=== PATIENT | male | born 1960 | race Caucasian/White ===

== ENCOUNTER 2016-09-04 17:22 | Emergency (ER) | payer MEDICARE, MEDICAID ==
[2016-09-04 17:36] VITALS: BP 153/83
[2016-09-04] MEDS ORDERED: Diphtheria/Tetanus Toxoids,Adult (Td) 0.5 ML SDV IM ONE (18:06)
--- NOTE | 2016-09-04 18:12 | EDM.PDOC ---
ED HPI GENERAL MEDICAL PROBLEM - General Chief Complaint: General Stated Complaint: PAIN IN TOES Time Seen by Provider: 09/04/16 17:30 Source of Information: Reports: Patient - History of Present Illness INITIAL COMMENTS - FREE TEXT/NARRATIVE: Patient comes in with concerns to the right foot. He notes they are discolored and funny drainage. Sometimes are sore when walking. Denies any injury. He notes they have looked different for a few weeks but the skin came off today and he was concerned. He wonders if his shoes are too tight. No pain or fever. He has tried lotion to his feet. He denies being a diabetic. His sister in law Sarah is his real estate underwriter. He does have Schizophrenia and follows with Dr. Bhatt and Dr. Nagel. Onset Date: 08/14/16 Right 3-Middle toe Pain Score (Numeric/FACES): 3 - Related Data Allergies Allergy/AdvReac Type Severity Reaction Status Date / Time No Known Allergies Allergy Verified 09/04/16 17:35 Home Meds: Home Meds Cyclobenzaprine HCl 10 mg PO BEDTIME PRN 05/15/15 [History] Esomeprazole [NexIUM] 40 mg PO DAILY 05/15/15 [History] atorvaSTATin Calcium [Atorvastatin Calcium] 40 mg PO QPM 05/15/15 [History] cloZAPine [Clozapine] 200 mg PO DAILY 05/15/15 [History] Mirtazapine [Mirtazapine] 15 mg PO QPM 12/04/15 [History] cloZAPine [Clozapine] 100 mg PO DAILY@1400 12/04/15 [History] cloZAPine [Clozapine] 400 mg PO QPM 12/04/15 [History] Past Medical History HEENT History: Reports: Impaired vision, Other (see below) Other HEENT History: Deaf Right Ear Cardiovascular History: Reports: High cholesterol Psychiatric History: Reports: Schizophrenia - Past Surgical History HEENT Surgical History: Reports: None Cardiovascular Surgical History: Reports: None GI Surgical History: Reports: Appendectomy Social & Family History - Tobacco Use Smoking Status *Q: Current Every Day Smoker Years of Tobacco use: 30 Packs/Tins Daily: 1 - Recreational Drug Use Recreational Drug Use: No ED ROS GENERAL - Review of Systems Review Of Systems: See Below Constitutional: Denies: fever, chills Musculoskeletal: Denies: foot pain Skin: Reports: other Neurological: Reports: no symptoms (HPI) ED EXAM, GENERAL - Physical Exam Exam: See Below Exam Limited By: No limitations General Appearance: alert, no apparent distress Cardiovascular: no edema Peripheral Pulses: 2+: dorsalis pedis (R) Extremities: other (Right foot without redness. 4th toe with skin removed from palmar aspect and loose. No drainage and skin underneath bright red and healing. The 3rd toe has a blister to the palmar aspect and is intacit without redness) Course - Vital Signs Last Recorded V/S: Last Vital Signs Temp 99.5 F 09/04/16 17:28 Pulse Resp BP 153/83 H 09/04/16 17:28 Pulse Ox 98 09/04/16 17:28 - Orders/Labs/Meds Orders: Active Orders 24 hr Category Date Time Status Vaccines to be Administered [RC] PER UNIT ROUTINE Care 09/04/16 18:06 Ordered Diphtheria/Tetanus Tox,Adult [Tenivac] Med 09/04/16 18:06 Once 0.5 ml IM .ONCE ONE Departure - Departure Time of Disposition: 18:16 Disposition: Home, Self-Care 01 Clinical Impression: Blister (nonthermal), right great toe, initial encounter Forms: ED Department Discharge Additional Instructions: To be seen in the clinic on Wednesday for a recheck. Directions written out for wound care. - Problem List & Annotations (1) Blister of toe of right foot with infection SNOMED Code(s): 38871995 Code(s): S90.424A - BLISTER (NONTHERMAL), RIGHT LESSER TOE(S), INITIAL ENCOUNTER; L08.9 - LOCAL INFECTION OF THE SKIN AND SUBCUTANEOUS TISSUE, UNSP Status: Acute Current Visit: Yes Annotation/Comment:: 09/04/2016 Did trim tissue from the 4th toe and then cleansed with saline. Applied Bacitractin , Xeroform, dressing and wrapped with guaze and fernandez wrap. Wrapped the 3rd toe with dry dressing also. PUt on a new sock and gave him a Cast shoe to prevent pressure. Also gave a TD as no record of tetanus. Called his Sister Carley as he came to the ER alone. Would like her to change the dressing daily over the weekend and then be seen in the clinic on Wednesday for a recheck. Instructions will be written down also. To watch for signs of infection which I reviewed with Carley. To leave the blister alone to the 3rd toe also and just keep it protected. Qualifiers: Encounter type: initial encounter Qualified Code(s): S90.424A - Blister ( nonthermal), right lesser toe(s), initial encounter; L08.9 - Local infection of the skin and subcutaneous tissue, unspecified - My Orders Last 24 Hours: My Active Orders 09/04/16 18:06 Vaccines to be Administered [RC] PER UNIT ROUTINE Diphtheria/Tetanus Tox,Adult [Tenivac] 0.5 ml IM .ONCE ONE - Assessment/Plan Last 24 Hours: My Active Orders 09/04/16 18:06 Vaccines to be Administered [RC] PER UNIT ROUTINE Diphtheria/Tetanus Tox,Adult [Tenivac] 0.5 ml IM .ONCE ONE
== END 2016-09-04 18:15 | disposition home or self-care (01) ==
LOC: LB.ED 17:22
DX: S90.424A Blister (nonthermal), right lesser toe(s), initial encounter (principal); L08.9 Local infection of the skin and subcutaneous tissue, unspecified; E78.00 Pure hypercholesterolemia, unspecified; Z90.49 Acquired absence of other specified parts of digestive tract; F17.210 Nicotine dependence, cigarettes, uncomplicated; Z79.899 Other long term (current) drug therapy
CPT/HCPCS: 90471; 90714; 99283; 99283-25

== ENCOUNTER 2018-06-30 10:36 | Emergency (ER) | payer MEDICARE, MEDICAID ==
[2018-06-30 10:53] VITALS: BP 119/65
--- NOTE | 2018-07-01 07:56 | ER ---
DATE OF SERVICE: 06/30/2018 The patient is a 57-year-old male, who comes in today concerned that he may have frostbite to his toes. He thinks it happened 3 to 4 days ago. The weather has been extremely cold. The patient does have a couple pairs of socks on and some pack boots, but his toes ache and he is concerned because his right 4th toe is blue. He does have some thickening to his nails. He has had decreased dorsalis pedis pulse. ALLERGIES: NKDA. CURRENT MEDICATIONS: Clonazepam, atorvastatin, mirtazapine, Nexium, and cyclobenzaprine. SOCIAL HISTORY: The patient does smoke. PHYSICAL EXAMINATION: GENERAL: He is alert, oriented, no apparent distress. VITAL SIGNS: Temperature is 98.5, respirations 20, pulse is 104, blood pressure is 119/65, O2 sat is 98%. EXTREMITIES: On his lower extremities, the patient has extremely cold toes. He has a palpable dorsalis pedis pulse on the right, a better one on the left. He has extremely decreased capillary refill, and his right 4th toe is somewhat blue and discolored, but again his feet are quite cold. ASSESSMENT: Decreased peripheral circulation. PLAN: The patient denies claudication. Given that his toes are that cold, he could well have some Raynaud's phenomenon. We will go ahead and obtain an arterial Doppler. We will start him on some Cardizem CD 120 mg daily. We will see if that helps. We will have him follow up in clinic next week to see if his feet do better on the Cardizem. Initially it looks like his circulation is okay from a larger vessel standpoint, so this could well be Raynaud's, but the patient denies any symptoms in his hands, even when they get cold, just in his feet. So, we will get the official reading on the vascular Doppler, and we will have the patient return to clinic next week for followup and see how he does with the Cardizem. I did discuss with him that it may lower his blood pressure, and his blood pressure is already 119/65, so if he gets lightheaded or dizzy on the Cardizem, we will just have him discontinue it. HAYLEY/TORREY /[id number]
--- NOTE | 2018-07-01 08:20 | US ---
BILATERAL LOWER EXTREMITY DUPLEX ARTERIAL ULTRASOUND: Johnson-scale, color Doppler, and pulse Doppler images were obtained. No significant velocities, velocity changes, or Doppler spectrum waveform changes consistent with significant stenosis. No occlusion. [id number] [facility]
== END 2018-06-30 12:30 | disposition home or self-care (01) ==
LOC: LB.ED 10:36
DX: I73.89 Other specified peripheral vascular diseases (principal)
CPT/HCPCS: 93925-50; 99283-25

== ENCOUNTER 2020-07-01 20:41 | Emergency (ER) | payer MEDICARE, MEDICAID ==
[2020-07-01] MEDS ORDERED: Magnesium Citrate Solution 296 ML Bottle ONE (21:30)
[2020-07-01] MEDS ORDERED: Ketorolac 60 MG/2 ML SDV IVPUSH ONE (21:40)
[2020-07-01] MEDS ORDERED: Magnesium Citrate Solution 296 ML Bottle PO ONE (21:40)
[2020-07-01] MEDS ORDERED: Ketorolac 30 MG/ML SDV ONE (21:47)
--- NOTE | 2020-07-01 21:52 | EDM.PDOC ---
ED HPI GENERAL MEDICAL PROBLEM - General Chief Complaint: Behavioral/Psych Stated Complaint: Hearing Voices Time Seen by Provider: 07/01/20 21:30 Source of Information: Reports: Patient History Limitations: Reports: No Limitations - History of Present Illness INITIAL COMMENTS - FREE TEXT/NARRATIVE: pt presents to the ER stating back pain he rates "10/10" which he describes as e xcruciating and radiates to the rest of his body. he states this pain started a few weeks ago coinciding with his constipation. pain improves with massage but he doesn't recall any factors that exacerbate. pt denies fever, chills, nausea, vomiting, headache, weakness. pt states he has been feeling constipated over the past 2-3 weeks with less frequent bowel movements and more frequent abdominal cr amping. medical history significant for schizophrenia. pt states he does have audio hallucinations, they are not new and they happen what pt states is a regular basis. he states the voices do not encourage self harm or harm of others and pt states he feels safe at home. Back Pain Score (Numeric/FACES): 10 - Related Data Allergies Allergy/AdvReac Type Severity Reaction Status Date / Time No Known Allergies Allergy Verified 06/30/18 10:43 Home Meds: Home Meds Cyclobenzaprine HCl 10 mg PO BEDTIME PRN 05/15/15 [History] Esomeprazole [NexIUM] 40 mg PO DAILY 05/15/15 [History] atorvaSTATin Calcium [Atorvastatin Calcium] 40 mg PO QPM 05/15/15 [History] cloZAPine [Clozapine] 200 mg PO DAILY 05/15/15 [History] Mirtazapine 15 mg PO QPM 12/04/15 [History] cloZAPine [Clozapine] 100 mg PO DAILY@1400 12/04/15 [History] cloZAPine [Clozapine] 400 mg PO QPM 12/04/15 [History] Acetaminophen [Tylenol Extra Strength] 1,000 mg PO Q6H PRN #100 tab 07/01/20 [Rx] Ibuprofen 600 mg PO QID PRN #50 tablet 07/01/20 [Rx] Past Medical History HEENT History: Reports: Impaired Vision, Other (See Below) Other HEENT History: Deaf Right Ear Cardiovascular History: Reports: High Cholesterol Psychiatric History: Reports: Schizophrenia - Past Surgical History HEENT Surgical History: Reports: None Cardiovascular Surgical History: Reports: None GI Surgical History: Reports: Appendectomy Social & Family History - Tobacco Use Tobacco Use Status *Q: Current Every Day Tobacco User Years of Tobacco use: 40 Packs/Tins Daily: 1 - Recreational Drug Use Recreational Drug Use: Yes Drug Use in Last 12 Months: No Recreational Drug Type: Reports: Amphetamines (Speed), Barbituates, Marijuana/Hashish ED ROS GENERAL - Review of Systems Review Of Systems: Comprehensive ROS is negative, except as noted in HPI. ED EXAM, GENERAL - Physical Exam Exam: See Below Exam Limited By: No Limitations General Appearance: Alert, WD/WN, No Apparent Distress Eye Exam: Bilateral Eye: EOMI, PERRL Head: Atraumatic, Normocephalic Neck: Normal Inspection, Non-Tender, Full Range of Motion Respiratory/Chest: No Respiratory Distress, Normal Breath Sounds, No Accessory Muscle Use Cardiovascular: Normal Peripheral Pulses, No Edema Peripheral Pulses: 2+: Radial (L), Radial (R), Posterior Tibial (L), Posterior Tibial (R) GI/Abdominal: Normal Bowel Sounds, Soft, Non-Tender, No Distention, No Mass (Male) Exam: No Hernia Back Exam: Normal Inspection, Full Range of Motion, Paraspinal Tenderness, Other (no vertebral TTP) Extremities: Normal Inspection, Non-Tender, No Pedal Edema, Normal Capillary Refill Neurological: Alert, Oriented Skin Exam: Warm, Dry, Intact Course - Vital Signs Last Recorded V/S: Last Vital Signs Temp 97.6 F 07/01/20 21:03 Pulse 90 07/01/20 21:03 Resp 16 07/01/20 21:03 BP 132/82 07/01/20 21:03 Pulse Ox 94 L 07/01/20 21:03 - Orders/Labs/Meds Meds: Medications Discontinued Medications Generic Name Dose Route Start Last Admin Trade Name Freq PRN Reason Stop Dose Admin Ketorolac Tromethamine Confirm 07/01/20 21:47 Toradol Administered 07/01/20 21:48 Dose 30 mg .ROUTE .STK-MED ONE Ketorolac Tromethamine 15 mg 07/01/20 21:40 Toradol IVPUSH 07/01/20 21:41 ONETIME ONE Magnesium Citrate 296 ml 07/01/20 21:40 Citrate Of Magnesia PO 07/01/20 21:41 ONETIME ONE Departure - Departure Time of Disposition: 22:02 Disposition: Home, Self-Care 01 Condition: Good Clinical Impression: Musculoskeletal back pain, Schizophrenia, Constipation - Discharge Information *PRESCRIPTION DRUG MONITORING PROGRAM REVIEWED*: No *COPY OF PRESCRIPTION DRUG MONITORING REPORT IN PATIENT NAHEED: No Referrals: PCP,None [Primary Care Provider] - Sepsis Event Note (ED) - Evaluation Sepsis Screening Result: No Definite Risk - Focused Exam Vital Signs: Vital Signs Temp Pulse Resp BP Pulse Ox 07/01/20 21:03 97.6 F 90 16 132/82 94 L - Problem List & Annotations (1) Constipation SNOMED Code(s): 58851899 Code(s): K59.00 - CONSTIPATION, UNSPECIFIED Status: Acute Current Visit: Yes (2) Musculoskeletal back pain SNOMED Code(s): 073243422, 960572515 Code(s): M54.9 - DORSALGIA, UNSPECIFIED Status: Acute Current Visit: Yes (3) Schizophrenia SNOMED Code(s): 97138723 Code(s): F20.9 - SCHIZOPHRENIA, UNSPECIFIED Status: Acute Current Visit: Yes - Problem List Review Problem List Initiated/Reviewed/Updated: Yes - Assessment/Plan Assessment:: assessment: schizophrenia musculoskeletal back pain constipation plan: continue regular medications for schizophrenia, if you feel the urge to hurt yourself or others, please return to ER for evaluation toradol for pain today improved comfort markedly. continue with tylenol 1,000mg and ibuprofen 600mg QID PRN pain. mag citrate for constipation to be taken at home.
[2020-07-01 21:59] VITALS: BP 108/82; PULSE 72
== END 2020-07-01 22:20 | disposition home or self-care (01) ==
LOC: LB.ED 20:41
DX: K59.00 Constipation, unspecified (principal); M54.9 Dorsalgia, unspecified; F20.9 Schizophrenia, unspecified; E78.00 Pure hypercholesterolemia, unspecified; F17.210 Nicotine dependence, cigarettes, uncomplicated; Z79.899 Other long term (current) drug therapy
CPT/HCPCS: 96374; 99283-25; A9270-GY; J1885

== ENCOUNTER 2020-07-20 11:06 | Emergency (ER) | payer MEDICARE, MEDICAID ==
--- NOTE | 2020-07-20 11:46 | EDM.PDOC ---
ED HPI GENERAL MEDICAL PROBLEM - General Chief Complaint: General Stated Complaint: left side pain Time Seen by Provider: 07/20/20 11:30 Source of Information: Reports: Patient History Limitations: Reports: No Limitations - History of Present Illness INITIAL COMMENTS - FREE TEXT/NARRATIVE: patient presented to the ER with a c/o left upper abdomen/lower chest pain, radiating to the left shoulder. No fever or chills, but reports a moist cough and exertional SOB for 1-2 weeks. pain when he coughs. No abd pain. no urinary symptoms. No GI loss. no dizziness. Patient is hard of hearing, has a h/o SCZ. Reports smoking for 1-2 packs daily for +20 yrs Also reports unintentional weight loss >50lbs over the last year. Onset: Gradual Duration: Week(s): (1) Location: Reports: Chest Treatments [facility]: Reports: Aspirin - Related Data Allergies Allergy/AdvReac Type Severity Reaction Status Date / Time No Known Allergies Allergy Verified 07/20/20 11:16 Home Meds: Home Meds Cyclobenzaprine HCl 10 mg PO BEDTIME PRN 05/15/15 [History] Esomeprazole [NexIUM] 40 mg PO DAILY 05/15/15 [History] atorvaSTATin Calcium [Atorvastatin Calcium] 40 mg PO QPM 05/15/15 [History] cloZAPine [Clozapine] 200 mg PO DAILY 05/15/15 [History] Mirtazapine 15 mg PO QPM 12/04/15 [History] cloZAPine [Clozapine] 100 mg PO DAILY@1400 12/04/15 [History] cloZAPine [Clozapine] 400 mg PO QPM 12/04/15 [History] Acetaminophen [Tylenol Extra Strength] 1,000 mg PO Q6H PRN #100 tab 07/01/20 [Rx] Ibuprofen 600 mg PO QID PRN #50 tablet 07/01/20 [Rx] Past Medical History HEENT History: Reports: Impaired Vision, Other (See Below) Other HEENT History: Deaf Right Ear Cardiovascular History: Reports: High Cholesterol Psychiatric History: Reports: Schizophrenia - Past Surgical History HEENT Surgical History: Reports: None Cardiovascular Surgical History: Reports: None GI Surgical History: Reports: Appendectomy Social & Family History - Tobacco Use Years of Tobacco use: 40 Packs/Tins Daily: 1 - Caffeine Use Caffeine Use: Reports: Soda - Recreational Drug Use Recreational Drug Use: No ED ROS GENERAL - Review of Systems Review Of Systems: See Below Constitutional: Reports: No Symptoms HEENT: Reports: No Symptoms Respiratory: Reports: Shortness of Breath, Cough, Sputum Cardiovascular: Reports: Chest Pain Endocrine: Reports: No Symptoms GI/Abdominal: Reports: Abdominal Pain. Denies: Diarrhea, Melena, Nausea, Vomiting : Reports: No Symptoms Musculoskeletal: Reports: No Symptoms Skin: Reports: No Symptoms Neurological: Reports: No Symptoms Psychiatric: Reports: No Symptoms ED EXAM, GENERAL - Physical Exam Exam: See Below Exam Limited By: No Limitations General Appearance: Alert, WD/WN, Lethargic, Mild Distress Eye Exam: Bilateral Eye: PERRL Throat/Mouth: Normal Inspection Respiratory/Chest: Respiratory Distress, Crackles (LLL) Cardiovascular: Normal Peripheral Pulses, Tachycardia GI/Abdominal: Normal Bowel Sounds, Soft, Non-Tender Neurological: Alert, Oriented, No Motor/Sensory Deficits, Other (mild conginitive defecet due to SCZ) Course - Vital Signs Last Recorded V/S: Last Vital Signs Temp 37.1 C 07/20/20 12:13 Pulse 115 H 07/20/20 13:36 Resp 37 H 07/20/20 13:36 BP 136/89 07/20/20 13:36 Pulse Ox 96 07/20/20 13:36 - Orders/Labs/Meds Orders: Active Orders 24 hr Category Date Time Status EKG Documentation Completion [RC] ASDIRECTED Care 07/20/20 11:17 Active Chest 1V Frontal [CR] Stat Exams 07/20/20 11:17 Taken Chest w Cont [CT] Stat Exams 07/20/20 12:17 Taken CULTURE BLOOD [BC] Stat Lab 07/20/20 11:42 Received CULTURE BLOOD [BC] Stat Lab 07/20/20 12:01 Received UA RFX BERNICE AND CULT IF INDIC [URIN] Stat Lab 07/20/20 11:36 Ordered Sodium Chloride 0.9% [Normal Saline] 1,000 ml Med 07/20/20 12:30 Active IV ASDIRECTED Vancomycin 1 gm Med 07/20/20 13:22 Active Sodium Chloride 0.9% [Normal Saline] 250 ml IV ONETIME Medication Orders Sodium Chloride (Normal Saline) 1,000 mls @ 500 mls/hr IV ASDIRECTED EMILIA Last Admin: 07/20/20 12:22 Dose: 500 mls/hr Documented by: YAMINI Vancomycin HCl 1 gm/ Sodium (Chloride) 250 mls @ 167 mls/hr IV ONETIME ONE Stop: 07/20/20 14:51 Last Admin: 07/20/20 14:20 Dose: 167 mls/hr Documented by: CARLTON Labs: Laboratory Tests 07/20/20 07/20/20 07/20/20 Range/Units 11:31 11:35 11:40 WBC 28.6 H* D (4.0-11.0) K/uL RBC 4.23 L (4.50-6.50) M/uL Hgb 12.2 L (13.0-18.0) g/dL Hct 36.9 L (40.0-54.0) % MCV 87 (76-96) fL MCH 28.8 (27.0-32.0) pg MCHC 33.1 (31.0-35.0) g/dL RDW 14.4 (11.0-16.0) % Plt Count 500 H D (150-400) K/uL MPV 9.1 (6.0-10.0) fL Neut % (Auto) Fish Net Maker Lymph % (Auto) Fish Net Maker Tillman % (Auto) Fish Net Maker Eos % (Auto) Fish Net Maker Baso % (Auto) Fish Net Maker Neut # (Auto) Fish Net Maker Lymph # (Auto) Fish Net Maker Tillman # (Auto) Fish Net Maker Eos # (Auto) Fish Net Maker Baso # (Auto) Fish Net Maker Add Manual Diff Yes Neutrophils % (Manual) 90.0 H (45.0-70.0) % Lymphocytes % (Manual) 7.0 L (20.0-40.0) % Monocytes % (Manual) 3.0 (3.0-10.0) % Platelet Estimate Increased RBC Morph Comment See note PT (9.0-11.5) sec INR (1.0-3.5) D-Dimer, Quantitative (0-400) ng/mL Sodium 139 (136-145) mmol/L Potassium 3.5 (3.5-5.1) mmol/L Chloride 100 (98-107) mmol/L Carbon Dioxide 26.9 (21.0-32.0) mmol/L Anion Gap 15.6 H (5.0-15.0) mmol/L BUN 10 D (8-26) mg/dL Creatinine 1.23 (0.70-1.30) mg/dL Est Cr Clr Drug Dosing 46.30 mL/min Estimated GFR (MDRD) > 60 (>60) MLS/MIN BUN/Creatinine Ratio 8.1 (6-25) Glucose 227 H D (74-100) mg/dL Calcium 8.6 (8.5-10.1) mg/dL Total Bilirubin 0.3 D (0.0-1.0) mg/dL AST 20 (15-37) U/L ALT 26 (12-78) U/L Alkaline Phosphatase 180 H (46-116) U/L Troponin I (0.000-0.060) ng/mL B-Natriuretic Peptide (0-125) pg/mL Total Protein 6.9 (6.4-8.2) g/dL Albumin 2.2 L (3.4-5.0) g/dL Globulin 4.7 H (2.2-4.2) g/dL Albumin/Globulin Ratio 0.5 L (0.8-2.0) TSH, Ultra Sensitive 1.004 D (0.358-3.740) uIU/mL SARS-CoV-2 RNA (DARSHAN) (NEGATIVE) 07/20/20 07/20/20 07/20/20 Range/Units 11:40 11:42 12:00 WBC (4.0-11.0) K/uL RBC (4.50-6.50) M/uL Hgb (13.0-18.0) g/dL Hct (40.0-54.0) % MCV (76-96) fL MCH (27.0-32.0) pg MCHC (31.0-35.0) g/dL RDW (11.0-16.0) % Plt Count (150-400) K/uL MPV (6.0-10.0) fL Neut % (Auto) Lymph % (Auto) Tillman % (Auto) Eos % (Auto) Baso % (Auto) Neut # (Auto) Lymph # (Auto) Tillman # (Auto) Eos # (Auto) Baso # (Auto) Add Manual Diff Neutrophils % (Manual) (45.0-70.0) % Lymphocytes % (Manual) (20.0-40.0) % Monocytes % (Manual) (3.0-10.0) % Platelet Estimate RBC Morph Comment PT (9.0-11.5) sec INR (1.0-3.5) D-Dimer, Quantitative 1140 H (0-400) ng/mL Sodium (136-145) mmol/L Potassium (3.5-5.1) mmol/L Chloride (98-107) mmol/L Carbon Dioxide (21.0-32.0) mmol/L Anion Gap (5.0-15.0) mmol/L BUN (8-26) mg/dL Creatinine (0.70-1.30) mg/dL Est Cr Clr Drug Dosing mL/min Estimated GFR (MDRD) (>60) MLS/MIN BUN/Creatinine Ratio (6-25) Glucose (74-100) mg/dL Calcium (8.5-10.1) mg/dL Total Bilirubin (0.0-1.0) mg/dL AST (15-37) U/L ALT (12-78) U/L Alkaline Phosphatase (46-116) U/L Troponin I < 0.017 (0.000-0.060) ng/mL B-Natriuretic Peptide 251 H (0-125) pg/mL Total Protein (6.4-8.2) g/dL Albumin (3.4-5.0) g/dL Globulin (2.2-4.2) g/dL Albumin/Globulin Ratio (0.8-2.0) TSH, Ultra Sensitive (0.358-3.740) uIU/mL SARS-CoV-2 RNA (DARSHAN) Negative (NEGATIVE) 07/20/20 Range/Units 12:20 WBC (4.0-11.0) K/uL RBC (4.50-6.50) M/uL Hgb (13.0-18.0) g/dL Hct (40.0-54.0) % MCV (76-96) fL MCH (27.0-32.0) pg MCHC (31.0-35.0) g/dL RDW (11.0-16.0) % Plt Count (150-400) K/uL MPV (6.0-10.0) fL Neut % (Auto) Lymph % (Auto) Tillman % (Auto) Eos % (Auto) Baso % (Auto) Neut # (Auto) Lymph # (Auto) Tillman # (Auto) Eos # (Auto) Baso # (Auto) Add Manual Diff Neutrophils % (Manual) (45.0-70.0) % Lymphocytes % (Manual) (20.0-40.0) % Monocytes % (Manual) (3.0-10.0) % Platelet Estimate RBC Morph Comment PT 11.7 H (9.0-11.5) sec INR 1.1 (1.0-3.5) D-Dimer, Quantitative (0-400) ng/mL Sodium (136-145) mmol/L Potassium (3.5-5.1) mmol/L Chloride (98-107) mmol/L Carbon Dioxide (21.0-32.0) mmol/L Anion Gap (5.0-15.0) mmol/L BUN (8-26) mg/dL Creatinine (0.70-1.30) mg/dL Est Cr Clr Drug Dosing mL/min Estimated GFR (MDRD) (>60) MLS/MIN BUN/Creatinine Ratio (6-25) Glucose (74-100) mg/dL Calcium (8.5-10.1) mg/dL Total Bilirubin (0.0-1.0) mg/dL AST (15-37) U/L ALT (12-78) U/L Alkaline Phosphatase (46-116) U/L Troponin I (0.000-0.060) ng/mL B-Natriuretic Peptide (0-125) pg/mL Total Protein (6.4-8.2) g/dL Albumin (3.4-5.0) g/dL Globulin (2.2-4.2) g/dL Albumin/Globulin Ratio (0.8-2.0) TSH, Ultra Sensitive (0.358-3.740) uIU/mL SARS-CoV-2 RNA (DARSHAN) (NEGATIVE) Meds: Medications Generic Name Dose Route Start Last Admin Trade Name Freq PRN Reason Stop Dose Admin Sodium Chloride 1,000 mls @ 500 mls/hr 07/20/20 12:30 07/20/20 12:22 Normal Saline IV 500 mls/hr ASDIRECTED EMILIA Administration Vancomycin HCl 1 gm/ Sodium 250 mls @ 167 mls/hr 07/20/20 13:22 07/20/20 14:20 Chloride IV 07/20/20 14:51 167 mls/hr ONETIME ONE Administration Discontinued Medications Generic Name Dose Route Start Last Admin Trade Name Lon PRN Reason Stop Dose Admin Piperacillin Sod/Tazobactam 100 mls @ 100 mls/hr 07/20/20 11:58 07/20/20 12:07 Sod 3.375 gm/ Sodium Chloride IV 07/20/20 12:57 100 mls/hr NOW STA Administration Ketorolac Tromethamine Confirm 07/20/20 14:20 07/20/20 14:16 Toradol Administered 07/20/20 14:21 Not Given Dose 30 mg .ROUTE .STK-MED ONE Ketorolac Tromethamine 30 mg 07/20/20 14:15 07/20/20 14:17 Toradol IVPUSH 07/20/20 14:16 30 mg ONETIME ONE Administration Morphine Sulfate 4 mg 07/20/20 12:18 07/20/20 12:30 Morphine IVPUSH 07/20/20 12:19 4 mg ONETIME ONE Administration Morphine Sulfate Confirm 07/20/20 12:40 07/20/20 12:45 Morphine Administered 07/20/20 12:41 Not Given Dose 4 mg .ROUTE .STK-MED ONE - Re-Assessments/Exams Free Text/Narrative Re-Assessment/Exam: patient was found to be tachycardic to 120 pbm. RR 22-25 but satting well on RA. 97%. labs were ordered as well as CXR. rule out PNA, PE, COVID, Heart attack and others. labs significant for leukocytosis 28, high neurophil and DDimer elevation. CT PE protocol was done - showed different changes c/w possible pneumonia, mass- like lesion and a possible PE. Blood Cx was obtained before Abx. Re-pneumonia - IV vanco 1gm IV Zosyn 3.375mg Morphine and Toradol for pain control Heparin was also started until definitive PE is ruled out. Given the h/o weight loss, smoking, mass like lesion - the possibility of lung cancer superimposing pneumonia and PE is high. High risk of deterioration in a case like him. IV abx and heparin was started. Trx to higher level of care of Oncology and ICU support. Departure - Departure Time of Disposition: 13:55 Disposition: DC/Tfer to Acute Hospital 02 Condition: Fair Clinical Impression: Pneumonia, PE, Pulmonary embolism, Respiratory distress, Schizophrenia Leukocytosis Qualifiers: Leukocytosis type: unspecified Qualified Code(s): D72.829 - Elevated white blood cell count, unspecified - Discharge Information *PRESCRIPTION DRUG MONITORING PROGRAM REVIEWED*: Not Applicable *COPY OF PRESCRIPTION DRUG MONITORING REPORT IN PATIENT NAHEED: Not Applicable Referrals: PCP,None [Primary Care Provider] - Forms: ED Department Discharge Sepsis Event Note (ED) - Evaluation Sepsis Screening Result: No Definite Risk - Focused Exam Vital Signs: Vital Signs Temp Pulse Resp BP Pulse Ox 07/20/20 13:36 115 H 37 H 136/89 96 07/20/20 12:13 37.1 C 121 H 30 H 130/77 98 07/20/20 11:17 37.1 C 125 H 36 H 133/70 94 L - Problem List & Annotations (1) Leukocytosis SNOMED Code(s): 540814753, 976791199 Code(s): D72.829 - ELEVATED WHITE BLOOD CELL COUNT, UNSPECIFIED Status: Acute Priority: Medium Current Visit: Yes Qualifiers: Leukocytosis type: unspecified Qualified Code(s): D72.829 - Elevated white blood cell count, unspecified (2) PE, Pulmonary embolism SNOMED Code(s): 42504241 Code(s): I26.99 - OTHER PULMONARY EMBOLISM WITHOUT ACUTE COR PULMONALE Status: Acute Priority: Medium Current Visit: Yes (3) Pneumonia SNOMED Code(s): 953812070 Code(s): J18.9 - PNEUMONIA, UNSPECIFIED ORGANISM Status: Acute Priority: Medium Current Visit: Yes (4) Respiratory distress SNOMED Code(s): 070544044 Code(s): R06.03 - ACUTE RESPIRATORY DISTRESS Status: Acute Priority: Medium Current Visit: Yes (5) Lung mass SNOMED Code(s): 533371316 Code(s): R91.8 - OTHER NONSPECIFIC ABNORMAL FINDING OF LUNG FIELD Status: Acute Priority: Medium Current Visit: Yes - Problem List Review Problem List Initiated/Reviewed/Updated: Yes - My Orders Last 24 Hours: My Active Orders 07/20/20 11:17 EKG Documentation Completion [RC] ASDIRECTED Chest 1V Frontal [CR] Stat 07/20/20 11:36 UA RFX BERNICE AND CULT IF INDIC [URIN] Stat 07/20/20 11:42 CULTURE BLOOD [BC] Stat 07/20/20 12:01 CULTURE BLOOD [BC] Stat 07/20/20 12:17 Chest w Cont [CT] Stat 07/20/20 12:30 Sodium Chloride 0.9% [Normal Saline] 1,000 ml IV ASDIRECTED 07/20/20 13:22 Vancomycin 1 gm Sodium Chloride 0.9% [Normal Saline] 250 ml IV ONETIME - Assessment/Plan Last 24 Hours: My Active Orders 07/20/20 11:17 EKG Documentation Completion [RC] ASDIRECTED Chest 1V Frontal [CR] Stat 07/20/20 11:36 UA RFX BERNICE AND CULT IF INDIC [URIN] Stat 07/20/20 11:42 CULTURE BLOOD [BC] Stat 07/20/20 12:01 CULTURE BLOOD [BC] Stat 07/20/20 12:17 Chest w Cont [CT] Stat 07/20/20 12:30 Sodium Chloride 0.9% [Normal Saline] 1,000 ml IV ASDIRECTED 07/20/20 13:22 Vancomycin 1 gm Sodium Chloride 0.9% [Normal Saline] 250 ml IV ONETIME Plan: transfer to higher level of care by ambulance after stabilization
[2020-07-20] MEDS ORDERED: Piperacillin/Tazobactam 3.375 GM in Sodium Chloride 0.9% 100 ML IV STA (11:58)
[2020-07-20] MEDS ORDERED: Morphine 4 MG/ML VIAL IVPUSH ONE (12:18)
[2020-07-20] MEDS ORDERED: Sodium Chloride 0.9% 1,000 ML IV SCH (12:30)
[2020-07-20] MEDS ORDERED: Morphine 4 MG/ML VIAL ONE (12:40)
[2020-07-20 13:36] VITALS: BP 136/89; PULSE 115
[2020-07-20] MEDS ORDERED: Ketorolac 30 MG/ML SDV IVPUSH ONE (14:15)
[2020-07-20] MEDS ORDERED: Ketorolac 30 MG/ML SDV ONE (14:20)
[2020-07-20] MEDS ORDERED: Heparin Sodium/D5W 25,000 UNITS/500 ML BAG IV SCH (14:30)
--- NOTE | 2020-07-21 13:38 | CR ---
DATE OF SERVICE: 07/20/20 CLINICAL DATA: dyspnea AP CHEST: No priors. The heart size is normal. There is extensive area of infiltrate and consolidation of the left lower lung. Pneumonia should be considered. There is blunting of the left costophrenic angle consistent with small left pleural effusion. The right lung is clear. No other significant findings. No pneumothorax. [id number] MTDD
--- NOTE | 2020-07-21 13:49 | CT ---
DATE OF SERVICE: 07/20/20 CLINICAL DATA: SOB, ? PE ENHANCED CHEST CT: Multi slice acquisition through the chest with IV contrast was performed. No priors. Motion artifact significantly degrades image quality. No evidence of PE on the right. There are subtle filling defects within the left lower lobe pulmonary arteries distally and within the lingular segment of the left upper lobe, suspicious for PE. No pneumothorax. There is a moderate size left pleural effusion. No aortic aneurysm or dissection. There is a large mass-like density that extends from the left hilum laterally to the pleura. It measures 10 cm in its maximum axial dimension. The left upper lobe bronchi are contained within this mass and occluded. This is very suspicious for a bronchogenic carcinoma. There is atelectasis within the left lower lobe and lingular segment of the left upper lobe. There is also consolidation in the left lung base. The heart size is normal. No significant pericardial effusion. I do not see any enlarged hilar or mediastinal nodes. There is gas and fluid throughout the thoracic esophagus. This is probably related to GE reflux. A lesion at the gastroesophageal junction cannot be excluded. There is significant gastric wall thickening in the fundus of the stomach and body that includes the GE junction. Gastroscopy is recommended. There are mass like densities noted posterior to the stomach on the left and adjacent to the spleen. These may represent enlarged lymph nodes. There are also enlarged lymph nodes within the bayron hepatis region of the liver. Metastatic adenopathy is suspected. No lytic or blastic bone lesions. IMPRESSION: 1. Multiple abnormalities as discussed above. 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 Multiple other findings as discussed above. [id number]
== END 2020-07-20 15:00 ==
LOC: LB.ED 11:06
DX: J18.9 Pneumonia, unspecified organism (principal); D72.829 Elevated white blood cell count, unspecified; I26.99 Other pulmonary embolism without acute cor pulmonale; F20.9 Schizophrenia, unspecified; E78.00 Pure hypercholesterolemia, unspecified; F17.200 Nicotine dependence, unspecified, uncomplicated; Z79.899 Other long term (current) drug therapy; Z20.822 Contact with and (suspected) exposure to COVID-19; R06.02 Shortness of breath
CPT/HCPCS: 36415; 71045; 71260; 80053; 81001; 83880; 84443; 84484; 85025; 85379; 85610; 87040; 93005; 96365; 96367; 96368; 96375; 99285; 99285-25; A0425; A0429; J1644; J1885; J2270; J2543; J3370; J7030; J7050; U0002

== ENCOUNTER 2020-08-01 11:25 | Inpatient (IN) | payer MEDICARE, MEDICAID ==
[2020-08-01] MEDS ORDERED: Acetaminophen 500 MG Tab PO PRN ×2 (13:07→13:13)
[2020-08-01] MEDS ORDERED: Cyclobenzaprine 10 MG Tab PO PRN ×2 (13:10→13:13)
[2020-08-01] MEDS ORDERED: Ibuprofen 600 MG Tab PO PRN ×2 (13:11→13:13)
--- NOTE | 2020-08-01 18:27 | PCM.HP.2 ---
H&P History of Present Illness - General Date of Service: 08/01/20 Admit Problem/Dx: Admission Diagnosis/Problem Admission Diagnosis/Problem Weakness Source of Information: Patient, Old Records, Other History Limitations: Reports: No Limitations - History of Present Illness Initial Comments - Free Text/Narative: This is a 59yo M who was admitted for a lung mass and later discovered a non cancerous abscess requiring surgical management. He notes good strength and feeling well on arrival and his chest tube incisions are healing well. He denies any shortness of breath or chest pain at this time. He denies any issues with ambulation or appetite. Location: Reports: Chest Improves with: Reports: Rest Worsens with: Reports: Movement - Related Data Allergies/Adverse Reactions: Allergies Allergy/AdvReac Type Severity Reaction Status Date / Time No Known Allergies Allergy Verified 07/20/20 11:16 Home Medications: Home Meds Cyclobenzaprine HCl 10 mg PO BEDTIME PRN 05/15/15 [History] Esomeprazole [NexIUM] 40 mg PO DAILY 05/15/15 [History] atorvaSTATin Calcium [Atorvastatin Calcium] 40 mg PO QPM 05/15/15 [History] cloZAPine [Clozapine] 200 mg PO DAILY 05/15/15 [History] Mirtazapine 15 mg PO QPM 12/04/15 [History] cloZAPine [Clozapine] 100 mg PO DAILY@1400 12/04/15 [History] cloZAPine [Clozapine] 400 mg PO QPM 12/04/15 [History] Acetaminophen [Tylenol Extra Strength] 1,000 mg PO Q6H PRN #100 tab 07/01/20 [Rx] Ibuprofen 600 mg PO QID PRN #50 tablet 07/01/20 [Rx] Past Medical History HEENT History: Reports: Impaired Vision, Other (See Below) Other HEENT History: Deaf Right Ear Cardiovascular History: Reports: High Cholesterol Psychiatric History: Reports: Schizophrenia - Past Surgical History HEENT Surgical History: Reports: None Cardiovascular Surgical History: Reports: None GI Surgical History: Reports: Appendectomy Social & Family History - Family History Family Medical History: No Pertinent Family History GI: Reports: None : Reports: None - Tobacco Use Tobacco Use Status *Q: Current Every Day Tobacco User Years of Tobacco use: 40 Packs/Tins Daily: 2 Used Tobacco, but Quit: No Second Hand Smoke Exposure: Yes - Caffeine Use Caffeine Use: Reports: Soda - Recreational Drug Use Recreational Drug Use: No H&P Review of Systems - Review of Systems: Review Of Systems: Comprehensive ROS is negative, except as noted in HPI. Exam - Exam Exam: See Below - Vital Signs Vital Signs: Last Vital Signs Temp 36.7 C 08/01/20 15:21 Pulse 102 H 08/01/20 15:21 Resp 16 08/01/20 15:21 BP 124/70 08/01/20 15:21 Pulse Ox Weight: 71.849 kg - Exam General: Alert, Oriented, Cooperative HEENT: PERRLA, Conjunctiva Clear, EACs Clear Neck: Supple, Trachea Midline Lungs: Normal Respiratory Effort, Decreased Breath Sounds Cardiovascular: Regular Rate, Regular Rhythm GI/Abdominal Exam: Normal Bowel Sounds, Soft, Non-Tender Back Exam: Normal Inspection Extremities: Normal Inspection - Patient Data Lab Results Last 24 hrs: Laboratory Results - last 24 hr 08/01/20 Range/Units 16:22 SARS-CoV-2 RNA (DARSHAN) Negative (NEGATIVE) Sepsis Event Note - Evaluation Sepsis Screening Result: No Definite Risk - Focused Exam Vital Signs: Vital Signs Temp Pulse Resp BP 08/01/20 15:21 36.7 C 102 H 16 124/70 - Problem List (1) Generalized weakness SNOMED Code(s): 17269236 ICD Code: R53.1 - WEAKNESS Status: Acute Current Visit: Yes (2) Post-op pain SNOMED Code(s): 141058463 ICD Code: G89.18 - OTHER ACUTE POSTPROCEDURAL PAIN Status: Acute Current Visit: Yes Problem List Initiated/Reviewed/Updated: Yes Orders Last 24hrs: Active Orders 24 hr Category Date Time Status Admission Status [Patient Status] [ADT] Routine ADT 08/01/20 15:59 Active Regular Diet [DIET] Diet 08/01/20 Dinner Ordered CULTURE MRSA SURVEY [RM] Routine Lab 08/01/20 18:01 Ordered Acetaminophen [Tylenol Extra Strength] Med 08/01/20 13:07 Active 1,000 mg PO Q6H PRN Amoxicillin/Clavulanate K [Augmentin 875 MG/125 MG] Med 08/01/20 20:00 Active 1 tab PO Q12HR Cyclobenzaprine [Flexeril] Med 08/01/20 13:13 Active 10 mg PO BEDTIME PRN Ibuprofen [Motrin] Med 08/01/20 13:13 Active 600 mg PO QID PRN Mirtazapine [Remeron] Med 08/01/20 20:00 Active 15 mg PO BEDTIME Naproxen [Naprosyn] Med 08/01/20 20:00 Active 500 mg PO Q12HR Pantoprazole [ProTONIX] Med 08/02/20 08:00 Active 40 mg PO DAILY atorvaSTATin [Lipitor] Med 08/01/20 20:00 Active 40 mg PO BEDTIME cloZAPine [Clozapine] Med 08/02/20 08:00 Active 200 mg PO DAILY cloZAPine [Clozapine] Med 08/02/20 20:00 Active 400 mg PO BEDTIME Medication Orders Acetaminophen (Tylenol Extra Strength) 1,000 mg PO Q6H PRN PRN Reason: Breakthrough Pain Amoxicillin/Clavulanate Potassium (Augmentin 875 Mg/125 Mg) 1 tab PO Q12HR EMILIA Stop: 08/29/20 23:59 Atorvastatin Calcium (Lipitor) 40 mg PO BEDTIME EMILIA Cyclobenzaprine HCl (Flexeril) 10 mg PO BEDTIME PRN PRN Reason: MUSCLE SPASMS Ibuprofen (Motrin) 600 mg PO QID PRN PRN Reason: Pain Mirtazapine (Remeron) 15 mg PO BEDTIME EMILIA Naproxen (Naprosyn) 500 mg PO Q12HR EMILIA (Clozapine [ (Clozapine] 100 Mg)) 200 mg PO DAILY EMILIA (Clozapine [ (Clozapine] 100 Mg) 400 mg PO BEDTIME EMILIA Pantoprazole Sodium (Protonix) 40 mg PO DAILY EMILIA Assessment/Plan Comment:: Patient to have PT/OT evaluation and therapy prior to discharge home. Assessment for independence at home post surgery and general deconditioning. Patient agreeable with plan of care and discharge plan.
[2020-08-01] MEDS: Amoxicillin/Clavulanate K 875-125 MG Tab PO SCH (19:13)
[2020-08-01] MEDS: Mirtazapine 15 MG Tab PO SCH (19:13)
[2020-08-01] MEDS: Naproxen 500 MG Tab PO SCH (19:13)
[2020-08-01] MEDS: atorvaSTATin 40 MG Tab PO SCH (19:13)
[2020-08-01] MEDS ORDERED: Mirtazapine 15 MG Tab PO SCH (20:00)
[2020-08-01] MEDS ORDERED: atorvaSTATin 40 MG Tab PO SCH (20:00)
[2020-08-02] MEDS ORDERED: Esomeprazole 40 MG Cap PO SCH (08:00)
[2020-08-02] MEDS: Naproxen 500 MG Tab PO SCH ×2 (08:38→19:04)
[2020-08-02] MEDS: Amoxicillin/Clavulanate K 875-125 MG Tab PO SCH ×2 (08:38→19:04)
[2020-08-02] MEDS: Pantoprazole 40 MG Tab.CR PO SCH (08:38)
[2020-08-02] MEDS ORDERED: Tuberculin, PPD 5 Units/0.1 ML 1 ML MDV IDERM ONE (09:00)
[2020-08-02] MEDS: atorvaSTATin 40 MG Tab PO SCH (19:04)
[2020-08-02] MEDS: Mirtazapine 15 MG Tab PO SCH (19:04)
[2020-08-03] MEDS: Naproxen 500 MG Tab PO SCH ×2 (08:30→19:09)
[2020-08-03] MEDS: Pantoprazole 40 MG Tab.CR PO SCH (08:30)
[2020-08-03] MEDS: Amoxicillin/Clavulanate K 875-125 MG Tab PO SCH ×2 (08:30→19:09)
[2020-08-03] MEDS: atorvaSTATin 40 MG Tab PO SCH (19:09)
[2020-08-03] MEDS: Mirtazapine 15 MG Tab PO SCH (19:09)
[2020-08-03] MEDS ORDERED: Polyethylene Glycol 3350 Powder 17 GM Packet PO PRN (19:43)
[2020-08-03] MEDS ORDERED: Polyethylene Glycol 3350 Powder 17 GM Packet ONE (19:48)
[2020-08-04] MEDS: Naproxen 500 MG Tab PO SCH ×2 (08:20→19:15)
[2020-08-04] MEDS: Amoxicillin/Clavulanate K 875-125 MG Tab PO SCH ×2 (08:20→19:15)
[2020-08-04] MEDS: Pantoprazole 40 MG Tab.CR PO SCH (08:20)
[2020-08-04] MEDS: atorvaSTATin 40 MG Tab PO SCH (19:15)
[2020-08-04] MEDS: Mirtazapine 15 MG Tab PO SCH (19:15)
[2020-08-05] MEDS: Amoxicillin/Clavulanate K 875-125 MG Tab PO SCH ×2 (08:04→19:38)
[2020-08-05] MEDS: Naproxen 500 MG Tab PO SCH ×2 (08:04→19:38)
[2020-08-05] MEDS: Pantoprazole 40 MG Tab.CR PO SCH (08:05)
[2020-08-05] MEDS: atorvaSTATin 40 MG Tab PO SCH (19:38)
[2020-08-05] MEDS: Mirtazapine 15 MG Tab PO SCH (19:38)
[2020-08-06] MEDS: Naproxen 500 MG Tab PO SCH ×2 (08:13→20:00)
[2020-08-06] MEDS: Amoxicillin/Clavulanate K 875-125 MG Tab PO SCH ×2 (08:13→20:10)
[2020-08-06] MEDS: Pantoprazole 40 MG Tab.CR PO SCH (08:13)
[2020-08-06] MEDS: Mirtazapine 15 MG Tab PO SCH (20:11)
[2020-08-06] MEDS: atorvaSTATin 40 MG Tab PO SCH (20:11)
[2020-08-07] MEDS: Naproxen 500 MG Tab PO SCH (08:17)
[2020-08-07] MEDS: Amoxicillin/Clavulanate K 875-125 MG Tab PO SCH (08:18)
[2020-08-07] MEDS: Pantoprazole 40 MG Tab.CR PO SCH (08:18)
[2020-08-07 08:44] VITALS: BP 107/68; PULSE 105
--- OUTSIDE RECORDS SUMMARY | 2020-08-15 14:09 | XMSREPORT ---
:1960 Author Organization [facility] s Address [address] [place] [address] [address] [place] [address] Care Team Providers Name Role Phone Provider, No Attributed RESOURCE Attributed Provider Unavail able PcpMD Primary Care Provider Gopi Bhatt MD Primary Care Provider Reason for Visit Reason Comments Auth/Cert Status Reason Specialty Diagnoses / Procedures Referred By Nba beauchamp Referred To Contact Encounter Details Date Type Department Care Team Description 07/20/2020 - Hospital Encounter [place] Deepak Nowak iel, DO [address] [place] [address] COPD (chronic 08/01/2020 [facility] Osbaldo Allen MD [address] [place], [place] [id number] obstructive Surg Unit Estrella Brooks MD [address] [place], [place] [id number] pulmonary disease) [address] [facility] Malachi Lowe MD [address] [facility] [place] [place] [address] (HCC) [place] [address] Allergies No Known Allergiesdocumented as of this encounter (statuses as of 08/01/2020) Medications Medication Sig Dispensed Refills Start Date End Date Status cyclobenzaprine Take 10 mg by 0 Active (FLEXERIL) 10 mg tablet mouth At bedtime as needed. atorvaSTATin (LIPITOR) Take 40 mg by 0 Active 40 mg tablet mouth every night at bedtime. mirtazapine (REMERON) 15 Take 1 tablet 30 tablet 0 05/21/2015 Active mg tablet (15 mg total) by mouth every night at bedtime. Additional Information Patient taking differently: 7.5 mg Oral Bedtime, Reported on 07/22/2020 1:18 PM cloZAPine (CLOZARIL) 100 mg Take 2 tablets every 180 tablet 0 07/01/2015 Active tablet morning and 4 tablets every night at bedtime. Additional Information Patient taking differently: Medication bottle says 2 tab in the morning, 1 tab at midday, and 4 tablets at bedtime, Reported on 07/20/2020 7:15 PM ibuprofen (MOTRIN) 600 Take 600 mg by 0 Active mg tablet mouth 4 times a day as needed acetaminophen Take 1,000 mg 0 Ac tive (TYLENOL) 500 mg by mouth every tablet 6 hours as needed pantoprazole Take 40 mg by 0 Act joselito (PROTONIX) 40 mg mouth 1 time a enteric coated tablet day in the morning naproxen (NAPROSYN) Take 500 mg by 0 Active 500 mg tablet mouth 2 times a day amoxicillin-clavulanat Take 1 tablet 56 tablet 0 08/01/1910/15 Active e potassium by mouth 2 21 21 (AUGMENTIN) 875-125 mg times a day for tabletIndications: 28 days Empyema lung (HCC) esomeprazole (NEXIUM) Take 40 mg by 0 06/29 11/14 Discontinued (Data 40 mg capsule mouth 1 time 21 ent ry error) per day. benztropine (COGENTIN) Take 1 mg by 0 06/29 11/14 Discontinued (Data 1 mg tablet mouth every 21 entry error) night at bedtime. In the evening after meals or with food if GI upset occurs cloZAPine (CLOZARIL) Take 1 tablet 60 tablet 0 05/21/2007/20 Discontinued (Data 200 mg tablet (200 mg total) 15 21 e ntry error) by mouth 1 time a day in the morning. documented as of this encounter (statuses as of 08/01/2020) Active Problems Problem Noted Date COPD (chronic obstructive pulmonary disease) Lung mass 07/20/2020 Pulmonary emboli 07/20/2020 Schizo-affective psychosis 07/20/2020 PNA (pneumonia) 07/20/2020 Sepsis 07/20/2020 Schizophrenia 05/16/2015 Urticaria 11/20/2005 documented as of this encounter (statuses as of 08/01/2020) Immunizations Name Administration Dates Next Due FLU VACCINE SINGLE DOSE 05/19/2015 0.5mL(6MO+Fluzone/Flulaval/Fluarix,3YR+Afluria) Pneumococcal Polysaccharide PPSV23 05/19/2015 documented as of this encounter Social History Tobacco Use Types Packs/Day Years Used Date Current Every Day Smoker Cigarettes 1 45 Smokeless Tobacco: Former User Tobacco Cessation: Ready to Quit: No; Co unseling Given: Yes Alcohol Use Drinks/Week oz/Week Comments No 0 Glasses of wine 0.0 0 Cans of beer 0 Shots of liquor Sexually Active Control Partners Comments Not Currently None Female Sex Assigned at Date Recorded Not on file documented as of this encounter Last Filed Vital Signs Vital Sign Reading Time Taken Comments Blood Pressure 126/78 08/01/2020 8:00 AM [employer] Pulse 90 08/01/2020 8:00 AM [employer] Temperature 35.9 C (96.6 F) 08/01/2020 8:00 AM [employer] Respiratory Rate 18 08/01/2020 8:00 AM [employer] Oxygen Saturation 94% 08/01/2020 8:00 AM [employer] Inhaled Oxygen Concentration - - Weight 79.9 kg (176 lb 2.4 oz) 07/28/2020 7:00 AM [employer] Height 177.8 cm (5' 10") 07/20/2020 5:40 PM [employer] Body Mass Index 25.27 07/20/2020 5:40 PM [employer] documented in this encounter Functional Status Functional Status Response Date of Assessment Do you have difficulty with walking, balance, climbing No 05/15/2015 stairs, or had a fall in the last 3 months? documented as of this encounter Discharge Summaries Malachi Lowe MD - 08/01/2020 11:09 AM CST Hospital Discharge Summary Attending Physician: Malachi Lowe MD Attending Physician Specialty: Adult Hospitalist Admit Date: 07/20/2020 Discharge Date: 08/01/20 Primary Care Physician: Esteban Bhatt MD Discharge Diagnoses #Left sided empyema #Sepsis Present on admission #Lung Abscess #Tabacco #schizophrenia Hospital Course No notes on file Patient is a pleasant 59-year-old male with past medical history of schizophrenia [facility] requiring supplemental oxygen. On admission patient had leukocytosis, fever, tachycardia meetingSIRS criteria.CTA of the chest was done and showed possible left lower lobe PE, large pleural effusion, left upper lobe mass with possible superimposed infiltrate/consolidation he was initially assessed as having sepsis due to pneumonia, pleural effusion, possible PE Regarding the possible PE patient was initially started on heparin drip however after reviewingimagingagain THE PEwas assessed as being due to artifact and heparinDrip was stopped. Regarding the pleural effusion and possible lung mass patient had thoracentesis and only 340 mL of fluid was retrieved. There was a large multiseptated pleural effusion. Pleural fluid culture has been negative so far. No malignancy was seen. Also acute and chronic inflammatory cells were seen . Patient also had lung mass biopsy done which was positive for abscess.culture have been negative. Patient was started on IV antibiotic vancomycin, cefepime and Flagyl.Surgery was consulted and patient underwent thoracoscopy and drainage of empyema, decortication and pleurodesis on 07/26. 2 chest tube were Placed and then removed. Discussed case with infectious disease from [facility] and patient can be discharge on oral Augmentin. 28 days course given. Patient will need to follow up with general surgery in 1 week with chest ray. Given the patient's mental status with schizophrenia he is being trasferred to swing bed to finish course of treatment. LabTests Pending at Discharge Unresulted Lab Orders (From admission, onward) Start Ordered 07/23/20429 COMPLETE BLOOD COUNT WITHOUT DIFFERENTIAL Every other day - LAB, Routine Comments: - Order per standardized order set in compliance with platelet monitoring guidelines Start: 07/23/20429 End: Until Specified 07/20/201715 Follow-Up Scheduled Contact information for follow-up [facility], [facility], [address] [address] Next Steps: Follow up Karl Conley MD Specialty: General Surgery [address] [address] Next Steps: Follow up on 08/06/2020 Instructions: at 2:45 p.m. Preliminary Discharge Medications This list of medications is preliminary and tentative. Please see the After Visit Summary for the final and accurate medication list. Discharge Medication List START taking these medications START: amoxicillin-clavulanate potassium 875-125 mg tablet Commonly known as: AUGMENTIN Dose: 1 tablet Take 1 tablet by mouth 2 times a day for 28 days CONTINUE taking these medications which have CHANGED CONTINUE: cloZAPine 100 mg tablet Commonly known as: CLOZARIL Take 2 tablets every morning and 4 tablets every night at bedtime. What changed: See the new instructions. CONTINUE: mirtazapine 15 mg tablet Commonly known as: REMERON Dose: 15 mg Take 1 tablet (15 mg total) by mouth every night at bedtime. What changed: how much to take CONTINUE taking these medications which have NOT CHANGED CONTINUE: acetaminophen 500 mg tablet Commonly known as: TYLENOL Dose: 1,000 mg Take 1,000 mg by mouth every 6 hours as needed CONTINUE: atorvaSTATin 40 mg tablet Commonly known as: LIPITOR Dose: 40 mg Take 40 mg by mouth every night at bedtime. CONTINUE: cyclobenzaprine 10 mg tablet Commonly known as: FLEXERIL Dose: 10 mg Take 10 mg by mouth At bedtime as needed. CONTINUE: ibuprofen 600 mg tablet Commonly known as: MOTRIN Dose: 600 mg Take 600 mg by mouth 4 times a day as needed CONTINUE: naproxen 500 mg tablet Commonly known as: NAPROSYN Dose: 500 mg Take 500 mg by mouth 2 times a day CONTINUE: pantoprazole 40 mg enteric coated tablet Commonly known as: PROTONIX Dose: 40 mg Take 40 mg by mouth 1 time a day in the morning You might also be taking other medications not listed above. If you have questions about any of your other medications, talk to the person who prescribed them or your Primary Care Provider. Where to Get Your Medications Information about where to get these medications is not yet available Ask your nurse or doctor about these medications amoxicillin-clavulanate potassium 875-125 mg tablet Physical Exam Appearance: Normal appearance. HENT: Head: Normocephalicand atraumatic. Nose: Nose normal. Nocongestionor rhinorrhea. Mouth/Throat: Pharynx: No oropharyngeal exudateor posterior oropharyngeal erythema. Cardiovascular: Rate and Rhythm: Normal rateand regular rhythm. Pulmonary: Effort: No respiratory distress. Breath sounds: No rales. Abdominal: General: There is no distension. Palpations: There is no mass. Tenderness: There is no abdominal tenderness. Skin: General: Skin is warm. Coloration: Skin is not jaundicedor pale. Neurological: General: No focal deficitpresent. Mental Status: He is alertand oriented to person, place, and time. Mental status isat baseline. Psychiatric: Mood and Affect: Moodnormal. Thought Content: Thought contentnormal. Procedures Performed and Findings All procedures during admission Procedure(s): Left - LEFT THORACOSCOPY with drainage of empyema and decortication - Wound Class: Clean Left - SCARIFICATION PLEURAL PLEURODESIS, left - Wound Class: Clean Consultations Obtained SOCIAL SVS/CARE MGMT REFERRAL VANCOMYCIN: PHARMACY TO DOSE INFECTION CONTROL REFERRAL CONSULT GENERAL SURGERY SKIN WOUND OR OSTOMY REFERRAL PICC PLACEMENT REFERRAL NICOTINE / TOBACCO CESSATION REFERRAL Discharge Disposition Instructions for after discharge Activity - Resume as tolerated Time spent on dc 45 min documented in this encounter Medications at Time of Discharge Medication Sig Dispensed Refills Start Date End Date amoxicillin-clavulanate Take 1 tablet by 56 tablet 0 202008/29/2020 potassium (AUGMENTIN) mouth 2 times a 875-125 mg day for 28 days tabletIndications: Empyema lung (HCC) ibuprofen (MOTRIN) 600 mg Take 600 mg by 0 tablet mouth 4 times a day as needed acetaminophen (TYLENOL) Take 1,000 mg by 0 500 mg tablet mouth every 6 hours as needed pantoprazole (PROTONIX) 40 Take 40 mg by 0 mg enteric coated tablet mouth 1 time a day in the morning naproxen (NAPROSYN) 500 mg Take 500 mg by 0 tablet mouth 2 times a day cloZAPine (CLOZARIL) 100 Take 2 tablets 180 tablet 0 016 mg tablet every morning and 4 tablets every night at bedtime. mirtazapine (REMERON) 15 Take 1 tablet (15 30 tablet 0 04/29 mg tablet mg total) by mouth every night at bedtime. cyclobenzaprine (FLEXERIL) Take 10 mg by 0 10 mg tablet mouth At bedtime as needed. atorvaSTATin (LIPITOR) 40 Take 40 mg by 0 mg tablet mouth every night at bedtime. documented as of this encounter Progress Notes Raj Cadena MD - 07/31/2020 10:41 PM CSTHave been following peripherally. Lung biopsy by Dr. Ayala some time ago negative for malignancy. Will sign off. Please call me if any hematologic or oncologic questions or concerns. No charge. alachi Lowe MD - 07/31/2020 10:43 AM CST Hospital Progress Note Shannan Gates is a 59yr old male admitted on 07/20/2020. Assessment / Plan Active Problems: COPD (chronic obstructive pulmonary disease) (HCC) Lung mass Pulmonary emboli (HCC) Schizo-affective psychosis (HCC) PNA (pneumonia) Sepsis (HCC) Resolved Problems: * No resolved hospital problems. * Plan: #Left sided empyema #Sepsis Present on admission -presented with shortness of breath requiring supplemental oxygen. -On admission patient had leukocytosis, fever, tachycardia meetingSIRS criteria.CTA of the chest was done and showed large pleural effusion, left upper lobe mass with possible superimposed infiltrate/consolidation -patient had thoracentesis and only 340 mL of fluid was retrieved. There was a large multiseptated pleural effusion. Pleural fluid culture has been negative so far. No malignancy was seen. Also acute and chronic inflammatory cells were seen . -Patient was started on IV antibiotic vancomycin, cefepime and Flagyl. -Infectious disease was consulted and statedIf pleural fluid cultures remain negative, would recommend out for a course of broad-spectrum antibiotics directed towards empyema with initial portion of course with IV antibiotics, guided by results of microbiology. Needs picc line -on e still has chest tube in place with draining. -WBC still elevated at 14.6 but improved from 18.3.STILL TACHYCARDIC. No fever though. -pleural fluid culture negative so far.Continue cefepime, vancomycin and Flagyl. - cxr done today and reportedLeft chest tubes are again demonstrated. Mild pleural thickening/pleural fluid appears similar to prior. No gross pneumothorax. Patchy and streaky basilar opacities favoring atelectasis/consolidation. -ON 07/30 -wbc still elevated at 14.8 -pleural fluid culture negative. For now continue IV ANTIBIOTICS With vancomycin, cefepim and flagyl -Discussed with infectious disease from [facility]. Upon discharge Patient can transition to oral antibiotics with levaquine or augmentine. -TODAY 2/3 wbc still elevated at 12.6 but improved from 14 yesterday, continue current antibiotics -no chest tube output, chest x-ray stable, no pneumothorax Chest tubes removed today as repeat chest x-ray in the morning per surgery #Lung Abscess preseneted with shortness of breath, leikocytosis -CTA of the chestWithleft upper lobe mass with possible superimposed infiltrate/consolidation -Patient also had lung mass biopsy done which was positive for abscess.Patient was started on IVantibiotic vancomycin, cefepime and Flagyl -on 2/1He still has chest tube in place with draining. -WBC still elevated at 14.6 but improved from 18.3.pleural fluid culture negative so far.Continue cefepime, vancomycin and Flagyl. -on 2 -wbc still elvated at 14.8 --pleural fluid culture negative. For now continue IV ANTIBIOTICS With vancomycin, cefepim and flagyl -Discussed with infectious disease from [facility]. Upon discharge Patient can tansition to oralantibiotics with levaquin or augmentin. -TODAY 2/3 wbc still elevated at 12.6 but improved from 14 yesterday, continue current antibiotics #Tabacco -patient advised to stop smoking #schizophrenia -continue home clozapin Disposition When OK FOR dc per surgery will discharge. He will need swing bed. HPI / History / ROS HPI Patient is a pleasant 59-year-old male with past medical history of schizophrenia [facility] of breath requiring supplemental oxygen. On admission patient had leukocytosis, fever, tachycardia meetingSIRS criteria.CTA of the chest was done and showed possible left lower lobe PE, large pleural effusion, left upper lobe mass with possible superimposed infiltrate/consolidation he was initially assessed as having sepsis due to pneumonia, pleural effusion, possible PE Regarding the possible PE patient was initially started on heparin drip however after reviewingimagingagain THE PEwas assessed as being due to artifact and heparinDrip was stopped. Regarding the pleural effusion and possible lung mass patient had thoracentesis and only 340 mL of fluid was retrieved. There was a large multiseptated pleural effusion. Pleural fluid culture has been negative so far. No malignancy was seen. Also acute and chronic inflammatory cells were seen . Patient also had lung mass biopsy done which was positive for abscess.Patient was started on IV antibiotic vancomycin, cefepime and Flagyl. Infectious disease was consulted and statedIf pleural fluid cultures remain negative, would recommend out for a course of broad-spectrum antibiotics directed towards empyema with initial portion of course with IV antibiotics, guided by results of microbiology. Needs picc line Surgery was consulted and patient underwent thoracoscopy and drainage of empyema, decortication and pleurodesis on 07/26. [address] On atient seen and examined today. He denies nausea or vomiting headache. He still has chest tube in place with draining. Regarding the lung abcessWBC still elevated at 14.6 but improved from 18.3.pleural fluid culture negative so far.Continue cefepime, vancomycin and Flagyl. Regarding empyema cxr done today and reportedLeft chest tubes are again demonstrated. Mild pleural thickening/pleural fluid appears similar to prior. No gross pneumothorax. Patchy and streaky basilar opacities favoring atelectasis/consolidation. On 07/30 Patient seen and examined today.patient denies fever, chills. No shortness of breath- for lung ABCESS wbc still elvated at 14.8-per surgery small amount of lateral pleural layer on today's chest x-ray, back to wall suction today, plan on putting him back to waterseal this evening, chest x-ray in the morning and potentially remove both chest tubes tomorrow.-pleural fluid culture negative. For now continue IV ANTIBIOTICS With vancomycin, cefepim and flagyl- [facility] Patient can transition to oral antibiotics with levaquine or augmentine. Today 07/31 Patient seen and examined today. He has no new symptoms. Regarding empyema and lung abcesswbc still elevated at 12.6 but improved from 14 yesterday, continue current antibiotics-no chest tube output, chest x-ray stable, no pneumothorax Chest tubes removed today as repeat chest x-ray in the morning per surgery. Review of Systems 10 points review of system negative except as in HPI Physical / Results Current Vital Signs Temp: 98.2 F (36.8 C) BP: 122/80 Weight: 79.9 kg (176 lb 2.4 oz) SpO2: 94 % Resp: 16 Pulse: 96 Current BMI (>50 = increased risk): 24.48 O2 Device: Room Air O2 Flow Rate (L/min): 3 l/min Pain Ratin Physical Exam Appearance: Normal appearance. HENT: Head: Normocephalicand atraumatic. Nose: Nose normal. Nocongestionor rhinorrhea. Mouth/Throat: Pharynx: No oropharyngeal exudateor posterior oropharyngeal erythema. Cardiovascular: Rate and Rhythm: Normal rateand regular rhythm. Pulmonary: Effort: No respiratory distress. Breath sounds: No rales. Comments: CHEST TUBE IN PLACE Abdominal: General: There is no distension. Palpations: There is no mass. Tenderness: There is no abdominal tenderness. Skin: General: Skin is warm. Coloration: Skin is not jaundicedor pale. Neurological: General: No focal deficitpresent. Mental Status: He is alertand oriented to person, place, and time. Mental status isat baseline. Psychiatric: Mood and Affect: Moodnormal. Thought Content: Thought contentnormal. alachi Lowe MD - 07/30/2020 1:38 PM CST Hospital Progress Note Shannan Gates is a 59yr old male admitted on 07/20/2020. Assessment / Plan Active Problems: COPD (chronic obstructive pulmonary disease) (HCC) Lung mass Pulmonary emboli (HCC) Schizo-affective psychosis (HCC) PNA (pneumonia) Sepsis (HCC) Resolved Problems: * No resolved hospital problems. * Plan: #Left sided empyema #Sepsis Present on admission -presented with shortness of breath requiring supplemental oxygen. -On admission patient had leukocytosis, fever, tachycardia meeting SIRS criteria. CTA of the chest was done and showed large pleural effusion, left upper lobe mass with possible superimposed infiltrate/consolidation - patient had thoracentesis and only 340 mL of fluid was retrieved. There was a large multiseptatedpleural effusion. Pleural fluid culture has been negative so far. No malignancy was seen. Also acute and chronic inflammatory cells were seen . - Patient was started on IV antibiotic vancomycin, cefepime and Flagyl. -Infectious disease was consulted and stated If pleural fluid cultures remain negative, would recommend out for a course of broad-spectrum antibiotics directed towards empyema with initial portion ofcourse with IV antibiotics, guided by results of microbiology. Needs picc line -on 07/29 He still has chest tube in place with draining. -WBC still elevated at 14.6 but improved from 18.3. STILL TACHYCARDIC. No fever though. -pleural fluid culture negative so far. Continue cefepime, vancomycin and Flagyl. - cxr done today and reported Left chest tubes are again demonstrated. Mild pleural thickening/pleural fluid appears similar to prior. No gross pneumothorax. Patchy and streaky basilar opacities favoring atelectasis/consolidation. -today 07/30 patient denies fever, chills. No shortness of breath -wbc still elevated at 14.8 -per surgery small amount of lateral pleural layer on today's chest x-ray, back to wall suction today, plan on putting him back to waterseal this evening, chest x-ray in the morning and potentially remove both chest tubes tomorrow. -pleural fluid culture negative. For now continue IV ANTIBIOTICS With vancomycin, cefepim and flagyl -Discussed with infectious disease from [facility]. Upon discharge Patient can transition to oral antibiotics with levaquine or augmentine. #Lung Abscess preseneted with shortness of breath, leikocytosis -CTA of the chest With left upper lobe mass with possible superimposed infiltrate/consolidation -Patient also had lung mass biopsy done which was positive for abscess. Patient was started on IV antibiotic vancomycin, cefepime and Flagyl -on 07/29 He still has chest tube in place with draining. -WBC still elevated at 14.6 but improved from 18.3. pleural fluid culture negative so far. Continuecefepime, vancomycin and Flagyl. -today 07/30 -wbc still elvated at 14.8 --pleural fluid culture negative. For now continue IV ANTIBIOTICS With vancomycin, cefepim and flagyl -Discussed with infectious disease from [facility]. Upon discharge Patient can tansition to oralantibiotics with levaquin or augmentin. #Tabacco -patient advised to stop smoking #schizophrenia -continue home clozapin Disposition Awaiting clinical improvement. When improved patient could go home on oral antibiotics. HPI / History / ROS HPI Patient is a pleasant 59-year-old male with past medical history of schizophrenia who was transferred to our hospital from [facility] where he presented with shortness of breath requiring supplemental oxygen. On admission patient had leukocytosis, fever, tachycardia meeting SIRS criteria. CTA of the chest was done and showed possible left lower lobe PE, large pleural effusion, left upper lobe mass with possible superimposed infiltrate/consolidation he was initially assessed as having sepsis due to pneumonia, pleural effusion, possible PE Regarding the possible PE patient was initially started on heparin drip however after reviewing imaging again THE PE was assessed as being due to artifact and heparin Drip was stopped. Regarding the pleural effusion and possible lung mass patient had thoracentesis and only 340 mL of fluid was retrieved. There was a large multiseptated pleural effusion. Pleural fluid culture has been negative so far. No malignancy was seen. Also acute and chronic inflammatory cells were seen . Patient also had lung mass biopsy done which was positive for abscess. Patient was started on IV antibiotic vancomycin, cefepime and Flagyl. Infectious disease was consulted and stated If pleural fluid cultures remain negative, would recommend out for a course of broad-spectrum antibiotics directed towards empyema with initial portion of course with IV antibiotics, guided by results of microbiology. Needs picc line Surgery was consulted and patient underwent thoracoscopy and drainage of empyema, decortication and pleurodesis on 07/26. [address] On 07/29 patient seen and examined today. He denies nausea or vomiting headache. He still has chesttube in place with draining. Regarding the lung abcess WBC still elevated at 14.6 but improved from 18.3. pleural fluid culture negative so far. Continue cefepime, vancomycin and Flagyl. Regarding empyema cxr done today and reported Left chest tubes are again demonstrated. Mild pleural thickening/pleural fluid appears similar to prior. No gross pneumothorax. Patchy and streaky basilar opacities favoring atelectasis/consolidation. Today 07/30 Patient seen and examined today.patient denies fever, chills. No shortness of breath- for lung ABCESS wbc still elvated at 14.8-per surgery small amount of lateral pleural layer on today's chest x-ray, back to wall suction today, plan on putting him back to waterseal this evening, chest x-ray in the morning and potentially remove both chest tubes tomorrow.-pleural fluid culture negative.For now continue IV ANTIBIOTICS With vancomycin, cefepim and flagyl- Discussed with infectious disease from [facility]. Upon discharge Patient can transition to oral antibiotics with levaquine or augmentine. Review of Systems 10 points review of system negative except as in HPI Physical / Results Current Vital Signs Temp: 98.8 F (37.1 C) BP: 136/100 Weight: 79.9 kg (176 lb 2.4 oz) SpO2: 93 % Resp: 15 Pulse: 88 Current BMI (>50 = increased risk): 24.48 O2 Device: Room Air O2 Flow Rate (L/min): 3 l/min Pain Ratin Physical Exam Constitutional: Appearance: Normal appearance. HENT: Head: Normocephalic and atraumatic. Nose: Nose normal. No congestion or rhinorrhea. Mouth/Throat: Pharynx: No oropharyngeal exudate or posterior oropharyngeal erythema. Cardiovascular: Rate and Rhythm: Normal rate and regular rhythm. Pulmonary: Effort: No respiratory distress. Breath sounds: No rales. Comments: CHEST TUBE IN PLACE Abdominal: General: There is no distension. Palpations: There is no mass. Tenderness: There is no abdominal tenderness. Skin: General: Skin is warm. Coloration: Skin is not jaundiced or pale. Neurological: General: No focal deficit present. Mental Status: He is alert and oriented to person, place, and time. Mental status is at baseline. Psychiatric: Mood and Affect: Mood normal. Thought Content: Thought content normal. Clinton Crespo PA-C - 07/30/2020 1:37 PM CST General Surgery Shannan Gates is a 59yr old male admitted on 07/20/2020 Subjective No new complaints Pain under control No acute hospital events Nursing does say that the one chest tube did come apart in one of the connections they were able to keep it sterile and reconnected. Chest x-ray today did show a small amount of lateral pleural air. Objective Blood pressure 136/100, pulse 88, temperature 98.8 F (37.1 C), resp. rate 15, height 1.778 m (5'10"), weight 79.9 kg (176 lb 2.4 oz), SpO2 93 %. Temp (24hrs), Av.5 F (36.9 C), Min:98 F (36.7 C), Max:98.8 F (37.1 C) Date 07/29/20699 - 07/30/20 0659 07/30/20699 - 07/31/20 0659 Shift 9695-6707 1887-7332 24 Hour Total 7787-2214 2056-3251 24 Hour Total INTAKE Shift Total OUTPUT Urine 1550 1200 2750 350 350 Urine 1550 1200 2750 350 350 Stool Unmeasured Stool Occurrence 1 x 0 x 1 x Chest Tube 100 100 Output (mL) (Chest Tube 07/26/20 Anterior;Left;Lateral Chest CT #1) 100 100 Shift Total 1650 1200 2850 350 350 NET -1650 -1200 -2850 -350 -350 Weight (kg) 79.9 79.9 79.9 79.9 79.9 79.9 Patient is alert, oriented, and in no acute distress 2 left chest tubes in place. No air leaks noted, small amount of lateral air noted on today's chestx-ray, 100 cc log for the last 24 hours out of chest tube #1, nursing says none out over night and so far today however. #2 with no output. Extremities - warm, no edema Neuro - intact Results: Lab Results Component Value Date WBC 14.8 (H) 07/30/2020 HEMOGLOBIN 9.7 (L) 07/30/2020 HEMATOCRIT 31.3 (L) 07/30/2020 PLTCOUNT 568 (H) 07/30/2020 Lab Results Component Value Date NA 138 07/30/2020 POTASSIUM 3.7 07/30/2020 CL 102 07/30/2020 CO2 28 07/30/2020 BUN 7 07/30/2020 GLUCOSE 130 (H) 07/30/2020 CREATSERUM 0.72 07/30/2020 Assessment/Plan 4 Days Post-Op Status Post: Procedure(s): LEFT THORACOSCOPY with drainage of empyema and decortication SCARIFICATION PLEURAL PLEURODESIS, left Case discussed with Dr. Conley, small amount of lateral pleural layer on today's chest x-ray, we will put him back to wall suction today, plan on putting him back to waterseal this evening, chest x-ray in the morning and potentially remove both chest tubes tomorrow. [employer] Associated attestation - Karl Conley MD - 07/30/2020 2:18 PM CSTI have examined the patient and reviewed the progress note above and agree with the assessment and plan. Chest tube apparently became disconnected at one point yesterday and there is a small amount of air around one of the chest tubes on chest x-ray. He is having essentially no output from the chest tubes now. We will look the chest tubes up to suction for a few hours and then placed again to waterseal. Chest x-ray again tomorrow morning, if things are stable likely can remove the chest tubes. Patient's white blood count continues to be elevated in the 14,000 range, but overall improved. Malachi Lowe MD - 07/29/2020 10:50 AM CST Hospital Progress Note Shannan Gates is a 59yr old male admitted on 07/20/2020. Assessment / Plan Active Problems: COPD (chronic obstructive pulmonary disease) (HCC) Lung mass Pulmonary emboli (HCC) Schizo-affective psychosis (HCC) PNA (pneumonia) Sepsis (HCC) Resolved Problems: * No resolved hospital problems. * Plan: #Left sided empyema #Sepsis Present on admission -presented with shortness of breath requiring supplemental oxygen. -On admission patient had leukocytosis, fever, tachycardia meeting SIRS criteria. CTA of the chest was done and showed large pleural effusion, left upper lobe mass with possible superimposed infiltrate/consolidation - patient had thoracentesis and only 340 mL of fluid was retrieved. There was a large multiseptatedpleural effusion. Pleural fluid culture has been negative so far. No malignancy was seen. Also acute and chronic inflammatory cells were seen . - Patient was started on IV antibiotic vancomycin, cefepime and Flagyl. -Infectious disease was consulted and stated If pleural fluid cultures remain negative, would recommend out for a course of broad-spectrum antibiotics directed towards empyema with initial portion of course with IV antibiotics, guided by results of microbiology. Needs picc line -Today 07/29 He still has chest tube in place with draining. -WBC still elevated at 14.6 but improved from 18.3. STILL TACHYCARDIC. No fever though. -pleural fluid culture negative so far. Continue cefepime, vancomycin and Flagyl. - cxr done today and reported Left chest tubes are again demonstrated. Mild pleural thickening/pleural fluid appears similar to prior. No gross pneumothorax. Patchy and streaky basilar opacities favoring atelectasis/consolidation. #Lung Abscess preseneted with shortness of breath, leikocytosis -CTA of the chest With left upper lobe mass with possible superimposed infiltrate/consolidation -Patient also had lung mass biopsy done which was positive for abscess. Patient was started on IV antibiotic vancomycin, cefepime and Flagyl -Today 07/29 He still has chest tube in place with draining. -WBC still elevated at 14.6 but improved from 18.3. pleural fluid culture negative so far. Continuecefepime, vancomycin and Flagyl. #Tabacco -patient advised to stop smoking #schizophrenia -continue home clozapin Disposition Awaiting clinical improvement HPI / History / ROS HPI Patient is a pleasant 59-year-old male with past medical history of schizophrenia who was transferred to our hospital from [facility] where he presented with shortness of breath requiring supplemental oxygen. On admission patient had leukocytosis, fever, tachycardia meeting SIRS criteria. CTA of the chest was done and showed possible left lower lobe PE, large pleural effusion, left upper lobe mass with possible superimposed infiltrate/consolidation he was initially assessed as having sepsis due to pneumonia, pleural effusion, possible PE Regarding the possible PE patient was initially started on heparin drip however after reviewing imaging again THE PE was assessed as being due to artifact and heparin Drip was stopped. Regarding the pleural effusion and possible lung mass patient had thoracentesis and only 340 mL of fluid was retrieved. There was a large multiseptated pleural effusion. Pleural fluid culture has been negative so far. No malignancy was seen. Also acute and chronic inflammatory cells were seen . Patient also had lung mass biopsy done which was positive for abscess. Patient was started on IV antibiotic vancomycin, cefepime and Flagyl. Infectious disease was consulted and stated If pleural fluid cultures remain negative, would recommend out for a course of broad-spectrum antibiotics directed towards empyema with initial portion of course with IV antibiotics, guided by results of microbiology.Needs picc line Surgery was consulted and patient underwent thoracoscopy and drainage of empyema, decortication and pleurodesis on 07/26. [address] Today 07/29 patient seen and examined today. He denies nausea or vomiting headache. He still has chest tube in place with draining. Regarding the lung abcess WBC still elevated at 14.6 but improved from 18.3. pleural fluid culture negative so far. Continue cefepime, vancomycin and Flagyl. Regarding empyema cxr done today and reported Left chest tubes are again demonstrated. Mild pleural thickening/pleural fluid appears similar to prior. No gross pneumothorax. Patchy and streaky basilar opacities favoring atelectasis/consolidation. Review of Systems 10 points review of system negative xcept as in HPI Physical / Results Current Vital Signs Temp: 98.8 F (37.1 C) BP: 126/78 Weight: 79.9 kg (176 lb 2.4 oz) SpO2: 93 % Resp: 18 Pulse: 101 Current BMI (>50 = increased risk): 24.48 O2 Device: Room Air O2 Flow Rate (L/min): 3 l/min Pain Ratin Physical Exam Constitutional: Appearance: Normal appearance. HENT: Head: Normocephalic and atraumatic. Nose: Nose normal. No congestion or rhinorrhea. Mouth/Throat: Pharynx: No oropharyngeal exudate or posterior oropharyngeal erythema. Cardiovascular: Rate and Rhythm: Normal rate and regular rhythm. Pulmonary: Effort: No respiratory distress. Breath sounds: No rales. Comments: CHEST TUBE IN PLACE Abdominal: General: There is no distension. Palpations: There is no mass. Tenderness: There is no abdominal tenderness. Hernia: A hernia is present. Skin: General: Skin is warm. Coloration: Skin is not jaundiced or pale. Neurological: General: No focal deficit present. Mental Status: He is alert and oriented to person, place, and time. Mental status is at baseline. Psychiatric: Mood and Affect: Mood normal. Thought Content: Thought content normal. Clinton Crespo PA-C - 07/29/2020 9:32 AM CST General Surgery Shannan Gates is a 59yr old male admitted on 07/20/2020 Subjective No new complaints Pain under control No acute hospital events Pt is on a regular diet and tolerating that well. No nausea or vomiting. Objective Blood pressure 126/78, pulse 101, temperature 98.8 F (37.1 C), resp. rate 18, height 1.778 m (5'10"), weight 79.9 kg (176 lb 2.4 oz), SpO2 93 %. Temp (24hrs), Av.6 F (37 C), Min:98.3 F (36.8 C), Max:98.8 F (37.1 C) Date 07/28/20699 - 07/29/20 0607/29/20699 - 07/30/20 0659 Shift 5084-1469 5872-9515 24 Hour Total 5537-7557 6858-6809 24 Hour Total INTAKE Oral 360 400 760 P.O. 360 400 760 IV 806 885 5676 IV Meds/Flushes 50 636 686 I.V. 490 490 Shift Total 900 1036 1936 OUTPUT Urine 713 962 8786 Urine 942 623 9190 Stool Unmeasured Stool Occurrence 0 x 0 x 0 x Chest Tube 200 105 305 Output (mL) (Chest Tube 07/26/20 Anterior;Left;Lateral Chest CT #1) 30 0 30 Output (mL) (Chest Tube 07/26/20 Left;Posterior Chest CT #2) 170 105 275 Shift Total 0942 131 2942 NET -175 81 -94 Weight (kg) 79.9 79.9 79.9 79.9 79.9 79.9 Patient is alert, oriented, and in no acute distress Left chest tubes in place, no air leak noted in either. Chest x-ray today stable, no pneumothorax noted some atelectasis. Chest tube #1 had 30 cc out over the last 24 hours. Chest tube #2 had 275 cc out over the last 24 hours. Extremities - warm, no edema Neuro - intact Results: Lab Results Component Value Date WBC 14.6 (H) 07/29/2020 HEMOGLOBIN 9.5 (L) 07/29/2020 HEMATOCRIT 31.7 (L) 07/29/2020 PLTCOUNT 543 (H) 07/29/2020 Lab Results Component Value Date NA 140 07/29/2020 POTASSIUM 3.9 07/29/2020 CL 105 07/29/2020 CO2 26 07/29/2020 BUN 10 07/29/2020 GLUCOSE 112 (H) 07/29/2020 CREATSERUM 0.65 (L) 07/29/2020 Assessment/Plan 3 Days Post-Op Status Post: Procedure(s): LEFT THORACOSCOPY with drainage of empyema and decortication SCARIFICATION PLEURAL PLEURODESIS, left Stable and doing well, white blood count has reduced today down to 14.6 from 18.3. Case previously discussed with Dr. Conley. Okay to transfer to the floor from surgical perspective. Repeat chest x-ray in the morning. [employer] Associated attestation - Karl Conley MD - 07/30/2020 2:12 PM CSTI have examined the patient and reviewed the progress note above and agree with the assessment and plan. Decreased chest tube drainage. Overall patient is improving. He denies any shortness of breath. No air leak. Will check chest x-ray tomorrow. Karl Conley MD - 07/28/2020 12:07 PM CST DAILY PROGRESS NOTE Shannan Gates is a 59yr old male admitted on 07/20/2020. SUBJECTIVE Patient states he is improving daily. Denies any shortness of breath. Minimal if any pain. OBJECTIVE Current Vital Signs Temp: 98.6 F (37 C) BP: 122/75 Pulse: 85 O2 Device: Room Air O2 Flow Rate (L/min): 3 l/min Resp: 20 Pain Ratin (out of 10) Weight: 79.9 kg (176 lb 2.4 oz) SpO2: 94 % Vitals Min/Max Last 24 Hours Vital Signs Min/Max (last 24 hours) Flowsheet Row Name Min Max Temp 97.8 F (36.6 C) 98.6 F (37 C) BP: Systolic 104 126 BP: Diastolic 62 75 Pulse 85 97 Resp 16 29 SpO2 91 % 95 % MAP (mm Hg) 75 mm Hg 87 mm Hg Intake and Output Last 24 Hours 07/27 699 - 07/28 0659 In: 8 Out: 1730 Physical Exam General Appearance: alert, well appearing, and in no distress, oriented to person, place, and time Mental Status: alert, oriented to person, place, and time, normal mood, behavior, speech, dress, motor activity, and thought processes Chest: Chest tube without air leak. Chest tube total of 560 mL total yesterday from both tubes. Chest x-ray yesterday was stable. Diagnostics and Labs Labs (Last day) 07/28/20 0516 - 07/28/20 0516 CBC 07/28/20 0516 CBC WBC 4.0-11.0 (K/uL) 18.3 RBC 4.40-5.80 (M/uL) 3.54 Hemoglobin 13.5-17.5 (g/dL) 9.7 Hematocrit 40.0-50.0 (%) 31.0 MCV 80.0-98.0 (fL) 87.6 MCH 25.5-34.0 (pg) 27.4 MCHC 31.5-36.5 (g/dL) 31.3 RDW-CV 11.5-15.5 (%) 14.8 RDW-SD 35.5-50.0 (fl) 45.9 Platelet Count 140-400 (K/uL) 562 MPV 8.5-12.0 (fL) 9.6 07/28/20 1121 - 07/28/20 0516 CHEMISTRY 07/28/20 1121 07/28/20 0516 07/28/20 0516 07/28/20 0516 07/28/20 0516 CHEMISTRY Glucose 70-100 (mg/dL) 140 Sodium 135-145 (meq/L) 140 Potassium 3.5-5.3 (meq/L) 4.2 3.8 Chloride 99-110 (meq/L) 104 CO2 23-32 (meq/L) 27 Anion Gap with K 6-20 (meq/L) 13 BUN 6-22 (mg/dL) 13 Creatinine 0.70-1.30 (mg/dL) 0.77 BUN/Creatinine Ratio 10.0-25.0 16.9 Calcium 8.5-10.5 (mg/dL) 7.5 Magnesium 1.8-2.4 (mg/dL) 2.2 CRP 0.0-8.0 (mg/L) 107.1 Procalcitonin <0.07 (ng/mL) 0.45 eGFR >=60 (mL/min/1.73m2) >90 eGFR Non- >=60 (mL/min/1.73m2) >90 07/28/20 0516 - 07/28/20 0516 DIFFERENTIAL 07/28/20 0516 DIFFERENTIAL Seg Neut Absolute 1.8-8.0 (K/uL) 14.9 Lymphocytes Absolute 0.8-4.1 (K/uL) 1.8 Monocytes Absolute 0.0-1.0 (K/uL) 1.1 Eosinophils Absolute 0.0-0.7 (K/uL) 0.0 Basophil Absolute 0.0-0.2 (K/uL) 0.0 Immature Granulocyte Absolute 0.00-0.06 (K/uL) 0.53 Neutrophils Percent (%) 81.2 Neutrophils Abs. (Segs and Bands) (/uL) 14,900 Lymphocytes Percent (%) 10.0 Monocytes Percent (%) 5.8 Immature Granulocyte Percent (%) 2.9 Eosinophils Percent (%) 0.0 Basophil Percent (%) 0.1 07/28/20 1121 - 07/28/20 1121 THERAPEUTIC DRUGS MISC 07/28/20 1121 THERAPEUTIC DRUGS MISC Vancomycin Trough 10.0-20.0 (ug/mL) 19.2 07/28/20 0516 - 07/28/20 0516 OTHER 07/28/20 0516 OTHER Age (Years) 59 Relevant diagnostic, laboratory and radiological studies have been reviewed in the Electronic Medical Record. ASSESSMENT & PLAN Problem List Active Problems: COPD (chronic obstructive pulmonary disease) (HCC) Lung mass Pulmonary emboli (HCC) Schizo-affective psychosis (HCC) PNA (pneumonia) Sepsis (HCC) 1. Status post decortication and evacuation of empyema a left-sided pleurodesis with good result. 2. White blood count has decreased 18,000. 3. Continue chest tubes to suction today. 4. Check chest x-ray again tomorrow. [employer] Estrella Brooks MD - 07/28/2020 9:46 AM CST Hospital Progress Note Shannan Gates is a 59yr old male admitted on 07/20/2020. Assessment / Plan Active Problems: COPD (chronic obstructive pulmonary disease) (HCC) Lung mass Pulmonary emboli (HCC) Schizo-affective psychosis (HCC) PNA (pneumonia) Sepsis (HCC) Resolved Problems: * No resolved hospital problems. * Plan: Admitted from [place] where he presented with shortness of breath requiring supplemental oxygen. He was also found to meet sepsis criteria with significant leukocytosis, fevers, tachycardia, lactic acidosis. DDimer elevated with subsequent CTAngio of chest revealing left sided likely left subsegmental LL PE with large left pleural effusion, left upper lobe mass, and possible superimposed infiltrate/consolidation. He was started on Cef/Zithro and heparin drip and admitted to [place]. His antibiotics were broaden to Vanc and Cefepime and he was transferred to ICU. IR guided thoracocentesis onlyyielded 350cc of fluid with noticeable septations throughout left lung and mass biopsy revealed infectious/inflammatory cells and no malignancy which was then suspected to be lung abscess/necrotizing pneumonia. Flagyl was added. His anticoagulation was discontinued as the subsegement PE was suspicious for artifact. He had intermittent worsening of hypoxia with eventual resolution. Surgery was cons ulted and he underwent left thoracoscopic drainage of empyema, decortication and pleurodesis on 07/26. There were no postoperative complications and he has 2 chest tubes with good output. Serial imaging has shown proper chest tube placement without pneumothorax. His leukocytosis is downtrending. IDservice was consulted and recommended continued IV antitiobics. Pleural fluid cultures are pending and he will likely need antibiotic adjustment accordingly. He is planned for PICC line on Wednesday and possibly require placement in view of his backround schizophrenia with poor understanding of his medical condition. Throughout the hospital stay he has been calm without agitations and had a brief period of nocturnal delirium while in ICU. None observed over last 2 days. #Lung mass suspected abscess/nec PNA with pleural effusion-s/p thoracoscopy with drainage and decortication with subsequent pleurodesis on 07/26; serial CXR without pneumo; on Vanc/Cefepime/Flagyl Day 8; improved leukocytosis; PICC line tomorrow; monitor CBC/inflammatory markers; [address]; surgery service following; f/u cultures #Anemia-normocytic with hypoproliferative picture; c/w FA/Vit B12; #COPD-stable; c/w inhalers #Tobacco use-active; nicotine replacement #Schizophrenia-stable; c/w clozapine DVT Prophylaxis start heparin [id number] HPI / History / ROS No issues overnight Patient denies any pains or complaints I discussed with him continued current therapy Review of Systems Respiratory: Negative for chest tightness and shortness of breath. Physical / Results Current Vital Signs Temp: 98.6 F (37 C) BP: 122/75 Weight: 79.9 kg (176 lb 2.4 oz) SpO2: 94 % Resp: 20 Pulse: 85 Current BMI (>50 = increased risk): 24.48 O2 Device: Room Air O2 Flow Rate (L/min): 3 l/min Pain Ratin Physical Exam Vitals signs reviewed. Constitutional: General: He is not in acute distress. Appearance: He is not ill-appearing, toxic-appearing or diaphoretic. Pulmonary: Effort: Pulmonary effort is normal. No respiratory distress. Neurological: Mental Status: He is alert. Medical Decision Making I have: Ordered laboratory, radiology or other diagnostic tests. Discussed case with another provider (details outlined elsewhere in note). [employer] Karl Conley MD - 07/27/2020 11:59 AM CST DAILY PROGRESS NOTE Shannan Gates is a 59yr old male admitted on 07/20/2020. SUBJECTIVE Patient states he is comfortable. He denies shortness of breath. He slept well last night by his report. OBJECTIVE Current Vital Signs Temp: 98.3 F (36.8 C) BP: 123/79 Pulse: 102 O2 Device: Room Air O2 Flow Rate (L/min): 3 l/min Resp: 27 Pain Ratin (out of 10) Weight: 77.3 kg (170 lb 6.7 oz) SpO2: 97 % Vitals Min/Max Last 24 Hours Vital Signs Min/Max (last 24 hours) Flowsheet Row Name Min Max Temp 97.3 F (36.3 C) 98.8 F (37.1 C) BP: Systolic 91 125 BP: Diastolic 55 81 Pulse 70 102 Resp 8 27 SpO2 90 % 99 % O2 Flow Rate (L/min) 3 l/min 10 l/min MAP (mm Hg) 66 mm Hg 95 mm Hg Intake and Output Last 24 Hours 07/26 0700 - 07/27 0659 In: 2940 Out: 4145 Physical Exam General Appearance: alert, well appearing, and in no distress Chest: Chest tubes with no air leak. Moderate amount of thin serosanguineous drainage. Chest x-rayshows lung nicely expanded. Improved appearance. Diagnostics and Labs Labs (Last day) 07/27/20 05 - 07/27/20 05 CBC 07/27/20 0557 CBC WBC 4.0-11.0 (K/uL) 32.7 RBC 4.40-5.80 (M/uL) 3.79 Hemoglobin 13.5-17.5 (g/dL) 10.6 Hematocrit 40.0-50.0 (%) 33.2 MCV 80.0-98.0 (fL) 87.6 MCH 25.5-34.0 (pg) 28.0 MCHC 31.5-36.5 (g/dL) 31.9 RDW-CV 11.5-15.5 (%) 14.8 RDW-SD 35.5-50.0 (fl) 46.0 Platelet Count 140-400 (K/uL) 523 MPV 8.5-12.0 (fL) 9.5 07/27/20 0557 - 07/26/20 1622 CHEMISTRY 07/27/20 0557 07/27/20 0557 07/27/20 0557 07/27/20 0557 07/26/20 1622 CHEMISTRY Glucose 70-100 (mg/dL) 191 Sodium 135-145 (meq/L) 136 Potassium 3.5-5.3 (meq/L) 4.0 3.7 Chloride 99-110 (meq/L) 100 CO2 23-32 (meq/L) 25 Anion Gap with K 6-20 (meq/L) 15 BUN 6-22 (mg/dL) 15 Creatinine 0.70-1.30 (mg/dL) 0.76 BUN/Creatinine Ratio 10.0-25.0 19.7 Calcium 8.5-10.5 (mg/dL) 7.5 Magnesium 1.8-2.4 (mg/dL) 2.4 CRP 0.0-8.0 (mg/L) 126.1 Procalcitonin <0.07 (ng/mL) 0.39 eGFR >=60 (mL/min/1.73m2) >90 eGFR Non- >=60 (mL/min/1.73m2) >90 07/27/20 0557 - 07/27/20 0557 DIFFERENTIAL 07/27/20 0557 DIFFERENTIAL Seg Neut Absolute 1.8-8.0 (K/uL) 29.7 Lymphocytes Absolute 0.8-4.1 (K/uL) 1.1 Monocytes Absolute 0.0-1.0 (K/uL) 0.9 Eosinophils Absolute 0.0-0.7 (K/uL) 0.0 Basophil Absolute 0.0-0.2 (K/uL) 0.0 Immature Granulocyte Absolute 0.00-0.06 (K/uL) 0.91 Neutrophils Percent (%) 90.9 Neutrophils Abs. (Segs and Bands) (/uL) 29,700 Lymphocytes Percent (%) 3.4 Monocytes Percent (%) 2.8 Immature Granulocyte Percent (%) 2.8 Eosinophils Percent (%) 0.0 Basophil Percent (%) 0.1 07/27/20 0557 - 07/27/20 0557 OTHER 07/27/20 0557 OTHER Age (Years) 59 Relevant diagnostic, laboratory and radiological studies have been reviewed in the Electronic Medical Record. ASSESSMENT & PLAN Problem List Active Problems: COPD (chronic obstructive pulmonary disease) (HCC) Lung mass Pulmonary emboli (HCC) Schizo-affective psychosis (HCC) PNA (pneumonia) Sepsis (HCC) 1. Status post thoracoscopy with evacuation of empyema and decortication with pleurodesis. 2. Elevated white blood count, not surprising following procedure yesterday evening. 3. Continue chest tubes to suction. 4. Respiratory cares and increase activity as tolerated. 5. Continue IV antibiotic therapy. [employer] Estrella Brooks MD - 07/27/2020 8:56 AM CST Hospital Progress Note Shannan Gates is a 59yr old male admitted on 07/20/2020. Assessment / Plan Active Problems: COPD (chronic obstructive pulmonary disease) (HCC) Lung mass Pulmonary emboli (HCC) Schizo-affective psychosis (HCC) PNA (pneumonia) Sepsis (HCC) Resolved Problems: * No resolved hospital problems. * Plan: #Lung mass suspected abscess/nec PNA with pleural effusion-s/p thoracoscopy with drainage and decortication with subsequent pleurodesis; postop CXR with decreased effusion but no pneumo; patient without hypoxia/tachypnea; ID service consult noted with recommendations to continue broad spectru Abx; c/w Vanc/Cefepim Day 7; worse leukocytosis likely 2/2 recent surgical manipulation; surgery service following as chest tubes in place; monitor CBC and inflammatory markers; f/u cultures; d/c IV fluids #Anemia-normocytic with hypoproliferative picture; c/w FA/Vit B12; heme/onc following #COPD-less likely to be in exacerbation based on PE;c/w inhalers #Tobacco use-active; nicotine replacement #Schizophrenia-intermittent confusion; much improved this morning #Acute hypoxic respiratory failure-resolved DVT Prophylaxis start heparin 5000q8 HPI / History / ROS No issues overnight Patient denies any shortness of breath Denies any chest pains I discussed with him the plan to continue to mnito rchest tube drainage and continuation of antibiotics Review of Systems Constitutional: Negative for chills and fever. Respiratory: Negative for chest tightness and shortness of breath. Physical / Results Current Vital Signs Temp: 97.9 F (36.6 C) BP: 124/73 Weight: 77.3 kg (170 lb 6.7 oz) SpO2: 97 % Resp: 27 Pulse: 102 Current BMI (>50 = increased risk): 24.48 O2 Device: Room Air O2 Flow Rate (L/min): 3 l/min Pain Ratin Physical Exam Vitals signs reviewed. Constitutional: General: He is not in acute distress. Appearance: He is not ill-appearing, toxic-appearing or diaphoretic. Cardiovascular: Rate and Rhythm: Normal rate and regular rhythm. Pulmonary: Effort: Pulmonary effort is normal. No respiratory distress. Breath sounds: Normal breath sounds. No wheezing. Neurological: Mental Status: He is alert. Medical Decision Making I have: Ordered laboratory, radiology or other diagnostic tests. Discussed case with another provider (details outlined elsewhere in note). Alexandre Leyva MD - 07/26/2020 11:42 PM CST INFECTIOUS DISEASE PROGRESS Patient ID: Shannan Gates is a 59yr male. PCP: Esteban Bhatt MD Attending: Estrella Brooks MD JODIE: [phone] Assessment / Plan Active Problems: COPD (chronic obstructive pulmonary disease) (HCC) Lung mass Pulmonary emboli (HCC) Schizo-affective psychosis (HCC) PNA (pneumonia) Sepsis (HCC) Resolved Problems: * No resolved hospital problems. * Patient seen 07/25/2019 PM 59-year-old male with fever and findings of left parapneumonic effusion with possible associated left lung mass versus abscess. Pleural fluid studies consistent with empyema. Patient has been afebrile on antibiotic treatment. Patient did undergo thorascopic decortication of suspected empyema on 07/26/2020. Pleural fluid cultures are negative thus far. Sputum cultures are showing presence of yeastpending further identification. Left lung mass/infiltrate percutaneous biopsy with acute febrile nopurulent material consistent with abscess. If routine cultures remain negative, could eval evaluate for possible fungal infection. Based on clinical presentation and response thus far to antibiotic treatment, patient's findings are likely related to bacterial pneumonia with parapneumonic effusion/empyema. Recommendations: Intraoperative cultures/histopathology pending Continuation of current broad-spectrum antibiotics Identification of yeast in sputum cultures pending Would defer antifungal treatment at this time If pleural fluid cultures remain negative, would recommend out for a course of broad-spectrum antibiotics directed towards empyema with initial portion of course with IV antibiotics, guided by results of microbiology HPI / History / ROS HPI Interval History No fever No apparent dyspnea or accessory muscle use Antibiotics Antibiotics (From admission, onward) Start Stop Route Frequency Ordered 07/25/20 1220 metroNIDAZOLE (FLAGYL) 500 mg/100 mL sodium chloride 0.74% IV piggyback -- IV Every eight hours 07/25/20 1219 07/25/20 0800 itraconazole (SPORANOX) capsule 200 mg Status: Discontinued 07/25 0845 PO Two times a day with meals 07/25/20 0705 07/23/20 1200 vancomycin in 0.9% sodium chloride 500 mL IV piggyback 1,750 mg -- IV Every twelve hours 07/23/20 1148 07/21/20 1100 cefepime (MAXIPIME) 2,000 mg in sodium chloride 0.9% 50 mL (addEASE)(locked) -- IV Every eight hours 07/21/20 1046 07/21/20 1100 vancomycin in 0.9% sodium chloride 250 mL IV piggyback 1,250 mg Status: Discontinued 07/23 1148 IV Every twelve hours 07/21/20 1051 07/20/20 1800 cefTRIAXone (ROCEPHIN) in D-3.74% 50 mL IV piggyback (DUPLEX) (premix) 1,000 mg (Preferred: Ceftriaxone IV and Azithromycin IV) Status: Discontinued 07/21 1046 IV Every twenty four hours 07/20/20 1716 07/20/20 1800 azithromycin (ZITHROMAX) 500 mg in sodium chloride 0.9% 250 mL (addEASE) (Preferred: Ceftriaxone IV and Azithromycin IV) Status: Discontinued 07/21 1046 IV Every twenty four hours 07/20/20 171 All other medications reviewed in Epic. Review of Systems Physical / Results Current Vital Signs Temp: 97.6 F (36.4 C) BP: 103/69 Pulse: 72 O2 Device: NC - no humidity O2 Flow Rate (L/min): 5 l/min Resp: 15 Pain Ratin (out of 10) Weight: 77.3 kg (170 lb 6.7 oz) SpO2: 92 % Maximum Temperatures (last 24 hours) Temperature Maximum Max Temp 99.9 F (37.7 C) Physical Exam Outpatient sleeping Regular rate rhythm S1-S2 breath sounds present bilaterally Results for SHANNAN GATES ( ) as of 07/26/2020 23:35 Ref. Range 07/25/2020 05:22 07/25/2020 08:14 07/26/2020 04:40 WBC Latest Ref Range: 4.0 - 11.0 K/uL 23.9 (H) 26.1 (H) RBC Latest Ref Range: 4.40 - 5.80 M/uL 3.53 (L) 3.74 (L) Hemoglobin Latest Ref Range: 13.5 - 17.5 g/dL 9.8 (L) 10.3 (L) Hematocrit Latest Ref Range: 40.0 - 50.0 % 30.9 (L) 32.4 (L) MCV Latest Ref Range: 80.0 - 98.0 fL 87.5 86.6 MCH Latest Ref Range: 25.5 - 34.0 pg 27.8 27.5 MCHC Latest Ref Range: 31.5 - 36.5 g/dL 31.7 31.8 RDW-CV Latest Ref Range: 11.5 - 15.5 % 14.5 14.6 RDW-SD Latest Ref Range: 35.5 - 50.0 fl 44.8 44.4 Platelet Count Latest Ref Range: 140 - 400 K/uL 479 (H) 511 (H) MPV Latest Ref Range: 8.5 - 12.0 fL 9.1 9.4 Seg Neut Absolute Latest Ref Range: 1.8 - 8.0 K/uL 20.1 (H) 21.8 (H) Lymphocytes Absolute Latest Ref Range: 0.8 - 4.1 K/uL 2.3 2.0 Monocytes Absolute Latest Ref Range: 0.0 - 1.0 K/uL 1.2 (H) 1.5 (H) Eosinophils Absolute Latest Ref Range: 0.0 - 0.7 K/uL 0.0 0.0 Basophil Absolute Latest Ref Range: 0.0 - 0.2 K/uL 0.0 0.0 Immature Granulocyte Absolute Latest Ref Range: 0.00 - 0.06 K/uL 0.72 (H) Neutrophils Percent Latest Units: % 84.2 83.7 Neutrophils Abs. (Segs and Bands) Latest Units: /uL 20,100 21,800 Lymphocytes Percent Latest Units: % 9.4 7.6 Monocytes Percent Latest Units: % 5.2 5.8 Immature Granulocyte Percent Latest Units: % 2.8 Eosinophils Percent Latest Units: % 0.0 0.0 Basophil Percent Latest Units: % 0.0 0.1 Glucose Latest Ref Range: 70 - 100 mg/dL 129 (H) Sodium Latest Ref Range: 135 - 145 meq/L 140 Potassium Latest Ref Range: 3.5 - 5.3 meq/L 3.5 Chloride Latest Ref Range: 99 - 110 meq/L 102 CO2 Latest Ref Range: 23 - 32 meq/L 27 Anion Gap with K Latest Ref Range: 6 - 20 meq/L 15 BUN Latest Ref Range: 6 - 22 mg/dL 11 Creatinine Latest Ref Range: 0.70 - 1.30 mg/dL 0.71 0.71 BUN/Creatinine Ratio Latest Ref Range: 10.0 - 25.0 15.5 Calcium Latest Ref Range: 8.5 - 10.5 mg/dL 7.9 (L) Magnesium Latest Ref Range: 1.8 - 2.4 mg/dL 1.9 CRP Latest Ref Range: 0.0 - 8.0 mg/L 86.1 (H) 88.7 (H) Procalcitonin Latest Ref Range: <0.07 ng/mL 0.26 (H) 0.22 (H) HIV negative Legionella urine antigen negative Streptococcus pneumoniae urine antigen negative QuantiFERON TB assay negative Blood cultures negative Sputum culture with yeast pending identification Pleural fluid culture negative Pleural fluid AFB smear negative, culture pending hEstrella pimentel MD - 07/26/2020 9:22 AM CST Hospital Progress Note Shannan Gates is a 59yr old male admitted on 07/20/2020. Assessment / Plan Active Problems: COPD (chronic obstructive pulmonary disease) (HCC) Lung mass Pulmonary emboli (HCC) Schizo-affective psychosis (HCC) PNA (pneumonia) Sepsis (HCC) Resolved Problems: * No resolved hospital problems. * Plan: #Lung mass suspected abscess/nec PNA with pleural effusion-CTChest findings noted; surgery consultedwith planned thoracoscopy with drainage/pleurodesis/chest tube; Day 6 of Vanc/Cefepime; persistent leukocytosis and low grade fevers; #Acute hypoxic respiratory failure-intermittent; likely related to above; will taper down if possible #Anemia-normocytic with hypoproliferative picture; c/w FA/Vit B12; heme/onc following #COPD-less likely to be in exacerbation based on PE; d/c prednisone; c/w inhalers #Tobacco use-active; nicotine replacement #Schizophrenia-intermittent confusion ?delirium; appreciate psych consult; will start 1:1 for patient safety. DVT Prophylaxis start heparin 5000q8 HPI / History / ROS Patient reported to be restless at night and climbing out of bed. Requiring frequent redirectioning Low grade fevers also noted. Patient denies any discomfort. Has no complaints I discussed with hijm the plan to have a procedure today Review of Systems Respiratory: Negative for chest tightness and shortness of breath. Physical / Results Current Vital Signs Temp: 99.1 F (37.3 C) BP: 124/75 Weight: 77.3 kg (170 lb 6.7 oz) SpO2: 93 % Resp: 24 Pulse: 98 Current BMI (>50 = increased risk): 24.48 O2 Device: Room Air O2 Flow Rate (L/min): 2 l/min Pain Ratin Physical Exam Vitals signs reviewed. Constitutional: General: He is not in acute distress. Appearance: He is not ill-appearing or toxic-appearing. Cardiovascular: Rate and Rhythm: Tachycardia present. Pulmonary: Effort: No respiratory distress. Medical Decision Making I have: Ordered laboratory, radiology or other diagnostic tests. Discussed case with another provider (details outlined elsewhere in note). [employer] Estrella Brooks MD - 07/25/2020 9:01 AM CST Hospital Progress Note Shannan Gates is a 59yr old male admitted on 07/20/2020. Assessment / Plan Active Problems: COPD (chronic obstructive pulmonary disease) (HCC) Lung mass Pulmonary emboli (HCC) Schizo-affective psychosis (HCC) PNA (pneumonia) Sepsis (HCC) Resolved Problems: * No resolved hospital problems. * Plan: #Lung mass/pleural effusion/consolidation-s/p thoracocentesis with noteable septations; cyto neg formalignancy; this likely represents lung abscess; Day 5 of Vanc/Cefepime; ID consult pending; c/w antibiotics at this time; CT chest with contrast; start IV fluids #Subsegmental PE-as reported on initial CTAngio; in my opinion this represents a possible overread or artifact; initial DDimer elevatyion likely related to active infectious process; will d/c heparin and AC in view of higher risk of AC complications rather than the risk of small/subsegmental PE; currently not hypoxic #Anemia-normocytic with hypoproliferative picture; c/w FA/Vit B12; heme/onc following #COPD-less likely to be in exacerbation based on PE; d/c prednisone; c/w inhalers #Tobacco use-active; nicotine replacement #Schizophrenia-intermittent confusion ?delirium; appreciate psych consult DVT Prophylaxis start heparin 5000q8 HPI / History / ROS No issues overnight jpatient has no complaints Denies any shortness of breath I discussed with him the results of biopsy which was negative for cancer I also stated that it looks like that represents a bad infection Review of Systems Respiratory: Negative for chest tightness and shortness of breath. Physical / Results Current Vital Signs Temp: 98.3 F (36.8 C) BP: 134/87 Weight: 77.3 kg (170 lb 6.7 oz) SpO2: 91 % Resp: 22 Pulse: 101 Current BMI (>50 = increased risk): 24.48 O2 Device: Room Air O2 Flow Rate (L/min): 2 l/min Pain Ratin Physical Exam Vitals signs reviewed. Constitutional: General: He is not in acute distress. Appearance: He is not ill-appearing, toxic-appearing or diaphoretic. Neurological: Mental Status: He is alert. Medical Decision Making I have: Ordered laboratory, radiology or other diagnostic tests. Discussed case with another provider (details outlined elsewhere in note). [employer] Estrella Brooks MD - 07/24/2020 11:13 AM CST Hospital Progress Note Shannan Gates is a 59yr old male admitted on 07/20/2020. Assessment / Plan Active Problems: COPD (chronic obstructive pulmonary disease) (HCC) Lung mass Pulmonary emboli (HCC) Schizo-affective psychosis (HCC) PNA (pneumonia) Sepsis (HCC) Resolved Problems: * No resolved hospital problems. * Plan: #Lung mass/pleural effusion/consolidation/subsegemental PE-s/p thoracocentesis and lung biopsy; multiple septations noted; cytology negative for malignancy and reveals inflame/inf which likely represent lung abscess; clinical improvement noted; leukocytosis/inflammatory markers trending down; day 4 ofVanc/Cefepime; ID service consulted; will c/w heparin drip for now with planned transition to DOAC; heme following #Sepsis-resolved; tachy resolved; no diaphoresis; on antibiotics; ID service following #Left subsegmental PE-currently on heparin drip; #Anemia-normocytic with hypoproliferative picture; c/w FA/Vit B12; heme/onc following #COPD-less likely to be in exacerbation based on PE; c/w prednisone/duonebs/antibiotics as above #Tobacco use-active; nicotine replacement #Schizophrenia-intermittent confusion ?delirium; will consult psych #Acute hypoxic respiratory failure-resolved; DVT Prophylaxis holding heparin perioperatively HPI / History / ROS No issues overnight Patient denies any shortness of breath I discussed with him the plan to follow up on biopsy results Review of Systems Constitutional: Negative for chills and fever. Respiratory: Negative for chest tightness and shortness of breath. Physical / Results Current Vital Signs Temp: 98.1 F (36.7 C) BP: 138/79 Weight: 77.3 kg (170 lb 6.7 oz) SpO2: 98 % Resp: 28 Pulse: 98 Current BMI (>50 = increased risk): 24.48 O2 Device: NC - cool humidity O2 Flow Rate (L/min): 2 l/min Pain Ratin Physical Exam Vitals signs reviewed. Constitutional: Appearance: Normal appearance. Neurological: Mental Status: He is alert. Medical Decision Making I have: Ordered laboratory, radiology or other diagnostic tests. Discussed case with another provider (details outlined elsewhere in note). [employer] Estrella Brooks MD - 07/23/2020 8:55 AM CST Hospital Progress Note Shannan Gates is a 59yr old male admitted on 07/20/2020. Assessment / Plan Active Problems: COPD (chronic obstructive pulmonary disease) (HCC) Lung mass Pulmonary emboli (HCC) Schizo-affective psychosis (HCC) PNA (pneumonia) Sepsis (HCC) Resolved Problems: * No resolved hospital problems. * Plan: #Acute hypoxic respiratory failure-intermittently worse; planned thoracocentesis along with mass biopsy; no respiratory distress noted at this time; c/w vanc/cef Day 3; f/u fluid analasyis and biopsy results #Sepsis-related to above; possibly overlapping signs; mild downtrend of leukocytosis; procal and CRPtrending down; awaiting ID recommendations; c/w abx; c/w inflammatory marker trend; #Lung mass-left; IR to obtain biopsy; will f/u cyto #Left subsegmental PE-currently on heparin drip; will hold perioperatively #Anemia-normocytic with hypoproliferative picture; c/w FA/Vit B12; heme/onc following #COPD-less likely to be in exacerbation based on PE; c/w prednisone/duonebs/antibiotics as above #Tobacco use-active; nicotine replacement #Schizophrenia-currently without active symptoms; c/w home meds DVT Prophylaxis holding heparin perioperatively HPI / History / ROS No issues overnight Has required more supplemental oxygen I again disccussed with him the finding of the imaging which includes a mass, fluid, and blood clot all on the same side. I also discussed with him the plan to obtain sample of the mass today to see what it might be. I also asked the patient if he would like me to inform his sister regarding any results of the mass to which he agreed. He verbalized understanding of what was communicated to him and had no further questions Review of Systems Respiratory: Negative for chest tightness and shortness of breath. Cardiovascular: Negative for chest pain and palpitations. Physical / Results Current Vital Signs Temp: 99.1 F (37.3 C) BP: 132/74 Weight: 76.5 kg (168 lb 10.4 oz) SpO2: 94 % Resp: 20 Pulse: 101 Current BMI (>50 = increased risk): 24.48 O2 Device: NC - cool humidity O2 Flow Rate (L/min): 5 l/min Pain Ratin Physical Exam Vitals signs reviewed. Constitutional: Appearance: He is ill-appearing and diaphoretic. He is not toxic-appearing. Cardiovascular: Rate and Rhythm: Tachycardia present. Pulmonary: Effort: No respiratory distress. Breath sounds: No wheezing. Comments: Decreased air entry on the left Neurological: Mental Status: He is alert. Medical Decision Making I have: Ordered laboratory, radiology or other diagnostic tests. Discussed case with another provider (details outlined elsewhere in note). Raj Garcia MD - 07/22/2020 7:54 PM CSTChart review only. Discussed with Dr. Brooks this morning. Agree with management thusfar; will review and discuss with Dr. Brooks and team tomorrow. No charge. Estrella Parks MD - 07/22/2020 8:44 AM CST Hospital Progress Note Shannan Gates is a 59yr old male admitted on 07/20/2020. Assessment / Plan Active Problems: COPD (chronic obstructive pulmonary disease) (HCC) Lung mass Pulmonary emboli (HCC) Schizo-affective psychosis (HCC) PNA (pneumonia) Sepsis (HCC) Resolved Problems: * No resolved hospital problems. * Plan: #Acute hypoxic respiratory failure-on 4LNC; likely multifactorial (pl eff, PE, lung mass; PNA, COPD); Will need further eval at this time; IR/ID consult; surgery aware; on vanc and cef; on heparin drip;continue to monitor in ICU setting; will send out pleural fluid studies including cyto; #Sepsis-related to above as suspected source; severe leukocytosis, fevers; procal trending down; LA borderline; f/u culutres; continue to trend CBC, inflame markers; ID service to evaluate #Lung mass-left; will require biopsy; IR service to evaluate #Left subsegmental PE-currently on heparin drip; #COPD-possible exacerbation contributing to above; c/w prednisone/duonebs/antibiotics as above #Tobacco use-active; nicotine replacement #Anemia-normocytic with hypoproliferative picture; Folate low; will start FA/Vit B12; will need heme/onc eval #Schizophrenia-currently without active symptoms; c/w home meds DVT Prophylaxis - heparin drip for now HPI / History / ROS No issues reported overnight Patient has no complaints Denies any acute shortness of breath or chest pain I discussed with him the plan for further evaluatino of lung lesion and fluid Review of Systems Respiratory: Negative for chest tightness and shortness of breath. Cardiovascular: Negative for chest pain and palpitations. Physical / Results Current Vital Signs Temp: 99 F (37.2 C) BP: 120/67 Weight: 77.7 kg (171 lb 4.8 oz) SpO2: 92 % Resp: 20 Pulse: 98 Current BMI (>50 = increased risk): 24.48 O2 Device: NC - cool humidity O2 Flow Rate (L/min): 4 l/min Pain Ratin Physical Exam Vitals signs reviewed. Constitutional: General: He is not in acute distress. Appearance: He is ill-appearing and diaphoretic. He is not toxic-appearing. Cardiovascular: Rate and Rhythm: Tachycardia present. Psychiatric: Behavior: Behavior normal. Medical Decision Making I have: Ordered laboratory, radiology or other diagnostic tests. Discussed case with another provider (details outlined elsewhere in note). [employer] Estrella Brooks MD - 07/21/2020 11:00 AM CST Hospital Progress Note Shannan Gates is a 59yr old male admitted on 07/20/2020. Assessment / Plan Active Problems: COPD (chronic obstructive pulmonary disease) (HCC) Lung mass Pulmonary emboli (HCC) Schizo-affective psychosis (HCC) PNA (pneumonia) Sepsis (HCC) Resolved Problems: * No resolved hospital problems. * Plan: #Acute hypoxic respiratory failure-likely multifactorial (pl eff, PE, lung mass; PNA, COPD); requiring 3lNC; CT Angion chest at outside facility reported subsegmental PE and possible superimporsed infiltrate/consolidation along with large left pleural effusion; BNP wnl; started on Cef/Zithro; will broaden antibiotics to Vanc and Cefepim; IR to eval tomorrow; will require bronchoscopy; f/u TTE; will need to obtain copy of CT for better visualization or consider repeat noncontrast CT; trasnfer to ICU #Sepsis-related to above as suspected source; fevers, WBC 32k, procal 1.34; LA 2; will repeat blood cultures; repeat LA; c/w IV fluids for now; d/c cef/zithro; start Vanc/Cefepime; f/u cultures; continue to trend inflammatory markers; send out UA; add TSH to labs #Lung mass-left; will require bronchoscopy to evaluate further for possible malignancy #Left subsegmental PE-currently on heparin drip; #COPD-possible exacerbation contributing to above; will add prednisone; add duonebs; c/w antibiotics #Tobacco use-active; nicotine replacement #Anemia-?acute vs chronic; normocytic; no prior labs; will monitor CBC for now; send out anemia panel #Schizophrenia-currently without active symptoms; c/w home meds DVT Prophylaxis - heparin drip for now HPI / History / ROS Brief presenting medical history reviewed with the patient. I discussed with him the resutls of CT chest which show fluid, consolidation that could represent pneumonia, and more importantly a mass that could represent a tumor. I told him that this will need further evaluation. At this point he's receiving antibiotics for an infection. He verbalized understanding and had no further questions He states that he lives alone but has a neighbor that helps him out Review of Systems Respiratory: Negative for chest tightness and shortness of breath. Cardiovascular: Negative for chest pain. Physical / Results Current Vital Signs Temp: 99.1 F (37.3 C) BP: 131/74 Weight: 77.2 kg (170 lb 3.1 oz) SpO2: (!) 88 % Resp: 20 Pulse: 120 Current BMI (>50 = increased risk): 24.48 O2 Device: NC - no humidity O2 Flow Rate (L/min): 6 l/min Pain Ratin Physical Exam Vitals signs reviewed. Constitutional: General: He is not in acute distress. Appearance: He is ill-appearing and diaphoretic. He is not toxic-appearing. Cardiovascular: Rate and Rhythm: Tachycardia present. Pulmonary: Effort: Pulmonary effort is normal. No respiratory distress. Comments: Decreased breath sound on the left Skin: Coloration: Skin is pale. Neurological: Mental Status: He is alert. Medical Decision Making I have: Ordered laboratory, radiology or other diagnostic tests. Discussed case with another provider (details outlined elsewhere in note). [employer] documented in this encounter H&P Notes Karl Conley MD - 07/26/2020 6:14 PM CSTH&P Updates and Indication for Care/Procedure: I have examined the patient, reviewed the H&P and no changes to the patient's condition. I have explained the risks, including risk of COVID-19 exposure, benefits and indications for the procedure, answered questions and obtained the appropriate consent to proceed. [employer] Karl Conley MD - 07/25/2020 5:03 PM CST Surgical Consultation Date of Admission: 07/20/2020 Date of Consultation: 07/25/2020 Requesting Physician: Dr. Brooks Consulting Surgeon: Karl Conley MD Chief Complaint: Left chest empyema History of present illness: The patient is a 59-year-old male with a past history of tobacco use, COPD and schizophrenia. He was admitted on 20 July 2020 with diagnosis of pneumonia, pleural effusion, and sepsis. There was apossible underlying lung mass. Patient was also experiencing acute hypoxemic respiratory failure. Patient was treated aggressively with IV antibiotic therapy as well as respiratory cares. On 23 July 2020 biopsy of the left lung mass was performed Percutaneously by Dr. Ayala as well as fluiddrainage. Pathologic findings were consistent with acute inflammation, fibrinopurulent purulent mate rial and fibrosis consistent with abscess. No evidence of malignancy. Repeat CT scan was performed today which shows a large loculated left pleural effusion with associated pleural thickening and enhancement with areas of gas within the pleural fluid. There are corresponding consolidative changes in the lingula and the left lower lobe with fluid and gas attenuation which may represent necrosis/abscess. Upon initial admission patient's white blood count was over 30,000. This is improved into the 20,000 range. His respiratory status has improved and he is stable, though still feels somewhat short of breath. Patient states he is having some discomfort on his left side but is difficult for him to tell if this is more or less than it was previously. The patient states that he has some dry cough. Past Medical History: Diagnosis Date Anxiety COPD (chronic obstructive pulmonary disease) (FORMERLY [facility]) 07/20/2020 Depression Hyperlipidemia Nicotine addiction History reviewed. No pertinent surgical history. Prior to Admission medications Medication Sig Start Date End Date Taking? Authorizing Provider ibuprofen (MOTRIN) 600 mg tablet Take 600 mg by mouth 4 times a day as needed Yes Provider, Abstract acetaminophen (TYLENOL) 500 mg tablet Take 1,000 mg by mouth every 6 hours as needed Yes Provider,Abstract pantoprazole (PROTONIX) 40 mg enteric coated tablet Take 40 mg by mouth 1 time a day in the morning Yes Provider, Abstract naproxen (NAPROSYN) 500 mg tablet Take 500 mg by mouth 2 times a day Yes Provider, Abstract cloZAPine (CLOZARIL) 100 mg tablet Take 2 tablets every morning and 4 tablets every night at bedtime. Patient taking differently: Medication bottle says 2 tab in the morning, 1 tab at midday, and 4 tablets at bedtime 07/01/15 Yes Karl Zhao MD mirtazapine (REMERON) 15 mg tablet Take 1 tablet (15 mg total) by mouth every night at bedtime. Patient taking differently: Take 7.5 mg by mouth every night at bedtime 05/21/15 Yes Karl Zhao MD cyclobenzaprine (FLEXERIL) 10 mg tablet Take 10 mg by mouth At bedtime as needed. Yes Provider, Abstract atorvaSTATin (LIPITOR) 40 mg tablet Take 40 mg by mouth every night at bedtime. Yes Provider, Abstract No Known Allergies Social History Tobacco Use Smoking status: Current Every Day Smoker Packs/day: 1.00 Years: 45.00 Pack years: 45.00 Types: Cigarettes Smokeless tobacco: Former User Substance Use Topics Alcohol use: No Alcohol/week: 0.0 standard drinks Family History Problem Relation Age of Onset Not otherwise listed - Cancer Mother Alcohol Abuse Mother Heart Disease Father Not otherwise listed - Cancer Father Alcohol Abuse Father Review of Systems: A comprehensive review of systems was negative except as above. Physical Exam: Patient Vitals for the past 8 hrs: BP Temp Pulse Resp SpO2 07/25/20 1100 133/82 99.5 F (37.5 C) 111 25 91 % 07/25/20 1000 135/74 General: Alert, somewhat confused. Somewhat hard of hearing. In no distress. Psychiatric: Somewhat confused as above. This appears to be similar to his baseline level of understanding and interaction. HEENT: Neck supple without lymphadenopathy Lungs: Clear to ausculation. No wheezes or rales. Decreased air flow on the left side compared to the right side. Patient does not appear to have labored breathing currently. Cardiac: Regular rate and rhythm. No murmurs. Neurologic: No gross motor or sensory deficits. Laboratory data: Labs (Last day) 07/25/20521 - 07/25/20521 CBC 07/25/20521 CBC WBC 4.0-11.0 (K/uL) 23.9 RBC 4.40-5.80 (M/uL) 3.53 Hemoglobin 13.5-17.5 (g/dL) 9.8 Hematocrit 40.0-50.0 (%) 30.9 MCV 80.0-98.0 (fL) 87.5 MCH 25.5-34.0 (pg) 27.8 MCHC 31.5-36.5 (g/dL) 31.7 RDW-CV 11.5-15.5 (%) 14.5 RDW-SD 35.5-50.0 (fl) 44.8 Platelet Count 140-400 (K/uL) 479 MPV 8.5-12.0 (fL) 9.1 07/25/20 0814 - 07/24/201814 CHEMISTRY 07/25/20 0814 07/25/20 0522 07/25/20 0522 07/24/201814 CHEMISTRY Potassium 3.5-5.3 (meq/L) 4.5 Creatinine 0.70-1.30 (mg/dL) 0.71 CRP 0.0-8.0 (mg/L) 86.1 Procalcitonin <0.07 (ng/mL) 0.26 eGFR >=60 (mL/min/1.73m2) >90 eGFR Non- >=60 (mL/min/1.73m2) >90 07/25/20 0522 - 07/25/20 0522 DIFFERENTIAL 07/25/20 05 DIFFERENTIAL Seg Neut Absolute 1.8-8.0 (K/uL) 20.1 Lymphocytes Absolute 0.8-4.1 (K/uL) 2.3 Monocytes Absolute 0.0-1.0 (K/uL) 1.2 Eosinophils Absolute 0.0-0.7 (K/uL) 0.0 Basophil Absolute 0.0-0.2 (K/uL) 0.0 Neutrophils Percent (%) 84.2 Neutrophils Abs. (Segs and Bands) (/uL) 20,100 Lymphocytes Percent (%) 9.4 Monocytes Percent (%) 5.2 Eosinophils Percent (%) 0.0 Basophil Percent (%) 0.0 07/25/20 0814 - 07/24/201814 GENERAL COAGULATION 07/25/20 0814 07/25/20 0014 07/24/201814 GENERAL COAGULATION APTT 24-35 (secs) 64 >200 77 07/25/20 1233 - 07/25/20 1233 HIV 07/25/20 1233 HIV HIV 1 Ag HIV 1/2 Ab Nonreactive Nonreactive 07/25/20 1249 - 07/25/20 1249 INFLUENZA 07/25/20 1249 INFLUENZA Influenza B Not Detected Not Detected Influenza A Not Detected Not Detected 07/25/20 1249 - 07/25/20 1249 RSV 07/25/20 1249 RSV RSV Not Detected Not Detected 07/25/20 1249 - 07/25/20 1249 SARS-COV-2 07/25/20 1249 SARS-COV-2 SARS-CoV-2 Not Detected Not Detected 07/25/20 1106 - 07/25/20 1106 THERAPEUTIC DRUGS MISC 07/25/20 1106 THERAPEUTIC DRUGS MISC Vancomycin Trough 10.0-20.0 (ug/mL) 15.3 07/25/20 0814 - 07/25/20 0814 OTHER 07/25/20 0814 OTHER Age (Years) 59 Radiographic data: I reviewed the patients available imaging studies with Dr. Sheridan in radiology. Assessment: 1. Left lung abscess with likely erosion into left empyema. Patient Active Problem List Diagnosis Date Noted COPD (chronic obstructive pulmonary disease) ([facility]LY [facility]) 07/20/2020 Lung mass 07/20/2020 Pulmonary emboli (HCC) 07/20/2020 Schizo-affective psychosis (HCC) 07/20/2020 PNA (pneumonia) 07/20/2020 Sepsis ([facility]) 07/20/2020 Schizophrenia ([facility]) 05/16/2015 Urticaria 11/20/2005 Plan: I have recommended thoracoscopy with drainage of empyema and abscess with pleurodesis and chest tube drainage. The risks, benefits, and alternatives to this procedure are thoroughly discussed with the patient and then subsequently with his [id number], Chandrika Bruce, at the patient's request. Both of their questions are answered. They both state that they wish to proceed with the procedure. Appropriate arrangements are made. Manuel Denise MD - 07/23/2020 9:42 AM CSTH&P Updates and Indication for Care/Procedure: I have examined the patient, reviewed the H&P and no changes to the patient's condition. I have explained the risks, including risk of COVID-19 exposure, benefits and indications for the procedure, answered questions and obtained the appropriate consent to proceed. [employer] Estrella Brooks MD - 07/23/2020 8:55 AM CST Hospital Progress Note Shannan Gates is a 59yr old male admitted on 07/20/2020. Assessment / Plan Active Problems: COPD (chronic obstructive pulmonary disease) (HCC) Lung mass Pulmonary emboli (HCC) Schizo-affective psychosis (HCC) PNA (pneumonia) Sepsis (HCC) Resolved Problems: * No resolved hospital problems. * Plan: #Acute hypoxic respiratory failure-intermittently worse; planned thoracocentesis along with mass biopsy; no respiratory distress noted at this time; c/w vanc/cef Day 3; f/u fluid analasyis and biopsy results #Sepsis-related to above; possibly overlapping signs; mild downtrend of leukocytosis; procal and CRPtrending down; awaiting ID recommendations; c/w abx; c/w inflammatory marker trend; #Lung mass-left; IR to obtain biopsy; will f/u cyto #Left subsegmental PE-currently on heparin drip; will hold perioperatively #Anemia-normocytic with hypoproliferative picture; c/w FA/Vit B12; heme/onc following #COPD-less likely to be in exacerbation based on PE; c/w prednisone/duonebs/antibiotics as above #Tobacco use-active; nicotine replacement #Schizophrenia-currently without active symptoms; c/w home meds DVT Prophylaxis holding heparin perioperatively HPI / History / ROS No issues overnight Has required more supplemental oxygen I again disccussed with him the finding of the imaging which includes a mass, fluid, and blood clot all on the same side. I also discussed with him the plan to obtain sample of the mass today to see what it might be. I also asked the patient if he would like me to inform his sister regarding any results of the mass to which he agreed. He verbalized understanding of what was communicated to him and had no further questions Review of Systems Respiratory: Negative for chest tightness and shortness of breath. Cardiovascular: Negative for chest pain and palpitations. Physical / Results Current Vital Signs Temp: 99.1 F (37.3 C) BP: 132/74 Weight: 76.5 kg (168 lb 10.4 oz) SpO2: 94 % Resp: 20 Pulse: 101 Current BMI (>50 = increased risk): 24.48 O2 Device: NC - cool humidity O2 Flow Rate (L/min): 5 l/min Pain Ratin Physical Exam Vitals signs reviewed. Constitutional: Appearance: He is ill-appearing and diaphoretic. He is not toxic-appearing. Cardiovascular: Rate and Rhythm: Tachycardia present. Pulmonary: Effort: No respiratory distress. Breath sounds: No wheezing. Comments: Decreased air entry on the left Neurological: Mental Status: He is alert. Medical Decision Making I have: Ordered laboratory, radiology or other diagnostic tests. Discussed case with another provider (details outlined elsewhere in note). [employer] Aldo Burnett DO - 07/20/2020 5:21 PM CST Hospital Admission History and Physical Assessment / Plan Active Problems: COPD (chronic obstructive pulmonary disease) (HCC) Lung mass Pulmonary emboli (HCC) Schizo-affective psychosis (HCC) PNA (pneumonia) Sepsis (HCC) Plan: 1. Sepsis (leukocytosis, tachycardia) - secondary to underlying pneumonia Suspicious for postobstructive pneumonia with underlying lung mass. Admit for further treatment. Admit to telemetry is also patient with tachycardia and likely underlying pulmonary embolism. Status post Zosyn/vancomycin. Blood cultures collected in [place]. Will repeat blood cultures now Check lactic acid, pro-cost her levels in trend. IV fluids Continue on broad-spectrum antibiotics, Rocephin/azithromycin Check urine legionella/strep coccal antigen Sputum culture pending. Titrate oxygen to maintain oxygen saturation greater than 90%. 2. Acute hypoxemic respiratory failure: Multifactorial Secondary to underlying pneumonia, large left pleural effusion, likely left lung mass suspicious formalignancy, acute subsegmental pulmonary embolism Titrate oxygen as above Management of underlying causes. 3. Acute subsegmental pulmonary Imodium, left side: Multifactorial. Likely upper septated by underlying suspicious lung mass likely secondary to malignancy Heparin bolus and heparin drip started at [place]. Continue on heparin drip/anticoagulation. Troponin negative in [place]. Check BNP. Telemetry monitoring. May convert to direct prominent inhibitor in a.m. if stable Check 2-D echo for completeness. No signs of right heart strain on CT 4. Large left pleural effusion: Multifactorial Likely secondary to underlying pneumonia, pulmonary embolism and possible malignancy. We'll hold off on thoracentesis as patient on anticoagulation. Consider interventional radiology consultation on Wednesday for further management. 5. Left lung mass: Suspicious for malignancy as patient with significant history of heavy tobacco use Onoce stable, will need likely biopsy for further management Discussed with patient and agrees with current plan. Of note, patient poor story and as patient with significant psychiatric history. Discussed with case management at patient's longterm 6. Hyperlipidemia: Continue current home medications 7. History of COPD: Currently appears compensated No wheezing on examination. Albuterol/Atrovent as needed. Management of the acute pulmonary issues as above. 8. History of schizophrenia schizoaffective disorder: Continue on home medications. DVT Prophylaxis - heparin gtt HPI / History / ROS 59-year-old male with past medical history of schizoaffective disorder as well as schizophrenia, COPD and heavy tobacco dependence, 2-3 packs every 2 days comes in from [facility] complaining of increased shortness of breath, fatigue and general malaise. Patient has been increasingly having shortness of breath, cough and general malaise as well as fatigue the past 2-3 weeks. Upon arrival to the emergency department he was found to be tachycardic, tachypneic with significant leukocytosis of 24,000. A chest x-ray was noted to have a large left pleural effusion and possible consolidation. D-dimer was significantly elevated and a CTA was done revealed a likely subsegmental left lower lobe pulmonary embolism with possible superimposed infiltrate/consolidation. Also patient with a large left pleural effusion and likely left upper lobe mass. Patient was transferred to our facility after being given Zosyn/vancomycin as well as heparin drip for continued care. Currently patient currently appears anxious as well as tachypneic. Patient still significant with tachycardic and appears uncomfortable. He denies any fever or chills currently. He is a poor story and due to a significant p sychiatric issues and most of the history is obtained from the emergency department the physician and nursing notes. He denies any abdominal pain, changes in bowel habits including hematochezia or melena. Denies any dysuria, hematemesis or productive cough. He denies any headache, near syncope, blurred vision. Patient the denies all are associated symptoms. History Patient Active Problem List Diagnosis Urticaria Schizophrenia (HCC) COPD (chronic obstructive pulmonary disease) ([facility]) Lung mass Pulmonary emboli (HCC) Schizo-affective psychosis (HCC) PNA (pneumonia) Sepsis ([facility]) Prior to Admission Medications Prescriptions Last Dose Informant Patient Reported? Taking? atorvaSTATin (LIPITOR) 40 mg tablet Yes No Sig: Take 40 mg by mouth every night at bedtime. benztropine (COGENTIN) 1 mg tablet Yes No Sig: Take 1 mg by mouth every night at bedtime. In the evening after meals or with food if GI upset occurs cloZAPine (CLOZARIL) 100 mg tablet No No Sig: Take 2 tablets every morning and 4 tablets every night at bedtime. cloZAPine (CLOZARIL) 200 mg tablet No No Sig: Take 1 tablet (200 mg total) by mouth 1 time a day in the morning. cyclobenzaprine (FLEXERIL) 10 mg tablet Yes No Sig: Take 10 mg by mouth At bedtime as needed. esomeprazole (NEXIUM) 40 mg capsule Yes No Sig: Take 40 mg by mouth 1 time per day. mirtazapine (REMERON) 15 mg tablet No No Sig: Take 1 tablet (15 mg total) by mouth every night at bedtime. Facility-Administered Medications: None No Known Allergies Past Medical History: Diagnosis Date Anxiety COPD (chronic obstructive pulmonary disease) ([facility]) 07/20/2020 Depression Hyperlipidemia Nicotine addiction No past surgical history on file. Family History Problem Relation Age of Onset Not otherwise listed - Cancer Mother Alcohol Abuse Mother Heart Disease Father Not otherwise listed - Cancer Father Alcohol Abuse Father Social History Socioeconomic History Marital status: Single Spouse name: Not on file Number of children: Not on file Years of education: Not on file Highest education level: Not on file Tobacco Use Smoking status: Heavy Tobacco Smoker Packs/day: 1.00 Years: 30.00 Pack years: 30.00 Smokeless tobacco: Former User Substance and Sexual Activity Alcohol use: No Alcohol/week: 0.0 standard drinks Drug use: Yes Types: Prescription Sexual activity: Not Currently Partners: Female control/protection: None Review of Systems A complete review of systems has been performed. Pertinent positives noted in HPI. All other systemsnegative. Physical / Results Current Vital Signs Temp: 97.4 F (36.3 C) BP: 185/95 Weight: 79.7 kg (175 lb 9.6 oz) SpO2: 95 % Resp: 32 Pulse: 133 O2 Device: NC - no humidity O2 Flow Rate (L/min): 4 l/min General Appearance: anxious, ill-appearing Mental Status: anxious Eyes: pupils equal and reactive, extraocular eye movements intact Mouth: mucous membranes moist, pharynx normal without lesions Neck: supple, no significant adenopathy Chest: Coarse breath sounds with Rales noted to the left lower lobe. Significantly diminished breath sounds at the left extreme lower area of the lung field. Crackles noted bilaterally. Heart: S1 and S2 normal, no murmurs noted, Tachycardic. Abdomen: soft, nontender, nondistended, no masses or organomegaly Neurological: cranial nerves II through XII intact, funduscopic exam normal, discs flat and sharp, DTR's normal and symmetric and motor and sensory grossly normal bilaterally Extremities: peripheral pulses normal, no pedal edema, no clubbing or cyanosis Skin: normal coloration and turgor, no rashes, no suspicious skin lesions noted Medical Decision Making I have: Ordered laboratory, radiology or other diagnostic tests. Independently visualized and interpreted an image, tracing or specimen previously or subsequently interpreted by another provider. Discussed results of laboratory, radiology or other diagnostic tests with the physician who performed or interpreted the study. Obtained/reviewed old records from [place] or elsewhere (details outlined elsewhere in note). Obtained history from a person other than the patient (details outlined elsewhere in note). Discussed case with another provider (details outlined elsewhere in note). [employer] documented in this encounter Procedure Notes Manuel Ayala MD - 07/23/2020 10:19 AM CSTPost-Biopsy Left Lung Type of Anesthesia: Moderate sedation & local Pre-op Diagnosis: Left lung mass like consolidation Post-op Diagnosis: left lung mass like consolidation Procedure: Biopsy Procedure Date: 07/23/20 Procedure Findings: left lung mass like consolidation Physician: Manuel Ayala Insulation Cupola Operator: N/A EBL: Less than 25 mL Specimens: Tissue Drains: None Complications: None [employer] Manuel Ayala MD - 07/23/2020 9:54 AM [employer] Left Thoracentesis Type of Anesthesia: Local Pre-op Diagnosis: Pleural Effusion Post-op Diagnosis: Pleural Effusion Procedure: Ultrasound Guided Thoracentesis Procedure Date: 07/23/20 Procedure Findings: Pleural Effusion Physician: Manuel Ayala Insulation Cupola Operator: N/A EBL: Less than 25 mL Specimens: Fluid removed. See tech note. Drains: N/A Complications: None documented in this encounter Consult Notes Karl Conley MD - 07/25/2020 5:03 PM CST Surgical Consultation Date of Admission: 07/20/2020 Date of Consultation: 07/25/2020 Requesting Physician: Dr. Brooks Consulting Surgeon: Karl Conley MD Chief Complaint: Left chest empyema History of present illness: The patient is a 59-year-old male with a past history of tobacco use, COPD and schizophrenia. He was admitted on 20 July 2020 with diagnosis of pneumonia, pleural effusion, and sepsis. There was apossible underlying lung mass. Patient was also experiencing acute hypoxemic respiratory failure. Patient was treated aggressively with IV antibiotic therapy as well as respiratory cares. On 23 July 2020 biopsy of the left lung mass was performed Percutaneously by Dr. Ayala as well as fluiddrainage. Pathologic findings were consistent with acute inflammation, fibrinopurulent purulent mate rial and fibrosis consistent with abscess. No evidence of malignancy. Repeat CT scan was performed today which shows a large loculated left pleural effusion with associated pleural thickening and enhancement with areas of gas within the pleural fluid. There are corresponding consolidative changes in the lingula and the left lower lobe with fluid and gas attenuation which may represent necrosis/abscess. Upon initial admission patient's white blood count was over 30,000. This is improved into the 20,000 range. His respiratory status has improved and he is stable, though still feels somewhat short of breath. Patient states he is having some discomfort on his left side but is difficult for him to tell if this is more or less than it was previously. The patient states that he has some dry cough. Past Medical History: Diagnosis Date Anxiety COPD (chronic obstructive pulmonary disease) (HCC) 07/20/2020 Depression Hyperlipidemia Nicotine addiction History reviewed. No pertinent surgical history. Prior to Admission medications Medication Sig Start Date End Date Taking? Authorizing Provider ibuprofen (MOTRIN) 600 mg tablet Take 600 mg by mouth 4 times a day as needed Yes Provider, Abstract acetaminophen (TYLENOL) 500 mg tablet Take 1,000 mg by mouth every 6 hours as needed Yes Provider,Abstract pantoprazole (PROTONIX) 40 mg enteric coated tablet Take 40 mg by mouth 1 time a day in the morning Yes Provider, Abstract naproxen (NAPROSYN) 500 mg tablet Take 500 mg by mouth 2 times a day Yes Provider, Abstract cloZAPine (CLOZARIL) 100 mg tablet Take 2 tablets every morning and 4 tablets every night at bedtime. Patient taking differently: Medication bottle says 2 tab in the morning, 1 tab at midday, and 4 tablets at bedtime 07/01/15 Yes aKrl Zhao MD mirtazapine (REMERON) 15 mg tablet Take 1 tablet (15 mg total) by mouth every night at bedtime. Patient taking differently: Take 7.5 mg by mouth every night at bedtime 05/21/15 Yes Karl Zhao MD cyclobenzaprine (FLEXERIL) 10 mg tablet Take 10 mg by mouth At bedtime as needed. Yes Provider, Abstract atorvaSTATin (LIPITOR) 40 mg tablet Take 40 mg by mouth every night at bedtime. Yes Provider, Abstract No Known Allergies Social History Tobacco Use Smoking status: Current Every Day Smoker Packs/day: 1.00 Years: 45.00 Pack years: 45.00 Types: Cigarettes Smokeless tobacco: Former User Substance Use Topics Alcohol use: No Alcohol/week: 0.0 standard drinks Family History Problem Relation Age of Onset Not otherwise listed - Cancer Mother Alcohol Abuse Mother Heart Disease Father Not otherwise listed - Cancer Father Alcohol Abuse Father Review of Systems: A comprehensive review of systems was negative except as above. Physical Exam: Patient Vitals for the past 8 hrs: BP Temp Pulse Resp SpO2 07/25/20 1100 133/82 99.5 F (37.5 C) 111 25 91 % 07/25/20 1000 135/74 General: Alert, somewhat confused. Somewhat hard of hearing. In no distress. Psychiatric: Somewhat confused as above. This appears to be similar to his baseline level of understanding and interaction. HEENT: Neck supple without lymphadenopathy Lungs: Clear to ausculation. No wheezes or rales. Decreased air flow on the left side compared to the right side. Patient does not appear to have labored breathing currently. Cardiac: Regular rate and rhythm. No murmurs. Neurologic: No gross motor or sensory deficits. Laboratory data: Labs (Last day) 07/25/20521 - 07/25/20521 CBC 07/25/20521 CBC WBC 4.0-11.0 (K/uL) 23.9 RBC 4.40-5.80 (M/uL) 3.53 Hemoglobin 13.5-17.5 (g/dL) 9.8 Hematocrit 40.0-50.0 (%) 30.9 MCV 80.0-98.0 (fL) 87.5 MCH 25.5-34.0 (pg) 27.8 MCHC 31.5-36.5 (g/dL) 31.7 RDW-CV 11.5-15.5 (%) 14.5 RDW-SD 35.5-50.0 (fl) 44.8 Platelet Count 140-400 (K/uL) 479 MPV 8.5-12.0 (fL) 9.1 07/25/20 0814 - 07/24/20 1815 CHEMISTRY 07/25/20 0814 07/25/20 0522 07/25/2052107/24/201814 CHEMISTRY Potassium 3.5-5.3 (meq/L) 4.5 Creatinine 0.70-1.30 (mg/dL) 0.71 CRP 0.0-8.0 (mg/L) 86.1 Procalcitonin <0.07 (ng/mL) 0.26 eGFR >=60 (mL/min/1.73m2) >90 eGFR Non- >=60 (mL/min/1.73m2) >90 07/25/20521 - 07/25/20 05 DIFFERENTIAL 07/25/20521 DIFFERENTIAL Seg Neut Absolute 1.8-8.0 (K/uL) 20.1 Lymphocytes Absolute 0.8-4.1 (K/uL) 2.3 Monocytes Absolute 0.0-1.0 (K/uL) 1.2 Eosinophils Absolute 0.0-0.7 (K/uL) 0.0 Basophil Absolute 0.0-0.2 (K/uL) 0.0 Neutrophils Percent (%) 84.2 Neutrophils Abs. (Segs and Bands) (/uL) 20,100 Lymphocytes Percent (%) 9.4 Monocytes Percent (%) 5.2 Eosinophils Percent (%) 0.0 Basophil Percent (%) 0.0 07/25/20 0814 - 07/24/20 1815 GENERAL COAGULATION 07/25/20 0814 07/25/20 0014 07/24/20 1815 GENERAL COAGULATION APTT 24-35 (secs) 64 >200 77 07/25/20 1233 - 07/25/20 1233 HIV 07/25/20 1233 HIV HIV 1 Ag HIV 1/2 Ab Nonreactive Nonreactive 07/25/20 1249 - 07/25/20 1249 INFLUENZA 07/25/20 1249 INFLUENZA Influenza B Not Detected Not Detected Influenza A Not Detected Not Detected 07/25/20 1249 - 07/25/20 1249 RSV 07/25/20 1249 RSV RSV Not Detected Not Detected 07/25/20 1249 - 07/25/20 1249 SARS-COV-2 07/25/20 1249 SARS-COV-2 SARS-CoV-2 Not Detected Not Detected 07/25/20 1106 - 07/25/20 1106 THERAPEUTIC DRUGS MISC 07/25/20 1106 THERAPEUTIC DRUGS MISC Vancomycin Trough 10.0-20.0 (ug/mL) 15.3 07/25/20 0814 - 07/25/20 0814 OTHER 07/25/20 0814 OTHER Age (Years) 59 Radiographic data: I reviewed the patients available imaging studies with Dr. Sheridan in radiology. Assessment: 1. Left lung abscess with likely erosion into left empyema. Patient Active Problem List Diagnosis Date Noted COPD (chronic obstructive pulmonary disease) (FORM[facility]) 07/20/2020 Lung mass 07/20/2020 Pulmonary emboli (HCC) 07/20/2020 Schizo-affective psychosis (HCC) 07/20/2020 PNA (pneumonia) 07/20/2020 Sepsis ([facility]) 07/20/2020 Schizophrenia ([facility]) 05/16/2015 Urticaria 11/20/2005 Plan: I have recommended thoracoscopy with drainage of empyema and abscess with pleurodesis and chest tube drainage. The risks, benefits, and alternatives to this procedure are thoroughly discussed with the patient and then subsequently with his [id number], Chandrika Bruce, at the patient's request. Both of their questions are answered. They both state that they wish to proceed with the procedure. Appropriate arrangements are made. Alexandre Leyva MD - 07/25/2020 12:00 PM [employer] Associated Order(s): INFECTION CONTROL REFERRAL INFECTIOUS DISEASE CONSULT Patient ID: Shannan Gates is a 59yr male. PCP: Esteban Bhatt MD Attending Provider: Estrella Brooks MD INFECTION CONTROL REFERRAL Consult performed by: Alexandre Drummond MD Consult ordered by: Aldo Burnett DO Assessment / Plan Active Problems: COPD (chronic obstructive pulmonary disease) (HCC) Lung mass Pulmonary emboli (HCC) Schizo-affective psychosis (HCC) PNA (pneumonia) Sepsis (HCC) 59-year-old male with history of COPD presents with febrile illness with findings of left-sided pulmonary trait and pleural effusion. Thoracentesis shows WBC count of 30,000 with 96% neutrophils consistent with parapneumonic effusion/empyema. Sputum cultures are pending at this time. CT scan of chest shows possible necrotizing pneumonia versus lung abscess. Recommendations: IV vancomycin, cefepime, metronidazole Pleural fluid and sputum cultures pending HIV antibody QuantiFERON TB assay Chest x-ray, persistent pleural effusion I would recommend thoracic surgery evaluation for possible empyema Thank you for allowing us to participate in the care of your patient. Please call if any questions. Reason for Consult #1 left pleural effusion, possible empyema #2 left pneumonia #3 fever #4 leukocytosis HPI / History / ROS HPI Patient is a 59-year-old male with history of COPD, schizophrenia and schizoaffective disorder initially admitted on 07/20/2020 with dyspnea and fever. Did have leukocytosis with obesity count of 13.4. Initial chest x-ray showed a left pleural effusion with possible infiltrate. Patient's undergone left arthrocentesis with findings of 38,000 WBCs with 96% neutrophils. Patient is alert. Patient does not report any chest pain or dyspnea. Patient did not report any recent flulike symptoms. Patient did not report any recent nausea or vomiting. History Patient Active Problem List Diagnosis Urticaria Schizophrenia (HCC) COPD (chronic obstructive pulmonary disease) (HCC) Lung mass Pulmonary emboli (HCC) Schizo-affective psychosis (HCC) PNA (pneumonia) Sepsis ([facility]) Antibiotics (From admission, onward) Start Stop Route Frequency Ordered 07/25/20 0800 itraconazole (SPORANOX) capsule 200 mg Status: Discontinued 07/25 0845 PO Two times a day with meals 07/25/20 0705 07/23/20 1200 vancomycin in 0.9% sodium chloride 500 mL IV piggyback 1,750 mg -- IV Every twelve hours 07/23/20 1148 07/21/20 1100 cefepime (MAXIPIME) 2,000 mg in sodium chloride 0.9% 50 mL (addEASE)(locked) -- IV Every eight hours 07/21/20 1046 07/21/20 1100 vancomycin in 0.9% sodium chloride 250 mL IV piggyback 1,250 mg Status: Discontinued 07/23 1148 IV Every twelve hours 07/21/20 1051 07/20/20 1800 cefTRIAXone (ROCEPHIN) in D-3.74% 50 mL IV piggyback (DUPLEX) (premix) 1,000 mg (Preferred: Ceftriaxone IV and Azithromycin IV) Status: Discontinued 07/21 1046 IV Every twenty four hours 07/20/20 1716 07/20/20 1800 azithromycin (ZITHROMAX) 500 mg in sodium chloride 0.9% 250 mL (addEASE) (Preferred: Ceftriaxone IV and Azithromycin IV) Status: Discontinued 07/21 1046 IV Every twenty four hours 07/20/20 171 All other medications reviewed in [facility]. No Known Allergies Past Medical History: Diagnosis Date Anxiety COPD (chronic obstructive pulmonary disease) ([facility]) 07/20/2020 Depression Hyperlipidemia Nicotine addiction History reviewed. No pertinent surgical history. Family History Problem Relation Age of Onset Not otherwise listed - Cancer Mother Alcohol Abuse Mother Heart Disease Father Not otherwise listed - Cancer Father Alcohol Abuse Father Social History Socioeconomic History Marital status: Single Spouse name: Not on file Number of children: Not on file Years of education: Not on file Highest education level: Not on file Tobacco Use Smoking status: Current Every Day Smoker Packs/day: 1.00 Years: 45.00 Pack years: 45.00 Types: Cigarettes Smokeless tobacco: Former User Substance and Sexual Activity Alcohol use: No Alcohol/week: 0.0 standard drinks Drug use: Yes Types: Prescription Sexual activity: Not Currently Partners: Female control/protection: None Review of Systems Review of Systems Physical / Results Vitals: 07/25/20 1100 BP: 133/82 Pulse: 111 Resp: 25 Temp: 99.5 F (37.5 C) SpO2: 91% Maximum Temperatures (last 24 hours) Temperature Maximum Max Temp 99.5 F (37.5 C) Physical Exam patient is alert, does not appear dyspneic Sclera anicteric Regular rate rhythm S1-S2 Breath sounds present bilaterally with scattered rales Abdomen without any focal tenderness palpation Extremities without lower tremor the edema no rash noted alert, moving all 4 extremities Results for SHANNAN GATES ( ) as of 07/25/2020 12:00 Ref. Range 07/24/2020 04:37 WBC Latest Ref Range: 4.0 - 11.0 K/uL 21.8 (H) RBC Latest Ref Range: 4.40 - 5.80 M/uL 3.57 (L) Hemoglobin Latest Ref Range: 13.5 - 17.5 g/dL 9.9 (L) Hematocrit Latest Ref Range: 40.0 - 50.0 % 31.2 (L) MCV Latest Ref Range: 80.0 - 98.0 fL 87.4 MCH Latest Ref Range: 25.5 - 34.0 pg 27.7 MCHC Latest Ref Range: 31.5 - 36.5 g/dL 31.7 RDW-CV Latest Ref Range: 11.5 - 15.5 % 14.5 RDW-SD Latest Ref Range: 35.5 - 50.0 fl 45.3 Platelet Count Latest Ref Range: 140 - 400 K/uL 421 (H) MPV Latest Ref Range: 8.5 - 12.0 fL 10.0 Seg Neut Absolute Latest Ref Range: 1.8 - 8.0 K/uL 19.1 (H) Lymphocytes Absolute Latest Ref Range: 0.8 - 4.1 K/uL 1.5 Monocytes Absolute Latest Ref Range: 0.0 - 1.0 K/uL 1.0 Eosinophils Absolute Latest Ref Range: 0.0 - 0.7 K/uL 0.0 Basophil Absolute Latest Ref Range: 0.0 - 0.2 K/uL 0.0 Immature Granulocyte Absolute Latest Ref Range: 0.00 - 0.06 K/uL 0.16 (H) Neutrophils Percent Latest Units: % 87.5 Neutrophils Abs. (Segs and Bands) Latest Units: /uL 19,100 Lymphocytes Percent Latest Units: % 7.1 Monocytes Percent Latest Units: % 4.7 Immature Granulocyte Percent Latest Units: % 0.7 Eosinophils Percent Latest Units: % 0.0 Basophil Percent Latest Units: % 0.0 Glucose Latest Ref Range: 70 - 100 mg/dL 141 (H) Sodium Latest Ref Range: 135 - 145 meq/L 141 Potassium Latest Ref Range: 3.5 - 5.3 meq/L 3.7 Chloride Latest Ref Range: 99 - 110 meq/L 105 CO2 Latest Ref Range: 23 - 32 meq/L 26 Anion Gap with K Latest Ref Range: 6 - 20 meq/L 14 BUN Latest Ref Range: 6 - 22 mg/dL 14 Creatinine Latest Ref Range: 0.70 - 1.30 mg/dL 0.70 BUN/Creatinine Ratio Latest Ref Range: 10.0 - 25.0 20.0 Calcium Latest Ref Range: 8.5 - 10.5 mg/dL 7.9 (L) Results for SHANNAN GATES ( ) as of 07/25/2020 12:00 Ref. Range 07/21/2020 13:26 LEGIONELLA ANTIGEN, URINE Unknown Rpt STREP PNEUMONIAE DIRECT ANTIGEN, URINE Unknown Rpt Results for SHANNAN GATES ( ) as of 07/25/2020 12:00 Ref. Range 07/21/2020 13:26 Color Urine Latest Ref Range: [place], Dark Yellow, Straw, Yellow, Colorless Yellow Clarity Urine Latest Ref Range: Clear Clear Specific [place] Latest Ref Range: 1.002 - 1.030 1.025 Glucose Urine Latest Ref Range: Negative Negative Bilirubin Urine Latest Ref Range: Negative Negative Ketones Urine Latest Ref Range: Negative, 5 mg/dL, 10 mg/dL Negative Blood Urine Latest Ref Range: Negative Negative pH Urine Latest Ref Range: 5.0, 5.5, 6.0, 6.5, 7.0, 7.5, 8.0 6.0 Protein Urine Latest Ref Range: Negative 30 mg/dL (A) Nitrite Latest Ref Range: Negative Negative Leukocyte Esterase Urine Latest Ref Range: Negative Negative Urobilinogen Latest Ref Range: < 2 mg/dL < 2 mg/dL WBC Urine Latest Ref Range: Negative, 0-5 /hpf 0-5 /hpf RBC Urine Latest Ref Range: Negative, 0-2 /hpf Negative Squamous Epithelial Latest Ref Range: Negative, Occ (0-10) /lpf, Few (11-20) /lpf Occ (0-10) /lpf Bacteria Latest Ref Range: Negative Occ (0-10) /hpf (A) Pleural; Fluid Culture Result No growth at 48 hours Gram Stain Many (>25/LPF) WBC's No epithelial cells seen No organisms seen CULTURE BACTERIAL, RESPIRATORY WITH GRAM STAIN Order: [id number] Collected: 07/21/2020 15:28 Status: Preliminary result Visible to patient: No (not released) Specimen Information: Sputum; Respiratory Culture Result Moderate amount YeastAbnormal rslt (!) Isolate referred to reference laboratory for identification. With Normal Respiratory Jo. Gram Stain Many (>25/LPF) WBC's This is an appended report. These results have been appended to a previously preliminary verified report. Moderate (10 to 25/LPF) Squamous epithelial cells This is an appended report. These results have been appended to a previously preliminary verified report. Rare (less than 1/OIF) Gram positive cocci in pairs This is an appended report. These results have been appended to a previously preliminary verified report. TISSUE EXAM: [id number] Order: [id number] Collected: 07/23/2020 10:25 Status: Final result Visible to patient: No (not released) Component FINAL DIAGNOSIS Lung, left, CT-guided biopsy: - Acute inflammation, fibrinopurulent material and fibrosis consistent with abscess - No evidence of malignancy Procedure: CT CHEST WITH CONTRAST Date of Service: 07/25/2020 CT chest with intravenous contrast INDICATION: Abnormal xray - pleural effusion. Status post thoracentesis COMPARISON(S): Outside CT 07/20/2020 TECHNIQUE: Helical imaging was obtained of the chest after intravenous contrast administration. FINDINGS: The heart and great vessels are unremarkable. There is no mediastinal or hilar lymphadenopathy. No axillary lymphadenopathy. There is a large loculated left pleural effusion with associated pleural thickening and enhancement.There are areas of gas within the pleural fluid which could be iatrogenic or indicate infection. There are corresponding consolidative changes in the lingula and left lower lobe with fluid and gas attenuation in the consolidated lingula which may represent necrosis and/or abscess. There are patchy groundglass opacities throughout the right lung with a nonspecific appearance. No suspicious nodules detected. There are mild multilevel degenerative changes in the thoracic spine. No worrisome lytic or sclerotic lesions. There are no acute abnormalities demonstrated in the imaged upper abdomen. IMPRESSION: Heterogeneous consolidation in the lingula of the left upper lobe suspicious for necrotizing pneumonia and/or organizing pulmonary abscess. There is a corresponding large loculated left pleural effusion which could represent empyema. pringEris MD - 07/24/2020 7:26 PM CST Psychiatry Consultation Note Attending Physician: Dr Brooks Consulting Physician: Dr Weeks Reason For Consult: AMS Suicide Risk Assessment (SAFE-T) Risk Factors - Chronic physical pain or other acute medical problem (e.g. RUG HOOKER disorders), Social isolation and Impulsive Personality Protective Factors - access to clinical interventions, family/community support, ongoing medical supports, problem solving ability, cultural/lutheran beliefs, responsibility to children or beloved pets, able to tolerate emotional distress and positive coping strategies Access to lethal means: No Suicide Ideation No; Suicide Plan No; Suicidal Behaviors (<48 hours) No; Suicidal Intent No Suicide Risk - low Homicide Risk Assessment Risk Factors - None Diagnosis: -Delirium related to sepsis/lung infective process -Schizophrenia -BIF -Tobacco use disoder Medical Diagnoses complicating management: Sepsis COPD PNA vs lung mass Treatment Recommendations: 1. No labs at this time 2. Continue home dose of clozapine 100/200/400 - we should contact Ashley torre and confirm this if not already completed. Consider slight dose decrease here if over-sedated as clozapine levels will be subject to metabolism by cigarettes (increasing with inability to smoke). Doses >600 tend to lower the seizure threshold. If AMS waxes/wanes despite resolving sepsis - check EEG. 3. Continue RMN 15 mg po qhs. Clozapine/RMN both carry a risks of agranulocytosis. 4. He is on monthly CBC per S-I-LChandrika. 5. He was recently in psychiatric hospital and released on Jul 08 - CAH prompted hospitalization. 6. Use simple language and provide handouts with written reminders to aid in understanding of his illnesses. 7. Continue current precautions. 8. Thank you for allowing me to participate in the care of this patient. History of Present Illness: Shannan is a 59 yo CM seen in the ICU. He is sleeping but wakes with verbalstimuli. He has poor dentition and disheveled appearance in addition to typical appearance of ICU level illness. He is oriented to location but has a delay in answering questions - possibly internally pre-occupied. Denies SI/HI/AVH. He is uncertain of why he is here or what we are treating him for - reviewed this with him but didn't have him repeat for understanding his comprehension. Past Psychiatric History: See above. He did see psychiatrists through [employer] but he has since retired. They are doing virtual visits but not sure who with - Chandrika doesn't feel these are of value for him. Past Medical History: Past Medical History: Diagnosis Date Anxiety COPD (chronic obstructive pulmonary disease) ([facility]) 07/20/2020 Depression Hyperlipidemia Nicotine addiction Allergies: Patient has no known allergies. Current Medications: Current Facility-Administered Medications Medication Dose Route Frequency Provider Last Rate Last Admin sodium chloride 0.9% IV solution IV Continuous Manuel Ayala MD 30 mL/hr at 049 Already Infusing at 07/23/20 1049 fentaNYL 100 mcg/2 mL preservative free injection solution 25-300 mcg 25- 300 mcg IV PRN per parameter Manuel Ayala MD 50 mcg at 07/23/20 1050 midazolam (VERSED) injection solution 0.5-4 mg 0.5-4 mg IV PRN per parameter Manuel Ayala MD 1 mg at 07/23/20 1051 Potassium Replacement Protocol 1 each Does not apply Every 6 hours Aldo Burnett, DO vancomycin in 0.9% sodium chloride 500 mL IV piggyback 1,750 mg 1,750 mg IV Every 12 hours Estrella Brooks MD Stopped at 07/25/20 1200 hEParin (50 unit/mL) in 5% dextrose 500 mL IV solution (premix) 100-2,500 Units/hr IV Titrate Estrella Brooks MD 38 mL/hr at 07/24/20 1631 1,900 Units/hr at 07/24/20 1631 heparin (porcine) injection solution 3,200 Units 3,200 Units IV PRN per parameter Estrella Brooks MD 3,200 Units at 07/23/20 2205 heparin (porcine) injection solution 6,400 Units 6,400 Units IV PRN per parameter Estrella Brooks MD ferrous sulfate (65 mg FE) enteric coated tablet 325 mg 325 mg Oral Daily Estrella Brooks MD 325 mg at 07/24/20 0836 folic acid tablet 1 mg 1 mg Oral Daily Estrella Brooks MD 1 mg at 07/24/20 0836 cyanocobalamin (vitamin B-12) tablet 100 mcg 100 mcg Oral Daily Estrella Brooks MD 100 mcgat 07/24/20 0836 lidocaine PF (XYLOCAINE-MPF) 1 % preservative free injection solution 20 mL 20 mL Subcutaneous 1 time Manuel Ayala MD LORazepam (ATIVAN) 2 mg/mL injection solution 1 mg 1 mg IV Every 2 hours prn Estrella Brooks MD haloperidol lactate (HALDOL) injection solution 2 mg 2 mg Intramuscular Every 4 hours prn Estrella Brooks MD cefepime (MAXIPIME) 2,000 mg in sodium chloride 0.9% 50 mL (addEASE)(locked) 2,000 mg IV Every 8 hours Estrella Brooks MD 2,000 mg at 07/24/201816 albuterol (PROVENTIL) (2.5 mg/3mL) 0.083% inhalation soln 2.5 mg 2.5 mg Nebulization Every 2 hours prn Estrella Brooks MD 2.5 mg at 07/23/202013 budesonide (PULMICORT) 0.5 mg/2 mL inhalation soln 0.5 mg 0.5 mg Nebulization 2 times a day Estrella Brooks MD 0.5 mg at 07/24/201015 acetaminophen (TYLENOL) tablet 650 mg 650 mg Oral Every 4 hours prn Estrella Brooks MD 650mg at 07/21/20 2311 cloZAPine (CLOZARIL) tablet 200 mg 200 mg Oral Daily Aldo Burnett DO 200 mg at 07/24/20 0836 cloZAPine (CLOZARIL) tablet 400 mg 400 mg Oral at bedtime Aldo Burnett DO 400 mg at 07/23/202001 atorvaSTATin (LIPITOR) tablet 40 mg 40 mg Oral at bedtime Aldo Burnett DO 40 mg at 07/23/202001 pantoprazole (PROTONIX) enteric coated tablet 40 mg 40 mg Oral daily Aldo Burnett DO 40 mg at 07/24/20 0836 mirtazapine (REMERON) tablet 15 mg 15 mg Oral at bedtime Aldo Burnett DO 15 mg at 07/23/202001 sodium chloride 0.9% flush (adult) 10 mL 10 mL IV 2 times a day and prn Aldo Burnett DO 10 mL at 07/24/20 0836 acetaminophen (TYLENOL) tablet 650 mg 650 mg Oral Every 4 hours prn Aldo Burnett DO 325 mg at 07/20/20 1927 sodium chloride 0.9% IV solution IV Continuous Aldo Burnett DO 100 mL/hr at 07/22/20 1058New Bag at 07/22/20 1058 ondansetron (ZOFRAN ODT) dispersible tablet 4 mg 4 mg Oral 4 times a day prn Aldo Burnett DO And ondansetron (ZOFRAN) injection solution 4 mg 4 mg IV 4 times a day prn Aldo Burnett DO And metoclopramide (REGLAN) inj soln 5 mg 5 mg IV Every 8 hours prn Aldo Burnett DO cloZAPine (CLOZARIL) tablet 100 mg 100 mg Oral Daily Aldo Burnett DO 100 mg at 07/24/20 1144 HYDROcodone-acetaminophen (NORCO) 5-325 mg tablet 1 tablet 1 tablet Oral Every 4 hours prn Aldo Burnett DO 1 tablet at 07/22/20 1310 Family History: Family History Problem Relation Age of Onset Not otherwise listed - Cancer Mother Alcohol Abuse Mother Heart Disease Father Not otherwise listed - Cancer Father Alcohol Abuse Father Family History of Mental Illness: Unremarkable Social History: -Interpersonal: Single -Occupation: Unemployed -Education: n/a -Legal: no issues identified -Denies close contacts attempting/committing suicide Review of Systems: Fatigue, mild breathing labor Mental Status Examination: General: Appears stated age, no acute distress, poor hygiene/dentition/disheveled Orientation: oriented to location Behavior: Somewhat pre-occupied - gaze aversion at times Motor: no tics/tremors; gait not assessed Speech: Normal volume and tone, fluent Mood: "ok" Affect: slightly suspicious/paranoid Thought Process: Linear and coherent Thought Content: Denies SI/HI/AVH Memory: Intact for recent and remote Intelligence: Suspected below average based on vocabulary and fund of knowledge Attention and Concentration: Adequate to conversation Insight and Judgment: Limited Eris Weeks MD Raj Garcia MD - 07/23/2020 10:10 PM CST 07/23/20 Shannan Gates Referred by: Dr. Brooks for anemia, pulmonary embolus, and left lung mass Hematology/Oncology New Patient/Consult Visit Note Assessment/Plan: Left lung mass and pleural effusion: Radiographic appearance and extensive smoking history favor malignancy; agree with and appreciate management ayan and Dr. Ayala's procedures today. Await results. Pulmonary Embolus: Continue IV heparin for now. Anemia: Multifactorial. Appears to be folate deficient. Agree with management thusfar. Schizoaffective Disorder/Decision Making: Discussed with patient. He indicates he would like to have his sister contacted regarding further decision making. Indicated we would not have results from procedures today until . I will return then to discuss with him. Suspect it will be best to have care conference once results of cytology and biopsy from today available, including sister Chandrika, so we can establish goals of care and future care plans. Thank you for the consultation; I will continue to follow with you. I spent a total of 40 minutes on the patient's care today including preparing for the visit, the visit, documentation, and follow-up care. This does not include any procedure time. Hematology/Oncology/Related History: History primarily from review of [facility] medical record. Most pertinent past medical history issues include schizophrenia/schizo- affective disorder, extensive past smoking history, stated to have COPD, hearing loss, history of heavy alcohol use until 1988, GERD, anxiety, depression, hyperlipidemia. Recently has had progressive fatigue and dyspnea. Seen at outside hospital with same. CTA Chest interpreted to show subsegmental PE, lung mass/consolidation and pleural effusion, possible pneumonitis. Transferred to [facility] and admitted to ICU. Found to have significant anemia. Placed on antibiotics, IV heparin. Overall has become more stable; today has had thoracentesis and lung biopsy. Patient's sister Chandrika has been involved in his care; apparently they live in the same care environment. This afternoon he states he is comfortable, better than he felt earlier today. Some anxiety regarding whether or not he will become more short of breath as the afternoon progresses. Patient Active Problem List Diagnosis Urticaria Schizophrenia (HCC) COPD (chronic obstructive pulmonary disease) (HCC) Lung mass Pulmonary emboli (HCC) Schizo-affective psychosis (HCC) PNA (pneumonia) Sepsis (HCC) Current Facility-Administered Medications: sodium chloride 0.9% IV solution, , IV, Continuous, Manuel Ayala MD, Last Rate: 30 mL/hr at 07/23/20 1049, Already Infusing at 07/23/20 1049 fentaNYL 100 mcg/2 mL preservative free injection solution 25-300 mcg, 25- 300 mcg, IV, PRN per parameter, Manuel Ayala MD, 50 mcg at 07/23/20 1050 midazolam (VERSED) injection solution 0.5-4 mg, 0.5-4 mg, IV, PRN per parameter, Manuel Ayala MD, 1 mg at 07/23/20 1051 Potassium Replacement Protocol, 1 each, Does not apply, Every 6 hours, Aldo Burnett, DO vancomycin in 0.9% sodium chloride 500 mL IV piggyback 1,750 mg, 1,750 mg, IV, Every 12 hours, Estrella Brooks MD, 1,750 mg at 07/23/20 1309 hEParin (50 unit/mL) in 5% dextrose 500 mL IV solution (premix), 100-2,500 Units/hr, IV, Titrate, Estrella Brooks MD, Last Rate: 40 mL/hr at 07/23/202206, 2,000 Units/hr at 07/23/202206 heparin (porcine) injection solution 3,200 Units, 3,200 Units, IV, PRN per parameter, Estrella Brooks MD, 3,200 Units at 07/23/202204 heparin (porcine) injection solution 6,400 Units, 6,400 Units, IV, PRN per parameter, Estrella Brooks MD ferrous sulfate (65 mg FE) enteric coated tablet 325 mg, 325 mg, Oral, Daily, Estrella Brooks MD, 325 mg at 07/23/20 1048 folic acid tablet 1 mg, 1 mg, Oral, Daily, Estrella Brooks MD, 1 mg at 07/23/20 1048 cyanocobalamin (vitamin B-12) tablet 100 mcg, 100 mcg, Oral, Daily, Estrella Brooks MD, 100 mcg at 07/23/20 1048 lidocaine PF (XYLOCAINE-MPF) 1 % preservative free injection solution 20 mL, 20 mL, Subcutaneous, 1 time, Manuel Ayala MD LORazepam (ATIVAN) 2 mg/mL injection solution 1 mg, 1 mg, IV, Every 2 hours prn, Estrella Brooks MD haloperidol lactate (HALDOL) injection solution 2 mg, 2 mg, Intramuscular, Every 4 hours prn, Estrella Brooks MD cefepime (MAXIPIME) 2,000 mg in sodium chloride 0.9% 50 mL (addEASE)(locked), 2,000 mg, IV, Every 8 hours, Estrella Brooks MD, 2,000 mg at 07/23/201850 albuterol (PROVENTIL) (2.5 mg/3mL) 0.083% inhalation soln 2.5 mg, 2.5 mg, Nebulization, Every 2hours prn, Estrella Brooks MD, 2.5 mg at 07/23/202013 budesonide (PULMICORT) 0.5 mg/2 mL inhalation soln 0.5 mg, 0.5 mg, Nebulization, 2 times a day,Estrella Brooks MD, 0.5 mg at 07/23/202013 predniSONE tablet 40 mg, 40 mg, Oral, Daily, Estrella Brooks MD, 40 mg at 07/23/208 acetaminophen (TYLENOL) tablet 650 mg, 650 mg, Oral, Every 4 hours prn, Estrella Brooks MD, 650 mg at 07/21/20 2311 cloZAPine (CLOZARIL) tablet 200 mg, 200 mg, Oral, Daily, Aldo Burnett, DO, 200 mg at 07/23/20 1048 cloZAPine (CLOZARIL) tablet 400 mg, 400 mg, Oral, at bedtime, Aldo Burnett DO, 400 mg at 07/23/202001 atorvaSTATin (LIPITOR) tablet 40 mg, 40 mg, Oral, at bedtime, Aldo Burnett DO, 40 mg at 07/23/202001 pantoprazole (PROTONIX) enteric coated tablet 40 mg, 40 mg, Oral, daily, Aldo Burnett DO, 40 mg at 07/23/20 1048 mirtazapine (REMERON) tablet 15 mg, 15 mg, Oral, at bedtime, Aldo Burnett DO, 15 mg at 07/23/202001 sodium chloride 0.9% flush (adult) 10 mL, 10 mL, IV, 2 times a day and prn, Aldo Burnett DO, 10 mL at 07/23/202039 acetaminophen (TYLENOL) tablet 650 mg, 650 mg, Oral, Every 4 hours prn, Aldo Burnett DO, 325 mg at 07/20/20 192 sodium chloride 0.9% IV solution, , IV, Continuous, Aldo Burnett DO, Last Rate: 100 mL/hr at 07/22/20 1058, New Bag at 07/22/20 1058 ondansetron (ZOFRAN ODT) dispersible tablet 4 mg, 4 mg, Oral, 4 times a day prn AND ondansetron (ZOFRAN) injection solution 4 mg, 4 mg, IV, 4 times a day prn AND metoclopramide (REGLAN) inj soln 5 mg, 5 mg, IV, Every 8 hours prn, Aldo Burnett DO cloZAPine (CLOZARIL) tablet 100 mg, 100 mg, Oral, Daily, Aldo Burnett DO, 100 mg at 07/23/20 1048 HYDROcodone-acetaminophen (NORCO) 5-325 mg tablet 1 tablet, 1 tablet, Oral, Every 4 hours prn, Aldo Burnett DO, 1 tablet at 07/22/20 1310 No Known Allergies Family History Problem Relation Age of Onset Not otherwise listed - Cancer Mother Alcohol Abuse Mother Heart Disease Father Not otherwise listed - Cancer Father Alcohol Abuse Father Social History Socioeconomic History Marital status: Single Spouse name: Not on file Number of children: Not on file Years of education: Not on file Highest education level: Not on file Occupational History Not on file Social Needs Financial resource strain: Not on file Food insecurity Worry: Not on file Inability: Not on file Transportation needs Medical: Not on file Non-medical: Not on file Tobacco Use Smoking status: Current Every Day Smoker Packs/day: 1.00 Years: 45.00 Pack years: 45.00 Types: Cigarettes Smokeless tobacco: Former User Substance and Sexual Activity Alcohol use: No Alcohol/week: 0.0 standard drinks Drug use: Yes Types: Prescription Sexual activity: Not Currently Partners: Female control/protection: None Lifestyle Physical activity Days per week: Not on file Minutes per session: Not on file Stress: Not on file Relationships Social connections Talks on phone: Not on file Gets together: Not on file Attends lutheran service: Not on file Active member of club or organization: Not on file Attends meetings of clubs or organizations: Not on file Relationship status: Not on file Intimate partner violence Fear of current or ex partner: Not on file Emotionally abused: Not on file Physically abused: Not on file Forced sexual activity: Not on file Other Topics Concern Not on file Social History Narrative Not on file ROS: 12 point review of systems negative except as noted above in Interim History. PHYSICAL EXAM: BP 142/81 Pulse 104 Temp 99.1 F (37.3 C) Resp 22 Ht 1.778 m (5' 10") Wt 76.5 kg (168 lb 10.4 oz) SpO2 95% BMI 24.2 kg/m2 Physical Exam General: mild distress, cooperative, awoke from sleep; appears chronically ill LABS: Relevant labs incorporated into the hematolgy/oncology history. XRAY CHEST 1V - AP/PA [facility] Patient Name: SHANNAN GATES Date of : 1960 Procedure: XRAY CHEST 1 VIEW Date of Service: 07/23/2020 CHEST RADIOGRAPH TECHNIQUE: AP VIEW OF THE CHEST CLINICAL HISTORY: Status post left lung biopsy. COMPARISON: From earlier the same day. FINDINGS: Stable exam. No pneumothorax. IMPRESSION: Stable exam. No pneumothorax. Finalized by: MANUEL AYALA on 07/23/2020 5:01 PM [employer] Patient/Procedure Information: BERRYMIDJI MRN/JODIE: [id number] Order Number: [id number] Accession Number: [id number] Ordering Provider: MANUEL AYALA Authorizing Provider: MANUEL AYALA XRAY CHEST 1V - [facility] Patient Name: SHANNAN GATES Date of : 1960 Procedure: XRAY CHEST 1 VIEW Date of Service: 07/23/2020 CHEST RADIOGRAPH TECHNIQUE: AP VIEW OF THE CHEST CLINICAL HISTORY: Status post left lung biopsy.. COMPARISON: From earlier the same day. FINDINGS: Stable loculated moderate sized left pleural effusion. Stable left pulmonary opacities. No pneumothorax. IMPRESSION: Stable exam. No pneumothorax. Finalized by: MANUEL AYALA on 07/23/2020 12:21 PM [employer] Patient/Procedure Information: MARIO MRN/JODIE: [id number] Order Number: [id number] Accession Number: [id number] Ordering Provider: MANUEL AYALA Authorizing Provider: MANUEL AYALA IR BIOPSY OR ASPIRATION Patient Name: SHANNAN GATES Date of : 1960 Procedure: IR BIOPSY OR ASPIRATION Date of Service: 07/23/2020 Patient Name: SHANNAN GATES MR#: [id number] Exam Description: IR BIOPSY OR ASPIRATION Exam Date/Time: 07/23/2020 9:59 AM [employer] PROCEDURE: CT GUIDED LEFT UPPER LOBE LUNG BIOPSY CLINICAL HISTORY: Loculated and septated left pleural effusion and masslike consolidation in the left lung. OPERATORS: Manuel Ayala MD TECHNIQUE: The patient was identified, the procedure was explained; risks, benefits and alternatives were discussed and informed consent obtained from the patient. A team time-out was performed before commencement of the procedure. A limited CT of the chest was performed and an appropriate site for biopsy identified. The skin wasprepped and draped in the usual sterile fashion. Lidocaine was injected for local anesthesia. A 17G guide needle was passed into the masslike consolidation in the left upper lobe utilizing intermittent CT guidance. Through the cannula, an 18 G core biopsy needle was passed under CT guidance and multiple core biopsy specimens were obtained and submitted to surgical pathology. The needles were removed and hemostasis obtained with manual compression. A limited postprocedure CT scan of the chest was performed. Sedation: The patient under moderate sedation was monitored throughout the procedure by dedicated nursing staff under physician supervision. The patient received 50 micrograms fentanyl IV and 1 milligrams Versed IV. Procedure began at 10:01 and completed at 10:16. Radiation Dose: DLP: 1223 mGycm Contrast: None FINDINGS: 1. Limited planning CT reveals masslike consolidation in the left long and a loculated left pleuraleffusion. Groundglass opacities are also noted right upper lobe. 2. Successful CT guided biopsy of masslike consolidation in the left upper lobe. 3. Limited post-procedure CT reveals no pneumothorax. COMPLICATION: There were no immediate complications. The patient tolerated the procedure well. IMPRESSION: Technically successful CT-guided biopsy of masslike consolidation in the left upper lobe. Finalized by: MANUEL AYALA on 07/23/2020 11:23 AM [employer] Patient/Procedure Information: MARIO MRN/JODIE: [id number] Order Number: [id number] Accession Number: [id number] Ordering Provider: ESTRELLA BROOKS Authorizing Provider: ESTRELLA BROOKS XRAY CHEST 1V - AP[facility] Patient Name: SHANNAN GATES Date of : 1960 Procedure: XRAY CHEST 1 VIEW Date of Service: 07/23/2020 CHEST RADIOGRAPH TECHNIQUE: AP VIEW THE CHEST CLINICAL HISTORY: Status post left lung biopsy and thoracentesis. COMPARISON: CTA chest 07/20/2020. Chest radiograph 07/20/2020. FINDINGS: No pneumothorax. There is masslike consolidation in the middle of lower lung field. Interval enlargement of left pleural effusion since comparison radiograph, now moderate in size and loculated. No acute osseous abnormality. IMPRESSION: 1. No pneumothorax. 2. Enlarging loculated left pleural effusion since 07/20/2020, now moderate in size. Finalized by: MANUEL AYALA on 07/23/2020 11:07 AM [employer] Patient/Procedure Information: MARIO MRN/JODIE: [id number] Order Number: [id number] Accession Number: [id number] Ordering Provider: MANUEL AYALA Authorizing Provider: MANUEL AYALA IR THORACENTESIS Patient Name: SHANNAN GATES Date of : 1960 Procedure: IR THORACENTESIS Date of Service: 07/23/2020 Patient Name: SHANNAN GATES MR#: [id number] Exam Description: IR THORACENTESIS Exam Date/Time: 07/23/2020 8:45 AM [employer] PROCEDURE: Ultrasound-guided left thoracentesis NAIL POLISH BRUSH MACHINE FEEDER: Manuel Ayala M.D. HISTORY: Large left pleural effusion and masslike consolidation in the left lung. COMPARISON: 07/20/2020. TECHNIQUE: The procedure, risks, benefits and alternatives were discussed with and informed consent obtained from the patient. A time out was performed and documented before commencement of the procedure. A limited ultrasound of the left chest was performed to identify a site for puncture and permanent images obtained. After administration of lidocaine for local anesthesia, the left pleural space was entered with a 5Fone-step needle under ultrasound guidance. The needle was removed and cloudy yellow fluid returned through the cannula. A total of 340 mL of fluid was removed. Fluid was submitted for laboratory analysis. Fluid was also sent for cytology. The cannula was removed and a dressing placed. Sedation: None. Radiation Dose: Fluoroscopy time: None Contrast: None FINDINGS: Large multiseptated left pleural effusion. COMPLICATION: There were no immediate complications. The patient tolerated the procedure well. IMPRESSION: 1. Technically successful left thoracentesis. 2. Large multiseptated left pleural effusion. Finalized by: MANUEL AYALA on 07/23/2020 11:01 AM [employer] Patient/Procedure Information: BERRYMIDJI MRN/JODIE: [id number] Order Number: [id number] Accession Number: [id number] Ordering Provider: ESTRELLA BROOKS Authorizing Provider: ESTRELLA BROOKS [employer] documented in this encounter Miscellaneous Notes Case Mgmt - Sania Guevara LSW - 08/01/2020 10:28 AM CSTCASE MANAGEMENT FINAL DISCHARGE PLAN This patient was reviewed today during Care Rounds with the interdisciplinary team. This discharge plan is based on the individual's values, goals, preferences and specific care needs. ANTICIPATED DISCHARGE DATE: 08/01/2020 ANTICIPATED DISCHARGE TIME: 12-12:30pm DISCHARGE DESTINATION: Other [facility] swing bed DISCHARGE/AGENCY TYPE: Swing Bed DISCHARGE SERVICES NEEDED: Skilled occupational therapy and Skilled physical therapy DISCHARGE DME: Other none DISCHARGE TRANSPORTATION: Other [facility] lunch truck driver TRANSPORTATION PAYMENT: Billed to Medical Assistance: [place] DISCHARGE PLAN REVIEWED/AGREED TO BY: Family Patient IF PATIENT HAS DESIGNATED A CAREGIVER, WERE THEY NOTIFIED OF THE DISCHARGE PLAN? Yes IS A REFERRAL TO THE SENIOR LINKAGE LINE NEEDED? No IS A REFERRAL FOR [facility] NEEDED? No DOES THE PATIENT HAVE OUTSIDE CARE COORDINATION? IF SO, STATE WHO YOU NOTIFIED OF DISCHARGE PLANS. Yes [facility] neonatal social worker WAS HOSPITALIST DEPARTMENT NOTIFIED OF TRANSITION? N/A AVS/FOLLOW UP PROVIDER/CARE TEAMS SECTION UPDATED: Yes MEDICARE RIGHTS LETTER REVIEWED/SIGNED: Yes PATIENT RISK OF READMISSION: 12.7 FLOWSHEET COMPLETED: n/a COMMENTS: Level II screening completed by Arminda Cabrera at [employer] This worker sent copy to [employer]. Discussed w/sister Chandrika via telephone who is in agreement, reviewed medicare rights letter. Spoke w/Isabela at [facility] who agrees they are able to accept patient today. Also reviewed with Marianela at [facility], she is in agreement and arranged for volunteer lunch truck driver to pickling operator at approximately 12:15pm. This worker faxed d/c orders, med list, PAS and Level II screening to Isabela at [facility]. RN please call report to [phone]. Faxed copy of Level II to Marianela at [facility]. No further d/c needs or concerns at this time. [id number] ADDITIONAL MD/NURSE INSTRUCTIONS: LACI Cavazos [employer] Occupational Therapy - RoseM arie Vasquez COTA/Janet - 08/01/2020 9:54 AM [employer] Occupational Therapy Treatment Note SUBJECTIVE Therapy Session: Reason for therapy: COPD, s/p thoracoscopy with chest tube, lung mass, Schizo- affective psychosis Where did therapy session occur?: Bedside Family members present for therapy session: None Patient refused treatment: No Sedation Level: Alert Comments: Agreeable for OOB sink tasks Special Precautions: Precautions: Weight Bearing Weight Bearing Status - LE: Full Weight Bearing Weight Bearing Status - UE: Full Weight Bearing Comments: 2 chest tubes (L) side TREATMENT ADL's: Position: Sitting Location: At sink Focus: Grooming;Dressing - Lower Extremity Bathing Level of Assist: Adaptive Equipment used: Braces Type of Brace/Prosthesis: Brace Donning/[place]: Cooking Safe to perform cooking task: Kitchen mobility devices: Able to prepare menu: Able to operate appliance controls: Able to manipulate utensils: Safety judgement: Sequencing: Level of Assist: Able to read/follow directions: Level of Assist: Attention span/concentation: Able to transport items: Level of Assist: Activity tolerance: Activity assistance for meal preparation following discharge: Patient able to perform cooking tasks safely: Comments/recommendations/equipment: Dressing - Lower Extremity Level of Assist: Adaptive Equipment used: Dressing - Upper Extremity Level of Assist: Adaptive Equipment used: Eating Level of Assist: Adaptive Equipment used: Grooming Level of Assist: Set-up Adaptive Equipment used: Meal Prep Level of Assist: Toileting Level of Assist: Adaptive Equipment used: Comments: Cues for inititation; set up to brush teeth, wash UB, comb hair. Donned brief at EOB. Tends to take a long time to brush teeth to the point of gagging self Transfers: Location: Sink;Edge of bed Assistive Devices used: Front Wheeled Walker Sit to Stand: Stand By Assist Stand to Sit: Stand By Assist Pivot: Stand Pivot Assist: Stand By Assist Bath at home: Shower Comments: assist for IV pole Bed Mobility: Sit to Supine: Modified [place] Supine to Sit: Modified [place] ASSESSMENT Patient demonstrates: Decreased activity tolerance;Decreased independence with activities of daily living tasks;Decreased functional cognition;Decreased strength Discharge Recommendation: tbd PLAN Interventions: Self cares;Therapeutic exercise Plan: Continue skilled OT services [employer] Clinical Team - Tony Hassan RN - 08/01/2020 8:03 AM CSTPt has removed IV access. Noc shift had placed new IV access this morning but insurance underwriter found pt had removed this access as well. Pt refused to allow insurance underwriter to place new IV at this time. [employer] Clinical Team - Rafael Villarreal RN - 08/01/2020 5:26 AM CST Shift Summary Note Principal Problem: <principal problem not specified> Allergies: Patient has no known allergies. Discharge plan: tbd Shift Note: paitient is confused and impulsive. Pulled out IV [facility] Easily redirected. Stated that some body came and pulled out the IV. Is hard to understand bret mumbles. Assessment: Isolation Status/Precautions; Isolation/Precautions Isolation Level: Contact GI Precautions Precautions: Fall, Respiratory, Safety, Pressure ulcer Intake/Output Summary Date 07/31/20 07 - 08/01/20 0659 08/01/20 0700 - 08/02/20 0659 Shift 6142-9379 8761-2831 4999-6038 24 Hour Total 9177-7360 2081-4409 8238-4997 24 Hour Total INTAKE Oral 120 120 Shift Total 120 120 OUTPUT Urine 775 775 Unmeasured Urine Occurrence 1 x 1 x 2 x Urine 775 775 Stool Unmeasured Stool Occurrence 2 x 0 x 2 x Shift Total 775 775 NET -707 -015 Neurological Neurological (NS Flowsheet 212 / Seizure Flowsheet 276) Level of Consciousness: Alert, Awake Orientation Level: Oriented to person, Oriented to place Size Left Pupil (mm): 2 mm Size Right Pupil (mm): 2 mm Reaction Left Pupil: Brisk, Round, Normal Reaction Right Pupil: Brisk, Round, Normal Motor Response LUE: Obeys commands Motor Response RUE: Obeys commands Motor Response LLE: Obeys commands Motor Response RLE: Obeys commands Communication: Clear Vision: Normal Hearing: Deaf Right ear Respiratory: Respiratory Respiratory (WDL): Exceptions to WDL Respiratory Pattern: Shallow Chest Assessment: Chest expansion symmetrical Breath Sounds Bilateral: Clear, Diminished TC Breath Sounds: Clear LLL Breath Sounds: Diminished RUL Breath Sounds: Clear RML Breath Sounds: Clear RLL Breath Sounds: Diminished IS Volume Achieved (mL): 1750 mL IS Goal (mL): 2500 mL Cardiac Cardiac (WDL): Exceptions to WDL Cardiac Cardiac Regularity: Regular Heart Sounds: Audible Pulse: 95 Telemetry Defective Cigarette Slitter On: Yes Cardiac Rhythm: Normal sinus rhythm(Read by recordist) Telemetry Box Number: [id number] GI: Gastrointestinal Gastrointestinal (WDL): Within Defined Limits Abdomen Inspection: Normal Inspection Bowel sounds (All Quadrants): Hypoactive Abdomen Tenderness: Nontender Passing Flatus: Yes Nausea: No : Urine Assessment Urine: 300 mL Unmeasured Urine Occurrence: 1 Urinary Status: Voiding Continent of Urine: Yes Urine Color: Yellow/Straw Urine Appearance: Clear Urine Odor: Normal Nutrition/Diet: Diet Diet type: Reg % Diet Eaten: Refused(Pt states not hungry) Peripheral Vascular: Peripheral Vascular Peripheral Vascular (WDL): Within Defined Limits Musculoskeletal: Musculoskeletal Generalized Musculoskeletal: Weakness Weight Bearing Status - LE: Full Weight Bearing Weight Bearing Status - UE: Full Weight Bearing Pain: Pain What is an acceptable pain level?: 4 Satisfied with pain management: Yes Pain Scale Used: Adult Behavioral Pain Ratin Pain Rating - Adult Behavioral: Quiet, relaxed, no frowning or grimacing, talking in normal tone or no sound Pain Location: Chest Specify: Lower, Left, Middle Pain character: Constant Pain Intervention(s): Had medication prior Lines/Incisions/Drains/Dressings: Peripheral IV 07/24/20 Brachial Anterior;Left (Active) Status Capped 07/31/20 1200 Flush Orders Initiated Yes 07/31/20 08 Site Assessment No redness, swelling, or drainage 07/31/20 1200 Dressing Status Clean, Dry, & Intact 07/31/20 1200 Reason For Line Medication Must Be Administered IV 07/31/20 0800 Peripheral IV 07/26/20 Radial Left;Middle/Medial (Active) Status Capped 07/31/20 1200 Flush Orders Initiated Yes 07/31/20 0800 Site Assessment No redness, swelling, or drainage 07/31/20 1200 Dressing Status Clean, Dry, & Intact 07/31/20 1200 Reason For Line Medication Must Be Administered IV 07/31/20 0800 Incision 07/23/20 Lateral;Left;Lower Chest Puncture site;Incision (Active) Incision Site Assessment Clean, dry and approximated 07/31/202107 Incision Site Closure None 07/29/20 0743 Incision Drainage Color None 07/31/202107 Incision Drainage Amount None 07/31/20 1200 Incision Dressing Type Open to air 07/29/20 0743 Incision Dressing Status Clean, dry and intact 07/31/20 1200 Incision 07/26/20 Left;Lateral Chest Lap sites 1 (Active) Incision Site Assessment Dressed, unable to assess 07/31/202107 Incision Site Closure Sutures;Gianfranco 07/31/20 1200 Incision Drainage Color None 07/31/202107 Incision Drainage Amount None 07/31/20 1200 Incision Dressing Type Foam;Gauze;Tape 07/31/20 1200 Incision Dressing Status Clean, dry and intact 07/31/202107 Labs: Labs (Last day) 07/31/201944 - 07/31/201944 CHEMISTRY 07/31/201944 CHEMISTRY Potassium 3.5-5.3 (meq/L) 3.9 Vitals: Vitals: 07/31/20 1300 07/31/208 07/31/20210908/01/20 0300 BP: 133/74 138/75 Pulse: 96 93 95 95 Resp: 15 16 18 Temp: 96.8 F (36 C) SpO2: 96% 92% 96% 92% Weight: Height: Wt Readings from Last 3 Encounters: 07/28/20 79.9 kg (176 lb 2.4 oz) 05/21/15 80.6 kg (177 lb 12.8 oz) [employer] Care Planning - Rafael Villarreal RN - 08/01/2020 1:25 AM [employer] Problem: READINESS FOR ENHANCED SELF-HEALTH MANAGEMENT Goal: DISCHARGE READINESS: INDEPENDENT LIVING Description: DEFINITION: Readiness of a patient to relocate from a health care institution to livingindependently. 1=Never demonstrated, 2=Rarely demonstrated, 3=Sometimes demonstrated, 4=Often demonstrated, 5=Consistently demonstrated. Flowsheets (Taken 08/01/2020 0125) Plan of care reviewed with: Patient Other (comment) Patient specific goal for the day: Meet with Reservationist to discuss discharge plans and identify needs Patient specific goal for the stay: Identify plan, needs and barriers for a safe discharge Achieve goal for stay: By discharge Patient Progress: Pt is very forgetful, impulsive, and [place]. Explaining plan of care to pt and familywill be important for safe discharge. Should consider home health or swing bed. [employer] Care Planning - Andrew Anguiano RRT - 07/31/2020 9:11 PM [employer] Problem: IMPAIRED GAS EXCHANGE Goal: RESPIRATORY STATUS Description: DEFINITION: Movement of air in and out of the lungs and exchange of carbon dioxide and oxygen at the alveolar level. 1=Severe deviation from normal range, 2=Substantial deviation from normal range, 3=Moderate deviation from normal range, 4=Mild deviation from normal range, 5=No deviationfrom normal range. Flowsheets (Taken 07/31/2020 2110) Initial Score: 4 Target Score: 5 Plan of care reviewed with: Patient Patient specific goal for the day: Keep sat's >90% on RA Patient specific goal for the stay: return to baseline Achieve goal for stay: By discharge Patient Progress: no distress, Rm Air, Nebulizer Tx per Hm Rx are Planning - Mayur Hernandez, EUGENE - 07/31/2020 4:22 PM [employer] Problem: IMPAIRED GAS EXCHANGE Goal: RESPIRATORY STATUS Description: DEFINITION: Movement of air in and out of the lungs and exchange of carbon dioxide and oxygen at the alveolar level. 1=Severe deviation from normal range, 2=Substantial deviation from normal range, 3=Moderate deviation from normal range, 4=Mild deviation from normal range, 5=No deviationfrom normal range. Outcome: NOC Rating 4 Flowsheets (Taken 07/31/2020 1622) Plan of care reviewed with: Patient Patient specific goal for the day: Keep sat's >90% on RA Patient specific goal for the stay: return to baseline Achieve goal for stay: By discharge Patient Progress: Pt on RA all day. SPO2 96%. Neb tx given on time., No distress noted hysical Therapy - Estrella Gould, PT - 07/31/2020 3:32 PM CSTPhysical Therapy Daily Note Therapy Session: Reason for therapy: COPD, s/p thoracoscopy with chest tube, lung mass, Schizo- affective psychosis Where did therapy session occur?: Bedside Family members present for therapy session: None Patient refused treatment: No Sedation Level: Alert Comments: Agreeable but wants to stay in bed after PT Chest tubes out and RN gave OK for therapy. Pt willing to work with PT Current Status: Special Precautions: Precautions: Weight Bearing Weight Bearing Status - LE: Full Weight Bearing Weight Bearing Status - UE: Full Weight Bearing Comments: 2 chest tubes (L) side Ambulation: Weight Bearing Status - LE: Full Weight Bearing Weight Bearing Status - UE: Full Weight Bearing Distance (Feet) - Trial #1: 150 Feet Distance (Feet) - Trial #2: 130 Feet Ambulation Assistance: Contact Guard Assist;Stand By Assist Assistive Devices : Front wheeled walker Gait Pattern / Deviations: Unsteady Comments: VC to keep within the walking during turns. Did ambulate shorter distances in the room without AD and this was steady, but on longer gait PT still rec AD Stairs: Comments: NT Transfers: Level of Assistance: Stand By Assist Comments: pt wasn't up for getting out of bed. Transfers were not observed this session. Pt was back on suction. Bed Mobility: Sit to Supine: Independent Supine to Sit: Independent not observed this session. Therapeutic Exercise: Exercise Routines: Seated Exercises Seated Exercises: Adductor sets;Ankle pumps;Hip flexion;Long Arc Quads;Hip abduction Extremity: Bilateral Repetitions: 15 Sets: 1 Mat Exercises: Ankle pumps;Heel slides;Hip abduction;Straight Leg Raise;Quad sets;Lower Trunk Rotation;Hooklying hip abduction and adduction Extremity: Bilateral Repetitions: 15-20 Sets: 1 Comments: pt needed vc's and demonstration for correct technique. At times he also needed physical assist. Comments: pt was cooperative with exercises. Exercise Routines: Seated Exercises Pain: when asked, pt stated he didn't have any pain. Oxygen: O2 Device: Room Air Sats >93% during session Assessment/equipment needs: Patient demonstrates: Decreased strength;Need for verbal cueing for proper exercise performance;Decreased tolerance to activity Comments: Pt is improving in activity tolerance; still unsteady at times. PT does rec SNF/TCU however if pt is here for a while there is a chance he could improve to the point of DC home, but he would have to be more steady. Encouragement given to try and ambulate more with RN/aide staff to increase his activity. Plan: Continue skilled PT services Comments: not certain at this time. utrition Team - Regina Mccarthy RD - 07/31/2020 3:29 PM CST Nutrition Note Height: 177.8 cm (5' 10") Admission Weight: Weight: 79.7 kg (175 lb 9.6 oz) BMI: Body mass index is 25.27 kg/m. Recent Weight History: Wt Readings from Last 6 Encounters: 07/28/20 79.9 kg (176 lb 2.4 oz) 05/21/15 80.6 kg (177 lb 12.8 oz) Subjective: Attempted to visit with patient this afternoon. Pt was eating food upon arrival then requested to go the bathroom and have the TV turned on. Spectacle Truer obtained help with transferring the pt tothe bathroom. Per CBORD, patient has been only eating one meal/day and consuming 50% per flowsheets.Will follow up at a later time to visit with patient. Current Diet: Regular Goals/Plan: Pt will tolerate >50% at all meals. Regular BM's. Maintain stable weights. Recommendation: F/U PRN [employer] Clinical Team - Samy Mayer RN - 07/31/2020 1:49 PM CSTReport given to Tony GRIFFITH on med surg. linical Team - Sarah White, GAGE D - 07/31/2020 12:43 PM [employer] Vancomycin Pharmacy Consult Note Vancomycin Pharmacy Consult requested on 07/[address] Brooks for indication: Sepsis Shannan Gates was admitted on 07/20/2020. He is 59yr old. Ht Readings from Last 1 Encounters: 07/20/20 1.778 m (5' 10") Wt Readings from Last 1 Encounters: 07/28/20 79.9 kg (176 lb 2.4 oz) Labs: Vancomycin Trough Date Value Ref Range Status 07/31/2020 20.1 10.0 - 20.0 ug/mL Final WBC Date Value Ref Range Status 07/31/2020 12.6 (H) 4.0 - 11.0 K/uL Final 07/30/2020 14.8 (H) 4.0 - 11.0 K/uL Final 07/29/2020 14.6 (H) 4.0 - 11.0 K/uL Final Creatinine Date Value Ref Range Status 07/31/2020 0.73 0.70 - 1.30 mg/dL Final 07/30/2020 0.72 0.70 - 1.30 mg/dL Final 07/29/2020 0.65 (L) 0.70 - 1.30 mg/dL Final CRP Date Value Ref Range Status 07/29/2020 66.4 0.0 - 8.0 mg/L Final Procalcitonin Date Value Ref Range Status 07/29/2020 0.24 <0.07 ng/mL Final 07/28/2020 0.45 <0.07 ng/mL Final Max Temperature: Temp (24hrs), Av.6 F (37 C), Min:97.8 F (36.6 C), Max:99.6 F (37.6 C) Estimated CrCl: Estimated Creatinine Clearance: 113.9 mL/min (based on SCr of 0.73 mg/dL). Allergies: No Known Allergies Cultures: Blood cultures drawn in [place] 07/21 blood - NGTD x2 07/21 sputum - moderate amount of yeast - not cryptococcus. 07/23 Pleural fluid- NG@72h Antibiotics: Cefepime Metronidazole Assessment/Plan: 07/21/2020: Patient is being started on vancomycin for Sepsis, continued to decline on Azith and CTX.Patient has NOT been on vancomycin previously at this institution. A calculated regimen of vancomycin 1250 mg (16.2mg/kg actual body weight) IV every 12 hours is predicted to produce a trough within the desired goal range of 15-20 mcg/mL. Magda Morales PHARM D 07/22/2020: 5th dose is due tomorrow at 1100. Will order trough for tomorrow at 1000. Creatinine is stable. WBC is 34.4 which is an increase from yesterday (was 32.4). GAGE Guzmán 07/23/2020 Trough resulted at 10.4. Previous dose was given on time, trough was drawn 25 minutes before the scheduled dose. Will increase dose to 1750 mg every 12 hours. Creatinine is stable. WBC slightly improved, but is still elevated at 30.1. GAGE Guzmán 07/24/20 Creatinine stable. WBC improved from 30.1 to 21.8. 5th dose of new regimen is due at 1200 tomorrow. Will order trough to be drawn prior to that dose at 1100. Will watch for ID of gram positivesin sputum. GAGE Guzmán 07/25: WBC up a little at 23.9. Procal down to 0.26. Tmax 99.5. SCr stable at 0.71. Infectious disease is being consulted. Vanco trough was 15.3. This is within goal range so will continue same dose/frequency. 07/26/2020: ID wants to keep vancomycin and cefepime and added metronidazole. Patient to undergo thorascopy today. WBC up slightly to 26.1 today. Awaiting ID of yeast in sputum, no other new culture results. Steve Lal PharmD, BCPS 07/27/2020: Creatinine stable (0.76), WBC up today ( 26.1-32.7), procal up (0.22- 0.39), ID on board. Last trough was 07/25 and therapeutic at 15.3. Will repeat trough tomorrow prior to the 1200 dose.Lisa AlmonteD 07/28/2020: Creatinine 0.77 stable, WBC improved ( 18.3). Repeat trough today was 19.2, within goal range but higher than previously. Will decrease dose today to 1500 mg q 12 hours. Lisa Weeks PharmD 07/29/2020: Day 9 of vancomycin - ID noted yesterday to continue broad spectrum antibiotics. WBC down to 14.6 today, lowest since admission. Afebrile. Nothing growing on pleural fluid cultures. Yeast ID'd as not cryptococcus. Continue antibiotics. Steve Lal PharmD, BCPS 07/30/2020: Day 10 of vancomycin. Plan for repeat trough tomorrow with lower dose regimen. Steve Lal PharmD, [facility] 07/31/2020: Day 11 of vancomycin. Trough resulted at 20.1, previous dose was given 30 minutes late, will decrease dose again to 1250 mg (15.6 mg/kg) every 12 hours. WBC's improving and creatinine remains stable. Per ID, plan to discharge on oral antibiotics but continue IV for now. Sarah White PharmD Pharmacy will monitor and if indicated, adjust dose and/or frequency per the Pharmacy and Therapeutics Committee approved pharmacokinetic service policy. Thank you very much for the consult. ase [facility] - Christal Garcia LSW - 07/31/2020 11:37 AM CSTCASE MANAGEMENT - ICU PROGRESS NOTE This patient was reviewed today during Care Rounds. The patient continues to receive care in the ICU. Support provided to patient/family. ANTICIPATED NEEDS ON DISCHARGE: Other: needs unknown at this time, as diagnostic tests are still pending. COMMENTS: Shannan remains in the ICU at this time and continues to require ICU level of care. Per attending MD, Shannan will require hospital level of care for a few more days. Surgery has removed both chest tubes andattending MD notes that Shannan will discharge on oral antibiotics. PAS completed: [id number]. Voicemail with Lb at [facility], ph [phone], re: level 2 screening and INDRA for Wednesday08/02/2020. Update provided to Isabela at [facility] regarding ELOS and plan of care. [facility] continues to be interested for short-term rehab prior to transitioning home alone. Discussedcurrent therapy evaluations and Isabela expressed understanding; will also discuss with Ton Pope [facility]. Plan at this time to aim for discharge on 08/02/2020. Voicemail left with sister Cobos-in-law, on this date. CM, please confirm INDRA with patient's care team on and update [facility], as well as Marianela at [facility]. If appropriate to transition in a private vehicle, [place] will arrange for a volunteer lunch truck driver. ADDENDUM: Telephone call received from [id number] Marsha and insurance underwriter provided and update regarding transfer to second floor, as well as update on ELOS and plan for discharge. Chandrika is in agreement with the transfer to [facility], and declines concerns. Chandrika would like an update to confirm discharge planning for Wednesday. Please call home telephone number, and leave a voicemail. Chandrika will call back. CONTACTS: -Chandrika [email or web address] @ [phone]- okay to leave a voicemail -Isabela case management at [facility] in [place] @ [phone]. -Marianela Pires, case management at [facility] @ W) [phone] CASE MANAGEMENT PLAN: Will continue to follow and assist with discharge planning. Unable to determine discharge needs at this time. SIGNED: LACI Durham [employer] Occupational Therapy - Rose Marie Vasquez COTA/L - 07/31/2020 10:49 AM [employer] Occupational Therapy Treatment Note SUBJECTIVE Therapy Session: Reason for therapy: COPD, s/p thoracoscopy with chest tube, lung mass, Schizo- affective psychosis Where did therapy session occur?: Bedside Family members present for therapy session: None Patient refused treatment: No Sedation Level: Alert Comments: Agreeable but wants to stay in bed after PT Special Precautions: Precautions: Weight Bearing Weight Bearing Status - LE: Full Weight Bearing Weight Bearing Status - UE: Full Weight Bearing Comments: 2 chest tubes (L) side OBJECTIVE Therapeutic Exercise: Movement: Horizontal Adduction;Horizontal Abduction;Extension;Flexion;Truck Bench Mechanic Activity: Dowel;Flex-bar Resistance: 1 lb;Red Repetitions: 10 Sets: 2 Comments: Pt working on UE strength/endurance tasks to maximise Indep for self- cares. Pt reports fatigue in UEs after tasks. Closes eyes in between tasks. ASSESSMENT Patient demonstrates: Decreased activity tolerance;Decreased independence with activities of daily living tasks;Decreased functional cognition;Decreased strength Discharge Recommendation: tbd PLAN Interventions: Self cares;Therapeutic exercise Plan: Continue skilled OT services [employer] Care Planning - Andrew Anguiano, [facility] - 07/30/2020 7:55 PM [employer] Problem: IMPAIRED GAS EXCHANGE Goal: RESPIRATORY STATUS Description: DEFINITION: Movement of air in and out of the lungs and exchange of carbon dioxide and oxygen at the alveolar level. 1=Severe deviation from normal range, 2=Substantial deviation from normal range, 3=Moderate deviation from normal range, 4=Mild deviation from normal range, 5=No deviationfrom normal range. Flowsheets (Taken 07/30/20201954) Initial Score: 4 Target Score: 5 Plan of care reviewed with: Patient Patient specific goal for the day: Keep sat's >90% on RA Patient specific goal for the stay: return to baseline Achieve goal for stay: By discharge Patient Progress: Pt on RA all day. SPO2 96%. Neb tx given on time., No distress noted are Planning - Jone Todd, EUGENE - 07/30/2020 4:16 PM [employer] Problem: IMPAIRED GAS EXCHANGE Goal: RESPIRATORY STATUS Description: DEFINITION: Movement of air in and out of the lungs and exchange of carbon dioxide and oxygen at the alveolar level. 1=Severe deviation from normal range, 2=Substantial deviation from normal range, 3=Moderate deviation from normal range, 4=Mild deviation from normal range, 5=No deviationfrom normal range. Outcome: NOC Rating 4 Flowsheets (Taken 07/30/2020 1790) Initial Score: 4 Target Score: 5 Plan of care reviewed with: Patient Patient specific goal for the day: Keep sat's >90% on RA Patient specific goal for the stay: return to baseline Achieve goal for stay: By discharge Patient Progress: Pt on RA all day. SPO2 96%. Neb tx given on time. hysical Therapy - Joelle Ray PT - 07/30/2020 3:37 PM CSTPhysical Therapy Daily Note Therapy Session: Reason for therapy: COPD, s/p thoracoscopy with chest tube, lung mass, Schizo- affective psychosis Where did therapy session occur?: Bedside Family members present for therapy session: None Patient refused treatment: No Sedation Level: Alert Comments: Agreeable with encouragement pt was back on suction so RN reported that pt needed to stay in room and he wasn't able to go for a walk outside of the room. Pt wanted to stay in bed and not get up to a chair so PT was only able to do bedside exercises with pt. Current Status: Special Precautions: Precautions: Weight Bearing Weight Bearing Status - LE: Full Weight Bearing Weight Bearing Status - UE: Full Weight Bearing Comments: 2 chest tubes (L) side Ambulation: Comments: pt wasn't able to leave his room. He was back on suction. He was able to complete bedside exercises, but he declined getting out of bed and transferring to a chair Stairs: Comments: NT Transfers: Comments: pt wasn't up for getting out of bed. Transfers were not observed this session. Pt was back on suction. Bed Mobility: not observed this session. Therapeutic Exercise: Exercise Routines: Mat Exercises Mat Exercises: Ankle pumps;Heel slides;Hip abduction;Straight Leg Raise;Quad sets;Lower Trunk Rotation;Hooklying hip abduction and adduction Extremity: Bilateral Repetitions: 15-20 Sets: 1 Comments: pt needed vc's and demonstration for correct technique. At times he also needed physical assist. Comments: pt was cooperative with exercises. Exercise Routines: Mat Exercises Pain: Pain Scale Used: Adult Behavioral Pain Rating - Adult Behavioral: Quiet, relaxed, no frowning or grimacing, talking in normal tone or no sound Pain Ratin Pain Location: Chest Specify: Lower;Left;Middle Pain Intervention(s): Had medication prior when asked, pt stated he didn't have any pain. Oxygen: O2 Device: Room Air O2 Flow Rate (L/min): 3 l/min SpO2: 93 % Describe activity during oxygen evaluation: Resting in bed Time to Recover (min): 0.5 minutes Comments: Reduced O2 back down to 3.5 L once resting in bed-O2 returned to 92%. Assessment/equipment needs: Patient demonstrates: Decreased strength;Need for verbal cueing for proper exercise performance;Decreased tolerance to activity Plan: Continue skilled PT services Comments: not certain at this time. Comment: Pt was back on suction today so he had to stay in his room. He was quite sleepy and tired, but he was agreeable to bedside exercises. ase [facility] - Christal Garcia LSW - 07/30/2020 1:05 PM CSTCASE MANAGEMENT - ICU PROGRESS NOTE This patient was reviewed today during Care Rounds. The patient continues to receive care in the ICU. Support provided to patient/family. ANTICIPATED NEEDS ON DISCHARGE: Other: needs unknown at this time, as diagnostic tests are still pending. COMMENTS: Shannan remains in the ICU at this time and continues to require ICU level of care. Per attending MD, Shannan will require hospital level of care for a few more days, likely remaining in the hospital until the middle of this week. Awaiting response from ID re: IV antibiotics and surgery re: chest tube management. Voicemail left with Joelle at [facility] to inquire if Shannan will need a Level 2 screening upon discharge. [facility] referral for continued care/rehab updated to [facility] in [place]. Pending dischargeneeds, anticipate acceptance upon discharge. Awaiting further tests and plan of care; unknown at this time. Attending MD was unable to designate when Shannan may be stable for discharge at this time. ADDENDUM: return call received from Marianela Pires stating she is now back in the office and will resume caring for Shannan. Discussed current home services; homemaking 2 times/month, laundry services, mealservices, [employer], and transportation. Discussed liklihood for a Level 2 d/t requiring a crisis stabilization stay early June 2020 and Marianela expressed agreement; direct contact informationprovided for [facility] to call with questions/concerns regarding the assessment. Marianela shares that they will assist with arranging transportation back to [place] if appropriate to ride in a private vehicle, ie volunteer lunch truck driver. PAS completed: [id number]. Contacted [facility] and voicemail left with Lb Fraire ([phone]) in adult intake regarding the need for a Level 2; requested a call back. CONTACTS: -Chandrika, [id number] @ [phone] -Isabela, case management at [facility] in [place] @ [phone]. -Marianela Pires, case management at [facility] @ w) [phone] CASE MANAGEMENT PLAN: Will continue to follow and assist with discharge planning. Unable to determine discharge needs at this time. SIGNED: LACI Durham [employer] Occupational Therapy - Rose Marie Vasquez COTA/L - 07/30/2020 10:44 AM [employer] Occupational Therapy Treatment Note SUBJECTIVE Therapy Session: Reason for therapy: COPD, s/p thoracoscopy with chest tube, lung mass, Schizo- affective psychosis Where did therapy session occur?: Bedside Family members present for therapy session: None Patient refused treatment: No Sedation Level: Alert Comments: Agreeable with encouragement Special Precautions: Precautions: Weight Bearing Weight Bearing Status - LE: Full Weight Bearing Weight Bearing Status - UE: Full Weight Bearing Comments: 2 chest tubes (L) side TREATMENT ADL's: Position: Sitting Location: Chair Focus: Grooming Bathing Level of Assist: Adaptive Equipment used: Grooming Level of Assist: Set-up;Stand By Assist Adaptive Equipment used: Meal Prep Level of Assist: Toileting Level of Assist: Adaptive Equipment used: Comments: Cues for inititation; set up to brush teeth, wash UB, comb hair. Ready for breakfast tray to arrive. Transfers: Location: Chair;Edge of bed Assistive Devices used: Front Wheeled Walker Sit to Stand: Contact Guard Assist Stand to Sit: Contact Guard Assist Pivot: Stand Pivot Assist: Contact Guard Assist Bath at home: Shower Comments: Cues to sequence and use of 2ww Bed Mobility: Sit to Supine: Modified [place] Supine to Sit: Modified [place] ASSESSMENT Patient demonstrates: Decreased activity tolerance;Decreased independence with activities of daily living tasks;Decreased functional cognition Discharge Recommendation: tbd PLAN Interventions: Self cares;Therapeutic exercise Plan: Continue skilled OT services [employer] Clinical Team - Steve Lal PHARM D - 07/30/2020 9:49 AM CST Vancomycin Pharmacy Consult Note Vancomycin Pharmacy Consult requested on 07/[address] Brooks for indication: Sepsis Shannan Gates was admitted on 07/20/2020. He is 59yr old. Ht Readings from Last 1 Encounters: 07/20/20 1.778 m (5' 10") Wt Readings from Last 1 Encounters: 07/28/20 79.9 kg (176 lb 2.4 oz) Labs: Vancomycin Trough Date Value Ref Range Status 07/28/2020 19.2 10.0 - 20.0 ug/mL Final WBC Date Value Ref Range Status 07/30/2020 14.8 (H) 4.0 - 11.0 K/uL Final 07/29/2020 14.6 (H) 4.0 - 11.0 K/uL Final 07/28/2020 18.3 (H) 4.0 - 11.0 K/uL Final Creatinine Date Value Ref Range Status 07/30/2020 0.72 0.70 - 1.30 mg/dL Final 07/29/2020 0.65 (L) 0.70 - 1.30 mg/dL Final 07/28/2020 0.77 0.70 - 1.30 mg/dL Final CRP Date Value Ref Range Status 07/29/2020 66.4 0.0 - 8.0 mg/L Final Procalcitonin Date Value Ref Range Status 07/29/2020 0.24 <0.07 ng/mL Final 07/28/2020 0.45 <0.07 ng/mL Final Max Temperature: Temp (24hrs), Av.5 F (36.9 C), Min:98 F (36.7 C), Max:98.8 F (37.1 C) Estimated CrCl: Estimated Creatinine Clearance: 115.5 mL/min (based on SCr of 0.72 mg/dL). Allergies: No Known Allergies Cultures: Blood cultures drawn in [place] 07/21 blood - NGTD x2 07/21 sputum - moderate amount of yeast - not cryptococcus. 07/23 Pleural fluid- NG@72h Antibiotics: Cefepime Metronidazole Assessment/Plan: 07/21/2020: Patient is being started on vancomycin for Sepsis, continued to decline on Azith and CTX.Patient has NOT been on vancomycin previously at this institution. A calculated regimen of vancomycin 1250 mg (16.2mg/kg actual body weight) IV every 12 hours is predicted to produce a trough within the desired goal range of 15-20 mcg/mL. Magda Morales, PHARM D 07/22/2020: 5th dose is due tomorrow at 1100. Will order trough for tomorrow at 1000. Creatinine is stable. WBC is 34.4 which is an increase from yesterday (was 32.4). GAGE Guzmán D 07/23/2020 Trough resulted at 10.4. Previous dose was given on time, trough was drawn 25 minutes before the scheduled dose. Will increase dose to 1750 mg every 12 hours. Creatinine is stable. WBC slightly improved, but is still elevated at 30.1. GAGE Guzmán D 07/24/20 Creatinine stable. WBC improved from 30.1 to 21.8. 5th dose of new regimen is due at 1200 tomorrow. Will order trough to be drawn prior to that dose at 1100. Will watch for ID of gram positivesin sputum. Lauren Herron PHARM D 07/25: WBC up a little at 23.9. Procal down to 0.26. Tmax 99.5. SCr stable at 0.71. Infectious disease is being consulted. Vanco trough was 15.3. This is within goal range so will continue same dose/frequency. 07/26/2020: ID wants to keep vancomycin and cefepime and added metronidazole. Patient to undergo thorascopy today. WBC up slightly to 26.1 today. Awaiting ID of yeast in sputum, no other new culture results. Steve Lal PharmD, BCPS 07/27/2020: Creatinine stable (0.76), WBC up today ( 26.1-32.7), procal up (0.22- 0.39), ID on board. Last trough was 07/25 and therapeutic at 15.3. Will repeat trough tomorrow prior to the 1200 dose.Lisa AlmonteD 07/28/2020: Creatinine 0.77 stable, WBC improved ( 18.3). Repeat trough today was 19.2, within goal range but higher than previously. Will decrease dose today to 1500 mg q 12 hours. Lisa Weeks PharmD 07/29/2020: Day 9 of vancomycin - ID noted yesterday to continue broad spectrum antibiotics. WBC down to 14.6 today, lowest since admission. Afebrile. Nothing growing on pleural fluid cultures. Yeast ID'd as not cryptococcus. Continue antibiotics. Steve Lal PharmD, BCPS 07/30/2020: Day 10 of vancomycin. Plan for repeat trough tomorrow with lower dose regimen. Steve Lal PharmD, BCPS Pharmacy will monitor and if indicated, adjust dose and/or frequency per the Pharmacy and Therapeutics Committee approved pharmacokinetic service policy. Thank you very much for the consult. linical Team - Steev Lal, PHARM D - 07/30/2020 9:49 AM CST Clozapine Monitoring This patients current clozapine therapy status is Active Clinical pharmacist will monitor absolute neutrophil count (ANC) according to patient's ANC monitoring schedule and verify patient eligibility at [email or web address] prior to dispensing clozapine. This patient is registered under prescriber: Dr. Bhatt Frequency of ANC monitoring: every 4 weeks Neutrophils Abs. (Segs and Bands) Date/Time Value Ref Range Status 07/30/2020 06:09 AM 11,400 /uL Final Date ANC Current Clozapine Dose Notes 07/20/20 06/27/2020 was 6802 200 mg AM, 100 mg at noon, 400 mg QHS Directions per patient home med bottle last filled 07/01/20 (being stored in pharmacy) 07/25/20 20,100 200 mg at 0900 100 mg at 1200 400 mg at 2100 07/30/20 11,400 200 mg at 0900 100 mg at 1200 400 mg at 2100 are Planning - Andrew Anguiano RRT - 07/29/2020 8:10 PM [employer] Problem: IMPAIRED GAS EXCHANGE Goal: RESPIRATORY STATUS Description: DEFINITION: Movement of air in and out of the lungs and exchange of carbon dioxide and oxygen at the alveolar level. 1=Severe deviation from normal range, 2=Substantial deviation from normal range, 3=Moderate deviation from normal range, 4=Mild deviation from normal range, 5=No deviationfrom normal range. Flowsheets (Taken 07/29/20202008) Initial Score: 4 Target Score: 5 Plan of care reviewed with: Patient Patient specific goal for the day: Keep stable on RA, maintain oxygen levels. Patient specific goal for the stay: return to baseline Achieve goal for stay: By discharge Patient Progress: pt on RA, nebulizers as scheduled., Congested cough improving, poss removal of CX tubes in AM linical Team - Saad Jovel RN - 07/29/2020 6:01 PM CSTOn transfer back to bed pts ct pulled apart for min. Did remain clean placed back together notified pt sats 97 % Has been water seal since 1300 hysical Therapy - Keysha Barrett PT - 07/29/2020 2:59 PM CST Physical Therapy Summary Note Note Type: Re-evaluation Start of care date: 07/29/20 Goals to be accomplished by: dc Bed Mobility/Transfers: 1. Patient will be independent with bed mobility. 2. Patient will be modified independent with sit <> stand transfers. 3. Patient will be modified independent with bed<>chair transfers. Gait: Patient will be modified independent ambulating 150 feet with Front wheeled walker for household/community ambulation Stairs: Patient will perform 4 stairs with standby assistance and No assistive device with 1-2 railsto access home/community Admission Diagnosis: COPD, s/p thoracoscopy with chest tube, lung mass, Schizo-affective psychosis Special Precautions: Precautions: Weight Bearing Weight Bearing Status - LE: Full Weight Bearing Weight Bearing Status - UE: Full Weight Bearing Comments: 2 chest tubes (L) side INITIAL Subjective Assessment: Therapy Session: Reason for therapy: COPD, s/p thoracoscopy with chest tube, lung mass, Schizo- affective psychosis Where did therapy session occur?: Bedside Family members present for therapy session: None Patient refused treatment: No Sedation Level: Alert Comments: Patient Information: Marital Status / Family Situation: Single Past Medical History: Diagnosis Date Anxiety COPD (chronic obstructive pulmonary disease) (HCC) 07/20/2020 Depression Hyperlipidemia Nicotine addiction Patient Active Problem List Diagnosis Urticaria Schizophrenia (HCC) COPD (chronic obstructive pulmonary disease) (HCC) Lung mass Pulmonary emboli (HCC) Schizo-affective psychosis (HCC) PNA (pneumonia) Sepsis (HCC) Prior Level of Function: Home environment: House Who assisted you at home prior to hospitalization: No one Who could assist you at home after discharge, if necessary: No one # Steps to Enter: 3 Have a Ramp: No Do you have railings to enter home?: Yes Rail Location: Ascending - Left;Ascending - Right;Descending - Left;Descending - Right Type of Home: Two story, all needs met on main level # of stairs to room: 12 Do you have railings to rooms in the home?: Yes Rail Location: Ascending - Left Which room?: (woodstove is in the basement.) Is the patient ambulatory: Yes Distance Walked: Greater than 300 feet Assist Required for ambulation: Independent Do you use any assistive devices for ambulation: No Have you had any falls in the last 3 months: No Does patient drive: No Comments: Pt states that his social human services assistants and neighbor help him with getting groceries. Pain: Pain Scale Used: 0-10 Pain Rating - Adult Behavioral: Quiet, relaxed, no frowning or grimacing, talking in normal tone or no sound Pain Ratin Pain Location: Chest Specify: Lower;Left;Middle Pain Intervention(s): Had medication prior Oxygen: O2 Device: Room Air O2 Flow Rate (L/min): 3 l/min SpO2: 96 % Describe activity during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 Temperature: Temp (24hrs), Av F (36.7 C), Min:97.3 F (36.3 C), Max:98.8 F (37.1 C) Estimated CrCl: Estimated Creatinine Clearance: 109.4 mL/min (based on SCr of 0.76 mg/dL). Allergies: No Known Allergies Cultures: Blood cultures drawn in [place] 07/21 blood x2 NGTD x2 07/21 sputum - moderate amount of yeast. Moderate amount of mixed gram positives, sub for further workup. 07/23 Pleural fluid- NG@72h Antibiotics: Cefepime Metronidazole Assessment/Plan: 07/21/2020: Patient is being started on vancomycin for Sepsis, continued to decline on Azith and CTX.Patient has NOT been on vancomycin previously at this institution. A calculated regimen of vancomycin 1250 mg (16.2mg/kg actual body weight) IV every 12 hours is predicted to produce a trough within the desired goal range of 15-20 mcg/mL. Magda Morales PHARM D 07/22/2020: 5th dose is due tomorrow at 1100. Will order trough for tomorrow at 1000. Creatinine is stable. WBC is 34.4 which is an increase from yesterday (was 32.4). GAGE Guzmán 07/23/2020 Trough resulted at 10.4. Previous dose was given on time, trough was drawn 25 minutes before the scheduled dose. Will increase dose to 1750 mg every 12 hours. Creatinine is stable. WBC slightly improved, but is still elevated at 30.1. GAGE Guzmán 07/24/20 Creatinine stable. WBC improved from 30.1 to 21.8. 5th dose of new regimen is due at 1200 tomorrow. Will order trough to be drawn prior to that dose at 1100. Will watch for ID of gram positivesin sputum. GAGE Guzmán D 07/25: WBC up a little at 23.9. Procal down to 0.26. Tmax 99.5. SCr stable at 0.71. Infectious disease is being consulted. Vanco trough was 15.3. This is within goal range so will continue same dose/frequency. 07/26/2020: ID wants to keep vancomycin and cefepime and added metronidazole. Patient to undergo thorascopy today. WBC up slightly to 26.1 today. Awaiting ID of yeast in sputum, no other new culture results. Steve Lal, GageD, BCPS 07/27/2020: Creatinine stable (0.76), WBC up today ( 26.1-32.7), procal up (0.22- 0.39), ID on board. Last trough was 07/25 and therapeutic at 15.3. Will repeat trough tomorrow prior to the 1200 dose.Lisa Weeks PharmD Pharmacy will monitor and if indicated, adjust dose and/or frequency per the Pharmacy and Therapeutics Committee approved pharmacokinetic service policy. Thank you very much for the consult. are Planning - Andrew Anguiano RRT - 07/26/2020 11:20 PM [employer] Problem: IMPAIRED GAS EXCHANGE Goal: RESPIRATORY STATUS Description: DEFINITION: Movement of air in and out of the lungs and exchange of carbon dioxide and oxygen at the alveolar level. 1=Severe deviation from normal range, 2=Substantial deviation from normal range, 3=Moderate deviation from normal range, 4=Mild deviation from normal range, 5=No deviationfrom normal range. Flowsheets (Taken 07/26/2020 231) Initial Score: 3 Target Score: 5 Plan of care reviewed with: Patient Patient specific goal for the day: maintain O2 sats >90% on RA Patient specific goal for the stay: Return respiratory status to baseline. Patient Progress: Pt returned from OR, cx tubes X2 on left, IS on hold due to pt agitation, Nebulizer tx and O2 as needed linical Team - Sierra Briseno RN - 07/26/2020 11:02 PM CSTPt arrived from PACU with 2 chest tubes, connected to suction @ 20, dressings are clean, dry, and int act. Maintaining sats at 1L. Pt has been cooperative and following commands. PRN Dilaudid effective for px control thus far. Pt noted to have a very dry, hoarse, non-productive cough that sounds similar to a gagging sound, which is new for pt. Voicemail was left for pt contact, Chandrika, as requested with update. Upon Transfer to ICU 2, skin assessment completed with Rose Marie GRIFFITH. Upon skin assessment including pressure points findings include: coccyx blanchable/bruising, L elbowblanchable redness. Scattered scabs on LLE. Plan/Intervention: continue WOCN recommendations. (Please see WOCN note) Will continue to monitor. [employer] Operative Note - Karl Conley MD - 07/26/2020 9:19 PM CSTOperative note has been dictated. ostOp Progress Note - Karl Conley MD - 07/26/2020 9:18 PM CST Immediate Post-Operative / Post Procedure Progress Note Att. Phys: Estrella Brooks MD Pt. Type: Inpatient Operative Date: 07/26/2020 Surgeon: Surgeon(s) and Role: * Karl Conley MD - Primary Insulation Cupola Operator: Cycle Analyst : Rafael Schultz RN Relief Cycle Analyst : Marilyn Cavazos RN Relief Scrub : Kaylene Chávez ST; Sierra Godfrey ST Scrub Person : Hung Swartz CST Reed Cleaner: Rose Sanz RN Pre-Operative Diagnosis: Pre-Op Diagnosis Codes: * Empyema lung (HCC) [J86.9] Post-Operative Diagnosis: Same, severe Anesthesia Type: general Operative Procedure: Procedure(s): LEFT THORACOSCOPY with drainage of empyema and decortication - Wound Class: Clean SCARIFICATION PLEURAL PLEURODESIS - Wound Class: Clean ID Type Source Tests Collected by Time A : left pleural space Tissue Pleural TISSUE EXAM Karl Conley MD 07/26/20201942 no implants used for procedure Fluids Given: See Anesthesia Record Urine Output: See Anesthesia Record Estimated Blood Loss: 750 mL Drains: 28 [place] chest tubes 2 Findings: As above Complications: none Postoperative Condition: stable are Planning - Mayur Hernandez RRT - 07/26/2020 4:56 PM [employer] Problem: IMPAIRED GAS EXCHANGE Goal: RESPIRATORY STATUS Description: DEFINITION: Movement of air in and out of the lungs and exchange of carbon dioxide and oxygen at the alveolar level. 1=Severe deviation from normal range, 2=Substantial deviation from normal range, 3=Moderate deviation from normal range, 4=Mild deviation from normal range, 5=No deviationfrom normal range. Flowsheets (Taken 07/26/2020 1655) Initial Score: 3 Plan of care reviewed with: Patient Patient specific goal for the day: maintain O2 sats >90% on RA Patient specific goal for the stay: Return respiratory status to baseline. Achieve goal for stay: By discharge Patient Progress: Patient was able to maintain O2 sats >90% on RA. BS remain clear with no SOB noted at time of Tx. are Planning - Aliyah Dorman, RN - 07/26/2020 3:29 PM [employer] Problem: RISK FOR FALLS Goal: FALL PREVENTION BEHAVIOR Description: DEFINITION: Personal or family primary care provider actions to minimize risk factors that might precipitate falls in the personal environment. 1=Never demonstrated, 2=Rarely demonstrated, 3=Sometimes demonstrated, 4=Often demonstrated, 5=Consistently demonstrated. Outcome: NOC Rating 3 Flowsheets (Taken 07/26/2020 1525) Patient Progress: Pt does not understand how to use call light approriately. He is very impulsive. Bed alarm in place. No falls this shift. Pt has 1:1 constant oberver ordered for patient safety. Problem: RISK FOR IMPAIRED SKIN INTEGRITY Goal: TISSUE INTEGRITY: SKIN & MUCOUS MEMBRANES Description: DEFINITION: Structural intactness and normal physiological function of skin and mucousmembranes. 1=Severely compromised, 2=Substantially compromised, 3=Moderately compromised, 4=Mildly compromised, 5=Not compromised. Outcome: NOC Rating 3 Flowsheets (Taken 07/26/2020 1525) Patient Progress: Patient has friction shearing on coccyx and left elbow. Wound care following. Aloevest lotion applied to elbows bilaterally to reduce friction. Patient has been continent all shift and mepilex is intact. Will continue to monitor. Problem: IMPAIRED GAS EXCHANGE Goal: RESPIRATORY STATUS Description: DEFINITION: Movement of air in and out of the lungs and exchange of carbon dioxide and oxygen at the alveolar level. 1=Severe deviation from normal range, 2=Substantial deviation from normal range, 3=Moderate deviation from normal range, 4=Mild deviation from normal range, 5=No deviationfrom normal range. Outcome: NOC Rating 4 Flowsheets (Taken 07/26/2020 1525) Patient Progress: Pt on RA most of the day. 2L of supplemental O2 applied intermittently to keep o2 saturation greater than 90% [employer] Case Mgmt - Christal Garcia LSW - 07/26/2020 10:57 AM CSTCASE MANAGEMENT - ICU PROGRESS NOTE This patient was reviewed today during Care Rounds. The patient continues to receive care in the ICU. Support provided to patient/family. ANTICIPATED NEEDS ON DISCHARGE: Other: needs unknown at this time, as diagnostic tests are still pending. COMMENTS: Shannan remains in the ICU at this time and continues to require ICU level of care. Per attending MD, Shannan will require hospital level of care for a few more days, likely remaining in the hospital until the middle of next week. 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 Requested updated PT/OT evaluations once appropriate. [facility] referral for continued care/rehab placed to [facility] in [place], along with an update regarding length of stay and estimated plan of care. Update provided to NACHO Mar CM at [facility] re: DIAMOND. Will touch base next week regarding length of stay and potential discharge needs. Attending MD notes that patient was experiencing some agitation/impulsivity overnight and has placeda 1:1 constant observer with Shannan to ensure safety. Awaiting further tests and plan of care; unknown at this time. CONTACTS: -Chandrika, [id number] @ [phone] -Isabela, case management at [facility] in [place] @ [phone]. -Joelle Todd, case management at [facility] @ W) [phone], C) [phone]. CASE MANAGEMENT PLAN: Will continue to follow and assist with discharge planning. Unable to determine discharge needs at this time. SIGNED: LACI Durham OCN / Skin Team - Rut Hightower RN - 07/26/2020 10:23 AM CSTPatient Location: ICU 2 Reason for Consultation: coccyx Assessment: Consult received for concern to coccyx that is new since admission. Patient has history of schizophrenia and is impulsive but cooperative at this time, he is lethargic. This insurance underwriter witnessed patient repeatedly shifting and sliding in bed and with frequent repositioning and movement, this is consistent with report from primary RN. Per nursing patient has episodes of incontinence but not constant. He has been up to the chair but is spending a majority of time in bed. Sacral mepilex was applied when concern to coccyx was noted per nursing report. Skin assessment reveals superficial shearing injuries to bilateral buttocks with small open area, hyperpigmentation noted to injured area but is noted to be blanchable at this time, likely exacerbated by incontinence and frequent shifting in bed. Left elbow is red but blanchable. Heels are intact with intact callus noted, left lateral foot is red but blanchable and likely secondary to positioning. Right buttocks: 3cmx1.5cm Left buttocks: 2cmx1.5cm with 0.5cmx0.4cm superficial open area Recommendations/Plan: Continue sacral mepilex for protection, if incontinence renders the dressing inappropriate it should be discontinued and Aloe [place] protective ointment should be applied per protocol. TAPS glide sheet added at this time and moisture wicking body pad replaced. TAPS wedges should be utilized for appropriate offloading. Waffle cushion when up in the chair. Mepilex border dressing currently used to the left elbow, if this should continue to roll up or not remain in place it should be removed and aloe vesta protective ointment should also be applied twice per day. CWON will continue to follow, please page inpatient crtt if further issues arise. linical Team - Steve Lal PHARM D - 07/26/2020 8:38 AM CST Vancomycin Pharmacy Consult Note Vancomycin Pharmacy Consult requested on 07/[address] Brooks for indication: Sepsis Shannan Gates was admitted on 07/20/2020. He is 59yr old. Ht Readings from Last 1 Encounters: 07/20/20 1.778 m (5' 10") Wt Readings from Last 1 Encounters: 07/24/20 77.3 kg (170 lb 6.7 oz) Labs: Vancomycin Trough Date Value Ref Range Status 07/25/2020 15.3 10.0 - 20.0 ug/mL Final WBC Date Value Ref Range Status 07/26/2020 26.1 (H) 4.0 - 11.0 K/uL Final 07/25/2020 23.9 (H) 4.0 - 11.0 K/uL Final 07/24/2020 21.8 (H) 4.0 - 11.0 K/uL Final Creatinine Date Value Ref Range Status 07/26/2020 0.71 0.70 - 1.30 mg/dL Final 07/25/2020 0.71 0.70 - 1.30 mg/dL Final 07/24/2020 0.70 0.70 - 1.30 mg/dL Final CRP Date Value Ref Range Status 07/26/2020 88.7 0.0 - 8.0 mg/L Final Procalcitonin Date Value Ref Range Status 07/26/2020 0.22 <0.07 ng/mL Final 07/25/2020 0.26 <0.07 ng/mL Final Max Temperature: Temp (24hrs), Av F (37.2 C), Min:98.4 F (36.9 C), Max:99.9 F (37.7 C) Estimated CrCl: Estimated Creatinine Clearance: 117.1 mL/min (based on SCr of 0.71 mg/dL). Allergies: No Known Allergies Cultures: Blood cultures drawn in [place] 07/21 blood x2 NGTD x2 07/21 sputum - moderate amount of yeast. Moderate amount of mixed gram positives, sub for further workup. 07/23 Pleural fluid- NG@24h Antibiotics: Cefepime Metronidazole Assessment/Plan: 07/21/2020: Patient is being started on vancomycin for Sepsis, continued to decline on Azith and CTX.Patient has NOT been on vancomycin previously at this institution. A calculated regimen of vancomycin 1250 mg (16.2mg/kg actual body weight) IV every 12 hours is predicted to produce a trough within the desired goal range of 15-20 mcg/mL. Magda Morales, PHARM D 07/22/2020: 5th dose is due tomorrow at 1100. Will order trough for tomorrow at 1000. Creatinine is stable. WBC is 34.4 which is an increase from yesterday (was 32.4). GAGE Guzmán 07/23/2020 Trough resulted at 10.4. Previous dose was given on time, trough was drawn 25 minutes before the scheduled dose. Will increase dose to 1750 mg every 12 hours. Creatinine is stable. WBC slightly improved, but is still elevated at 30.1. GAGE Gzumán 07/24/20 Creatinine stable. WBC improved from 30.1 to 21.8. 5th dose of new regimen is due at 1200 tomorrow. Will order trough to be drawn prior to that dose at 1100. Will watch for ID of gram positivesin sputum. GAGE Guzmán 07/25: WBC up a little at 23.9. Procal down to 0.26. Tmax 99.5. SCr stable at 0.71. Infectious disease is being consulted. Vanco trough was 15.3. This is within goal range so will continue same dose/frequency. 07/26/2020: ID wants to keep vancomycin and cefepime and added metronidazole. Patient to undergo thorascopy today. WBC up slightly to 26.1 today. Awaiting ID of yeast in sputum, no other new culture results. Steve Lal, GageD, [facility] Pharmacy will monitor and if indicated, adjust dose and/or frequency per the Pharmacy and Therapeutics Committee approved pharmacokinetic service policy. Thank you very much for the consult. are Planning - Frankie Francois, FLAME HARDENING MACHINE OPERATOR - 07/26/2020 1:54 AM [employer] Problem: IMPAIRED GAS EXCHANGE Goal: RESPIRATORY STATUS Description: DEFINITION: Movement of air in and out of the lungs and exchange of carbon dioxide and oxygen at the alveolar level. 1=Severe deviation from normal range, 2=Substantial deviation from normal range, 3=Moderate deviation from normal range, 4=Mild deviation from normal range, 5=No deviationfrom normal range. Outcome: NOC Rating 4 Flowsheets (Taken 07/26/2020 0153) Initial Score: 3 Target Score: 5 Plan of care reviewed with: Patient Patient specific goal for the day: Remain on RA Patient specific goal for the stay: Return respiratory status to baseline. Achieve goal for stay: By discharge Patient Progress: Pt on RA this evening. tolerating well. linical Team - Sierra Briseno RN - 07/26/2020 1:00 AM CSTAt beginning of shift, pt would be sleeping, then sit straight up suddenly and start pulling on any lines he could find, staff are watching closely as this usually means he needs to urinate, pt easilycooporative with staff assisting with urinal. Pt denies px at 2100. Through out the night pt become harder to calm down after suddenly sitting up straight, pt continuously pulling on cords even after re direction/reorientation. Multiple times pt would state that he "needs to pee" but is unable to stopgrabbing for everything (staffs arms, clothes, lines) to be able to focus on urinating, until he tired himself out and laid back down, 10 mins later he sat up again pulling/grabbing, insurance underwriter was able toget pt to explain that his back hurt, again he stated he need to pee, but again unable to cooperate.Spectacle Truer administered PRN PO Terrell for back px and PRN IV ativan for agitation. After administration pt was able to lay back down and rest for 20 mins when he sat up again suddenly and urinated in bed. About every hour pt goes through this, continuing to become harder to redirect. At 0100: pt again urina fili in bed, somewhat explained he wanted to sit for a bit, after insurance underwriter removed all cords from reachpt started grabbing at the air as if hallucinating. Once pt is tired out, he lays down and falls right to sleep. Pt is very [place], making it difficult to assess orientation status, pt unable to answer writers questions while preoccupied with grabbing. IM haldol was administered at 0200, with little to no effect. Pt continued to do this all night every hour. Will continue to monitor. perative Note - Karl Conley MD - 07/26/2020 1:[facility] NAME: SHANNAN GATES DATE OF SERVICE: 07/26/2020 JODIE: [id number] PREOPERATIVE DIAGNOSIS: Left lung empyema. POSTOPERATIVE DIAGNOSIS: Left lung empyema. PROCEDURES PERFORMED: 1. Left thoracoscopy with drainage of empyema and decortication. 2. Left mechanical and talc pleurodesis with drainage. SURGEON: Karl Conley M.D. BROOCH MAKER NOVELTY: Rose Sanz R.N. ANESTHESIA: General endotracheal. ESTIMATED BLOOD LOSS: 750 mL. FINDINGS: Patient had extensive fibrinous exudate and loculated empyema in the left pleural space, pretty much filling up the whole pleural space. This was able to be meticulously decorticated and removed. Talc pleurodesis was accomplished and two 28-Citizen [place] chest tubes left in place. DESCRIPTION OF PROCEDURE: Patient was brought to the operating room and placed supine upon the operating table. After induction of general anesthesia with a Stanton tube, patient was placed into a right lateral decubitus position. The patient's left chest was prepped and sterilely draped. A scalpel was used to make transverse incisions in the posterior position near the tip of the scapula and a posterior position more inferiorly as well as 1 anterior position. Trocars were placed in these positions after the lung was collapsed. With some difficulty, the empyema and adhesions were able to be taken down sufficiently to allow the lung to collapse. Fibrinous exudate was present throughout the pleural cavity. This was freed up with ring forceps and meticulously debrided on both the lung surface and on the chest wall surface. Where possible, the suction manager aviation was used to free this area up and suction the fluid and the fibrinous exudate. Tissue that was debrided was collected and sent to pathology for routine examination. After meticulous dissection and all of the area removed that was possible to be removed, the pleuralcavity was copiously irrigated with sterile saline and suctioned. Two 28-Citizen [place] chest tubes were then placed, one through the anterior trocar site and one through the most inferior posterior chest tube site. These were secured to the skin with 0 silk. Using the camera to guide us, I then inserted the insufflation tubing for the talc powder and this was blown into the peritoneal cavity and evenly distributed. Remaining trocar was then removed and subcutaneous tissue was closed with a [id number] suture of 2-0 Vicryl. Skin edges were approximated with running intracuticular stitch of 4-0 undyed Monocryl. Steri-Strips were applied. Chest tubes were attached to suction. Sponge, needle and instrument counts were reported correct at the end of the procedure. Patient tolerated the procedure well. Karl Conley MD Receipt: [id number] Trans ID: [id number] [employer] cc:ESTRELLA BROOKS MD are Planning - Aliyah Dorman RN - 07/25/2020 5:34 PM [employer] Problem: READINESS FOR ENHANCED SELF-HEALTH MANAGEMENT Goal: DISCHARGE READINESS: INDEPENDENT LIVING Description: DEFINITION: Readiness of a patient to relocate from a health care institution to livingindependently. 1=Never demonstrated, 2=Rarely demonstrated, 3=Sometimes demonstrated, 4=Often demonstrated, 5=Consistently demonstrated. Outcome: NOC Rating 2 Flowsheets (Taken 07/25/2020 1730) Patient Progress: Pt is very forgetful, impulsive, and [place]. Explaining plan of care to pt and familywill be important for safe discharge. Should consider home health or swing bed. Problem: RISK FOR FALLS Goal: FALL PREVENTION BEHAVIOR Description: DEFINITION: Personal or family primary care provider actions to minimize risk factors that might precipitate falls in the personal environment. 1=Never demonstrated, 2=Rarely demonstrated, 3=Sometimes demonstrated, 4=Often demonstrated, 5=Consistently demonstrated. Outcome: NOC Rating 3 Flowsheets (Taken 07/25/2020 1730) Patient specific goal for the stay: Pt to remain free from falls and injury. Patient Progress: Pt does not understand how to use call light approriately. He is very impulsive. Bed alarm in place. No falls this shift. Problem: IMPAIRED GAS EXCHANGE Goal: RESPIRATORY STATUS Description: DEFINITION: Movement of air in and out of the lungs and exchange of carbon dioxide and oxygen at the alveolar level. 1=Severe deviation from normal range, 2=Substantial deviation from normal range, 3=Moderate deviation from normal range, 4=Mild deviation from normal range, 5=No deviationfrom normal range. Outcome: NOC Rating 4 Flowsheets (Taken 07/25/2020 1730) Patient Progress: Pt saturating in low 90's today on RA. Patient sometimes desats with activity. Would benefit from home O2 eval. Pt also at risk for pressure ulcer. Mepilex applied to coccyx due to blanchable redness noted. Woundcare consulted. [employer] Case Mgmt - Christal Garcia LSW - 07/25/2020 1:52 PM CSTCASE MANAGEMENT - ICU PROGRESS NOTE This patient was reviewed today during Care Rounds. The patient continues to receive care in the ICU. Support provided to patient/family. ANTICIPATED NEEDS ON DISCHARGE: Other: needs unknown at this time, as diagnostic tests are still pending. COMMENTS: Shannan remains in the ICU at this time and continues to require ICU level of care. Per attending MD, Shannan will require hospital level of care for a few more days. 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 Requested updated PT/OT evaluations once appropriate. [facility] referral for continued care/rehab placed to [facility] in [place], along with an update regarding length of stay and estimated plan of care. Awaiting further tests and plan of care; unknown at this time if IV antibiotics will be required. CONTACTS: -Chandrika, [id number] @ [phone] -Isabela, case management at [facility] in [place] @ [phone]. -Joelle Todd, case management at [facility] @ W) [phone], C) [phone]. CASE MANAGEMENT PLAN: Will continue to follow and assist with discharge planning. Unable to determine discharge needs at this time. SIGNED: LACI [place] utrition Team - Emily Pearce - 07/25/2020 1:21 PM CSTThe patient is admitted with COPD,lung mass,pulmonary emboli,schizo-affective psychosis,PNA. She is eating 100% of a regular diet. We will continue to follow for needs. are Planning - Álvaro Campos RRT - 07/25/2020 1:08 PM [employer] Problem: IMPAIRED GAS EXCHANGE Goal: RESPIRATORY STATUS Description: DEFINITION: Movement of air in and out of the lungs and exchange of carbon dioxide and oxygen at the alveolar level. 1=Severe deviation from normal range, 2=Substantial deviation from normal range, 3=Moderate deviation from normal range, 4=Mild deviation from normal range, 5=No deviationfrom normal range. Flowsheets (Taken 07/25/2020 1307) Initial Score: 3 Target Score: 5 Plan of care reviewed with: Patient Patient specific goal for the day: Wean oxygen as tolerated and maintain oxygen levels. Patient specific goal for the stay: Return respiratory status to baseline. Achieve goal for stay: By discharge Patient Progress: pt on RA saturating in 90's. linical Team - Jame Mariee, PHARM D - 07/25/2020 11:56 AM CST Vancomycin Pharmacy Consult Note Vancomycin Pharmacy Consult requested on 07/[address] Brooks for indication: Sepsis Shannan Gates was admitted on 07/20/2020. He is 59yr old. Ht Readings from Last 1 Encounters: 07/20/20 1.778 m (5' 10") Wt Readings from Last 1 Encounters: 07/24/20 77.3 kg (170 lb 6.7 oz) Labs: Vancomycin Trough Date Value Ref Range Status 07/25/2020 15.3 10.0 - 20.0 ug/mL Final WBC Date Value Ref Range Status 07/25/2020 23.9 (H) 4.0 - 11.0 K/uL Final 07/24/2020 21.8 (H) 4.0 - 11.0 K/uL Final 07/23/2020 30.1 (H) 4.0 - 11.0 K/uL Final Creatinine Date Value Ref Range Status 07/25/2020 0.71 0.70 - 1.30 mg/dL Final 07/24/2020 0.70 0.70 - 1.30 mg/dL Final 07/23/2020 0.80 0.70 - 1.30 mg/dL Final CRP Date Value Ref Range Status 07/25/2020 86.1 0.0 - 8.0 mg/L Final Procalcitonin Date Value Ref Range Status 07/25/2020 0.26 <0.07 ng/mL Final 07/23/2020 0.60 <0.07 ng/mL Final Max Temperature: Temp (24hrs), Av.4 F (36.9 C), Min:97.8 F (36.6 C), Max:99.5 F (37.5 C) Estimated CrCl: Estimated Creatinine Clearance: 117.1 mL/min (based on SCr of 0.71 mg/dL). Allergies: No Known Allergies Cultures: Blood cultures drawn in [place] 07/21 blood x2 NGTD x2 07/21 sputum - moderate amount of yeast. Moderate amount of mixed gram positives, sub for further workup. 07/23 Pleural fluid- NG@24h Antibiotics: Cefepime Assessment/Plan: 07/21/2020: Patient is being started on vancomycin for Sepsis, continued to decline on Azith and CTX.Patient has NOT been on vancomycin previously at this institution. A calculated regimen of vancomycin 1250 mg (16.2mg/kg actual body weight) IV every 12 hours is predicted to produce a trough within the desired goal range of 15-20 mcg/mL. Magda Morales, PHARM D 07/22/2020: 5th dose is due tomorrow at 1100. Will order trough for tomorrow at 1000. Creatinine is stable. WBC is 34.4 which is an increase from yesterday (was 32.4). GAGE Guzmán 07/23/2020 Trough resulted at 10.4. Previous dose was given on time, trough was drawn 25 minutes before the scheduled dose. Will increase dose to 1750 mg every 12 hours. Creatinine is stable. WBC slightly improved, but is still elevated at 30.1. GAGE Guzmán D 07/24/20 Creatinine stable. WBC improved from 30.1 to 21.8. 5th dose of new regimen is due at 1200 tomorrow. Will order trough to be drawn prior to that dose at 1100. Will watch for ID of gram positivesin sputum. GAGE Guzmán D 07/25: WBC up a little at 23.9. Procal down to 0.26. Tmax 99.5. SCr stable at 0.71. Infectious disease is being consulted. Vanco trough was 15.3. This is within goal range so will continue same dose/frequency. Pharmacy will monitor and if indicated, adjust dose and/or frequency per the Pharmacy and Therapeutics Committee approved pharmacokinetic service policy. Thank you very much for the consult. linical Team - Steve Lal, PHARM D - 07/25/2020 7:36 AM CST Clozapine Monitoring This patients current clozapine therapy status is Active Clinical pharmacist will monitor absolute neutrophil count (ANC) according to patient's ANC monitoring schedule and verify patient eligibility at [email or web address] prior to dispensing clozapine. This patient is registered under prescriber: Dr. Bhatt Frequency of ANC monitoring: every 4 weeks Neutrophils Abs. (Segs and Bands) Date/Time Value Ref Range Status 07/25/2020 05:22 AM 20,100 /uL Final Date ANC Current Clozapine Dose Notes 07/20/20 06/27/2020 was 6802 200 mg AM, 100 mg at noon, 400 mg QHS Directions per patient home med bottle last filled 07/01/20 (being stored in pharmacy) 07/25/20 20,100 200 mg at 0900 100 mg at 1200 400 mg at 2100 are Planning - Frankie Francois RRT - 07/25/2020 2:49 AM [employer] Problem: IMPAIRED GAS EXCHANGE Goal: RESPIRATORY STATUS Description: DEFINITION: Movement of air in and out of the lungs and exchange of carbon dioxide and oxygen at the alveolar level. 1=Severe deviation from normal range, 2=Substantial deviation from normal range, 3=Moderate deviation from normal range, 4=Mild deviation from normal range, 5=No deviationfrom normal range. Outcome: NOC Rating 3 Flowsheets (Taken 07/25/2020 0249) Initial Score: 3 Target Score: 5 Plan of care reviewed with: Patient Patient specific goal for the day: Wean oxygen as tolerated. Patient specific goal for the stay: Return respiratory status to baseline. Achieve goal for stay: By discharge Patient Progress: Pt currently on 2 L/min O2 via NC. are Planning - Andrew Majano, EUGENE - 07/24/2020 3:50 PM [employer] Problem: IMPAIRED GAS EXCHANGE Goal: RESPIRATORY STATUS Description: DEFINITION: Movement of air in and out of the lungs and exchange of carbon dioxide and oxygen at the alveolar level. 1=Severe deviation from normal range, 2=Substantial deviation from normal range, 3=Moderate deviation from normal range, 4=Mild deviation from normal range, 5=No deviationfrom normal range. Outcome: NOC Rating 3 Flowsheets (Taken 07/24/2020 4102) Initial Score: 3 Target Score: 5 Plan of care reviewed with: Patient Patient specific goal for the day: Wean oxygen as tolerated. Patient specific goal for the stay: Return respiratory status to baseline. Achieve goal for stay: By discharge Patient Progress: Pt currently on 2 L/min O2 via NC. ase Mgmt - Christal Garcia LSW - 07/24/2020 10:37 AM CSTCASE MANAGEMENT - ICU PROGRESS NOTE This patient was reviewed today during Care Rounds. The patient continues to receive care in the ICU. Support provided to patient/family. ANTICIPATED NEEDS ON DISCHARGE: Other: needs unknown at this time, as diagnostic tests are still pending. COMMENTS: Shannan remains in the ICU at this time and continues to require ICU level of care. Per attending MD, Shannan will require hospital level of care for a few more days. Anticipate results back on , 07/25/2020. Shannan lives at home alone in [place], and has numerous wrap around services through [facility]. [id number] Chandrika is actively involved in decision making and discharge planning at thistime, and awaiting diagnostic tests for further planning. Attempted to contact [id number] Chandrika, however she was out of the house running errands. Contactinformation left with Shannan's step-brother Lenny for Chandrika to call back when she returns. ADDENDUM:Return call received from Chandrika, introduced self and she expressed agreement. Discussed plan of care, and awaiting results at this time, then will be able to plan accordingly. Chandrika has CM contact information and will call with any additional questions/concerns. CONTACTS: -Chandrika, [id number] @ [phone] -Isabela, case management at [facility] in [place] @ [phone]. -Joelle Todd, case management at [facility] @ W) [phone], C) [phone]. CASE MANAGEMENT PLAN: Will continue to follow and assist with discharge planning. Unable to determine discharge needs at this time. SIGNED: LACI [place] linical Team - Lauren Herron, PHARM D - 07/24/2020 9:41 AM CST Vancomycin Pharmacy Consult Note Vancomycin Pharmacy Consult requested on 07/[address] Brooks for indication: Sepsis Shannan Gates was admitted on 07/20/2020. He is 59yr old. Ht Readings from Last 1 Encounters: 07/20/20 1.778 m (5' 10") Wt Readings from Last 1 Encounters: 07/24/20 77.3 kg (170 lb 6.7 oz) Labs: Vancomycin Trough Date Value Ref Range Status 07/23/2020 10.4 10.0 - 20.0 ug/mL Final WBC Date Value Ref Range Status 07/24/2020 21.8 (H) 4.0 - 11.0 K/uL Final 07/23/2020 30.1 (H) 4.0 - 11.0 K/uL Final 07/22/2020 34.4 (H) 4.0 - 11.0 K/uL Final Creatinine Date Value Ref Range Status 07/24/2020 0.70 0.70 - 1.30 mg/dL Final 07/23/2020 0.80 0.70 - 1.30 mg/dL Final 07/22/2020 0.79 0.70 - 1.30 mg/dL Final CRP Date Value Ref Range Status 07/23/2020 206.9 0.0 - 8.0 mg/L Final Procalcitonin Date Value Ref Range Status 07/23/2020 0.60 <0.07 ng/mL Final 07/22/2020 1.02 <0.07 ng/mL Final Max Temperature: Temp (24hrs), Av.2 F (36.8 C), Min:97.3 F (36.3 C), Max:99.1 F (37.3 C) Estimated CrCl: Estimated Creatinine Clearance: 118.8 mL/min (based on SCr of 0.7 mg/dL). Allergies: No Known Allergies Cultures: Blood cultures drawn in [place] 07/21 blood x2 NGTD x2 07/21 sputum - moderate amount of yeast. Moderate amount of mixed gram positives, sub for further workup. 07/23 Pleural fluid- NG@24h Antibiotics: Cefepime Assessment/Plan: 07/21/2020: Patient is being started on vancomycin for Sepsis, continued to decline on Azith and CTX.Patient has NOT been on vancomycin previously at this institution. A calculated regimen of vancomycin 1250 mg (16.2mg/kg actual body weight) IV every 12 hours is predicted to produce a trough within the desired goal range of 15-20 mcg/mL. GAGE Mcdaniel D 07/22/2020: 5th dose is due tomorrow at 1100. Will order trough for tomorrow at 1000. Creatinine is stable. WBC is 34.4 which is an increase from yesterday (was 32.4). GAGE Guzmán 07/23/2020 Trough resulted at 10.4. Previous dose was given on time, trough was drawn 25 minutes before the scheduled dose. Will increase dose to 1750 mg every 12 hours. Creatinine is stable. WBC slightly improved, but is still elevated at 30.1. GAGE Guzmán 07/24/20 Creatinine stable. WBC improved from 30.1 to 21.8. 5th dose of new regimen is due at 1200 tomorrow. Will order trough to be drawn prior to that dose at 1100. Will watch for ID of gram positivesin sputum. GAGE Guzmán Pharmacy will monitor and if indicated, adjust dose and/or frequency per the Pharmacy and Therapeutics Committee approved pharmacokinetic service policy. Thank you very much for the consult. are Planning - Lisa Campos RRT - 07/23/2020 4:30 PM [employer] Problem: IMPAIRED GAS EXCHANGE Goal: RESPIRATORY STATUS Description: DEFINITION: Movement of air in and out of the lungs and exchange of carbon dioxide and oxygen at the alveolar level. 1=Severe deviation from normal range, 2=Substantial deviation from normal range, 3=Moderate deviation from normal range, 4=Mild deviation from normal range, 5=No deviationfrom normal range. Flowsheets (Taken 07/23/2020 1630) Initial Score: 3 Target Score: 5 Plan of care reviewed with: Patient Patient specific goal for the day: Maintan SpO2 >90%. Patient specific goal for the stay: Return to baseline respiratory status. Achieve goal for stay: By discharge Patient Progress: Pt on 5L NC, slept through txs today. linical Team - Prasad Hobson - 07/23/2020 12:05 PM [employer] Inpatient Tobacco Education Patient Name: Shannan Gates Date of : 1960 Age: 59yr JODIE: [id number] Attending Provider: Estrella Brooks MD Date of visit: 07/23/2020 Tobacco Use Type of tobacco: Cigarettes Tobacco Intake: 1 ppd Method of smoking: Wakes at night to smoke Age started: 14 Secondhand smoke exposure: no Smokes in residence: no Smokes in vehicle: no Fagerstrom's Test of Nicotine Dependence - Smoking How many cigarettes per day do you smoke? 11 to 20 (1) How soon after wake up do you smoke your first cigarette? 31 to 60 minutes (1) Which cigarette would you hate most to give up? any other (0) Do you smoke more frequently during the first hours after waking that during the rest of the day?no (0) Do you smoke if you are so ill that you are in bed most of the day? no (0) Do you find it difficult to refrain from smoking in places where it is forbidden? no (0) Score = 2 Scoring for FTND suggest the followin-3 mildly addicted, 4-6 moderately addicted, and 7-10 significantly addicted. Tobacco Related Symptoms Chronic coughing: no Wheezing: no Shortness of breath: no Attempts to Quit Quit attempts: Multiple Length of most successful attempt: 1 weeks Previous quit attempts and methods: cold turkey and patch Reason for relapse: couldn't resist and cravings Withdrawal symptoms: None Ready to quit? No Stage of change: Contemplative Barriers to Quitting Triggers: habit Most challenging: Habit Barriers to quitting: habit Relapse Prevention Discussion lifestyle changes and recognizing tempting situations Cravings Pt is not experiencing any cravings. Benefits of NRT explained. Plan Pt was seen for inpatient tobacco treatment. He is a 59 y/o that smokes 1 ppd. His method of smokingindicates low dependence and Fagerstrom Test suggests that he is mildly addicted. He started smokingat 14 years of age and reports multiple past quit attempts, longest attempt lasting 1 week using thecold turkey method. He is not motivated to quit. The habit of smoking remains his top trigger to smoke. Pt states that he enjoys smoking because of the feeling that it gives him. The different medications that are available to assist the pt with the quitting process were discussed. However, pt explained to this insurance underwriter that he is not interested in any of these medications, as he feels that the cold turkey method will be best for him if he does decide that he is ready to quit in the future. Pt was also not interested in any of the educational or contact information that was offered to him. Time spent: 8 minutes Educational Materials Given: no Quitting Tobacco Guide Outpatient Tobacco Dependence Program brochure BRIDGETT Mccarty, CTTS Tobacco Medical Consultant utrition Team - Regina Mccarthy RD - 07/23/2020 10:23 AM CST Nutrition Note Height: 177.8 cm (5' 10") Admission Weight: Weight: 79.7 kg (175 lb 9.6 oz) BMI: Body mass index is 24.2 kg/m. Recent Weight History: Wt Readings from Last 6 Encounters: 07/23/20 76.5 kg (168 lb 10.4 oz) 05/21/15 80.6 kg (177 lb 12.8 oz) Subjective: Per flowsheet review, patient ate 100% of 2 meals yesterday 07/22. Per CBORD, patient ordered 3 meals yesterday 07/22.Patient's current diet is NPO for surgery. Per chart review, patient had a thoracentesis and a biopsy of left lung. Nutrition team will continue to monitor for diet advancement and adequate PO intake. Current Diet: NPO for surgery Goals/Plan: Pt will continue to tolerate >75% at all meals/snacks. Regular BM's. Maintain stable weights. Recommendation: F/U PRN [employer] Physician Pre Procedure Evaluation - Manuel Ayala MD - 07/23/2020 9:43 AM CST MODERATE SEDATION: Moderate Sedation Adult Physician Pre-Procedure Sedation Plan (Moderate Sedation) (Note: A complete H&P is required for procedures requiring anesthesia and for inpatients.) Indication for Care: I affirm the indication for the procedure is still present. History & Physical: [x] An up to date H&P has been completed and is available for this procedure. Date of H&P: 07/23/20 [] Short form H&P for this procedure is documented below: Vitals: Temp: 99.1 F (37.3 C) | BP: 134/84 | Pulse: 104 | Resp: 20 | Pain Ratin | O2 Device:NC - no humidity O2 Flow Rate (L/min): 5 l/min | SpO2: 94 % Weight: 76.5 kg (168 lb 10.4 oz) Height: 177.8 cm (5' 10") Chief Complaint/HPI/Reason for Procedure: Left lung mass like consolidation and pleural effusion Past Medical History: Past Medical History: Diagnosis Date Anxiety COPD (chronic obstructive pulmonary disease) ([facility]) 07/20/2020 Depression Hyperlipidemia Nicotine addiction Allergies: No Known Allergies Current medications: Current Facility-Administered Medications Medication Dose Route Frequency Last Rate Last Admin sodium chloride 0.9% IV solution IV Continuous lidocaine PF (XYLOCAINE-MPF) 1 % preservative free injection solution 1-30 mL 1-30 mL Subcutaneous 1 time fentaNYL 100 mcg/2 mL preservative free injection solution 25-300 mcg 25- 300 mcg IV PRN per parameter midazolam (VERSED) injection solution 0.5-4 mg 0.5-4 mg IV PRN per parameter Potassium Replacement Protocol 1 each Does not apply Every 6 hours potassium chloride 10mEq/100 mL IV piggyback 10 mEq IV Every 90 minutes 10 mEq at 07/23/20 0648 ferrous sulfate (65 mg FE) enteric coated tablet 325 mg 325 mg Oral Daily 325 mg at 07/22/20925 folic acid tablet 1 mg 1 mg Oral Daily 1 mg at 07/22/20925 cyanocobalamin (vitamin B-12) tablet 100 mcg 100 mcg Oral Daily 100 mcg at 07/22/20925 lidocaine PF (XYLOCAINE-MPF) 1 % preservative free injection solution 20 mL 20 mL Subcutaneous 1 time LORazepam (ATIVAN) 2 mg/mL injection solution 1 mg 1 mg IV Every 2 hours prn haloperidol lactate (HALDOL) injection solution 2 mg 2 mg Intramuscular Every 4 hours prn cefepime (MAXIPIME) 2,000 mg in sodium chloride 0.9% 50 mL (addEASE)(locked) 2,000 mg IV Every 8 hours 2,000 mg at 07/23/20 0247 vancomycin in 0.9% sodium chloride 250 mL IV piggyback 1,250 mg 1,250 mg IV Every 12 hours Stopped at 07/23/20 1100 albuterol-ipratropium (DUO-NEB) 2.5-0.5 mg/3 mL inhalation solution 3 mL 3 mL Nebulization Every 4 hours 3 mL at 07/23/20 0732 albuterol (PROVENTIL) (2.5 mg/3mL) 0.083% inhalation soln 2.5 mg 2.5 mg Nebulization Every 2 hours prn budesonide (PULMICORT) 0.5 mg/2 mL inhalation soln 0.5 mg 0.5 mg Nebulization 2 times a day 0.5 mg at 07/23/20 0732 predniSONE tablet 40 mg 40 mg Oral Daily 40 mg at 07/22/20925 acetaminophen (TYLENOL) tablet 650 mg 650 mg Oral Every 4 hours prn 650 mg at 07/21/20 231 cloZAPine (CLOZARIL) tablet 200 mg 200 mg Oral Daily 200 mg at 07/22/20925 cloZAPine (CLOZARIL) tablet 400 mg 400 mg Oral at bedtime 400 mg at 07/22/201945 atorvaSTATin (LIPITOR) tablet 40 mg 40 mg Oral at bedtime 40 mg at 07/22/201946 pantoprazole (PROTONIX) enteric coated tablet 40 mg 40 mg Oral daily 40 mg at 07/22/20 09 mirtazapine (REMERON) tablet 15 mg 15 mg Oral at bedtime 15 mg at 07/22/201946 sodium chloride 0.9% flush (adult) 10 mL 10 mL IV 2 times a day and prn 10 mL at 07/22/201948 acetaminophen (TYLENOL) tablet 650 mg 650 mg Oral Every 4 hours prn 325 mg at 07/20/201926 sodium chloride 0.9% IV solution IV Continuous 100 mL/hr at 07/22/20 1058 New Bag at 07/22/20 105 ondansetron (ZOFRAN ODT) dispersible tablet 4 mg 4 mg Oral 4 times a day prn And ondansetron (ZOFRAN) injection solution 4 mg 4 mg IV 4 times a day prn And metoclopramide (REGLAN) inj soln 5 mg 5 mg IV Every 8 hours prn cloZAPine (CLOZARIL) tablet 100 mg 100 mg Oral Daily 100 mg at 07/22/20 1148 HYDROcodone-acetaminophen (NORCO) 5-325 mg tablet 1 tablet 1 tablet Oral Every 4 hours prn 1 tablet at 07/22/20 1310 Medications Prior to Admission Medication Sig Dispense Refill Last Dose ibuprofen (MOTRIN) 600 mg tablet Take 600 mg by mouth 4 times a day as needed acetaminophen (TYLENOL) 500 mg tablet Take 1,000 mg by mouth every 6 hours as needed pantoprazole (PROTONIX) 40 mg enteric coated tablet Take 40 mg by mouth 1 time a day in the morning naproxen (NAPROSYN) 500 mg tablet Take 500 mg by mouth 2 times a day cloZAPine (CLOZARIL) 100 mg tablet Take 2 tablets every morning and 4 tablets every night at bedtime. (Patient taking differently: Medication bottle says 2 tab in the morning, 1 tab at midday, and 4 tablets at bedtime) 180 tablet 0 mirtazapine (REMERON) 15 mg tablet Take 1 tablet (15 mg total) by mouth every night at bedtime. (Patient taking differently: Take 7.5 mg by mouth every night at bedtime ) 30 tablet 0 cyclobenzaprine (FLEXERIL) 10 mg tablet Take 10 mg by mouth At bedtime as needed. atorvaSTATin (LIPITOR) 40 mg tablet Take 40 mg by mouth every night at bedtime. Physical Examination: Surgical Site: N/A Mental Status: Normal Lung: Normal Heart: Normal Sedation Plan: Moderate Sedation: ASA Score = 2 Mallampati Class = II (soft palate, uvula, fauces visible) Physician's Affirmation of Discussion: I have explained the known risks, benefits, goals, and alternatives to the procedure or treatment and/or sedation. I affirm the indication for the procedure is still present. I have assessed the patient and vital signs immediately prior to sedation and concur with sedation plan. [employer] Clinical Team - Lauren Herron PHARM D - 07/23/2020 8:37 AM CST Vancomycin Pharmacy Consult Note Vancomycin Pharmacy Consult requested on 07/[address] Brooks for indication: Sepsis Shannan Gates was admitted on 07/20/2020. He is 59yr old. Ht Readings from Last 1 Encounters: 07/20/20 1.778 m (5' 10") Wt Readings from Last 1 Encounters: 07/23/20 76.5 kg (168 lb 10.4 oz) Labs: No results found for: ROXANN LINDA WBC Date Value Ref Range Status 07/23/2020 30.1 (H) 4.0 - 11.0 K/uL Final 07/22/2020 34.4 (H) 4.0 - 11.0 K/uL Final 07/21/2020 32.4 (H) 4.0 - 11.0 K/uL Final Creatinine Date Value Ref Range Status 07/23/2020 0.80 0.70 - 1.30 mg/dL Final 07/22/2020 0.79 0.70 - 1.30 mg/dL Final 07/21/2020 0.81 0.70 - 1.30 mg/dL Final CRP Date Value Ref Range Status 07/23/2020 206.9 0.0 - 8.0 mg/L Final Procalcitonin Date Value Ref Range Status 07/23/2020 0.60 <0.07 ng/mL Final 07/22/2020 1.02 <0.07 ng/mL Final Max Temperature: Temp (24hrs), Av.5 F (37.5 C), Min:99.1 F (37.3 C), Max:100.5 F (38.1C) Estimated CrCl: Estimated Creatinine Clearance: 103.9 mL/min (based on SCr of 0.8 mg/dL). Allergies: No Known Allergies Cultures: Blood cultures drawn in [place] [place] 07/21 blood x2 NGTD x2 07/21 sputum - reincubated Antibiotics: Cefepime Assessment/Plan: 07/21/2020: Patient is being started on vancomycin for Sepsis, continued to decline on Azith and CTX.Patient has NOT been on vancomycin previously at this institution. A calculated regimen of vancomycin 1250 mg (16.2mg/kg actual body weight) IV every 12 hours is predicted to produce a trough within the desired goal range of 15-20 mcg/mL. GAGE Mcdaniel D 07/22/2020: 5th dose is due tomorrow at 1100. Will order trough for tomorrow at 1000. Creatinine is stable. WBC is 34.4 which is an increase from yesterday (was 32.4). GAGE Guzmán 07/23/2020 Trough resulted at 10.4. Previous dose was given on time, trough was drawn 25 minutes before the scheduled dose. Will increase dose to 1750 mg every 12 hours. Creatinine is stable. WBC slightly improved, but is still elevated at 30.1. GAGE Guzmán Pharmacy will monitor and if indicated, adjust dose and/or frequency per the Pharmacy and Therapeutics Committee approved pharmacokinetic service policy. Thank you very much for the consult. linical Team - Jennifer Nunn RN - 07/23/2020 5:02 AM CSTHospitalist notified of three liquid BMs since midnight, progressively more malodorous, frothy and orange brown. Also notified that patient is NPO for procedure today and HR increases from baseline 98-105 to 120-132 when up to toilet, takes several minutes to catch his breath once back to bed. Patient placed on GI contact precautions and sample sent to lab. are Planning - Lisa Campos RRT - 07/22/2020 5:37 PM [employer] Problem: IMPAIRED GAS EXCHANGE Goal: RESPIRATORY STATUS Description: DEFINITION: Movement of air in and out of the lungs and exchange of carbon dioxide and oxygen at the alveolar level. 1=Severe deviation from normal range, 2=Substantial deviation from normal range, 3=Moderate deviation from normal range, 4=Mild deviation from normal range, 5=No deviationfrom normal range. Flowsheets (Taken 07/22/2020 6560) Initial Score: 3 Target Score: 5 Plan of care reviewed with: Patient Patient specific goal for the day: Maintan SpO2 >90%. Patient specific goal for the stay: Return to baseline respiratory status. Achieve goal for stay: By discharge Patient Progress: Pt on 5L NC, slept through txs today. are Planning - Augusta Crisostomo RN - 07/22/2020 4:38 PM [employer] Problem: IMPAIRED GAS EXCHANGE Goal: RESPIRATORY STATUS Description: DEFINITION: Movement of air in and out of the lungs and exchange of carbon dioxide and oxygen at the alveolar level. 1=Severe deviation from normal range, 2=Substantial deviation from normal range, 3=Moderate deviation from normal range, 4=Mild deviation from normal range, 5=No deviationfrom normal range. Outcome: NOC Rating 2 Flowsheets (Taken 07/22/2020 7984) Patient specific goal for the day: Maintan SpO2 >90%. Patient specific goal for the stay: Return to baseline respiratory status. Patient Progress: Patient on 5L/NC. Sats maintaining >90. Patient tachypenic with exertion and at meal time. Lungs decreased bilaterally. Plan for thoracentesis and biopsy tomorrow. Problem: RISK FOR FALLS Goal: FALL PREVENTION BEHAVIOR Description: DEFINITION: Personal or family primary care provider actions to minimize risk factors that might precipitate falls in the personal environment. 1=Never demonstrated, 2=Rarely demonstrated, 3=Sometimes demonstrated, 4=Often demonstrated, 5=Consistently demonstrated. Outcome: NOC Rating 3 Flowsheets (Taken 07/22/2020 0884) Patient specific goal for the day: Pt to use call light as needed.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 level: Comments: NT ASSESSMENT/PROBLEM LIST: Decreased functional standing balance, Decreased functional activity tolerance and Decreased functional ambulation Evaluation Complexity: Evaluation Complexity: Moderate: 1-2 personal factors or comorbidities affecting plan of care, evaluation of 3 or more body structures, functions, or activity limitations, evolving/changing clinical presentation, eval takes approx 30 min Initial Assessment/Plan: Patient demonstrates: Decreased tolerance to activity;Other (Specify) Treatment limited by Co-Morbidities: SOB, CHAVEZ Plan: Continue skilled PT services ;Recommend Home Health Discharge Recommendation: Pt requiring 6 L O2 with ambulating 25', O2 dropped to 88% and pt felt SOB. SBA with gait- PT assisted with O2 tank and IV pole. From a mobility standpoint if pt meets his therapy goals then recommend he d/c home with PT- will continue to assess. Comment: No AD needs, pt may need supplemental O2 at home Current Assessment/equipment needs: Goals discussed and agreed upon by patient. Rehab Potential: Good for above stated goals. Plan: Patient will be seen 1-2 times a day 5-6 days per week. Physical Therapy Services: balance training bed mobility training education equipment gait training home exercise instruction therapeutic activity therapeutic exercise transfer training I certify the need for these services furnished under this plan of treatment while under my care. ase Jordyn - Ashley Juarez RN - 07/21/2020 9:15 AM CSTCASE MANAGEMENT PLAN - INITIAL ASSESSMENT This patient was reviewed with the interdisciplinary team. REASON FOR VISIT: Discharge Planning HAS THE PATIENT HAD A READMISSION WITHIN 30 DAYS? No IF YES, STATE REASON PATIENTS PERSPECTIVE OF CAUSE: N/A PATIENT RISK OF READMISSION: 6.4 IS THE PATIENT A CAREGIVER TO SOMEONE ELSE? 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 IF YES, STATE. yes, Esteban Bhatt MD IS THIS PATIENT A ? No DO THEY HAVE CURRENT MEDICAL INSURANCE COVERAGE?: Yes MEDICARE PART A & B; Medicaid [place] DO THEY REQUIRE A MEDICATION RECONCILIATION ON DISCHARGE ([facility]): No DO THEY HAVE RX DRUG COVERAGE? Yes DO THEY HAVE CONCERNS PAYING COPAYS? No [place]BAL TRANSITION CHOICES OFFERED: Home with family/friend support PATIENT / FAMILY PREFERENCE AND GOAL UPON DISCHARGE: Home with family/friend support Patient was provided a handout of Certified DME, SNF, and Home Care Providers as well as a Senior Linkage Line booklet. TRANSPORTATION ANTICIPATED FOR DISCHARGE: [facility]? BARRIERS TO DISCHARGE FROM THE HOSPITAL: Awaiting Medical Stability Awaiting Therapy Recommendations Diagnostic Tests Pending Discharge Needs to be Determined Length of Stay Yet To Be Determined ANTICIPATED DISCHARGE DATE: COMMENTS: Spoke with Shannan at the bedside and his gkmcay-[id number], Chandrika, by phone afterwards for initial assessment. Shannan lives home alone. He does not use and DME for ambulation. He receives meals on wheels but his sister reports he does not eat them. Instead he walk to the store and buys pop, chips and a candy bar.He has a [facility] social human services assistants. The [facility] provides transportation. He also has housekeeping services. He did live in a longterm but that was 30-40 years ago. Sister prefers if Shannan is diagnosed with Cancer or other big diagnosis that Shannan is not told withoutfamily there as he will not understand. She and her , Lenny, ([place] get approval for the two of them to visit Shannan. Lenny is in a wheelchair and NUNAKAUYARMIUT. Chandrika helps Shannan make his medical decisions and understand things. She is very concerned about him not understanding what is going on here or what his diagnosis is. Encouraged her to call [employer] tomorrow for aide in allowing two visitors once. Spectacle Truer received a call from [facility] in [place] [phone] who was involved with Shannan's care prior to his arrival. She is very concerned as he is very vulnerable. He does not understand things and is afraid. She reported he was at a crisis house about a month ago due to a pharmacy issue that led to Shannan not taking his medications properly and that this hospitalization will affect him greatly. She reports [facility] would be happy to take Shannan back there whenever he is medically stable for the transition back to their care. CASE MANAGEMENT PLAN: Awaiting Medical Stability Will Continue to Follow for Support and Progression Towards Final Transition Plan SIGNED: Ashley Juarez RN [employer] Clinical Team - Mae Mendoza RN - 07/20/2020 7:56 PM CSTPt brought up from med/surg by Hailee GRIFFITH. Pt had been a direct admit from [facility]. Pt oriented to room and call light. Skin check was done with Hailee GRIFFITH Pt had some healing scabs on several places, 2 on his left lowerleg, 1 on the left 3rd toe, and 1 on the right 4th toe. His coccyx was red but blanchable. Also a few small scattered bruises and scrapes. Pt did also have medication bottles from home. They were added to his medication list and then [place] to pharmacy for storage. Dr Burnett was notified and a pharmacy consult was placed. linical Team - Hailee Nieves RN - 07/20/2020 5:39 PM CSTReceived report from NACHO Esquivel at approximately 1515. 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 Pt arrived in distress, tachypneic, tachycardic, sweating profusely and reporting chest pain. Pt was on a heparin drip, 4.5 lt of o2 via NC. Ambulance staff was accompanied by an RN that informed insurance underwriter the pt had a PE. Spectacle Truer paged pt to bedside and informed him it was now being reported the pt had a PE. Provider came tobedside and had insurance underwriter call cook house laborer to have pt transferred to tele. Report was given to NACHO Wall. Pt was transferred to tele; personal belongings; home meds; and paper charting was broughtwith pt. linical Team - Daphne Todd, PHARM D - 07/20/2020 5:24 PM [employer] Clozapine Monitoring This patients current clozapine therapy status is Active Clinical pharmacist will monitor absolute neutrophil count (ANC) according to patient's ANC monitoring schedule and verify patient eligibility at [email or web address] prior to dispensing clozapine. Before starting treatment with clozapine, the baseline ANC must be: At least 1500/microliter for the general population At least 1000/microliter for patients diagnosed with LUANNE For ANC less than 1500/microliter (or less that 1000/microliter for patients with LUANNE) follow treatment recommendations and ANC monitoring schedule per clozapine REMS guidelines. This patient is registered under prescriber: Dr. Bhatt Frequency of ANC monitoring: every 4 weeks No results found for: NEUTROABSCT Date ANC Current Clozapine Dose Notes 07/20/20 06/27/2020 was 6802 200 mg AM, 100 mg at noon, 400 mg QHS Directions per patient home med bottle last filled 07/01/20 (being stored in pharmacy) [employer] documented in this encounter Plan of Treatment Date Type Specialty Care Team Description 08/06/2020 Office Visit General Surgery Karl Conley MD [address] [place] [address] [id number] [phone] Name Type Priority Associated Diagnoses Date/Ti me CULTURE, ACID FAST MICROBIOLOGY REPORT Routine 9:20 BACILLUS WITH AM [employer] STAIN Name Type Priority Associated Diagnoses Order S chedule COMPLETE BLOOD COUNT Lab Routine every o ther day until WITHOUT DIFFERENTIAL discont inued starting 07/23/2020 XRAY CHEST PA AND Imaging Routine Empyema lung (HCC) Expe cted: 08/01/2020 LATERAL (Approximate), Expires: 09/01/2021 documented as of this encounter Procedures Procedure Name Priority Date/Time Associated Comments Diagnosis XRAY CHEST 1 VIEW Routine 08/01/2020 6:29 Result s for this AM [employer] procedure are i n the results section. LAB ONLY-COMPLETE Routine 08/01/2020 5:18 Result s for this BLOOD COUNT WITH AM [employer] procedure a re in DIFFERENTIAL the results section. ESR Routine 08/01/2020 5:18 Results for this AM [employer] procedure are i n the results section. C-REACTIVE PROTEIN Routine 08/01/2020 5:18 Resul ts for this (INFLAMMATION) AM [employer] procedure are in the results section. MAGNESIUM Routine 08/01/2020 5:18 Results for this AM [employer] procedure are i n the results section. COMPREHENSIVE Routine 08/01/2020 5:18 Results fo r this METABOLIC PANEL AM [employer] procedure ar e in the results section. LAB ONLY-COMPLETE Routine 08/01/2020 5:18 Result s for this BLOOD COUNT WITH AM [employer] procedure a re in DIFFERENTIAL the results section. POTASSIUM Routine 07/31/2020 7:45 Results for this PM [employer] procedure are i n the results section. VANCOMYCIN TROUGH Timed Routine 07/31/2020 11:56 Resul ts for this AM [employer] procedure are i n the results section. XRAY CHEST 1 VIEW Routine 07/31/2020 6:04 Result s for this AM [employer] procedure are i n the results section. COLLECT AND HOLD PANEL Routine 07/31/2020 5:24 R esults for this AM [employer] procedure are i n the results section. LAB ONLY-MANUAL Routine 07/31/2020 5:24 Results for this DIFFERENTIAL AM [employer] procedure are i n the results section. LAB ONLY-COMPLETE Routine 07/31/2020 5:24 Result s for this BLOOD COUNT WITH AM [employer] procedure a re in DIFFERENTIAL the results section. COLLECT AND HOLD SST Routine 07/31/2020 5:24 Res ults for this TOP TUBE AM [employer] procedure are i n the results section. COLLECT AND HOLD BLUE Routine 07/31/2020 5:24 Re sults for this (NACIT) TOP TUBE AM [employer] procedure a re in the results section. LAB ONLY-COMPLETE Routine 07/31/2020 5:24 Result s for this BLOOD COUNT WITH AM [employer] procedure a re in DIFFERENTIAL the results section. MAGNESIUM Routine 07/31/2020 5:23 Results for this AM [employer] procedure are i n the results section. BASIC METABOLIC PANEL Routine 07/31/2020 5:23 Re sults for this AM [employer] procedure are i n the results section. XRAY CHEST 1 VIEW Routine 07/30/2020 6:23 Result s for this AM [employer] procedure are i n the results section. LAB ONLY-COMPLETE Routine 07/30/2020 6:09 Result s for this BLOOD COUNT WITH AM [employer] procedure a re in DIFFERENTIAL the results section. MAGNESIUM Routine 07/30/2020 6:09 Results for this AM [employer] procedure are i n the results section. COMPREHENSIVE Routine 07/30/2020 6:09 Results fo r this METABOLIC PANEL AM [employer] procedure ar e in the results section. LAB ONLY-COMPLETE Routine 07/30/2020 6:09 Result s for this BLOOD COUNT WITH AM [employer] procedure a re in DIFFERENTIAL the results section. XRAY CHEST PORTABLE Routine 07/29/2020 8:32 Resu lts for this AM [employer] procedure are i n the results section. LAB ONLY-COMPLETE Routine 07/29/2020 5:08 Result s for this BLOOD COUNT WITH AM [employer] procedure a re in DIFFERENTIAL the results section. PROCALCITONIN Routine 07/29/2020 5:08 Results fo r this AM [employer] procedure are i n the results section. C-REACTIVE PROTEIN Routine 07/29/2020 5:08 Resul ts for this (INFLAMMATION) AM [employer] procedure are in the results section. BASIC METABOLIC PANEL Routine 07/29/2020 5:08 Re sults for this AM [employer] procedure are i n the results section. LAB ONLY-COMPLETE Routine 07/29/2020 5:08 Result s for this BLOOD COUNT WITH AM [employer] procedure a re in DIFFERENTIAL the results section. POTASSIUM Routine 07/28/2020 11:21 Results for this AM [employer] procedure are i n the results section. VANCOMYCIN TROUGH Timed Routine 07/28/2020 11:21 Resul ts for this AM [employer] procedure are i n the results section. LAB ONLY-COMPLETE Routine 07/28/2020 5:16 Result s for this BLOOD COUNT WITH AM [employer] procedure a re in DIFFERENTIAL the results section. PROCALCITONIN Routine 07/28/2020 5:16 Results fo r this AM [employer] procedure are i n the results section. C-REACTIVE PROTEIN Routine 07/28/2020 5:16 Resul ts for this (INFLAMMATION) AM [employer] procedure are in the results section. MAGNESIUM Routine 07/28/2020 5:16 Results for this AM [employer] procedure are i n the results section. BASIC METABOLIC PANEL Routine 07/28/2020 5:16 Re sults for this AM [employer] procedure are i n the results section. LAB ONLY-COMPLETE Routine 07/28/2020 5:16 Result s for this BLOOD COUNT WITH AM [employer] procedure a re in DIFFERENTIAL the results section. XRAY CHEST PORTABLE Routine 07/27/2020 6:16 Resu lts for this AM [employer] procedure are i n the results section. COLLECT AND HOLD PANEL Routine 07/27/2020 5:57 R esults for this AM [employer] procedure are i n the results section. LAB ONLY-COMPLETE STAT 07/27/2020 5:57 Result s for this BLOOD COUNT WITH AM [employer] procedure a re in DIFFERENTIAL the results section. COLLECT AND HOLD SST Routine 07/27/2020 5:57 Res ults for this TOP TUBE AM [employer] procedure are i n the results section. COLLECT AND HOLD BLUE Routine 07/27/2020 5:57 Re sults for this (NACIT) TOP TUBE AM [employer] procedure a re in the results section. PROCALCITONIN Routine 07/27/2020 5:57 Results fo r this AM [employer] procedure are i n the results section. C-REACTIVE PROTEIN Routine 07/27/2020 5:57 Resul ts for this (INFLAMMATION) AM [employer] procedure are in the results section. MAGNESIUM Routine 07/27/2020 5:57 Results for this AM [employer] procedure are i n the results section. BASIC METABOLIC PANEL Routine 07/27/2020 5:57 Re sults for this AM [employer] procedure are i n the results section. LAB ONLY-COMPLETE STAT 07/27/2020 5:57 Result s for this BLOOD COUNT WITH AM [employer] procedure a re in DIFFERENTIAL the results section. XRAY CHEST PORTABLE Routine 07/26/2020 9:44 Resu lts for this PM [employer] procedure are i n the results section. TISSUE EXAM Routine 07/26/2020 7:43 Empyema lung Results for this PM [employer] (HCC) procedure are i n the results section. SCARIFICATION PLEURAL 07/26/2020 6:00 Empyema lung PLEURODESIS PM [employer] (HCC) THORACOSCOPY 07/26/2020 6:00 Empyema lung PM [employer] (HCC) POTASSIUM Routine 07/26/2020 4:22 Results for this PM [employer] procedure are i n the results section. COLLECT AND HOLD PANEL Routine 07/26/2020 4:40 R esults for this AM [employer] procedure are i n the results section. LAB ONLY-COMPLETE Routine 07/26/2020 4:40 Result s for this BLOOD COUNT WITH AM [employer] procedure a re in DIFFERENTIAL the results section. COLLECT AND HOLD BLUE Routine 07/26/2020 4:40 Re sults for this (NACIT) TOP TUBE AM [employer] procedure a re in the results section. PROCALCITONIN Routine 07/26/2020 4:40 Results fo r this AM [employer] procedure are i n the results section. C-REACTIVE PROTEIN Routine 07/26/2020 4:40 Resul ts for this (INFLAMMATION) AM [employer] procedure are in the results section. MAGNESIUM Routine 07/26/2020 4:40 Results for this AM [employer] procedure are i n the results section. BASIC METABOLIC PANEL Routine 07/26/2020 4:40 Re sults for this AM [employer] procedure are i n the results section. LAB ONLY-COMPLETE Routine 07/26/2020 4:40 Result s for this BLOOD COUNT WITH AM [employer] procedure a re in DIFFERENTIAL the results section. SARS-COV-2, INFLUENZA STAT 07/25/2020 12:49 Re sults for this A+B, AND/OR RSV PM [employer] procedure ar e in NUCLEIC ACID TESTING the res ults PANEL section. QUANTIFERON Routine 07/25/2020 12:33 Results for this PM [employer] procedure are i n the results section. HIV SCREEN REFLEX TO Routine 07/25/2020 12:33 Res ults for this CONFIRMATION PM [employer] procedure are i n the results section. VANCOMYCIN TROUGH Timed Routine 07/25/2020 11:06 Resul ts for this AM [employer] procedure are i n the results section. CT CHEST WITH CONTRAST Routine 07/25/2020 9:59 R esults for this AM [employer] procedure are i n the results section. COLLECT AND HOLD PANEL Routine 07/25/2020 8:14 R esults for this AM [employer] procedure are i n the results section. COLLECT AND HOLD GREEN Routine 07/25/2020 8:14 R esults for this TOP TUBE AM [employer] procedure are i n the results section. COLLECT AND HOLD Routine 07/25/2020 8:14 Results for this LAVENDER ([place]) TOP AM [employer] procedur e are in TUBE the results section. PTT Timed Routine 07/25/2020 8:14 Results fo r this AM [employer] procedure are i n the results section. CREATININE Routine 07/25/2020 8:14 Results for this AM [employer] procedure are i n the results section. LAB ONLY-COMPLETE Routine 07/25/2020 5:22 Result s for this BLOOD COUNT WITH AM [employer] procedure a re in DIFFERENTIAL the results section. PROCALCITONIN Routine 07/25/2020 5:22 Results fo r this AM [employer] procedure are i n the results section. C-REACTIVE PROTEIN Routine 07/25/2020 5:22 Resul ts for this (INFLAMMATION) AM [employer] procedure are in the results section. LAB ONLY-COMPLETE Routine 07/25/2020 5:22 Result s for this BLOOD COUNT WITH AM [employer] procedure a re in DIFFERENTIAL the results section. PTT Timed Routine 07/25/2020 12:14 Results fo r this AM [employer] procedure are i n the results section. PTT Routine 07/24/2020 6:15 Results for this PM [employer] procedure are i n the results section. POTASSIUM Timed Routine 07/24/2020 6:15 Results fo r this PM [employer] procedure are i n the results section. PTT Timed Routine 07/24/2020 10:41 Results fo r this AM [employer] procedure are i n the results section. POTASSIUM Timed Routine 07/24/2020 10:41 Results fo r this AM [employer] procedure are i n the results section. LAB ONLY-COMPLETE Routine 07/24/2020 4:37 Result s for this BLOOD COUNT WITH AM [employer] procedure a re in DIFFERENTIAL the results section. PTT Routine 07/24/2020 4:37 Results for this AM [employer] procedure are i n the results section. BASIC METABOLIC PANEL Routine 07/24/2020 4:37 Re sults for this AM [employer] procedure are i n the results section. LAB ONLY-COMPLETE Routine 07/24/2020 4:37 Result s for this BLOOD COUNT WITH AM [employer] procedure a re in DIFFERENTIAL the results section. PTT Routine 07/23/2020 9:16 Results for this PM [employer] procedure are i n the results section. POTASSIUM Timed Routine 07/23/2020 9:16 Results fo r this [employer] procedure are i n the results section. POTASSIUM Timed Routine 07/23/2020 3:45 Results fo r this [employer] procedure are i n the results section. XRAY CHEST 1 VIEW Routine 07/23/2020 1:10 Result s for this [employer] procedure are i n the results section. XRAY CHEST 1 VIEW Routine 07/23/2020 12:06 Result s for this [employer] procedure are i n the results section. VANCOMYCIN TROUGH Timed Routine 07/23/2020 10:35 Resul ts for this AM [employer] procedure are i n the results section. XRAY CHEST 1 VIEW Routine 07/23/2020 10:30 Result s for this [employer] procedure are i n the results section. IR BIOPSY OR Routine 07/23/2020 10:27 Results for this ASPIRATION AM [employer] procedure are i n the results section. TISSUE EXAM Routine 07/23/2020 10:25 Results for this [employer] procedure are i n the results section. IR THORACENTESIS Routine 07/23/2020 9:23 Results for this [employer] procedure are i n the results section. ADENOSINE DEAMINASE, Routine 07/23/2020 9:20 Res ults for this PLEURAL FLUID [employer] procedure are in the results section. LAB ONLY-DIFFERENTIAL, Routine 07/23/2020 9:20 R esults for this BODY FLUID [employer] procedure are i n the results section. LAB ONLY-CELL COUNT, Routine 07/23/2020 9:20 Res ults for this BODY FLUID [employer] procedure are i n the results section. CULTURE, ACID FAST Routine 07/23/2020 9:20 BACILLUS WITH STAIN [employer] CULTURE BACTERIAL, Routine 07/23/2020 9:20 Resul ts for this OTHER AM [employer] procedure are i n the results section. CELL COUNT AND DIFF, Routine 07/23/2020 9:20 Res ults for this BODY FLUID [employer] procedure are i n the results section. PH, BODY FLUID Routine 07/23/2020 9:20 Results f or this [employer] procedure are i n the results section. PROTEIN, BODY FLUID Routine 07/23/2020 9:20 Resu lts for this AM [employer] procedure are i n the results section. LDH, BODY FLUID Routine 07/23/2020 9:20 Results for this [employer] procedure are i n the results section. GLUCOSE, BODY FLUID Routine 07/23/2020 9:20 Resu lts for this [employer] procedure are i n the results section. AMYLASE, BODY FLUID Routine 07/23/2020 9:20 Resu lts for this [employer] procedure are i n the results section. CYTOLOGY-BODY Routine 07/23/2020 8:54 Results fo r this FLUID/OTHER [employer] procedure are i n the results section. LAB ONLY-COMPLETE Routine 07/23/2020 4:48 Result s for this BLOOD COUNT WITH AM [employer] procedure a re in DIFFERENTIAL the results section. PROCALCITONIN Routine 07/23/2020 4:48 Results fo r this [employer] procedure are i n the results section. PTT Routine 07/23/2020 4:48 Results for this [employer] procedure are i n the results section. PROTIME/INR STAT 07/23/2020 4:48 Results for this [employer] procedure are i n the results section. C-REACTIVE PROTEIN Routine 07/23/2020 4:48 Resul ts for this (INFLAMMATION) [employer] procedure are in the results section. BASIC METABOLIC PANEL Routine 07/23/2020 4:48 Re sults for this [employer] procedure are i n the results section. LAB ONLY-COMPLETE Routine 07/23/2020 4:48 Result s for this BLOOD COUNT WITH AM [employer] procedure a re in DIFFERENTIAL the results section. CLOSTRIDIUM DIFFICILE Routine 07/23/2020 4:40 Re sults for this BY NAAT (PCR/LAMP) [employer] procedure are in the results section. PERIPHERAL BLOOD SMEAR Routine 07/22/2020 3:46 R esults for this EXAMINATION [employer] procedure are i n the results section. COLLECT AND HOLD PANEL Routine 07/22/2020 3:46 R esults for this [employer] procedure are i n the results section. LAB ONLY-COMPLETE Routine 07/22/2020 3:46 Result s for this BLOOD COUNT WITH AM [employer] procedure a re in DIFFERENTIAL the results section. COLLECT AND HOLD SST Routine 07/22/2020 3:46 Res ults for this TOP TUBE [employer] procedure are i n the results section. PROCALCITONIN Routine 07/22/2020 3:46 Results fo r this [employer] procedure are i n the results section. IRON AND TIBC Routine 07/22/2020 3:46 Results fo r this [employer] procedure are i n the results section. FERRITIN Routine 07/22/2020 3:46 Results for this [employer] procedure are i n the results section. PTT Timed Routine 07/22/2020 3:46 Results fo r this [employer] procedure are i n the results section. RETIC COUNT Routine 07/22/2020 3:46 Results for this [employer] procedure are i n the results section. C-REACTIVE PROTEIN Routine 07/22/2020 3:46 Resul ts for this (INFLAMMATION) AM [employer] procedure are in the results section. FOLATE, SERUM Routine 07/22/2020 3:46 Results fo r this [employer] procedure are i n the results section. VITAMIN B12 Routine 07/22/2020 3:46 Results for this [employer] procedure are i n the results section. FERRITIN Routine 07/22/2020 3:46 Results for this [employer] procedure are i n the results section. HEPATIC FUNCTION PANEL Routine 07/22/2020 3:46 R esults for this [employer] procedure are i n the results section. BASIC METABOLIC PANEL Routine 07/22/2020 3:46 Re sults for this [employer] procedure are i n the results section. LAB ONLY-COMPLETE Routine 07/22/2020 3:46 Result s for this BLOOD COUNT WITH AM [employer] procedure a re in DIFFERENTIAL the results section. PTT Timed Routine 07/21/2020 9:38 Results fo r this [employer] procedure are i n the results section. CULTURE BACTERIAL, STAT 07/21/2020 3:28 Resul ts for this RESPIRATORY WITH GRAM PM [employer] proced ure are in STAIN the results section. LAB ONLY - CULTURE, Routine 07/21/2020 3:28 Resu lts for this ORGANISM [employer] procedure are i n IDENTIFICATION the results section. PTT Timed Routine 07/21/2020 2:07 Results fo r this [employer] procedure are i n the results section. ECHOCARDIOGRAM ADULT Routine 07/21/2020 1:50 Pulmonary Res ults for this COMPLETE [employer] embolism (HCC) procedure are in the results section. STREP PNEUMONIAE Routine 07/21/2020 1:26 Results for this DIRECT ANTIGEN, URINE [employer] proced ure are in the results section. LEGIONELLA ANTIGEN, Routine 07/21/2020 1:26 Resu lts for this URINE [employer] procedure are i n the results section. URINALYSIS MICROSCOPIC Routine 07/21/2020 1:26 R esults for this [employer] procedure are i n the results section. URINALYSIS DIPSTICK Routine 07/21/2020 1:26 Resu lts for this REFLEX TO MICROSCOPIC [employer] proced ure are in the results section. BLOOD GASES ARTERIAL Routine 07/21/2020 11:28 Res ults for this [employer] procedure are i n the results section. LACTIC ACID REFLEX TO Routine 07/21/2020 11:02 Re sults for this REPEAT [employer] procedure are i n the results section. CULTURE, BLOOD Routine 07/21/2020 11:02 Results f or this [employer] procedure are i n the results section. CULTURE, BLOOD Routine 07/21/2020 10:57 Results f or this [employer] procedure are i n the results section. LAB ONLY-COMPLETE Routine 07/21/2020 6:37 Result s for this BLOOD COUNT WITH AM [employer] procedure a re in DIFFERENTIAL the results section. PROCALCITONIN Routine 07/21/2020 6:37 Results fo r this [employer] procedure are i n the results section. PTT Timed Routine 07/21/2020 6:37 Results fo r this [employer] procedure are i n the results section. C-REACTIVE PROTEIN Routine 07/21/2020 6:37 Resul ts for this (INFLAMMATION) [employer] procedure are in the results section. TSH Routine 07/21/2020 6:37 Results for this [employer] procedure are i n the results section. BASIC METABOLIC PANEL Routine 07/21/2020 6:37 Re sults for this [employer] procedure are i n the results section. LAB ONLY-COMPLETE Routine 07/21/2020 6:37 Result s for this BLOOD COUNT WITH AM [employer] procedure a re in DIFFERENTIAL the results section. PTT Timed Routine 07/20/2020 11:46 Results fo r this [employer] procedure are i n the results section. PLATELET COUNT Routine 07/20/2020 7:06 Results f or this [employer] procedure are i n the results section. LACTIC ACID REFLEX TO Routine 07/20/2020 5:29 Re sults for this REPEAT [employer] procedure are i n the results section. PROCALCITONIN Routine 07/20/2020 5:29 Results fo r this [employer] procedure are i n the results section. PTT STAT 07/20/2020 5:29 Results for this [employer] procedure are i n the results section. PROTIME/INR IDA 07/20/2020 5:29 Results for this [employer] procedure are i n the results section. BRAIN NATRIURETIC Routine 07/20/2020 5:29 Result s for this PEPTIDE [employer] procedure are i n the results section. documented in this encounter Results XRAY CHEST 1V - AP/PA [employer] (08/01/2020 6:29 AM [employer])Only the most recent of6 resultswithin the time period is included. Specimen Narrative Performed At [facility] Patient Name: SHANNAN GATES Date of : 1960 Procedure: XRAY CHEST 1 VIEW Date of Service: 08/01/2020 CHEST ONE VIEW INDICATION: hx empyema, sp thoracoscopy, sp ct removal Comparison 07/31/2020 FINDINGS: Left chest tubes have been removed. Questionable trace pneumothorax. Some pleural thickening/pleural fluid florence ggested. Streaky and linear opacities favoring atelectasis/scar . Mild consolidation not excluded. Finalized by: Bryan Leyva MD on 08/01/2020 8:01 AM [employer] Patient/Procedure Information: [facility] MRN/JODIE: [id number] Order Number: [id number] Accession Number: [id number] Ordering Provider: CLINTON ACE Authorizing Provider: CLINTON ACE Procedure Note Interface, Radiantres - 08/01/2020 8:03 AM [employer] Patient Name: SHANNAN GATES Date of : 1960 Procedure: XRAY CHEST 1 VIEW Date of Service: 08/01/2020 CHEST ONE VIEW INDICATION: hx empyema, sp thoracoscopy, sp ct removal Comparison 07/31/2020 FINDINGS: Left chest tubes have been removed. Questionable trace pneumothorax. Some pleural thickening/pleural fluid florence ggested. Streaky and linear opacities favoring at electasis/scar. Mild consolidation not excluded. Finalized by: Bryan Leyva MD on 08/01/2020 8:01 AM [employer] Patient/Procedure Information: [facility] MRN/JODIE: [id number] Order Number: [id number] Accession Number: [id number] Ordering Provider: CLINTON ACE Authorizing Provider: CLINTON ACE Performing Organization Address City/State/Zipcode Phone Number [id number] LAB ONLY-COMPLETE BLOOD COUNT WITH DIFFERENTIAL (08/01/2020 5:18 AM [employer]) WBC 12.6 (H) 4.0 - 11.0 K/uL [facility] RBC 3.58 (L) 4.40 - 5.80 [facility] M/uL [facility] Hemoglobin 9.8 (L) 13.5 - 17.5 [facility] g/dL [facility] Hematocrit 31.6 (L) 40.0 - 50.0 % [facility] MCV 88.3 80.0 - 98.0 fL [facility] MCH 27.4 25.5 - 34.0 pg [facility] MCHC 31.0 (L) 31.5 - 36.5 [facility] g/dL [facility] RDW-CV 15.0 11.5 - 15.5 % [facility] RDW-SD 47.1 35.5 - 50.0 fl [facility] Platelet Count 573 (H) 140 - 400 K/uL [facility] MPV 9.3 8.5 - 12.0 fL [facility] Seg Neut Absolute 10.0 (H) 1.8 - 8.0 K/uL [facility] Lymphocytes Absolute 1.4 0.8 - 4.1 K/uL [facility] Monocytes Absolute 0.8 0.0 - 1.0 K/uL [facility] Eosinophils Absolute 0.0 0.0 - 0.7 K/uL [facility] Basophil Absolute 0.0 0.0 - 0.2 K/uL [facility] Immature Granulocyte 0.31 (H) 0.00 - 0.06 [facility] Absolute K/uL [facility] Neutrophils Abs. 10,000 /uL [facility] (Segs and Bands) [facility] Neutrophils Percent 79.8 % [facility] Lymphocytes Percent 11.2 % [facility] Monocytes Percent 6.5 % [facility] Immature Granulocyte 2.5 % [facility] Percent [facility] Eosinophils Percent 0.0 % [facility] Basophil Percent 0.0 % [facility] Specimen Blood - Blood specimen (specimen) Performing Organization Address City/State/Zipcode Phone Number [facility] [address] [place] [phone] LABORATORY C-REACTIVE PROTEIN (INFLAMMATION) (08/01/2020 5:18 AM [employer]) Pathologist Sig nature CRP 26.5 (H) 0.0 - 8.0 mg/L [facility] Specimen Blood - Blood specimen (specimen) Performing Organization Address [facility] Phone Number [facility] [address] [place], [place] [address] LABORATORY ESR (08/01/2020 5:18 AM [employer]) Pathologist Sig [facility] ESR 70 (H) 0 - 15 mm/Hr [facility] LABORATORY Specimen Blood - Blood specimen (specimen) Performing Organization Address [facility] Phone Number [facility] [address] [place], [place] [address] LABORATORY COMPREHENSIVE METABOLIC PANEL (08/01/2020 5:18 AM [employer]) [facility] Glucose 122 (H) 70 - 100 mg/dL [facility] BUN 5 (L) 6 - 22 mg/dL [facility] Creatinine 0.79 0.70 - 1.30 [facility] mg/dL [facility] BUN/Creatinine Ratio 6.3 (L) 10.0 - 25.0 [facility] Sodium 140 135 - 145 meq/L [facility] Potassium 3.9 3.5 - 5.3 meq/L [facility] Chloride 102 99 - 110 meq/L [facility] CO2 29 23 - 32 meq/L [facility] Anion Gap with K 13 6 - 20 meq/L [facility] Calcium 8.0 (L) 8.5 - 10.5 [facility] mg/dL [facility] Protein Total 5.1 (L) 6.0 - 8.2 g/dL [facility] Albumin 2.4 (L) 3.5 - 5.0 g/dL [facility] Alkaline Phosphatase 162 (H) 30 - 150 U/L [facility] AST - SGOT 18 0 - 35 U/L [facility] ALT - SGPT 30 0 - 55 U/L [facility] Bilirubin Total 0.3 0.2 - 1.2 mg/dL [facility] Corrected Calcium 9.3 8.5 - 10.5 [facility] mg/dL [facility] Age 59 Years [facility] eGFR Non- >90 >=60 [facility] Ghanaian mL/min/1.73m2 [facility] eGFR >90 >=60 [facility] mL/min/1.73m2 [facility] Specimen Blood - Blood specimen (specimen) Performing Organization Address [facility] Number [facility] [address] [place], [place] [address] LABORATORY MAGNESIUM (08/01/2020 5:18 AM [employer]) Pathologist Sig nature Magnesium 1.9 1.8 - 2.4 mg/dL [facility] Specimen Blood - Blood specimen (specimen) Performing Organization Address [facility] Number [facility] [address] [place], [place] [address] LABORATORY POTASSIUM (07/31/2020 7:45 PM [employer]) Pathologist Sig nature Potassium 3.9 3.5 - 5.3 meq/L [facility] Specimen Blood - Blood specimen (specimen) Performing Organization Address [facility] Number [facility] [address] [place], [place] [address] LABORATORY VANCOMYCIN TROUGH (07/31/2020 11:56 AM [employer]) Pathologist Sig nature Vancomycin Trough 20.1 (H) 10.0 - 20.0 [facility] ug/mL [facility] Specimen Blood - Blood specimen (specimen) Performing Organization Address [facility] Number [facility] [address] [place], [place] [address] LABORATORY COLLECT AND HOLD BLUE (NACIT) TOP TUBE (07/31/2020 5:24 AM [employer]) Collect and Hold Comment: RECEIVED [facility] Specimen Status [facility] Specimen Blood - Blood specimen (specimen) Performing Organization Address [facility] Phone Number [facility] [address] [facility] [place] [address] LABORATORY COLLECT AND HOLD SST TOP TUBE (07/31/2020 5:24 AM [employer]) Collect and Hold Comment: RECEIVED [facility] Specimen Status [facility] Specimen Blood - Blood specimen (specimen) Performing Organization Address [facility] Phone Number [facility] [address] [facility] [place] [address] LABORATORY LAB ONLY-MANUAL DIFFERENTIAL (07/31/2020 5:24 AM [employer]) [facility] Neutrophils Abs. (Segs 9,828 /uL [facility] LABORATORY Seg Neut Absolute 9.8 (H) 1.8 - 8.0 K/uL [facility] Lymphocytes Absolute 1.5 0.8 - 4.1 K/uL [facility] Monocytes Absolute 0.9 0.0 - 1.0 K/uL [facility] Metamyelocyte Absolute 0.3 (H) 0.0 - 0.1 K/uL [facility] Myelocyte Absolute 0.1 (H) 0.0 - 0.0 K/uL [facility] Neutrophils Percent 78.0 % [facility] Lymphocytes Percent 12.0 % [facility] Monocytes Percent 7.0 % [facility] Metamyelocytes Percent 2.0 % [facility] Myelocyte Percent 1.0 % [facility] Specimen Blood - Blood specimen (specimen) Performing Organization Address [facility] Phone Number [facility] [address] [facility] [place] [address] LABORATORY LAB ONLY-COMPLETE BLOOD COUNT WITH DIFFERENTIAL (07/31/2020 5:24 AM [employer]) Pathologist Sig nature WBC 12.6 (H) 4.0 - 11.0 K/uL [facility] RBC 3.54 (L) 4.40 - 5.80 M/uL [facility] Hemoglobin 9.8 (L) 13.5 - 17.5 g/dL [facility] Hematocrit 31.6 (L) 40.0 - 50.0 % [facility] MCV 89.3 80.0 - 98.0 fL [facility] MCH 27.7 25.5 - 34.0 pg [facility] MCHC 31.0 (L) 31.5 - 36.5 g/dL [facility] RDW-CV 15.0 11.5 - 15.5 % [facility] RDW-SD 47.4 35.5 - 50.0 fl [facility] Platelet Count 580 (H) 140 - 400 K/uL [facility] MPV 9.2 8.5 - 12.0 fL [facility] Specimen Blood - Blood specimen (specimen) Performing Organization Address City/State/[place] Phone Number [facility] [address] [place] [phone] LABORATORY BASIC METABOLIC PANEL (07/31/2020 5:23 AM [employer]) [facility] nature Glucose 109 (H) 70 - 100 mg/dL [facility] BUN 6 6 - 22 mg/dL [facility] Creatinine 0.73 0.70 - 1.30 [facility] mg/dL [facility] BUN/Creatinine Ratio 8.2 (L) 10.0 - 25.0 [facility] Sodium 140 135 - 145 meq/L [facility] Potassium 3.8 3.5 - 5.3 meq/L [facility] Chloride 102 99 - 110 meq/L [facility] CO2 29 23 - 32 meq/L [facility] Anion Gap with K 13 6 - 20 meq/L [facility] Calcium 7.9 (L) 8.5 - 10.5 [facility] mg/dL [facility] Age 59 Years [facility] eGFR Non- >90 >=60 [facility] Ghanaian mL/min/1.73m2 [facility] eGFR >90 >=60 [facility] mL/min/1.73m2 [facility] Specimen Blood - Blood specimen (specimen) Performing Organization Address City/[facility] Phone Number [facility] [address] [place], [place] [address] LABORATORY MAGNESIUM (07/31/2020 5:23 AM [employer]) Pathologist Sig nature Magnesium 2.1 1.8 - 2.4 mg/dL [facility] Specimen Blood - Blood specimen (specimen) Performing Organization Address [facility] Phone Number [facility] [address] [place], [place] [address] LABORATORY LAB ONLY-COMPLETE BLOOD COUNT WITH DIFFERENTIAL (07/30/2020 6:09 AM [employer]) WBC 14.8 (H) 4.0 - 11.0 K/uL [facility] RBC 3.51 (L) 4.40 - 5.80 [facility] M/[facility] LABORATORY Hemoglobin 9.7 (L) 13.5 - 17.5 [facility] g/dL [facility] Hematocrit 31.3 (L) 40.0 - 50.0 % [facility] MCV 89.2 80.0 - 98.0 fL [facility] MCH 27.6 25.5 - 34.0 pg [facility] MCHC 31.0 (L) 31.5 - 36.5 [facility] g/dL [facility] RDW-CV 14.9 11.5 - 15.5 % [facility] RDW-SD 47.0 35.5 - 50.0 fl [facility] Platelet Count 568 (H) 140 - 400 K/uL [facility] MPV 9.3 8.5 - 12.0 fL [facility] Seg Neut Absolute 11.4 (H) 1.8 - 8.0 K/uL [facility] Lymphocytes Absolute 2.0 0.8 - 4.1 K/uL [facility] Monocytes Absolute 1.0 0.0 - 1.0 K/uL [facility] Eosinophils Absolute 0.0 0.0 - 0.7 K/uL [facility] Basophil Absolute 0.0 0.0 - 0.2 K/uL [facility] Neutrophils Abs. 11,400 /uL [facility] (Segs and Bands) [facility] Neutrophils Percent 76.7 % [facility] Lymphocytes Percent 13.8 % [facility] Monocytes Percent 6.4 % [facility] Eosinophils Percent 0.0 % [facility] Basophil Percent 0.1 % [facility] Specimen Blood - Blood specimen (specimen) Performing Organization Address [facility] Phone Number [facility] [address] [place], [place] [address] LABORATORY MAGNESIUM (07/30/2020 6:09 AM [employer]) Pathologist [facility] Magnesium 1.8 1.8 - 2.4 mg/dL [facility] Specimen Blood - Blood specimen (specimen) Performing Organization Address [facility] Phone Number [address] [address] LABORATORY COMPREHENSIVE METABOLIC PANEL (07/30/2020 6:09 AM [employer]) Pathologist [facility] Glucose 130 (H) 70 - 100 mg/dL [facility] BUN 7 6 - 22 mg/dL [facility] Creatinine 0.72 0.70 - 1.30 [facility] mg/dL [facility] BUN/Creatinine Ratio 9.7 (L) 10.0 - 25.0 [facility] Sodium 138 135 - 145 meq/L [facility] Potassium 3.7 3.5 - 5.3 meq/L [facility] Chloride 102 99 - 110 meq/L [facility] CO2 28 23 - 32 meq/L [facility] Anion Gap with K 12 6 - 20 meq/L [facility] Calcium 7.8 (L) 8.5 - 10.5 [facility] mg/dL [facility] Protein Total 5.0 (L) 6.0 - 8.2 g/dL [facility] Albumin 2.4 (L) 3.5 - 5.0 g/dL [facility] Alkaline Phosphatase 189 (H) 30 - 150 U/L [facility] AST - SGOT 31 0 - 35 U/L [facility] ALT - SGPT 47 0 - 55 U/L [facility] Bilirubin Total 0.3 0.2 - 1.2 mg/dL [facility] Corrected Calcium 9.1 8.5 - 10.5 [facility] mg/dL [facility] Age 59 Years [facility] eGFR Non- >90 >=60 [facility] Ghanaian mL/min/1.73m2 [facility] eGFR >90 >=60 [facility] mL/min/1.73m2 [facility] Specimen Blood - Blood specimen (specimen) Performing Organization Address City/State/Zipcode Phone Number [facility] [address] [place] [phone] LABORATORY XRAY CHEST PORTABLE - (07/29/2020 8:32 AM [employer])Only the most recent of3 results within the time period is included. Specimen Narrative Performed At [facility] Patient Name: SHANNAN GATES Date of : 1960 Procedure: XRAY CHEST PORTABLE Date of Service: 07/29/2020 CHEST ONE VIEW INDICATION: Chest tubes Comparison 07/27/2020 FINDINGS: Portable AP view of the chest. Left chest tubes are again demonstrated. Mild pleural thickening/pleural fluid ap pears similar to prior. No gross pneumothorax. Patchy and streaky basilar opacities fav oring atelectasis/consolidation. Finalized by: Bryan Leyva MD on 07/29/2020 8:39 AM [employer] Patient/Procedure Information: [facility] MRN/JODIE: [id number] Order Number: [id number] Accession Number: [id number] Ordering Provider: KARL CONLEY Authorizing Provider: KARL CONLEY Procedure Note Interface, Radiantres - 07/29/2020 8:41 AM [employer] Patient Name: SHANNAN GATES Date of : 1960 Procedure: XRAY CHEST PORTABLE Date of Service: 07/29/2020 CHEST ONE VIEW INDICATION: Chest tubes Comparison 07/27/2020 FINDINGS: Portable AP view of the chest. Left chest tubes are again demonstrated. Mild pleural thickening/pleural fluid ap pears similar to prior. No gross pneumothorax. Patchy and streaky basilar opacities fav oring atelectasis/consolidation. Finalized by: Bryan Leyva MD on 07/29/2020 8:39 AM [employer] Patient/Procedure Information: [facility] MRN/JODIE: [id number] Order Number: [id number] Accession Number: [id number] Ordering Provider: KARL CONLEY Authorizing Provider: KARL CONLEY Performing Organization Address City/State/Zipcode Phone Number [id number] LAB ONLY-COMPLETE BLOOD COUNT WITH DIFFERENTIAL (07/29/2020 5:08 AM [employer]) WBC 14.6 (H) 4.0 - 11.0 K/uL [facility] RBC 3.55 (L) 4.40 - 5.80 [facility] M/uL [facility] Hemoglobin 9.5 (L) 13.5 - 17.5 [facility] g/dL [facility] Hematocrit 31.7 (L) 40.0 - 50.0 % [facility] MCV 89.3 80.0 - 98.0 fL [facility] MCH 26.8 25.5 - 34.0 pg [facility] MCHC 30.0 (L) 31.5 - 36.5 [facility] gdL [facility] RDW-CV 14.9 11.5 - 15.5 % [facility] RDW-SD 47.8 35.5 - 50.0 fl [facility] Platelet Count 543 (H) 140 - 400 K/uL [facility] MPV 9.3 8.5 - 12.0 fL [facility] Seg Neut Absolute 11.2 (H) 1.8 - 8.0 K/uL [facility] Lymphocytes Absolute 1.8 0.8 - 4.1 K/uL [facility] Monocytes Absolute 1.1 (H) 0.0 - 1.0 K/uL [facility] Eosinophils Absolute 0.0 0.0 - 0.7 K/uL [facility] Basophil Absolute 0.0 0.0 - 0.2 K/uL [facility] Neutrophils Abs. 11,200 /uL [facility] (Segs and Bands) [facility] Neutrophils Percent 76.5 % [facility] Lymphocytes Percent 12.3 % [facility] Monocytes Percent 7.5 % [facility] Eosinophils Percent 0.0 % [facility] Basophil Percent 0.1 % [facility] Specimen Blood - Blood specimen (specimen) Performing Organization Address City/[facility] Phone Number [facility] [address] [place] [phone] LABORATORY C-REACTIVE PROTEIN (INFLAMMATION) (07/29/2020 5:08 AM [employer]) Pathologist Sig nature CRP 66.4 (H) 0.0 - 8.0 mg/L [facility] Specimen Blood - Blood specimen (specimen) Performing Organization Address [facility] Phone Number [facility] [address] [place] [phone] LABORATORY PROCALCITONIN (07/29/2020 5:08 AM [employer]) Pathologist Sig nature Procalcitonin 0.24 (H) <0.07 ng/mL [facility] Specimen Blood - Blood specimen (specimen) Narrative Performed At Suspected Lower Respiratory Tract Infect ion: [facility] Y 0.1-0.25: Low risk for bacterial infection; Antibiotics discouraged. > 0.25: Increased likelihood for bacterial infection; Antibiotics encouraged. Suspected Sepsis: 0.1-0.5: Low likelihood for sepsis; Antibiotics discouraged. > 0.5: Increased Likelihood for sepsis; Antibiotics encouraged. > 2.0: High risk of sepsis/septic shock; Antibiotics strongly encouraged. Decisions on antibiotic use should not be based solely on procalcitonin levels. If antibiotics are administered, repeat procalcitonin testing should be performed every 2-3 days to consider early antibiotic cessation. PCT is a dynamic biomarker and most useful when trends are analyzed over time in accompaniment with other clinical data. Performing Organization Address [facility] Phone Number [facility] [address] [place] [phone] LABORATORY BASIC METABOLIC PANEL (07/29/2020 5:08 AM [employer]) [facility] Glucose 112 (H) 70 - 100 mg/dL [facility] BUN 10 6 - 22 mg/dL [facility] Creatinine 0.65 (L) 0.70 - 1.30 [facility] mg/dL [facility] BUN/Creatinine Ratio 15.4 10.0 - 25.0 [facility] Sodium 140 135 - 145 meq/L [facility] Potassium 3.9 3.5 - 5.3 meq/L [facility] Chloride 105 99 - 110 meq/L [facility] CO2 26 23 - 32 meq/L [facility] Anion Gap with K 13 6 - 20 meq/L [facility] Calcium 7.4 (L) 8.5 - 10.5 [facility] mg/dL [facility] Age 59 Years [facility] eGFR Non- >90 >=60 [facility] Ghanaian mL/min/1.73m2 [facility] eGFR >90 >=60 [facility] Ghanaian mL/min/1.73m2 [facility] Specimen Blood - Blood specimen (specimen) Performing Organization Address [facility] Phone Number [place] [phone] LABORATORY POTASSIUM (07/28/2020 11:21 AM [employer]) [facility] Potassium 4.2 3.5 - 5.3 meq/L [facility] Specimen Blood - Blood specimen (specimen) Performing Organization Address [facility] Phone Number [facility] [address] [place], [place] [address] LABORATORY VANCOMYCIN TROUGH (07/28/2020 11:21 AM [employer]) Pathologist Sig nature Vancomycin Trough 19.2 10.0 - 20.0 ug/mL [facility] Specimen Blood - Blood specimen (specimen) Performing Organization Address [facility] Phone Number [facility] [address] [place], [place] [address] LABORATORY MAGNESIUM (07/28/2020 5:16 AM [employer]) Pathologist Sig nature Magnesium 2.2 1.8 - 2.4 mg/dL [facility] Specimen Blood - Blood specimen (specimen) Performing Organization Address [facility] Number [facility] [address] [place], [place] [address] LABORATORY LAB ONLY-COMPLETE BLOOD COUNT WITH DIFFERENTIAL (07/28/2020 5:16 AM [employer]) WBC 18.3 (H) 4.0 - 11.0 K/uL [facility] RBC 3.54 (L) 4.40 - 5.80 [facility] M/[facility] LABORATORY Hemoglobin 9.7 (L) 13.5 - 17.5 [facility] g/dL [facility] Hematocrit 31.0 (L) 40.0 - 50.0 % [facility] MCV 87.6 80.0 - 98.0 fL [facility] MCH 27.4 25.5 - 34.0 pg [facility] MCHC 31.3 (L) 31.5 - 36.5 [facility] g/dL [facility] RDW-CV 14.8 11.5 - 15.5 % [facility] RDW-SD 45.9 35.5 - 50.0 fl [facility] Platelet Count 562 (H) 140 - 400 K/uL [facility] MPV 9.6 8.5 - 12.0 fL [facility] Seg Neut Absolute 14.9 (H) 1.8 - 8.0 K/uL [facility] Lymphocytes Absolute 1.8 0.8 - 4.1 K/uL [facility] Monocytes Absolute 1.1 (H) 0.0 - 1.0 K/uL [facility] Eosinophils Absolute 0.0 0.0 - 0.7 K/uL [facility] Basophil Absolute 0.0 0.0 - 0.2 K/uL [facility] Immature Granulocyte 0.53 (H) 0.00 - 0.06 [facility] Absolute K/uL [facility] Neutrophils Abs. 14,900 /uL [facility] (Segs and Bands) [facility] Neutrophils Percent 81.2 % [facility] Lymphocytes Percent 10.0 % [facility] Monocytes Percent 5.8 % [facility] Immature Granulocyte 2.9 % [facility] LABORATORY Eosinophils Percent 0.0 % [facility] Basophil Percent 0.1 % [facility] Specimen Blood - Blood specimen (specimen) Performing Organization Address [facility] Phone Number [facility] [address] [place] [phone] LABORATORY C-REACTIVE PROTEIN (INFLAMMATION) (07/28/2020 5:16 AM [employer]) Pathologist Sig nature CRP 107.1 (H) 0.0 - 8.0 mg/L [facility] Specimen Blood - Blood specimen (specimen) Performing Organization Address [facility] Phone Number [facility] [address] [place], [place] [address] LABORATORY PROCALCITONIN (07/28/2020 5:16 AM [employer]) Pathologist Sig nature Procalcitonin 0.45 (H) <0.07 ng/mL [facility] Specimen Blood - Blood specimen (specimen) Narrative Performed At Suspected Lower Respiratory Tract Infect ion: [facility] Y 0.1-0.25: Low risk for bacterial infection; Antibiotics discouraged. > 0.25: Increased likelihood for bacterial infection; Antibiotics encouraged. Suspected Sepsis: 0.1-0.5: Low likelihood for sepsis; Antibiotics discouraged. > 0.5: Increased Likelihood for sepsis; Antibiotics encouraged. > 2.0: High risk of sepsis/septic shock; Antibiotics strongly encouraged. Decisions on antibiotic use should not be based solely on procalcitonin levels. If antibiotics are administered, repeat procalcitonin testing should be performed every 2-3 days to consider early antibiotic cessation. PCT is a dynamic biomarker and most useful when trends are analyzed over time in accompaniment with other clinical data. Performing Organization Address [facility] Phone Number [facility] [address] [place] [phone] LABORATORY BASIC METABOLIC PANEL (07/28/2020 5:16 AM [employer]) [facility] Glucose 140 (H) 70 - 100 mg/dL [facility] BUN 13 6 - 22 mg/dL [facility] Creatinine 0.77 0.70 - 1.30 [facility] mg/dL [facility] BUN/Creatinine Ratio 16.9 10.0 - 25.0 [facility] Sodium 140 135 - 145 meq/L [facility] Potassium 3.8 3.5 - 5.3 meq/L [facility] Chloride 104 99 - 110 meq/L [facility] CO2 27 23 - 32 meq/L [facility] Anion Gap with K 13 6 - 20 meq/L [facility] Calcium 7.5 (L) 8.5 - 10.5 [facility] mg/dL [facility] Age 59 Years [facility] eGFR Non- >90 >=60 [facility] Ghanaian mL/min/1.73m2 [facility] eGFR >90 >=60 [facility] mL/min/1.73m2 [facility] Specimen Blood - Blood specimen (specimen) Performing Organization Address City/[facility]/Zipcode Phone Number [facility] [address] [facility] [place] [address] LABORATORY COLLECT AND HOLD BLUE (NACIT) TOP TUBE (07/27/2020 5:57 AM [employer]) Collect and Hold Comment: RECEIVED [facility] Specimen Status [facility] Specimen Blood - Blood specimen (specimen) Performing Organization Address [facility] Phone Number [facility] [address] [facility] [place] [address] LABORATORY COLLECT AND HOLD SST TOP TUBE (07/27/2020 5:57 AM [employer]) Collect and Hold Comment: RECEIVED [facility] Specimen [facility] LABORATORY Specimen Blood - Blood specimen (specimen) Performing Organization Address [facility] Phone Number [facility] [address] [facility] [place] [address] LABORATORY MAGNESIUM (07/27/2020 5:57 AM [employer]) [facility] nature Magnesium 2.4 1.8 - 2.4 mg/dL [facility] Specimen Blood - Blood specimen (specimen) Performing Organization Address [facility] Phone Number [facility] [address] [facility] [place] [address] LABORATORY LAB ONLY-COMPLETE BLOOD COUNT WITH DIFFERENTIAL (07/27/2020 5:57 AM [employer]) [facility] WBC 32.7 (H) 4.0 - 11.0 K/uL [facility] RBC 3.79 (L) 4.40 - 5.80 [facility] M/uL [facility] Hemoglobin 10.6 (L) 13.5 - 17.5 [facility] g/dL [facility] Hematocrit 33.2 (L) 40.0 - 50.0 % [facility] MCV 87.6 80.0 - 98.0 fL [facility] MCH 28.0 25.5 - 34.0 pg [facility] MCHC 31.9 31.5 - 36.5 [facility] g/dL [facility] RDW-CV 14.8 11.5 - 15.5 % [facility] RDW-SD 46.0 35.5 - 50.0 fl [facility] Platelet Count 523 (H) 140 - 400 K/uL [facility] MPV 9.5 8.5 - 12.0 fL [facility] Seg Neut Absolute 29.7 (H) 1.8 - 8.0 K/uL [facility] Lymphocytes Absolute 1.1 0.8 - 4.1 K/uL [facility] Monocytes Absolute 0.9 0.0 - 1.0 K/uL [facility] Eosinophils Absolute 0.0 0.0 - 0.7 K/uL [facility] Basophil Absolute 0.0 0.0 - 0.2 K/uL [facility] Immature Granulocyte 0.91 (H) 0.00 - 0.06 [facility] Absolute K/uL [facility] Neutrophils Abs. 29,700 /uL [facility] (Segs and Bands) [facility] Neutrophils Percent 90.9 % [facility] Lymphocytes Percent 3.4 % [facility] Monocytes Percent 2.8 % [facility] Immature Granulocyte 2.8 % [facility] LABORATORY Eosinophils Percent 0.0 % [facility] Basophil Percent 0.1 % [facility] Specimen Blood - Blood specimen (specimen) Performing Organization Address [facility] Phone Number [facility] [address] [place] [phone] LABORATORY C-REACTIVE PROTEIN (INFLAMMATION) (07/27/2020 5:57 AM [employer]) Pathologist Sig nature CRP 126.1 (H) 0.0 - 8.0 mg/L [facility] Specimen Blood - Blood specimen (specimen) Performing Organization Address [facility] Number [facility] [address] [place], [place] [address] LABORATORY PROCALCITONIN (07/27/2020 5:57 AM [employer]) Pathologist Sig nature Procalcitonin 0.39 (H) <0.07 ng/mL [facility] Specimen Blood - Blood specimen (specimen) Narrative Performed At Suspected Lower Respiratory Tract Infect ion: [facility] LAB[facility] Y 0.1-0.25: Low risk for bacterial infection; Antibiotics discouraged. > 0.25: Increased likelihood for bacterial infection; Antibiotics encouraged. Suspected Sepsis: 0.1-0.5: Low likelihood for sepsis; Antibiotics discouraged. > 0.5: Increased Likelihood for sepsis; Antibiotics encouraged. > 2.0: High risk of sepsis/septic shock; Antibiotics strongly encouraged. Decisions on antibiotic use should not be based solely on procalcitonin levels. If antibiotics are administered, repeat procalcitonin testing should be performed every 2-3 days to consider early antibiotic cessation. PCT is a dynamic biomarker and most useful when trends are analyzed over time in accompaniment with other clinical data. Performing Organization Address City/State/Zipcode Phone Number [facility] [address] [place] [phone] LABORATORY BASIC METABOLIC PANEL (07/27/2020 5:57 AM [employer]) [facility] Glucose 191 (H) 70 - 100 mg/dL [facility] BUN 15 6 - 22 mg/dL [facility] Creatinine 0.76 0.70 - 1.30 [facility] mg/dL [facility] BUN/Creatinine Ratio 19.7 10.0 - 25.0 [facility] Sodium 136 135 - 145 meq/L [facility] Potassium 4.0 3.5 - 5.3 meq/L [facility] Chloride 100 99 - 110 meq/L [facility] CO2 25 23 - 32 meq/L [facility] Anion Gap with K 15 6 - 20 meq/L [facility] Calcium 7.5 (L) 8.5 - 10.5 [facility] mg/dL [facility] Age 59 Years [facility] eGFR Non- >90 >=60 [facility] Ghanaian mL/min/1.73m2 [facility] eGFR >90 >=60 [facility] mL/min/1.73m2 [facility] Specimen Blood - Blood specimen (specimen) Performing Organization Address [facility] Phone Number [facility] [address] [facility] [place] [address] LABORATORY TISSUE EXAM (07/26/2020 7:43 PM [employer])Only the most recent of2 resultswithin the time period is included. FINAL DIAGNOSIS A. Specimen labeled "left pleural space": [facility] Electronically - Fibrinopurulent material consistent with empyema [facility] signed by MARIBEL Rodriguez OF MD Jose on 07/30/2020 PATHOLOGY at 10:43 AM GROSS [facility]. Received in formalin lab eled "left pleural space" is a 11.0 x 6.5 x 5.0 cm aggregate of rubbery mancuso-white tissue/?material admixed with clotted blood. [employer] Producer sections are submitted in 2 blocks. MEDICAL C ENTER DEPARTMENT OF Block A1-A2: RSS. PATHOLOGY MICROSCOPIC Microscopic [facility] DESCRIPTION examination [facility] performed. DEPARTMENT OF PATHOLOGY CASE REPORT Surgical Pathology Report Case: [id number] [facility] Authorizing Provider: Karl Dennis MD Collected: 07/26/20201942 [facility] Ordering Location: [facility] Received: 07/29/2020 0934 [facility] PATHOLOGY Pathologist: Jose Rodriguez MD Specimen: Pleural, left pleural space EMBEDDED IMAGES [facility] DEPARTMENT OF PATHOLOGY Specimen Tissue - Pleural fluid specimen (specime n) Performing Organization Address [facility] Phone Number [facility] [address] [place], [place] [address] DEPARTMENT OF PATHOLOGY POTASSIUM (07/26/2020 4:22 PM [employer]) Pathologist Sig nature Potassium 3.7 3.5 - 5.3 meq/L [facility] ENTER LABORATORY Specimen Blood - Blood specimen (specimen) Performing Organization Address [facility] Phone Number [facility] [address] [place], [place] [address] LABORATORY COLLECT AND HOLD BLUE (NACIT) TOP TUBE (07/26/2020 4:40 AM [employer]) [facility] Collect and Hold Comment: RECEIVED [facility] Specimen Status [facility] LABORATORY Specimen Blood - Blood specimen (specimen) Performing Organization Address City/State/Zipcode Phone Number [facility] [address] [place] [address] LABORATORY LAB ONLY-COMPLETE BLOOD COUNT WITH DIFFERENTIAL (07/26/2020 4:40 AM [employer]) [facility] WBC 26.1 (H) 4.0 - 11.0 K/uL [facility] LABORATORY RBC 3.74 (L) 4.40 - 5.80 [facility] M/uL [facility] LABORATORY Hemoglobin 10.3 (L) 13.5 - 17.5 [facility] g/dL [facility] LABORATORY Hematocrit 32.4 (L) 40.0 - 50.0 % [facility] LABORATORY MCV 86.6 80.0 - 98.0 fL [facility] LABORATORY MCH 27.5 25.5 - 34.0 pg [facility] LABORATORY MCHC 31.8 31.5 - 36.5 [facility] g/dL [facility] LABORATORY RDW-CV 14.6 11.5 - 15.5 % [facility] LABORATORY RDW-SD 44.4 35.5 - 50.0 fl [facility] LABORATORY Platelet Count 511 (H) 140 - 400 K/uL [facility] LABORATORY MPV 9.4 8.5 - 12.0 fL [facility] LABORATORY Seg Neut Absolute 21.8 (H) 1.8 - 8.0 K/uL [facility] LABORATORY Lymphocytes Absolute 2.0 0.8 - 4.1 K/uL [facility] LABORATORY Monocytes Absolute 1.5 (H) 0.0 - 1.0 K/uL [facility] LABORATORY Eosinophils Absolute 0.0 0.0 - 0.7 K/uL [facility] LABORATORY Basophil Absolute 0.0 0.0 - 0.2 K/uL [facility] LABORATORY Immature Granulocyte 0.72 (H) 0.00 - 0.06 [facility] Absolute K/uL [facility] LABORATORY Neutrophils Abs. 21,800 /uL [facility] (Segs and Bands) [facility] LABORATORY Neutrophils Percent 83.7 % [facility] LABORATORY Lymphocytes Percent 7.6 % [facility] LABORATORY Monocytes Percent 5.8 % [facility] LABORATORY Immature Granulocyte 2.8 % [facility] LABORATORY Eosinophils Percent 0.0 % [facility] LABORATORY Basophil Percent 0.1 % [facility] LABORATORY Specimen Blood - Blood specimen (specimen) Performing Organization Address [facility] Phone Number [facility] [address] [place], [place] [address] LABORATORY MAGNESIUM (07/26/2020 4:40 AM [employer]) Pathologist Sig nature Magnesium 1.9 1.8 - 2.4 mg/dL [facility] ENTER LABORATORY Specimen Blood - Blood specimen (specimen) Performing Organization Address [facility] Number [facility] [address] [place], [place] [address] LABORATORY PROCALCITONIN (07/26/2020 4:40 AM [employer]) Pathologist Sig nature Procalcitonin 0.22 (H) <0.07 ng/mL [facility] LABORATORY Specimen Blood - Blood specimen (specimen) Narrative Performed At Suspected Lower Respiratory Tract Infect ion: [facility] LABORATOR Y 0.1-0.25: Low risk for bacterial infection; Antibiotics discouraged. > 0.25: Increased likelihood for bacterial infection; Antibiotics encouraged. Suspected Sepsis: 0.1-0.5: Low likelihood for sepsis; Antibiotics discouraged. > 0.5: Increased Likelihood for sepsis; Antibiotics encouraged. > 2.0: High risk of sepsis/septic shock; Antibiotics strongly encouraged. Decisions on antibiotic use should not be based solely on procalcitonin levels. If antibiotics are administered, repeat procalcitonin testing should be performed every 2-3 days to consider early antibiotic cessation. PCT is a dynamic biomarker and most useful when trends are analyzed over time in accompaniment with other clinical data. Performing Organization Address [facility] Phone Number [facility] [address] [place], [place] [address] LABORATORY C-REACTIVE PROTEIN (INFLAMMATION) (07/26/2020 4:40 AM [employer]) Pathologist Sig nature CRP 88.7 (H) 0.0 - 8.0 mg/L [facility] LABORATORY Specimen Blood - Blood specimen (specimen) Performing Organization Address [facility] Phone Number [facility] [address] [facility] [place], [place] [address] LABORATORY BASIC METABOLIC PANEL (07/26/2020 4:40 AM [employer]) Pathologist Sig [facility] Glucose 129 (H) 70 - 100 mg/dL [facility] LABORATORY BUN 11 6 - 22 mg/dL [facility] LABORATORY Creatinine 0.71 0.70 - 1.30 [facility] mg/dL [facility] LABORATORY BUN/Creatinine Ratio 15.5 10.0 - 25.0 [facility] LABORATORY Sodium 140 135 - 145 meq/L [facility] LABORATORY Potassium 3.5 3.5 - 5.3 meq/L [facility] LABORATORY Chloride 102 99 - 110 meq/L [facility] LABORATORY CO2 27 23 - 32 meq/L [facility] LABORATORY Anion Gap with K 15 6 - 20 meq/L [facility] LABORATORY Calcium 7.9 (L) 8.5 - 10.5 [facility] mg/dL [facility] LABORATORY Age 59 Years [facility] LABORATORY eGFR Non- >90 >=60 [facility] Ghanaian mL/min/1.73m2 [facility] LABORATORY eGFR >90 >=60 [facility] mL/min/1.73m2 [facility] LABORATORY Specimen Blood - Blood specimen (specimen) Performing Organization Address [facility] Phone Number [facility] [address] [facility] [place], [place] [address] LABORATORY SARS-COV-2, INFLUENZA A+B, AND/OR RSV NUCLEIC ACID TESTING PANEL (07/25/2020 12:49 PM [employer]) Pathologist Sig nature SARS-CoV-2 Not Detected Not Detected [facility] LABORATORY Influenza A Not Detected Not Detected [facility] LABORATORY Influenza B Not Detected Not Detected [facility] LABORATORY RSV Not Detected Not Detected [facility] LABORATORY Specimen Respiratory - Entire nasopharynx (body s tructure) Narrative Performed At Please read entire report. Results for [facility] Influenza A and B or RSV may also be LABORATORY available depending on which viruses your provider selected for testing. Your Covid-19 test is negative: 1)Avoiding close contact is still recommended. 2)Cover your coughs and snee zes. 3)Wash your hands often with soap and water for at least 20 seconds or use an alcohol-based reading coach containing over 60% alcohol. Avoid touching your face. 4)Avoid sharing personal household items, including dishes, cups, utensils, towels, clothing, or bedding. These items should be cleaned thoroughly with soap and water after use. Clean all "high touch" surfaces in your home daily. 5) Monitor your symptoms. Contact your provider if you are feeling worse. If you have shortness of breath or difficulty breathing, call 911. This assay is for in vitro diagnostic use under FDA Emergency Use Authorization on ly. Optimal performance of this test requires appropriate specimen collection, storage, and transport to the test site. Detection of SARS-CoV-2 RNA may be affected by sample collection methods, patient factors (eg, presence of symptoms), and/or stage of infection. False-negative results may arise from degradation of viral RNA during shipping/storage. Results should be interpreted by a trained professional in conjunction with the pat ient s history and clinical signs and symptoms, and epidemiological risk factors. Negative (Not Detected) results do not preclude infection with the SARS-CoV-2 virus and should not be the sole basis of patient treatment/management or public health decision. Follow up testing should be performed according to the current CDC recommendations. This test was performed by polymerase chain reaction (PCR) on the GeneXpert instrument. Performing Organization Address City/State/Zipcode Phone Number [facility] [address] [place], [place] [address] LABORATORY QUANTIFERON (07/25/2020 12:33 PM [employer]) Quantiferon Negative Negative [facility] Comment: CLINIC M. tuberculosis infection unlikely, but cannot be excl uded especially when: 1. Illness is consistent with TB disease. 2. Likelihood of progre ssion to disease is increased (e.g. due to immunosuppression). TB1 0.00 IU/mL [facility] Interferon-Gamma CLINIC Value TB2 -0.01 IU/mL [facility] Interferon-Gamma CLINIC Value Specimen Blood - Blood specimen (specimen) Narrative Performed At Interferon-gamma values should not be used to monitor disease [facility] progression or response to therapy. Performing Organization Address [facility] Phone Number [facility] [address] [place] [address] HIV SCREEN REFLEX TO CONFIRMATION (07/25/2020 12:33 PM [employer]) Pathologist Sig nature HIV 1 Ag HIV 1/2 Ab Nonreactive Nonreactive [facility] LABORATORY Specimen Blood - Blood specimen (specimen) Performing Organization Address [facility] Phone Number [facility] [address] [place], [place] [address] LABORATORY VANCOMYCIN TROUGH (07/25/2020 11:06 AM [employer]) Pathologist Sig nature Vancomycin Trough 15.3 10.0 - 20.0 ug/mL [facility] LABORATORY Specimen Blood - Blood specimen (specimen) Performing Organization Address [facility] Number [facility] [address] [place], [place] [address] CHEST WITH CONTRAST (07/25/2020 9:59 AM [employer]) Specimen Narrative Performed At [facility] Patient Name: SHANNAN GATES Date of : 1960 Procedure: CT CHEST WITH CONTRAST Date of Service: 07/25/2020 CT chest with intravenous contrast INDICATION: Abnormal xray - pleural effu sharla. Status post thoracentesis COMPARISON(S): Outside CT 07/20/2020 TECHNIQUE: Helical imaging was obtained of the chest after intrav enous contrast administration. FINDINGS: The heart and great vessels are unremarkable. There is no mediastinal or hilar lymphadenopathy. No axillary lymph adenopathy. There is a large loculated left pleural effusion with associated pleural thickening and enhancement. There are areas of gas wit hin the pleural fluid which could be iatrogenic or indicate infection. There are corresponding consolidative changes in the lingula and left lower lobe with fluid and gas attenuation in the consolidated darron gula which may represent necrosis and/or abscess. There are patchy groundglass opacities throughout the right lung with a nonspecific appearance. No suspicious no dules detected. There are mild multilevel degenerative changes in the thoracic spine. No worrisome lytic or sclerotic lesions. There are no acute abnormalities demonstrated in the i dia upper abdomen. IMPRESSION: Heterogeneous consolidation in the lingula of the left upper lobe suspicious for necrotizing pneumonia and/or organizing pulmonary abscess. There is a corresponding large loculated left pleural effusion which could represent empyema. Finalized by: Raj Sethi MD on 06/29 11:02 AM [employer] Patient/Procedure Information: MARIO MRN/JODIE: [id number] Order Number: [id number] Accession Number: [id number] Ordering Provider: ESTRELLA BROOKS Authorizing Provider: ESTRELLA BROOKS Procedure Note Interface, Radiantres - 07/25/2020 11:04 AM [employer] Patient Name: SHANNAN GATES Date of : 1960 Procedure: CT CHEST WITH CONTRAST Date of Service: 07/25/2020 CT chest with intravenous contrast INDICATION: Abnormal xray - pleural effu sharla. Status post thoracentesis COMPARISON(S): Outside CT 07/20/2020 TECHNIQUE: Helical imaging was obtained of the ches t after intravenous contrast administration. FINDINGS: The heart and great vessels are unremark able. There is no mediastinal or hilar lymphadenopathy. No axillary lymphadenopathy. There is a large loculated left pleural effusion with associated pleural thickening and enhancement. There are areas of gas within the pleural fluid which could be iatrogenic or indicate infection. There are corresponding consolidative changes in t he lingula and left lower lobe with fluid and gas attenuation in the consolidated lingula which may represent necrosis and/or abscess. There are patchy groundglass opacities t hroughout the right lung with a nonspecific appearance. No suspicious nodules detected. There are mild multilevel degenerative c hanges in the thoracic spine. No worrisome lytic or sclerotic lesions. There are no acute abnormalities demonst rated in the imaged upper abdomen. IMPRESSION: Heterogeneous consolidation in the lingu la of the left upper lobe suspicious for necrotizing pneumonia and/or organizing pulmonary abscess. There is a corresponding large loculated left pleural effusion which could represent empyema. Finalized by: Raj Sethi MD on 06/29 11:02 AM [employer] Patient/Procedure Information: MARIO MRN/JODIE: [id number] Order Number: [id number] Accession Number: [id number] Ordering Provider: ESTRELLA BROOKS Authorizing Provider: ESTRELLA BROOKS Performing Organization Address [facility] Phone Number [id number] CREATININE (07/25/2020 8:14 AM [employer]) Creatinine 0.71 0.70 - 1.30 [facility] mg/dL [facility] LABORATORY Age 59 Years [facility] LABORATORY eGFR Non- >90 >=60 [facility] Ghanaian mL/min/1.73m [facility] 2 LABORATORY eGFR >90 >=60 [facility] Ghanaian Comment: mL/min/1.73m [facility] The estimated Glomerular Jason tration Rate (eGFR) is calculated using the Abbreviated Modification of Diet in Renal Disease (MDRD) equation. The eGFR is reported out in mL/min. per 1.73 meter squared units. 2 LABOR ATORY The National Kidney [employer]ati on action value for patients without a diagnosis of chronic kidney disease is a eGFR of < 60 mL/min per 1.73M2. The National Kidney Foundati on stages listed below apply to patients with a diagnosis of chronic kidney disease (defined as either kidney damage or eGFR <60 mL/min/1.73 m2 for 3 months). Kidney dam age is defined as pathologic abnormalities or markers of damage, including abnormalities in blood or urine tests or imaging studies. These stages apply to adults. No standardized classification has yet been established for pediatric patients. Stage eGFR in ml/min per 1.73M2 1 Kidney abnormality with normal or increased eGFR >or=90 2 Kidney abnormality with mild decreased eGFR 60-89 3 Moderately decreased eGFR 30-59 4 Severely decreased eGFR 15-29 5 Kidney failure <15 The eGFR varies with age, se x, race and body size and normally decreases with age. Specimen Blood - Blood specimen (specimen) Performing Organization Address [facility]/Zipcode Phone Number [facility] [address] [place] [address] LABORATORY COLLECT AND HOLD LAVENDER (EDTA) TOP TUBE (07/25/2020 8:14 AM [employer]) Collect and Hold Comment: RECEIVED [facility] Specimen Status [facility] LABORATORY Specimen Blood - Blood specimen (specimen) Performing Organization Address City/[facility] Phone Number [facility] [address] [place], [place] [address] LABORATORY COLLECT AND HOLD GREEN TOP TUBE (07/25/2020 8:14 AM [employer]) Collect and Hold Comment: RECEIVED [facility] Specimen Status [facility] LABORATORY Specimen Blood - Blood specimen (specimen) Performing Organization Address [facility] Phone Number [facility] [address] [place], [place] [address] LABORATORY PTT (07/25/2020 8:14 AM [employer]) Pathologist Sig nature APTT 64 (H) 24 - 35 secs [facility] ER LABORATORY Specimen Blood - Blood specimen (specimen) Narrative Performed At Heparin Therapeutic Range 69-111 sec [facility] LABORATORY Performing Organization Address [facility] Phone Number [facility] [address] [place], [place] [address] LABORATORY LAB ONLY-COMPLETE BLOOD COUNT WITH DIFFERENTIAL (07/25/2020 5:22 AM [employer]) [facility] Signature WBC 23.9 (H) 4.0 - 11.0 K/uL [facility] LABORATORY RBC 3.53 (L) 4.40 - 5.80 [facility] M/[facility] LABORATORY Hemoglobin 9.8 (L) 13.5 - 17.5 [facility] g/dL [facility] LABORATORY Hematocrit 30.9 (L) 40.0 - 50.0 % [facility] LABORATORY MCV 87.5 80.0 - 98.0 fL [facility] LABORATORY MCH 27.8 25.5 - 34.0 pg [facility] LABORATORY MCHC 31.7 31.5 - 36.5 [facility] g/dL [facility] LABORATORY RDW-CV 14.5 11.5 - 15.5 % [facility] LABORATORY RDW-SD 44.8 35.5 - 50.0 fl [facility] LABORATORY Platelet Count 479 (H) 140 - 400 K/uL [facility] LABORATORY MPV 9.1 8.5 - 12.0 fL [facility] LABORATORY Seg Neut Absolute 20.1 (H) 1.8 - 8.0 K/uL [facility] LABORATORY Lymphocytes Absolute 2.3 0.8 - 4.1 K/uL [facility] LABORATORY Monocytes Absolute 1.2 (H) 0.0 - 1.0 K/uL [facility] LABORATORY Eosinophils Absolute 0.0 0.0 - 0.7 K/uL [facility] LABORATORY Basophil Absolute 0.0 0.0 - 0.2 K/uL [facility] LABORATORY Neutrophils Abs. 20,100 /uL [facility] (Segs and Bands) [facility] LABORATORY Neutrophils Percent 84.2 % [facility] LABORATORY Lymphocytes Percent 9.4 % [facility] LABORATORY Monocytes Percent 5.2 % [facility] LABORATORY Eosinophils Percent 0.0 % [facility] LABORATORY Basophil Percent 0.0 % [facility] LABORATORY Specimen Blood - Blood specimen (specimen) Performing Organization Address City/State/Zipcode Phone Number [facility] [address] [place] [address] LABORATORY PROCALCITONIN (07/25/2020 5:22 AM [employer]) Pathologist Sig nature Procalcitonin 0.26 (H) <0.07 ng/mL [facility] LABORATORY Specimen Blood - Blood specimen (specimen) Narrative Performed At Suspected Lower Respiratory Tract Infect ion: [facility] LABORATOR Y 0.1-0.25: Low risk for bacterial infection; Antibiotics discouraged. > 0.25: Increased likelihood for bacterial infection; Antibiotics encouraged. Suspected Sepsis: 0.1-0.5: Low likelihood for sepsis; Antibiotics discouraged. > 0.5: Increased Likelihood for sepsis; Antibiotics encouraged. > 2.0: High risk of sepsis/septic shock; Antibiotics strongly encouraged. Decisions on antibiotic use should not be based solely on procalcitonin levels. If antibiotics are administered, repeat procalcitonin testing should be performed every 2-3 days to consider early antibiotic cessation. PCT is a dynamic biomarker and most useful when trends are analyzed over time in accompaniment with other clinical data. Performing Organization Address [facility] Number [facility] [address] [place], [place] [address] LABORATORY C-REACTIVE PROTEIN (INFLAMMATION) (07/25/2020 5:22 AM [employer]) Pathologist Sig nature CRP 86.1 (H) 0.0 - 8.0 mg/L [facility] LABORATORY Specimen Blood - Blood specimen (specimen) Performing Organization Address [facility] [address] [place], [place] [address] LABORATORY PTT (07/25/2020 12:14 AM [employer]) Pathologist Sig nature APTT >200 (HH) 24 - 35 secs [facility] ER LABORATORY Specimen Blood - Blood specimen (specimen) Narrative Performed At Heparin Therapeutic Range 69-111 sec [facility] LABORATORY Performing Organization Address [facility] [address] [place], [place] [address] LABORATORY POTASSIUM (07/24/2020 6:15 PM [employer]) Pathologist Sig nature Potassium 4.5 3.5 - 5.3 meq/L [facility] C ENTER LABORATORY Specimen Blood - Blood specimen (specimen) Performing Organization Address [facility] [address] [place], [place] [address] LABORATORY PTT (07/24/2020 6:15 PM [employer]) Pathologist Sig nature APTT 77 (H) 24 - 35 secs [facility] ER LABORATORY Specimen Blood - Blood specimen (specimen) Narrative Performed At Heparin Therapeutic Range 69-111 sec [facility] LABORATORY Performing Organization Address [facility] Number [facility] [address] [place], [place] [address] LABORATORY POTASSIUM (07/24/2020 10:41 AM [employer]) Pathologist Sig nature Potassium 3.8 3.5 - 5.3 meq/L [facility] ENTER LABORATORY Specimen Blood - Blood specimen (specimen) Performing Organization Address [facility] Phone Number [facility] [address] [place], [place] [address] LABORATORY PTT (07/24/2020 10:41 AM [employer]) Pathologist Sig nature APTT 131 (H) 24 - 35 secs [facility] ER LABORATORY Specimen Blood - Blood specimen (specimen) Narrative Performed At Heparin Therapeutic Range 69-111 sec [facility] [facility] Performing Organization Address [facility] Phone Number [facility] [address] [place], [place] [address] LABORATORY LAB ONLY-COMPLETE BLOOD COUNT WITH DIFFERENTIAL (07/24/2020 4:37 AM [employer]) WBC 21.8 (H) 4.0 - 11.0 K/uL [facility] LABORATORY RBC 3.57 (L) 4.40 - 5.80 [facility] LABORATORY Hemoglobin 9.9 (L) 13.5 - 17.5 [facility] g/dL [facility] LABORATORY Hematocrit 31.2 (L) 40.0 - 50.0 % [facility] LABORATORY MCV 87.4 80.0 - 98.0 fL [facility] LABOR[facility]ORY MCH 27.7 25.5 - 34.0 pg [facility] LABOR[facility]ORY MCHC 31.7 31.5 - 36.5 [facility] g/dL [facility] LABORATORY RDW-CV 14.5 11.5 - 15.5 % [facility] LABORATORY RDW-SD 45.3 35.5 - 50.0 fl [facility] LABORATORY Platelet Count 421 (H) 140 - 400 K/uL [facility] LABOR[facility] MPV 10.0 8.5 - 12.0 fL [facility] LABOR[facility] Seg Neut Absolute 19.1 (H) 1.8 - 8.0 K/uL [facility] LAB[facility] Lymphocytes Absolute 1.5 0.8 - 4.1 K/uL [facility] LABOR[facility]ORY Monocytes Absolute 1.0 0.0 - 1.0 K/uL [facility] Eosinophils Absolute 0.0 0.0 - 0.7 K/uL [facility] LABOR[facility] Basophil Absolute 0.0 0.0 - 0.2 K/uL [facility] LABOR[facility] Immature Granulocyte 0.16 (H) 0.00 - 0.06 [facility] Absolute K/uL [facility] LABORATORY Neutrophils Abs. 19,100 /uL [facility] (Segs and Bands) [facility] LABORATORY Neutrophils Percent 87.5 % [facility] LABOR[facility]ORY Lymphocytes Percent 7.1 % [facility] Monocytes Percent 4.7 % [facility] Immature Granulocyte 0.7 % [facility] Percent [facility] LABORATORY Eosinophils Percent 0.0 % [facility] LABOR[facility] Basophil Percent 0.0 % [facility] LABORATORY Specimen Blood - Blood specimen (specimen) Performing Organization Address [facility] Phone Number [facility] [address] [place] [address] LABORATORY PTT (07/24/2020 4:37 AM [employer]) Pathologist Sig nature APTT 96 (H) 24 - 35 secs [facility] LABORATORY Specimen Blood - Blood specimen (specimen) Narrative Performed At Heparin Therapeutic Range 69-111 sec [facility] LABORATORY Performing Organization Address [facility] Phone Number [facility] [address] [place] [address] LABORATORY BASIC METABOLIC PANEL (07/24/2020 4:37 AM [employer]) Pathologist Sig nature Glucose 141 (H) 70 - 100 mg/dL [facility] LABOR[facility]ORY BUN 14 6 - 22 mg/dL [facility] Creatinine 0.70 0.70 - 1.30 [facility] mg/dL [facility] LABORATORY BUN/Creatinine Ratio 20.0 10.0 - 25.0 [facility] LABORATORY Sodium 141 135 - 145 meq/L [facility] LABORATORY Potassium 3.7 3.5 - 5.3 meq/L [facility] LABORATORY Chloride 105 99 - 110 meq/L [facility] LAB[facility]ORY CO2 26 23 - 32 meq/L [facility] LABOR[facility] Anion Gap with K 14 6 - 20 meq/L [facility] LABORATORY Calcium 7.9 (L) 8.5 - 10.5 [facility] mg/dL [facility] LABORATORY Age 59 Years [facility] LABORATORY eGFR Non- >90 >=60 [facility] Ghanaian mL/min/1.73m2 [facility] LABORATORY eGFR >90 >=60 [facility] mL/min/1.73m2 [facility] LABORATORY Specimen Blood - Blood specimen (specimen) Performing Organization Address [facility] Number [facility] [address] [place], [place] [address] LABORATORY POTASSIUM (07/23/2020 9:16 PM [employer]) Pathologist Sig nature Potassium 3.7 3.5 - 5.3 meq/L [facility] LABORATORY Specimen Blood - Blood specimen (specimen) Performing Organization Address [facility] Number [facility] [address] [place], [place] [address] LABORATORY PTT (07/23/2020 9:16 PM [employer]) Pathologist Sig nature APTT 62 (H) 24 - 35 secs [facility] ER LABORATORY Specimen Blood - Blood specimen (specimen) Narrative Performed At Heparin Therapeutic Range 69-111 sec [facility] LABORATORY Performing Organization Address [facility] Phone Number [facility] [address] [place], [place] [address] LABORATORY POTASSIUM (07/23/2020 3:45 PM [employer]) Pathologist Sig nature Potassium 3.6 3.5 - 5.3 meq/L [facility] LAB[facility]AT[facility] Specimen Blood - Blood specimen (specimen) Performing Organization Address [facility]/Zipcode Phone Number [facility] [address] [place], [place] [address] LABORATORY VANCOMYCIN TROUGH (07/23/2020 10:35 AM [employer]) Pathologist Sig nature Vancomycin Trough 10.4 10.0 - 20.0 ug/mL [facility] LABORATORY Specimen Blood - Blood specimen (specimen) Performing Organization Address City/State/Zipcode Phone Number [facility] [address] [place], [place] [address] LABORATORY IR BIOPSY OR ASPIRATION (07/23/2020 10:27 AM [employer]) Specimen Narrative Performed At [facility] Patient Name: SHANNAN GATES Date of : 1960 Procedure: IR BIOPSY OR ASPIRATION Date of Service: 07/23/2020 Patient Name: SHANNAN GATES MR#: [id number] Exam Description: IR BIOPSY OR ASPIRATION Exam D ate/Time: 07/23/2020 9:59 AM [employer] PROCEDURE: CT GUIDED LEFT UPPER LOBE PASCUAL G BIOPSY CLINICAL HISTORY: Loculated and septated left pleura l effusion and masslike consolidation in the left lung. OPERATORS: Manuel Ayala MD TECHNIQUE: The patient was identified, the procedure was explained; risks, benefits and alternatives were discussed and in formed consent obtained from the patient. A team time-out was per formed before commencement of the procedure. A limited CT of the chest was performed and an appropr iate site for biopsy identified. The skin was prepped and draped i n the usual sterile fashion. Lidocaine was injected for local an esthesia. A 17 G guide needle was passed into the masslike consolidatio n in the left upper lobe utilizing intermittent CT guidance. Through the cannula, an 18 G core biopsy needle was passed under CT guidance a nd multiple core biopsy specimens were obtained and submitted to surgic al pathology. The needles were removed and hemostasis obtained wit h manual compression. A limited postprocedure CT scan of the chest was performed. Sedation: The patient under moderate sedation was mo nitored throughout the procedure by dedicated nursing staff under physici an supervision. The patient received 50 micrograms fentanyl IV and 1 m illigrams Versed IV. Procedure began at 10:01 and complet ed at 10:16. Radiation Dose: DLP: 1223 mGycm Contrast: None FINDINGS: 1. Limited planning CT reveals masslike consolidatio n in the left long and a loculated left pleural effusion. Groundglass opacities are also noted rig ht upper lobe. 2. Successful CT guided biopsy of masslike consolida tion in the left upper lobe. 3. Limited post-procedure CT reveals n o pneumothorax. COMPLICATION: There were no immediate complications. The patient tolerated the procedure well. IMPRESSION: Technically successful CT-guided biopsy of masslike co nsolidation in the left upper lobe. Finalized by: MANUEL AYALA on 06/29 11:23 AM [employer] Patient/Procedure Information: MRAIO MRN/JODIE: [id number] Order Number: [id number] Accession Number: [id number] Ordering Provider: ESTRELLA BROOKS Authorizing Provider: ESTRELLA BROOKS Procedure Note Interface, Radiantres - 07/23/2020 11:25 AM [employer] Patient Name: SHANNAN GATES Date of : 1960 Procedure: IR BIOPSY OR ASPIRATION Date of Service: 07/23/2020 Patient Name: SHANNAN GATES MR#: [id number] Exam Description: IR BIOPSY OR ASPIRATIO N Exam Date/Time: 07/23/2020 9:59 AM [employer] PROCEDURE: CT GUIDED LEFT UPPER LOBE PASCUAL G BIOPSY CLINICAL HISTORY: Loculated and septate d left pleural effusion and masslike consolidation in the left lung. OPERATORS: Manuel Ayala MD TECHNIQUE: The patient was identified, the procedure was explained; risks, benefits and alternatives were discussed and informed consent obtained from the patient. A team time-out was performed before commencement of the procedure. A limited CT of the chest was performed and an appropriate site for biopsy identified. The skin was prepped and draped in the usual sterile fashion. Lidocaine was injected for local anesthesia. A 17 G guide needle was passed into the masslike consolidation i n the left upper lobe utilizing intermittent CT guidance. Through the cannula, an 18 G core biopsy needle was passed under CT guidance and multiple core biopsy specimens were obtained and submitted to surgical patho logy. The needles were removed and hemostasis obtained with manual compression. A limited postprocedure CT scan of the chest was performed. Sedation: The patient under moderate se dation was monitored throughout the procedure by dedicated nursing staff under physician supervision. The patient received 50 micrograms fentanyl IV and 1 milligrams Versed IV. Procedure began at 10:01 and completed a t 10:16. Radiation Dose: DLP: 1223 mGycm Contrast: None FINDINGS: 1. Limited planning CT reveals masslike consolidation in the left long and a loculated left pleural effusion. Groundglass opacities are also noted rig ht upper lobe. 2. Successful CT guided biopsy of massl lul consolidation in the left upper lobe. 3. Limited post-procedure CT reveals no pneumothorax. COMPLICATION: There were no immediate co mplications. The patient tolerated the procedure well. IMPRESSION: Technically successful CT-guided biopsy of masslike consolidation in the left upper lobe. Finalized by: MANUEL AYALA on 06/29 11:23 AM [employer] Patient/Procedure Information: MARIO MRN/JODIE: [id number] Order Number: [id number] Accession Number: [id number] Ordering Provider: ESTRELLA BROOKS Authorizing Provider: ESTRELLA BROOKS Performing Organization Address City/State/Zipcode Phone Number [id number] IR THORACENTESIS (07/23/2020 9:23 AM [employer]) Specimen Narrative Performed At [facility] Patient Name: SHANNAN GATES Date of : 1960 Procedure: IR THORACENTESIS Date of Service: 07/23/2020 Patient Name: SHANNAN GATES MR#: [id number] Exam Description: IR THORACENTESIS Exam Date/Sukh e: 07/23/2020 8:45 AM [employer] PROCEDURE: Ultrasound-guided left thoracentesis [employer] FEEDER: Manuel Ayala M.D. HISTORY: Large left pleural effusion and masslike cons olidation in the left lung. COMPARISON: 07/20/2020. TECHNIQUE: The procedure, risks, benefits and alternatives were d iscussed with and informed consent obtained from the patient. A time out was performed and documented before commencement of the procedure. A vazquez ited ultrasound of the left chest was performed to identify a site for pu ncture and permanent images obtained. After administration of lidocaine for local anesthesia , the left pleural space was entered with a 5F one-step needle under ultr asound guidance. The needle was removed and cloudy yellow fluid retur mary through the cannula. A total of 340 mL of fluid was removed. F luid was submitted for laboratory analysis. Fluid was also sent for cytol ogy. The cannula was removed and a dressing placed. Sedation: None. Radiation Dose: Fluoroscopy time: None Contrast: None FINDINGS: Large multiseptated left pleural effusio n. COMPLICATION: There were no immediate complications. The patient tolerated the procedure well. IMPRESSION: 1. Technically successful left thorace ntesis. 2. Large multiseptated left pleural ef fusion. Finalized by: MANUEL AYALA on 06/29 11:01 AM [employer] Patient/Procedure Information: MARIO MRN/JODIE: [id number] Order Number: [id number] Accession Number: [id number] Ordering Provider: ESTRELLA BROOKS Authorizing Provider: ESTRELLA BROOKS Procedure Note Interface, Radiantres - 07/23/2020 11:03 AM [employer] Patient Name: SHANNAN GATES Date of : 1960 Procedure: IR THORACENTESIS Date of Service: 07/23/2020 Patient Name: SHANNAN GATES MR#: [id number] Exam Description: IR THORACENTESIS E xam Date/Time: 07/23/2020 8:45 AM [employer] PROCEDURE: Ultrasound-guided left thoracentesis [employer] FEEDER: Manuel Ayala M.D. HISTORY: Large left pleural effusion and masslike consolidation in the left lung. COMPARISON: 07/20/2020. TECHNIQUE: The procedure, risks, benefits and alter natives were discussed with and informed consent obtained from the patient. A time out was performed and documented before commencement of the procedure. A limited ultrasound of the left chest was performed to identify a site for puncture and permanent images obtained. After administration of lidocaine for lo azucena anesthesia, the left pleural space was entered with a 5F one-step needle under ultrasound guidance. The needle was removed and cloudy yellow fluid returned through the cannula. A total of 340 mL of fluid was removed. Fluid was submitted for laboratory analysis. Fluid was also sent for cytology. The cannula was removed and a dressing placed. Sedation: None. Radiation Dose: Fluoroscopy time: None Contrast: None FINDINGS: Large multiseptated left pleural effusio n. COMPLICATION: There were no immediate co mplications. The patient tolerated the procedure well. IMPRESSION: 1. Technically successful left thoracen tesis. 2. Large multiseptated left pleural eff usion. Finalized by: MANUEL AYALA on 06/29 11:01 AM [employer] Patient/Procedure Information: [facility] MRN/JODIE: [id number] Order Number: [id number] Accession Number: [id number] Ordering Provider: ESTRELLA BROOKS Authorizing Provider: ESTRELLA BROOKS Performing Organization Address [facility] Phone Number [id number] LAB ONLY-DIFFERENTIAL, BODY FLUID (07/23/2020 9:20 AM [employer]) Pathologist Sig nature % Neutrophils BF 96 % [facility] % Mononuclears BF 4 % [facility] Specimen Fluid - Pleural fluid specimen (specimen ) Narrative Performed At The Mononuclear cell category contains [facility] macrophages, monocytes and mesothelial cells. Performing Organization Address [facility] Phone Number [facility] [address] [place] [address] LABORATORY CULTURE BACTERIAL, OTHER (07/23/2020 9:20 AM [employer]) Culture Result No growth at 3 days [facility] LABORATORY Gram Stain Many (>25/LPF) WBC's [facility] LABOR[facility] Gram Stain No epithelial cells [facility] LABORATORY Gram Stain No organisms seen [facility] LABORATORY Specimen Fluid - Pleural fluid specimen (specimen ) Performing Organization Address [facility] Phone Number [facility] [address] [place], [place] [address] LABORATORY LAB ONLY-CELL COUNT, BODY FLUID (07/23/2020 9:20 AM [employer]) Pathologist Sig nature Specimen Source Pleural Fluid [facility] BF Nucleated Cells 38,080 /uL [facility] LAB[facility] Specimen Fluid - Pleural fluid specimen (specimen ) Narrative Performed At The reference range and other method [facility] performance specifications are unavailable LABORATORY for this body fluid. Comparison of this result with the concentration in the blood, serum, or plasma is recommended. Performing Organization Address City/[facility]/Zipcode Phone Number [facility] [address] [place], [place] [address] LABORATORY GLUCOSE, BODY FLUID (07/23/2020 9:20 AM [employer]) Pathologist Sig nature Glucose Body Fluid 6 mg/dL [facility] Specimen Source Pleural Fluid [facility] Specimen Fluid - Pleural fluid specimen (specimen ) Narrative Performed At The reference range and other method performance [facility] specifications are unavailable for this body fluid. Comparison of this result with the concentration in the blood, serum, or plasma is recommended. Performing Organization Address [facility] Phone Number [facility] [address] [place] [address] ADENOSINE DEAMINASE, PLEURAL FLUID (07/23/2020 9:20 AM [employer]) Adenosine 25 0 - 30 U/L [facility] Deaminase Comment: LABORATORIES Pleural Fld INTERPRETIVE INFORMATION:Adenosine Deaminase, Pleural Fluid Test developed and characteristics determined by [employer]. See Compliance Statement B: Front App.[employer]/ CS Performed By: [facility] [address] [place] [address] Blow Up Operator: Mesha Rothman MD ADDITIONAL INFORMATION ------ This test was developed and its performance characteri stics determined by [employer]. The [place] Food and John g Administration has not approved or cleared this test; however, FDA clearance or approval is not currently required for clinical use. The results are not intende d to be used as the sole means for clinical diagnosis or patient management decisions. Test Performed by: [facility] [address] [place] [address] Specimen Fluid - Pleural fluid specimen (specimen ) Performing Organization Address City/[facility]/Zipcode Phone Number [employer] [address] [place], [place] [address] PH, BODY FLUID (07/23/2020 9:20 AM [employer]) Specimen Source Pleural Fluid LABORATORY pH Body Fluid 6.4Comment: [facility] LABORATORY received NOT on ice, interpret with caution Specimen Fluid - Pleural fluid specimen (specimen ) Narrative Performed At The reference range and other method performance [facility] LABORATORY specifications are unavailable for this body fluid. Comparison of this result with the concentration in the blood, serum, or plasma is recomm ended. Performing Organization Address [facility] Phone Number LABORATORY [address], [place] [address] AMYLASE, BODY FLUID (07/23/2020 9:20 AM [employer]) Pathologist Sig nature Amylase Body Fluid 15 U/L [facility] Specimen Source Pleural Fluid [facility] Specimen Fluid - Pleural fluid specimen (specimen ) Narrative Performed At The reference range and other method performance [facility] specifications are unavailable for this body fluid. Comparison of this result with the concentration in the blood, serum, or plasma is recommended. Performing Organization Address [facility] Phone Number [address] [address] PROTEIN, BODY FLUID (07/23/2020 9:20 AM [employer]) Pathologist Sig Celles Protein Body Fluid 3.8 g/dL [facility] Specimen Source Pleural Fluid [facility] Specimen Fluid - Pleural fluid specimen (specimen ) Narrative Performed At The reference range and other method performance [facility] specifications are unavailable for this body fluid. Comparison of this result with the concentration in the blood, serum, or plasma is recommended. Performing Organization Address [facility] Phone Number [address] [address] LDH, BODY FLUID (07/23/2020 9:20 AM [employer]) Pathologist Sig Celles LDH Body Fluid 3,827 U/L [facility] Specimen Source Pleural Fluid [facility] Specimen Fluid - Pleural fluid specimen (specimen ) Narrative Performed At The reference range and other method performance [facility] specifications are unavailable for this body fluid. Comparison of this result with the concentration in the blood, serum, or plasma is recommended. Performing Organization Address [facility] Phone Number [address] [address] CYTOLOGY-BODY FLUID/OTHER (07/23/2020 8:54 AM [employer]) Pathologist Sig nature CASE REPORT Medical Cytology Report [facility]: [id number] Authorizing Provider: Estrella Marin MD Collected: 07/23/2020 0854 [facility] Ordering Location: [facility] Received: 07/23/2020 0927 DEPARTMENT OF Center Intensive Care Unit PATHOL OGY Pathologist: Shahla Wolf MD Specimen: Pleural, pleu ral fluid FINAL DIAGNOSIS Pleural effusion, left side (smears and cell blo ck): [facility] Electronically signed - Negative for malignant cells MEDICAL CE NTER by Shahla Wolf, - Acute and chronic inflammatory cells present DEPARTMENT OF MD on 07/25/2020 at PATHOLOGY 1:29 PM GROSS DESCRIPTION [facility] Received fresh are 60 mL of cloudy yellow mancuso fluid. [facility] DEPARTMENT OF The following slides were prepared from the material: PATHOLOGY Cell Block: 1 Cytospin sides: 1 Direct smears: 1 EMBEDDED IMAGES [facility] DEPARTMENT OF PATHOLOGY Specimen Fluid - Pleural fluid specimen (specimen ) Performing Organization Address City/State/Zipcode Phone Number [facility] [address] [place] [address] DEPARTMENT OF PATHOLOGY LAB ONLY-COMPLETE BLOOD COUNT WITH DIFFERENTIAL (07/23/2020 4:48 AM [employer]) WBC 30.1 (H) 4.0 - 11.0 K/uL [facility] LABORATORY RBC 3.25 (L) 4.40 - 5.80 [facility] M/uL [facility] LABORATORY Hemoglobin 9.0 (L) 13.5 - 17.5 [facility] g/dL [facility] LABORATORY Hematocrit 28.6 (L) 40.0 - 50.0 % [facility] MCV 88.0 80.0 - 98.0 fL [facility] MCH 27.7 25.5 - 34.0 pg [facility] MCHC 31.5 31.5 - 36.5 [facility] g/dL [facility] LABORATORY RDW-CV 14.5 11.5 - 15.5 % [facility] LAB[facility] RDW-SD 45.4 35.5 - 50.0 fl [facility] Platelet Count 472 (H) 140 - 400 K/uL [facility] MPV 8.8 8.5 - 12.0 fL [facility] Seg Neut Absolute 26.9 (H) 1.8 - 8.0 K/uL [facility] Lymphocytes Absolute 1.6 0.8 - 4.1 K/uL [facility] Monocytes Absolute 1.3 (H) 0.0 - 1.0 K/uL [facility] LABORATORY Eosinophils Absolute 0.0 0.0 - 0.7 K/uL [facility] LABORATORY Basophil Absolute 0.0 0.0 - 0.2 K/uL [facility]OR[facility] Neutrophils Abs. 26,900 /uL [facility] (Segs and Bands) [facility] LABORATORY Neutrophils Percent 89.3 % [facility] Lymphocytes Percent 5.4 % [facility] Monocytes Percent 4.4 % [facility] Eosinophils Percent 0.0 % [facility] Basophil Percent 0.1 % [facility]OR[facility] Specimen Blood - Blood specimen (specimen) Performing Organization Address City/[facility] Phone Number [facility] [address] [place] [phone] LABORATORY PROTIME/INR (07/23/2020 4:48 AM [employer]) Pathologist Sig nature Protime 16.4 (H) 12.0 - 14.5 secs [facility] INR 1.3 (H) 0.9 - 1.1 [facility] LABOR[facility] Specimen Blood - Blood specimen (specimen) Narrative Performed At INR Standard Intensity = (2.0 - 3.0) [facility] LABORATOR Y INR Higher Intensity = (2.5 - 3.5) Performing Organization Address [facility] Phone Number [facility] [address] [phone] LABORATORY C-REACTIVE PROTEIN (INFLAMMATION) (07/23/2020 4:48 AM [employer]) Pathologist Sig nature CRP 206.9 (H) 0.0 - 8.0 mg/L [facility] LABORATORY Specimen Blood - Blood specimen (specimen) Performing Organization Address [facility] Phone Number [facility] [address] [place], [place] [address] LABORATORY BASIC METABOLIC PANEL (07/23/2020 4:48 AM [employer]) Pathologist Sig nature Glucose 151 (H) 70 - 100 mg/dL [facility] BUN 10 6 - 22 mg/dL [facility] Creatinine 0.80 0.70 - 1.30 [facility] mg/dL [facility] LABORATORY BUN/Creatinine Ratio 12.5 10.0 - 25.0 [facility] Sodium 138 135 - 145 meq/L [facility] Potassium 2.8 (L) 3.5 - 5.3 meq/L [facility] Chloride 100 99 - 110 meq/L [facility] CO2 28 23 - 32 meq/L [facility] Anion Gap with K 13 6 - 20 meq/L [facility] Calcium 7.9 (L) 8.5 - 10.5 [facility] mg/dL [facility] LABORATORY Age 59 Years [facility] LABOR[facility] eGFR Non- >90 >=60 [facility] Ghanaian mL/min/1.73m2 [facility] LABORATORY eGFR >90 >=60 [facility] mL/min/1.73m2 [facility] LABORATORY Specimen Blood - Blood specimen (specimen) Performing Organization Address [facility] Phone Number [facility] [address] [place], [place] [address] LABORATORY PTT (07/23/2020 4:48 AM [employer]) Pathologist Sig nature APTT 39 (H) 24 - 35 secs [facility] ER LABORATORY Specimen Blood - Blood specimen (specimen) Narrative Performed At Heparin Therapeutic Range 69-111 sec [facility] LABORATORY Performing Organization Address [facility] Phone Number [facility] [address] [place], [place] [address] LABORATORY PROCALCITONIN (07/23/2020 4:48 AM [employer]) Pathologist Sig nature Procalcitonin 0.60 (H) <0.07 ng/mL [facility] LABORAT[facility] Specimen Blood - Blood specimen (specimen) Narrative Performed At Suspected Lower Respiratory Tract Infect ion: [facility] LABORATOR Y 0.1-0.25: Low risk for bacterial infection; Antibiotics discouraged. > 0.25: Increased likelihood for bacterial infection; Antibiotics encouraged. Suspected Sepsis: 0.1-0.5: Low likelihood for sepsis; Antibiotics discouraged. > 0.5: Increased Likelihood for sepsis; Antibiotics encouraged. > 2.0: High risk of sepsis/septic shock; Antibiotics strongly encouraged. Decisions on antibiotic use should not be based solely on procalcitonin levels. If antibiotics are administered, repeat procalcitonin testing should be performed every 2-3 days to consider early antibiotic cessation. PCT is a dynamic biomarker and most useful when trends are analyzed over time in accompaniment with other clinical data. Performing Organization Address City/State/Zipcode Phone Number [address] [address] LABORATORY CLOSTRIDIUM DIFFICILE BY NAAT (PCR/LAMP) (07/23/2020 4:40 AM [employer]) C difficile Toxin B Not Detected Not Detected [facility] LABORATORY Specimen Feces - Stool specimen (specimen) Narrative Performed At This test was performed by polymerase chain [facility] LABORATORY reaction (PCR) on the GeneXpert instrument. Performing Organization Address City/State/Zipcode Phone Number [facility] [address] [place], [place] [address] LABORATORY PERIPHERAL BLOOD SMEAR EXAMINATION (07/22/2020 3:46 AM [employer]) PERIPHERAL SMEAR Peripheral smear [facility] EXAMINATION evaluated using CLINIC criteria below; additional Pathologist review not required. Specimen Blood - Blood specimen (specimen) Narrative Performed At Blood smear criteria for pathologist rev iew: [facility] Red Blood Cells 1. Hemoglobin <9 g/dL and MCV <80 fL 2. Polycythemia: Hemoglobin >= 16.5 g/dL (females) or >= 18.5 g/dL (males) 3. Macrocytosis, MCV >110 fL 4. Abnormal RBC morphology at a 4+ 5. Nucleated RBCs in non-oncology outpat ients Platelets 1. Platelet counts <20,000 or >450,000 (if persistent for 6 months for thrombocytosis) White Blood Cells 1. Leukocytosis (WBC >20,000)-2 consecutive occurrence s at least 3 months apart-with left shift AND basophilia an d/or eosinophilia 2. Pancytopenia or Bi-cytopenia (non oncology outpatients)-decrease in 3 of 3 or 2 of 3 cell lines 3. Neutropenia, absolute (segs and bands) <1.8 x 103/u L on adults >50 years 4. Monocytosis, absolute >1.6 x 103/uL in a patient no receiving chemotherapy 5. Eosinophilis, absolute >1.5 x 103/uL 6. Basophilia, absolute >0.4 x 103/uL with immature granulocytes 7. Lymphocytosis, absolute >5.0 x 103/uL on adult >40 yrs 8. Presence of Blasts, lymphoma cells, Hairy cells or other unidentified or suspicious cells Performing Organization Address City/State/[place] [address] COLLECT AND HOLD SST TOP TUBE (07/22/2020 3:46 AM [employer]) Pathologist [facility] Collect and Hold Comment: RECEIVED [facility] Specimen Status [facility] LABORATORY Specimen Blood - Blood specimen (specimen) Performing Organization Address City/[facility]/Zipcode Phone Number [facility] [address] [place], [place] [address] LABORATORY LAB ONLY-COMPLETE BLOOD COUNT WITH DIFFERENTIAL (07/22/2020 3:46 AM [employer]) [facility] WBC 34.4 (H) 4.0 - 11.0 K/uL [facility] RBC 3.23 (L) 4.40 - 5.80 [facility] M/uL [facility] LABORATORY Hemoglobin 9.1 (L) 13.5 - 17.5 [facility] g/dL [facility] LABORATORY Hematocrit 28.2 (L) 40.0 - 50.0 % [facility] MCV 87.3 80.0 - 98.0 fL [facility] MCH 28.2 25.5 - 34.0 pg [facility] MCHC 32.3 31.5 - 36.5 [facility] g/dL [facility] LABORATORY RDW-CV 14.6 11.5 - 15.5 % [facility] RDW-SD 44.5 35.5 - 50.0 fl [facility] Platelet Count 464 (H) 140 - 400 K/uL [facility] MPV 8.9 8.5 - 12.0 fL [facility] Seg Neut Absolute 31.2 (H) 1.8 - 8.0 K/uL [facility] Lymphocytes Absolute 1.6 0.8 - 4.1 K/uL [facility] Monocytes Absolute 1.3 (H) 0.0 - 1.0 K/uL [facility] Eosinophils Absolute 0.0 0.0 - 0.7 K/uL [facility] Basophil Absolute 0.0 0.0 - 0.2 K/uL [facility] Neutrophils Abs. 31,200 /uL [facility] (Segs and Bands) [facility] LABOR[facility]ORY Neutrophils Percent 90.6 % [facility] Lymphocytes Percent 4.6 % [facility] Monocytes Percent 3.9 % [facility] Eosinophils Percent 0.0 % [facility] Basophil Percent 0.1 % [facility] Specimen Blood - Blood specimen (specimen) Performing Organization Address City/State/Zipcode Phone Number [facility] [address] [place] [phone] LABORATORY IRON AND TIBC (07/22/2020 3:46 AM [employer]) Pathologist Sig nature Iron Total 12 (L) 65 - 175 ug/dL [facility] TIBC 108 (L) 250 - 450 ug/dL [facility] Iron Saturation 11 (L) 20 - 50 % Sat [facility] Specimen Blood - Blood specimen (specimen) Performing Organization Address [facility] Number [facility] [address] [place], [place] [address] LABORATORY FOLATE, SERUM (07/22/2020 3:46 AM [employer]) Pathologist Sig [facility] Folate Serum 2.2 (L) 2.8 - 16.0 ng/mL [facility] LABOR[facility] Specimen Blood - Blood specimen (specimen) Performing Organization Address [facility] [address] [place], [place] [address] LABORATORY VITAMIN B12 (07/22/2020 3:46 AM [employer]) Pathologist [facility] Vitamin B12 378 200-1,000 pg/mL [facility] LABOR[facility] Specimen Blood - Blood specimen (specimen) Performing Organization Address [facility] [address] [place], [place] [address] LABORATORY RETIC COUNT (07/22/2020 3:46 AM [employer]) Reticulocyte Percent 0.4 (L) 0.5 - 1.8 % [facility] LABORAT[facility] Reticulocyte Absolute 0.01 (L) 0.02 - 0.11 [facility] LABORATORY Immature Retic 7.3 3.0 - 16.0 % [facility] LABORATORY Specimen Blood - Blood specimen (specimen) Performing Organization Address [facility] [address] [place], [place] [address] LABORATORY FERRITIN (07/22/2020 3:46 AM [employer]) Pathologist Sig nature Ferritin 614 (H) 21 - 275 ng/mL [facility] LABORATORY Specimen Blood - Blood specimen (specimen) Performing Organization Address [facility] Number [facility] [address] [place], [place] [address] LABORATORY PTT (07/22/2020 3:46 AM [employer]) Pathologist Sig [facility] APTT 89 (H) 24 - 35 secs [facility] ER LABORATORY Specimen Blood - Blood specimen (specimen) Narrative Performed At Heparin Therapeutic Range 69-111 sec [facility] LABORATORY Performing Organization Address [facility] Phone Number [facility] [address] [place], [place] [address] LABORATORY HEPATIC FUNCTION PANEL (07/22/2020 3:46 AM [employer]) [facility] Alkaline Phosphatase 139 30 - 150 U/L [facility] AST - SGOT 19 0 - 35 U/L [facility] ALT - SGPT 16 0 - 55 U/L [facility] Bilirubin Total 0.3 0.2 - 1.2 mg/dL [facility] Bilirubin Indirect 0.0 0.0 - 1.1 mg/dL [facility] Bilirubin Direct 0.3 0.0 - 0.4 mg/dL [facility] Albumin 2.4 (L) 3.5 - 5.0 g/dL [facility] Protein Total 5.3 (L) 6.0 - 8.2 g/dL [facility] Specimen Blood - Blood specimen (specimen) Performing Organization Address [facility] Phone Number [facility] [address] [place], [place] [address] LABORATORY C-REACTIVE PROTEIN (INFLAMMATION) (07/22/2020 3:46 AM [employer]) [facility] nature CRP 277.8 (H) 0.0 - 8.0 mg/L [facility] LABOR[facility]ORY Specimen Blood - Blood specimen (specimen) Performing Organization Address [facility] Phone Number [facility] [address] [place], [place] [address] LABORATORY BASIC METABOLIC PANEL (07/22/2020 3:46 AM [employer]) [facility] Glucose 201 (H) 70 - 100 mg/dL [facility] BUN 8 6 - 22 mg/dL [facility] Creatinine 0.79 0.70 - 1.30 [facility] mg/dL [facility] LABORATORY BUN/Creatinine Ratio 10.1 10.0 - 25.0 [facility] LABOR[facility] Sodium 136 135 - 145 meq/L [facility] Potassium 3.3 (L) 3.5 - 5.3 meq/L [facility] Chloride 101 99 - 110 meq/L [facility] CO2 25 23 - 32 meq/L [facility] Anion Gap with K 13 6 - 20 meq/L [facility] Calcium 7.8 (L) 8.5 - 10.5 [facility] mg/dL [facility] LABORATORY Age 59 Years [facility] LABOR[facility]ORY eGFR Non- >90 >=60 [facility] Ghanaian mL/min/1.73m2 [facility] LABORATORY eGFR >90 >=60 [facility] mL/min/1.73m2 [facility] LABORATORY Specimen Blood - Blood specimen (specimen) Performing Organization Address City/[facility] Phone Number [facility] [address] [place] [phone] LABORATORY PROCALCITONIN (07/22/2020 3:46 AM [employer]) Pathologist Sig nature Procalcitonin 1.02 (H) <0.07 ng/mL [facility] LABORATORY Specimen Blood - Blood specimen (specimen) Narrative Performed At Suspected Lower Respiratory Tract Infect ion: [facility] LABORATOR Y 0.1-0.25: Low risk for bacterial infection; Antibiotics discouraged. > 0.25: Increased likelihood for bacterial infection; Antibiotics encouraged. Suspected Sepsis: 0.1-0.5: Low likelihood for sepsis; Antibiotics discouraged. > 0.5: Increased Likelihood for sepsis; Antibiotics encouraged. > 2.0: High risk of sepsis/septic shock; Antibiotics strongly encouraged. Decisions on antibiotic use should not be based solely on procalcitonin levels. If antibiotics are administered, repeat procalcitonin testing should be performed every 2-3 days to consider early antibiotic cessation. PCT is a dynamic biomarker and most useful when trends are analyzed over time in accompaniment with other clinical data. Performing Organization Address City/[facility] Phone Number [facility] [address] [facility] [place] [address] LABORATORY PTT (07/21/2020 9:38 PM [employer]) Pathologist Sig nature APTT 90 (H) 24 - 35 secs [facility] ER LABORATORY Specimen Blood - Blood specimen (specimen) Narrative Performed At Heparin Therapeutic Range 69-111 sec [facility] LABORATORY Performing Organization Address City/[facility] Phone Number [facility] [address] [place], [place] [address] LABORATORY LAB ONLY - CULTURE, ORGANISM IDENTIFICATION (07/21/2020 3:28 PM [employer]) Culture Result Yeast, not [facility] Cryptococcus (!) CLINIC Specimen Culture - Sputum specimen (specimen) Performing Organization Address [facility] Phone Number [address] [address] [phone] CULTURE BACTERIAL, RESPIRATORY WITH GRAM STAIN (07/21/2020 3:28 PM [employer]) Culture Result Moderate amount Yeast [facility] (!)Comment: [facility] referred to reference LABORATORY laboratory for identification. Gram Stain Many (>25/LPF) [facility] WBC'sComment: This is MEDICAL CENTER an appended report. LABORATORY These results have been appended to a previously preliminary verified report. Gram Stain Moderate (10 to [facility] 25/LPF) [facility] epithelial LABORATORY cellsComment: This is an appended report. These results have been appended to a previously preliminary verified report. Gram Stain Rare (less than [facility] 1/OIF) Gram positive [facility] cocci in LABORATORY pairsComment: This is an appended report. These results have been appended to a previously preliminary verified report. Specimen Respiratory - Sputum specimen (specimen) Narrative Performed At With Normal Respiratory Jo. [facility] LABORATOR Y Performing Organization Address [facility] Phone Number [facility] [address] [facility] [place] [address] LABORATORY PTT (07/21/2020 2:07 PM [employer]) Pathologist Sig nature APTT 137 (H) 24 - 35 secs [facility] ER LABORATORY Specimen Blood - Blood specimen (specimen) Narrative Performed At Heparin Therapeutic Range 69-111 sec [facility] LABORATORY Performing Organization Address City/State/Zipcode Phone Number [facility] [address] [place] [address] LABORATORY ECHOCARDIOGRAM ADULT COMPLETE (07/21/2020 1:50 PM [employer]) Pathologist Sig nature IVSd 0.77 cm LVIDd 5.7 cm LVIDs 4.3 cm LVPWd 0.96 cm LV Stroke Volume 79.2 ml EF 2D 46 % LV 2D EDV 160.04 ml LVOTd 2.0 cm ALICIA Vmax 2.7 cm LVOT Vmax 132.00 cm/sec AILCIA VTI 2.70 cm LVOT VTI 19.9 cm AV Vmax 154.0 cm/sec AV Vmean 1.2 cm/sec AV VTI 23.60 cm AV PGmax 9.49 mmHg AV PGmean 6.25 mmHg MV E Vmax 87.0 cm/sec MV A Vmax 104.0 cm/sec MV E/A 0.8 MV Decel Time 162.0 msec MV E/E' Septal 7.5 MV E/E' Lateral 7.5 LVOT MG 4 mmHg LVOT Vmax/AV Vmax 0.9 LVOT VTI/AV VTI 0.8 LVOT Vmean 0.9 cm/sec AR PGed 1 mmHg MV A/E 1.2 LV Mass [place] 219.69 g Stroke Volume (LVOT) 63.77 ml Ejection Fraction (MOD-sp2) 43.85 % Ejection Fraction (MOD-sp4) 47.96 % Left Ventricular End Systolic 52.4 ml Volume Fractional Shortening 25.4 % Left Ventricular Outflow Tract 6.97 mmHg Max Pressure Gradient End Diastolic Volume (MOD-sp2) 85.3 ml End Systolic Volume (MOD-sp4) 56.2 ml End Diastolic Volume (MOD-sp4) 108.0 ml Left Ventricle Mass 187.2 g/m2 Visual EF 60 % S' 18.1 cm/sec TAPSE 3.0 cm IVC Diameter 1.9 cm Specimen Narrative Performed At This result has an attachment that is no t available. Normal LVEF at 60% Grade I diastolic dysfunction Thickened mitral valve URINALYSIS MICROSCOPIC (07/21/2020 1:26 PM [employer]) WBC Urine 0-5 /hpf Negative, 0-5 [facility] /hpf [facility] LABORATORY RBC Urine Negative Negative, 0-2 [facility] /hpf [facility] LABORATORY Squamous Occ (0-10) /lpf Negative, Occ [facility] Epithelial Cells (0-10) /lpf, Few [facility] (11-20) /lpf LABORATORY Bacteria Occ (0-10) /hpf Negative [facility] (A) [facility] LABORATORY Specimen Urine - Urine specimen obtained by clean catch procedure (specimen) Performing Organization Address [facility] Phone Number [facility] [address] [place] [phone] LABORATORY URINALYSIS DIPSTICK REFLEX TO MICROSCOPIC (07/21/2020 1:26 PM [employer]) Pathologist [facility] Color Urine Yellow [place], Dark [facility] Yellow, Straw, [facility] Yellow, Colorless LABORATORY Clarity Urine Clear Clear [facility] LABORATORY Glucose Urine Negative Negative [facility]ORY Bilirubin Urine Negative Negative [facility] LABOR[facility]ORY Ketones Urine Negative Negative, 5 [facility] mg/dL, 10 mg/dL [facility] LABORATORY Specific [place] 1.025 1.002 - 1.030 [facility] LABORATORY Blood Urine Negative Negative [facility] LABORAT[facility] PH Urine 6.0 5.0, 5.5, 6.0, [facility] 6.5, 7.0, 7.5, [facility] 8.0 LABORATORY Protein Urine 30 mg/dL (A) Negative [facility] LABORATORY Urobilinogen < 2 mg/dL < 2 mg/dL [facility] LAB[facility] Nitrite Negative Negative [facility] LAB[facility]ATORY Leukocyte Esterase Negative Negative [facility] LABORATORY Specimen Urine - Urine specimen obtained by clean catch procedure (specimen) Performing Organization Address [facility] Phone Number [facility] [address] [place], [place] [address] LABORATORY LEGIONELLA ANTIGEN, URINE (07/21/2020 1:26 PM [employer]) Legionella Presumptive Presumptive [facility] Antigen Urine NegativeComment: Negative [facility] Presumptive LABORATORY negative for L. pneumophila serogroup 1 antigen in urine, suggesting no current or recent infection. Infection due to Legionella cannot be ruled out since other serogroups and species may cause disease, antigen may not be present in urine in early infection, and the antigen present in the urine may be below the detection limit of the test. Consider Screen for Single Pathogen Culture Legionella (Sputum), to isolate additional Legionella serotypes if clinically indicated. Specimen Urine - Urine specimen (specimen) Performing Organization Address [facility] Phone Number [facility] [address] [place], [place] [address] LABORATORY STREP PNEUMONIAE DIRECT ANTIGEN, URINE (07/21/2020 1:26 PM [employer]) Pathologist [facility] Strep pneumoniae Presumptive Presumptive [facility] Urine Antigen NegativeComment: Negative [facility] Presumptive LABORATORY negative for Streptococcus pneumoniae antigen in urine, suggesting no current or recent pneumococcal infection. Infection due to Streptococcus pneumoniae cannot be ruled out since the antigen present in the urine may be below the detection limit of the test. Specimen Urine - Urine specimen (specimen) Performing Organization Address [facility] Phone Number [facility] [address] [place], [place] [address] LABORATORY BLOOD GASES ARTERIAL (07/21/2020 11:28 AM [employer]) Pathologist [facility] pH Arterial 7.52 (H) 7.35 - 7.45 [facility] LABORATORY pCO2 Arterial 33 (L) 35 - 45 mmHg [facility] pO2 Arterial 56 (L) 80 - 105 mmHg [facility] LAB[facility] Base Excess 3 -2 - 3 meq/L [facility] LABORATORY HCO3 (Bicarb) 26 22 - 26 meq/L [facility] LABORATORY CO2 Content 27 meq/L [facility] LABORATORY O2 Sat % Arterial 92 (L) 95 - 98 % [facility] LABOR[facility]ORY Collection Site Right Artery [facility] LABORATORY Specimen Blood - Arterial blood specimen (specime n) Performing Organization Address [facility] Phone Number [facility] [address] [place], [place] [address] LABORATORY CULTURE, BLOOD (07/21/2020 11:02 AM [employer])Only the most recent of2 resultswithin the time period is included. Pathologist [facility] Culture Result No growth at 5 [facility] LABORATORY Specimen Blood - Blood specimen (specimen) Narrative Performed At [facility] LABORATOR Y Site: Peripheral Draw Performing Organization Address [facility] Number [facility] [address] [place], [place] [address] LABORATORY LACTIC ACID REFLEX TO REPEAT (07/21/2020 11:02 AM [employer]) Pathologist [facility] Lactic Acid 2.0 0.5 - 2.2 mmol/L [facility] LABORATORY Specimen Blood - Blood specimen (specimen) Performing Organization Address [facility] Number [facility] [address] [place], [place] [address] LABORATORY TSH (07/21/2020 6:37 AM [employer]) [facility] Sig [facility] TSH 0.82 0.40 - 5.00 uIU/mL [facility] LABORATORY Specimen Blood - Blood specimen (specimen) Performing Organization Address [facility] Number [facility] [address] [place], [place] [address] LABORATORY C-REACTIVE PROTEIN (INFLAMMATION) (07/21/2020 6:37 AM [employer]) Pathologist [facility] CRP 279.6 (H) 0.0 - 8.0 mg/L [facility] LABORATORY Specimen Blood - Blood specimen (specimen) Performing Organization Address [facility] Number [facility] [address] [place], [place] [address] LABORATORY LAB ONLY-COMPLETE BLOOD COUNT WITH DIFFERENTIAL (07/21/2020 6:37 AM [employer]) WBC 32.4 (H) 4.0 - 11.0 K/uL [facility] LABORATORY RBC 3.67 (L) 4.40 - 5.80 [facility] M/uL [facility] LABORATORY Hemoglobin 10.2 (L) 13.5 - 17.5 [facility] g/dL [facility] LABORATORY Hematocrit 31.5 (L) 40.0 - 50.0 % [facility] LABORATORY MCV 85.8 80.0 - 98.0 fL [facility] LABORATORY MCH 27.8 25.5 - 34.0 pg [facility] LABORATORY MCHC 32.4 31.5 - 36.5 [facility] g/dL [facility] LABORATORY RDW-CV 14.5 11.5 - 15.5 % [facility] LABORATORY RDW-SD 44.0 35.5 - 50.0 fl [facility] LABORATORY Platelet Count 464 (H) 140 - 400 K/uL [facility] LABORATORY MPV 9.3 8.5 - 12.0 fL [facility] LABORATORY Seg Neut Absolute 28.9 (H) 1.8 - 8.0 K/uL [facility] LABORATORY Lymphocytes Absolute 1.5 0.8 - 4.1 K/uL [facility] LABOR[facility] Monocytes Absolute 1.7 (H) 0.0 - 1.0 K/uL [facility] LABORATORY Eosinophils Absolute 0.0 0.0 - 0.7 K/uL [facility] LABOR[facility] Basophil Absolute 0.0 0.0 - 0.2 K/uL [facility] LABORATORY Immature Granulocyte 0.32 (H) 0.00 - 0.06 [facility] Absolute K/uL [facility] LABORATORY Neutrophils Abs. 28,900 /uL [facility] (Segs and Bands) [facility] LABORATORY Neutrophils Percent 89.2 % [facility] LABOR[facility]ORY Lymphocytes Percent 4.5 % [facility]OR[facility] Monocytes Percent 5.2 % [facility]OR[facility] Immature Granulocyte 1.0 % [facility] Percent [facility] LABORATORY Eosinophils Percent 0.0 % [facility] LABORATORY Basophil Percent 0.1 % [facility] LABORATORY Specimen Blood - Blood specimen (specimen) Performing Organization Address City/State/Zipcode Phone Number [facility] [address] [place] [phone] LABORATORY PTT (07/21/2020 6:37 AM [employer]) Pathologist Sig nature APTT 55 (H) 24 - 35 secs [facility] ER LABORATORY Specimen Blood - Blood specimen (specimen) Narrative Performed At Heparin Therapeutic Range 69-111 sec [facility] LABORATORY Performing Organization Address [facility] Phone Number [facility] [address] [place] [phone] LABORATORY PROCALCITONIN (07/21/2020 6:37 AM [employer]) Pathologist Sig nature Procalcitonin 1.34 (H) <0.07 ng/mL [facility] LABORATORY Specimen Blood - Blood specimen (specimen) Narrative Performed At Suspected Lower Respiratory Tract Infect ion: [facility] LABORATOR Y 0.1-0.25: Low risk for bacterial infection; Antibiotics discouraged. > 0.25: Increased likelihood for bacterial infection; Antibiotics encouraged. Suspected Sepsis: 0.1-0.5: Low likelihood for sepsis; Antibiotics discouraged. > 0.5: Increased Likelihood for sepsis; Antibiotics encouraged. > 2.0: High risk of sepsis/septic shock; Antibiotics strongly encouraged. Decisions on antibiotic use should not be based solely on procalcitonin levels. If antibiotics are administered, repeat procalcitonin testing should be performed every 2-3 days to consider early antibiotic cessation. PCT is a dynamic biomarker and most useful when trends are analyzed over time in accompaniment with other clinical data. Performing Organization Address [facility] Phone Number [place] [phone] LABORATORY BASIC METABOLIC PANEL (07/21/2020 6:37 AM [employer]) Pathologist Sig nature Glucose 168 (H) 70 - 100 mg/dL [facility] LABORATORY BUN 9 6 - 22 mg/dL [facility] LABORATORY Creatinine 0.81 0.70 - 1.30 [facility] mg/dL [facility] LABORATORY BUN/Creatinine Ratio 11.1 10.0 - 25.0 [facility] LABORATORY Sodium 137 135 - 145 meq/L [facility] LABOR[facility] Potassium 3.4 (L) 3.5 - 5.3 meq/L [facility] LABORATORY Chloride 100 99 - 110 meq/L [facility] LABOR[facility] CO2 25 23 - 32 meq/L [facility] LABOR[facility] Anion Gap with K 15 6 - 20 meq/L [facility] LABORATORY Calcium 7.9 (L) 8.5 - 10.5 [facility] mg/dL [facility] LABORATORY Age 59 Years [facility] LABORATORY eGFR Non- >90 >=60 [facility] Ghanaian mL/min/1.73m2 [facility] LABORATORY eGFR >90 >=60 [facility] mL/min/1.73m2 [facility] LABORATORY Specimen Blood - Blood specimen (specimen) Performing Organization Address [facility] Number [facility] [address] [place], [place] [address] LABORATORY PTT (07/20/2020 11:46 PM [employer]) Pathologist Sig nature APTT 58 (H) 24 - 35 secs [facility] ER LABORATORY Specimen Blood - Blood specimen (specimen) Narrative Performed At Heparin Therapeutic Range 69-111 sec [facility] LABORATORY Performing Organization Address [facility] Number [facility] [address] [place], [place] [address] LABORATORY PLATELET COUNT (07/20/2020 7:06 PM [employer]) Pathologist [facility] Platelet Count 502 (H) 140 - 400 K/uL [facility] LABORATORY Specimen Blood - Blood specimen (specimen) Performing Organization Address [facility] Number [facility] [address] [place], [place] [address] LABORATORY BRAIN NATRIURETIC PEPTIDE (07/20/2020 5:29 PM [employer]) Pathologist [facility] BNP 13 0 - 100 pg/mL [facility] LABORATORY Specimen Blood - Blood specimen (specimen) Performing Organization Address [facility] Phone Number [facility] [address] [place], [place] [address] LABORATORY PROCALCITONIN (07/20/2020 5:29 PM [employer]) Pathologist Sig nature Procalcitonin 0.56 (H) <0.07 ng/mL [facility] LABORATORY Specimen Blood - Blood specimen (specimen) Narrative Performed At Suspected Lower Respiratory Tract Infect ion: [facility] LABORATOR Y 0.1-0.25: Low risk for bacterial infection; Antibiotics discouraged. > 0.25: Increased likelihood for bacterial infection; Antibiotics encouraged. Suspected Sepsis: 0.1-0.5: Low likelihood for sepsis; Antibiotics discouraged. > 0.5: Increased Likelihood for sepsis; Antibiotics encouraged. > 2.0: High risk of sepsis/septic shock; Antibiotics strongly encouraged. Decisions on antibiotic use should not be based solely on procalcitonin levels. If antibiotics are administered, repeat procalcitonin testing should be performed every 2-3 days to consider early antibiotic cessation. PCT is a dynamic biomarker and most useful when trends are analyzed over time in accompaniment with other clinical data. Performing Organization Address [facility] Phone Number [address] [address] LABORATORY LACTIC ACID REFLEX TO REPEAT (07/20/2020 5:29 PM [employer]) [facility] Lactic Acid 2.0 0.5 - 2.2 mmol/L [facility] LABORATORY Specimen Blood - Blood specimen (specimen) Performing Organization Address [facility] Number [facility] [address] [place], [place] [address] LABORATORY PTT (07/20/2020 5:29 PM [employer]) [facility] APTT 44 (H) 24 - 35 secs [facility] ER LABORATORY Specimen Blood - Blood specimen (specimen) Narrative Performed At Heparin Therapeutic Range 69-111 sec [facility] LABORATORY Performing Organization Address [facility] Phone Number [facility] [address] [place], [place] [address] LABORATORY PROTIME/INR (07/20/2020 5:29 PM [employer]) [facility] Protime 16.1 (H) 12.0 - 14.5 secs [facility] LABORATORY INR 1.3 (H) 0.9 - 1.1 [facility] LABORATORY Specimen Blood - Blood specimen (specimen) Narrative Performed At INR Standard Intensity = (2.0 - 3.0) [facility] LABORATOR Y INR Higher Intensity = (2.5 - 3.5) Performing Organization Address City/State/Zipcode Phone Number [facility] [address] [place] [phone] LABORATORY documented in this encounter Visit Diagnoses Diagnosis Pulmonary embolism (HCC) - Primary Other pulmonary embolism and infarction 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 COPD (chronic obstructive pulmonary dise ase) (HCC) Chronic airway obstruction, not elsewher e classified Lung mass Swelling, mass, or lump in chest Pulmonary emboli (HCC) Other pulmonary embolism and infarction Schizo-affective psychosis (HCC) Schizoaffective disorder, unspecified co ndition PNA (pneumonia) Pneumonia, organism unspecified Sepsis (HCC) documented in this encounter Discharge Diagnoses Not on filedocumented in this encounter Administered Medications Medication Order MAR Action Action Date Dose Rate Site acetaminophen (TYLENOL) tablet Given 07/30/2020 1:14 PM [employer] 650 mg 650 mg 650 mg, Oral, Every four hours prn, Starting 07/20/20 at 1715, Until Discontinued, mild pain, Use FIRST for mild pain. If inadequate response in 60 minutes, may proceed to next choice option or if no other options, contact provider. Adult patients: Total dose of acetaminophen from all acetaminophen containing products should not exceed 4 grams (4000 mg) per day. Pediatric Patients 0 - 3 months: Maximum of 60 mg/kg/24 hours of acetaminophen. Pediatric Patients older than 3 months: Maximum of 75 mg/kg/24 hours of acetaminophen (Never exceeding 4 grams/day)., Given 07/28/2020 9:28 AM [employer] 650 mg Given 07/20/2020 7:27 PM [employer] 325 mg acetaminophen (TYLENOL) tablet 650 mg Given 07/29/2020 10:54 AM [employer] 650 mg 650 mg, Oral, Every four hours prn, Starting 07/21/20 at 1105, Until Discontinued, fever, Adult patients: Total dose of acetaminophen from all acetaminophen containing products should not exceed 4 grams (4000 mg) per day. Pediatric Patients 0 - 3 months: Maximum of 60 mg/kg/24 hours of acetaminophen. Pediatric Patients older than 3 months: Maximum of 75 mg/kg/24 hours of acetaminophen (Never exceeding 4 grams/day). , Given 07/21/2020 11:11 PM [employer] 650 mg albuterol (PROVENTIL) (2.5 mg/3mL) 0.083% Given 07/23/2020 8:14 PM [employer] 2.5 mg inhalation soln 2.5 mg 2.5 mg, Nebulization, Every two hours prn, Starting 07/21/20 at 1055, Until Discontinued, other (Specify), increased SOB, 3 mL, Standard Neb and PPE Guidelines, atorvaSTATin (LIPITOR) tablet 40 mg Given 07/31/2020 8:35 PM [employer] 40 mg 40 mg, Oral, Bedtime, First dose on 07/20/20 at 2100, Until Discontinued Given 07/30/2020 7:56 PM [employer] 40 mg Given 07/29/2020 7:25 PM [employer] 40 mg budesonide (PULMICORT) 0.5 mg/2 mL Given 08/01/2020 7:42 AM [employer] 0.5 mg inhalation soln 0.5 mg 0.5 mg, Nebulization, Two times a day, First dose on 07/21/20 at 2000, Until Discontinued, 2 mL, Protect from light. Do not mix in the same nebulizer as TAYA., Given 07/31/2020 9:09 PM [employer] 0.5 mg Given 07/31/2020 7:29 AM [employer] 0.5 mg cefepime (MAXIPIME) 2,000 mg in sodium Given 08/01/2020 10:43 AM [employer] 2,000 mg chloride 0.9% 50 mL (addEASE)(locked) 2,000 mg, IV, Every eight hours, First dose on 07/21/20 at 1100, Until Discontinued, 50 mL Given 08/01/2020 4:07 AM [employer] 2,000 mg Given 07/31/2020 6:19 PM [employer] 2,000 mg cloZAPine (CLOZARIL) tablet 100 mg Given 08/01/2020 11:40 AM [employer] 100 mg 100 mg, Oral, Daily, First dose on 07/21/20 at 1200, Until Discontinued Given 07/31/2020 11:11 AM [employer] 100 mg Given 07/30/2020 1:14 PM [employer] 100 mg cloZAPine (CLOZARIL) tablet 200 mg Given 08/01/2020 10:43 AM [employer] 200 mg 200 mg, Oral, Daily, First dose on 07/21/20 at 0900, Until Discontinued Given 07/31/2020 7:57 AM [employer] 200 mg Given 07/30/2020 9:20 AM [employer] 200 mg cloZAPine (CLOZARIL) tablet 400 mg Given 07/31/2020 8:35 PM [employer] 400 mg 400 mg, Oral, Bedtime, First dose on 07/20/20 at 2100, Until Discontinued Given 07/30/2020 7:56 PM [employer] 400 mg Given 07/29/2020 7:25 PM [employer] 400 mg cyanocobalamin (vitamin B-12) tablet 100 Given 08/01/2020 10:43 AM [employer] 100 mcg mcg 100 mcg, Oral, Daily, First dose on 07/22/20 at 0900, Until Discontinued Given 07/31/2020 7:57 AM [employer] 100 mcg Given 07/30/2020 9:20 AM [employer] 100 mcg ferrous sulfate (65 mg FE) enteric coated Given 08/01/2020 10:43 AM [employer] 325 mg tablet 325 mg 325 mg, Oral, Daily, First dose on 07/22/20 at 0900, Until Discontinued Given 07/31/2020 7:57 AM [employer] 325 mg Given 07/30/2020 9:20 AM [employer] 325 mg folic acid tablet 1 mg Given 08/01/2020 10:43 AM [employer] 1 mg 1 mg, Oral, Daily, First dose on 07/22/20 at 0900, Until Discontinued Given 07/31/2020 7:57 AM [employer] 1 mg Given 07/30/2020 9:20 AM [employer] 1 mg haloperidol lactate (HALDOL) Given 07/26/2020 2:04 AM [employer] 2 mg Left Deltoid IM injection solution 2 mg 2 mg, Intramuscular, Every four hours prn, Starting 07/21/20 at 0717, Until Discontinued, agitation, 0.4 mL, Do not further dilute with 0.9% sodium chloride. If preference is to further dilute for IV administration: first draw up patient-specific dose, then dilute to 10ml with dextrose 5% water. Ok to flush with 0.9% Sodium Chloride., heparin (porcine) injection solution Given 08/01/2020 6:[address] 5,000 Units 5,000 Units 5,000 Units, Subcutaneous, Every eight hours, First dose on Wed07/25/20 at 1400, Until Discontinued, 1 mL Given 07/31/2020 8:35 PM [employer] 5,000 Units Given 07/31/2020 4:09 PM [employer] 5,000 Units HYDROcodone-acetaminophen (NORCO) 5-325 Given 07/30/2020 7: 57 PM [employer] 2 tablets mg tablet 1-2 tablet 1-2 tablet, Oral, Every six hours prn, Starting Wed07/26/20 at 2308, Until Discontinued, moderate pain, Post - Op, Total dose of acetaminophen from all acetaminophen containing products should not exceed 4 grams (4000 mg) per day., Given 07/29/2020 7:25 PM [employer] 2 tablets Given 07/28/2020 10:29 PM [employer] 2 tablets HYDROmorphone (DILAUDID) injection solution Given 06/30 1:08 AM [employer] 0.5 mg (conc: 1 mg/mL) 0.2-0.5 mg 0.2-0.5 mg, IV, Every one hour prn, Starting Wed07/26/20 at 2308, Until Discontinued, severe pain, 0.5 mL, Post - Op Given 07/26/2020 11:18 PM [employer] 0.5 mg LORazepam (ATIVAN) 2 mg/mL injection solution Given 11:00 PM [employer] 1 mg 1 mg 1 mg, IV, Every two hours prn, Starting Wed07/21/20 at 0717, Until Discontinued, anxiety, agitation, 0.5 mL, If preference is to further dilute for IV administration: First draw up patient-specific dose, then dilute with EQUAL VOLUME of 0.9% sodium chloride, magnesium oxide (MAG-OX 400) tablet 400 mg Given 08/01/2020 11:40 AM [employer] 400 mg 400 mg, Oral, Two times a day, 2 doses, First dose on Wed08/01/20 at 1105, Last dose on Wed08/01/20 at 2100 Magnesium Replacement Protocol Med/Lab R eminder 1 each, Does not apply, Daily, First dose on Wed at 0900, Until Discontinued, Nurse to follow magnesium replacement per hyperlink. Nurse to enter all lab orders. Nurse to message pharmacy through MAR messaging to request replacement medication. Nurse to discontinue per jeanne col., metoclopramide (REGLAN) inj soln 5 mg 5 mg, IV, Every eight hours prn, Startin g 07/20/20 at 1715, Until Discontinued, nausea, vomiting, 1 mL, Use THIRD for na usea / vomiting. If ineffective after 30 minutes and ondansetron oral and IV given, call provid er for alternative. If preference is to further dilute for IV administration: First draw up patient-specific dose, then dilute to 10 mL with 0.9% sodium chloride., metroNIDAZOLE (FLAGYL) 500 mg/100 mL sodium Given 09/2020 9:25 AM [employer] 500 mg chloride 0.74% IV piggyback 500 mg, IV, Every eight hours, First dose on Stephenie 07/25/20 at 1220, Until Discontinued, 100 mL Given 08/01/2020 12:17 AM [employer] 500 mg Given 07/31/2020 4:09 PM [employer] 500 mg mirtazapine (REMERON) tablet 15 mg Given 07/31/2020 8:35 PM [employer] 15 mg 15 mg, Oral, Bedtime, First dose on 07/20/20 at 2100, Until Discontinued Given 07/30/2020 7:57 PM [employer] 15 mg Given 07/29/2020 7:25 PM [employer] 15 mg ondansetron (ZOFRAN ODT) dispersible tab let 4 mg 4 mg, Oral, Four times a day prn, Starti ng Sat 07/20/20 at 1715, Until Discontinued, nausea, vomiting, Use FIRST for nausea / vomiting. If ineffective after 30 minutes use ondansetron IV, ondansetron (ZOFRAN) injection solution 4 mg Given 07/26/2020 8:54 PM [employer] 4 mg 4 mg, IV, Four times a day prn, Starting 07/20/20 at 1715, Until Discontinued, nausea, vomiting, 2 mL, Use SECOND for nausea / vomiting. If ineffective after 30 minutes and ondansetron oral given, use metoclopramide IV If preference is to further dilute for IV administration: First draw up patient-specific dose, then dilute to 10 mL with 0.9% sodium chloride., pantoprazole (PROTONIX) enteric coated tablet Given 10:43 AM [employer] 40 mg 40 mg 40 mg, Oral, DAILY, First dose on Wed07/21/20 at 0900, Until Discontinued, Original Dose: Esomeprazole 40 mg Changed on July 20, 2020 per [employer] Medication Adjustment by Pharmacy Policy, Given 07/31/2020 7:57 AM [employer] 40 mg Given 07/30/2020 9:20 AM [employer] 40 mg Potassium Replacement Protocol 1 each, Does not apply, Every six hours, First dose on Wed07/23/20 at 0610, Until Discontinued, Magnesium Replacement Prot ocol must also be ordered at the time of Potassium Replacement Protocol. Nurse to follow potass ium replacement per hyperlink. Nurse to enter all lab orders. Nurse to [facility] pharmacy through Issue messaging to request replacement medicat ion (specify route). Nurse to discontinue per protocol., sodium chloride 0.9% flush (adult) 10 mL Given 08/01/2020 10:48 AM [employer] 10 mL 10 mL, IV, Two times a day and prn, First dose on Wed07/20/20 at 2100, Until Discontinued, 10 mL, Flush IV line as scheduled and as often as necessary before and after meds., Given 07/31/2020 8:35 PM [employer] 10 mL Given 07/31/2020 8:12 AM [employer] 10 mL vancomycin in 0.9% sodium chloride 250 mL Given 2020 4:43 AM [employer] 1,250 mg IV piggyback 1,250 mg 1,250 mg, IV, Every twelve hours, First dose (after last reorder) on Wed07/31/20 at 1300, Until Discontinued, 250 mL, Infuse using smart pump where available., Given 07/31/2020 1:17 PM [employer] 1,250 mg Medication Order MAR Action Action Date Dose Rate Site albuterol-ipratropium (DUO-NEB) Given 07/23/2020 11:27 AM [employer] 3 mL 2.5-0.5 mg/3 mL inhalation solution 3 mL 3 mL, Nebulization, Every four hours, First dose on Wed07/21/20 at 1200, Until Discontinued, 3 mL Given 07/23/2020 7:32 AM [employer] 3 mL Given 07/23/2020 4:02 AM [employer] 3 mL azithromycin (ZITHROMAX) 500 mg in sodium Given 07/20/2020 7:21 PM [employer] 500 mg chloride 0.9% 250 mL (addEASE) 500 mg, IV, Every twenty four hours, 3 doses, First dose on 07/20/20 at 1800, Last dose on Wed07/22/20 at 1800, 250 mL cefTRIAXone (ROCEPHIN) in D-3.74% 50 mL IV Given 07/20 6:28 PM [employer] 1,000 mg piggyback (DUPLEX) (premix) 1,000 mg 1,000 mg, IV, Every twenty four hours, 7 doses, First dose on Wed07/20/20 at 1800, Last dose on Wed07/26/20 at 1800, 50 mL, Give FIRST Flush IV line with normal saline 0.9% prior to and post administration. Do not administer with calcium containing solutions (example: Lactated Ringers, TPN with calcium, etc) as these are not compatible with ceftriaxone., fentaNYL 100 mcg/2 mL preservative free Given 07/26/2020 10:40 P M [employer] 75 mcg injection solution 25-100 mcg 25-100 mcg, IV, PRN per parameter, Starting Wed07/26/20 at 2056, Until Wed07/26/20 at 2309, severe pain, 2 mL, PACU, Administer 25-50 mcg IV every 5 minutes as needed per 0-10 Pain Scale as appropriate. Document TOTAL dose administered - maximum 100 mcg. The ordered dose of this medication is intended to be a cumulative dose for PACU AND Recovery. Any medication needed above the range in this order requires a phone call to the MD., fentaNYL 100 mcg/2 mL preservative free Given 07/23/2020 10:50 A M [employer] 50 mcg injection solution 25-300 mcg 25-300 mcg, IV, PRN per parameter, Starting Wed07/23/20 at 0854, Until Stephenie 07/25/20 at 0740, other (Specify), see administration instructions, 6 mL, Give 25-50 mcg IV every 3 minutes as needed, per provider request. Document total dose administered. Maximum dose 300 mcg. The ordered dose of this medication is intended to be cumulative dose for imaging procedure. Any medication needed above this range requires a new order from a physician., hEParin (50 unit/mL) in 5% New Bag 07/22/2020 12:45 PM 1,800 Units /hr 36 mL/hr dextrose 500 mL IV solution [employer] (premix) 100-2,500 Units/hr (2-50 mL/hr), IV, at 2-50 mL/hr, Titrate, Starting 07/20/20 at 1815, Until 07/22/20 at 2359, 500 mL, PHARMACY TO DOSE HEPARIN IN MED-SURG PATIENTS; DO NOT ADJUST WITHOUT PHARMACIST VERIFICATION OF CORRESPONDING PTT AND NEW RATE For use in Pulmonary Embolus or DVT Dosage Adjustments Based on PTT Results: Initial Infusion Dose: 18 units/kg/hr = 1400 units/hr (rounded to the nearest 100 units/hr - MAX: 2100 units/hr) (Infusion rates MAY exceed 2100 units/hr if subsequent PTT Results show such adjustments are necessary) Do not adjust dosage until heparin drip has been infusing for at least 6 hours If PTT is less than 60: REBOLUS with same loading dose 6400 units (rounded to the nearest 100 units based on 80 units/kg - MAX BOLUS: 10,000 units), THEN INCREASE Infusion by 300 units/hr, obtain PTT's every 6 hours If PTT is 60-69: REBOLUS with 3200 units (rounded to the nearest 100 units based on 40 units/kg - MAX BOLUS: 5,000 units), THEN INCREASE infusion by 200 units/hr, obtain PTT's every 6 hours If PTT is 70-115: THERAPEUTIC RANGE - NO CHANGE in dosage, obtain PTT's every 6 hours, if 2 consecutive PTTs in therapeutic range, obtain PTT's daily with AM labs If PTT is 116-135: DECREASE infusion by 100 units/hr, obtain PTT's every 6 hours If PTT is 136-149: HOLD infusion for 30 minutes and DECREASE the infusion by 200 units/hr and obtain PTT's every 6 hours If PTT is 150 or greater: HOLD infusion for 60 minutes and DECREASE infusion by 300 units/hr, obtain PTT's every 6 hours, Rate Verify 07/22/2020 4:27 AM [employer] 1,800 Units/hr 36 mL/hr New Bag 07/21/2020 11:06 PM [employer] 1,800 Units/hr 36 mL/hr hEParin (50 unit/mL) in 5% New Bag 07/25/2020 6:53 AM 1,600 Units /hr 32 mL/hr dextrose 500 mL IV solution [employer] (premix) 100-2,500 Units/hr (2-50 mL/hr), IV, at 2-50 mL/hr, Titrate, Starting Wed07/23/20 at 1535, Until Stephenie 07/25/20 at 0844, 500 mL, PHARMACY TO DOSE HEPARIN IN MED-SURG PATIENTS; DO NOT ADJUST WITHOUT PHARMACIST VERIFICATION OF CORRESPONDING PTT AND NEW RATE For use in Pulmonary Embolus or DVT Dosage Adjustments Based on PTT Results: Initial Infusion Dose: Restart at 1800 units per hour (which is what drip was running at prior to procedure). (Infusion rates MAY exceed 2100 units/hr if subsequent PTT, Results show such adjustments are necessary) Do not adjust dosage until heparin drip has been infusing for at least 6 hours If PTT is less than 60: REBOLUS with same loading dose 6400 units (rounded to the nearest 100 units based on 80 units/kg - MAX BOLUS: 10,000 units), THEN INCREASE Infusion by 300 units/hr, obtain PTT's every 6 hours If PTT is 60-69: REBOLUS with 3200 units (rounded to the nearest 100 units based on 40 units/kg - MAX BOLUS: 5,000 units), THEN INCREASE infusion by 200 units/hr, obtain PTT's every 6 hours If PTT is 70-115: THERAPEUTIC RANGE - NO CHANGE in dosage, obtain PTT's every 6 hours, if 2 consecutive PTTs in therapeutic range, obtain PTT's daily with AM labs If PTT is 116-135: DECREASE infusion by 100 units/hr, obtain PTT's every 6 hours If PTT is 136-149: HOLD infusion for 30 minutes and DECREASE the infusion by 200 units/hr and obtain PTT's every 6 hours If PTT is 150 or greater: HOLD infusion for 60 minutes and DECREASE infusion by 300 units/hr, obtain PTT's every 6 hours, Restarted 07/25/2020 1:59 AM [employer] 1,600 Units/hr 32 mL/hr Rate Verify 07/24/2020 7:00 PM [employer] 1,900 Units/hr 38 mL/hr heparin (porcine) injection solution Given 07/23/2020 10:[address] 3,200 Units 3,200 Units 3,200 Units, IV, PRN per parameter, Starting Wed07/23/20 at 1434, Until Stephenie 07/25/20 at 0905, other (Specify), Per Standard Heparin titration Scale - FOR PTT 60-69, 0.64 mL, delete the 3*s if ok to give rebolus dose. Uncheck this order if patient should not receive this rebolus dose. Do not rebolus until heparin drip has been infusing for at least six (6) hours. ADMINISTER REBOLUS WHEN PTT 60-69 Pharmacist to round the dose to nearest 100 units. Maximum dose of 5,000 units, heparin (porcine) injection solution Given 07/21/2020 8:[address] 6,400 Units 6,400 Units 6,400 Units, IV, PRN per parameter, Starting 07/20/20 at 2314, Until 07/22/20 at 2359, other (Specify), Per Standard Heparin titration Scale - FOR PTT less than 60, 1.28 mL, MD delete the 3*s if ok to give rebolus dose. Uncheck this order if patient should not receive this rebolus dose. Do not rebolus until heparin drip has been infusing for at least six (6) hours. ADMINISTER REBOLUS WHEN PTT less than 60 Pharmacist to round the dose to nearest 100 units. Maximum dose of 10,000 units., Given 07/21/2020 12:35 AM [employer] 6,400 Units HYDROcodone-acetaminophen (NORCO) 5-325 mg Given 07/27 9:34 PM [employer] 1 tablet tablet 1 tablet 1 tablet, Oral, Every four hours prn, Starting 07/20/20 at 1858, Until 07/28/20 at 1238, severe pain, Total dose of acetaminophen from all acetaminophen containing products should not exceed 4 grams (4000 mg) per day., Given 07/25/2020 11:00 PM [employer] 1 tablet Given 07/22/2020 1:10 PM [employer] 1 tablet iohexol (OMNIPAQUE) 350 mg/mL solution 100 Given 07/25/2020 10:00 AM [employer] 100 mL mL 100 mL, IV, Now imaging, 1 dose, Starting Stephenie 07/25/20 at 0959, Until Stephenie 07/25/20 at 1000, 125 mL, (Administration Instructions were omitted from this summary because they were too long), itraconazole (SPORANOX) capsule 200 mg Given 07/25/2020 8:05 AM [employer] 200 mg 200 mg, Oral, Two times a day with meals, First dose on Stephenie 07/25/20 at 0800, Until Discontinued, Take with food., ketorolac (TORADOL) intravenous injection 15 Given 4:46 PM [employer] 15 mg mg 15 mg, IV, Every six hours, 8 doses, First dose on Wed07/26/20 at 2310, Last dose on Wed07/28/20 at 1710, 1 mL, Post - Op, If preference is to further dilute for IV administration: First draw up patient-specific dose, then dilute to 10 mL with 0.9% sodium chloride., Given 07/28/2020 10:51 AM [employer] 15 mg Given 07/28/2020 5:47 AM [employer] 15 mg lactated ringers IV solution New Bag 07/26/2020 11:17 PM [employer] 75 mL/hr IV, at 75 mL/hr, Continuous, Starting Wed07/26/20 at 2310, Until 07/27/20 at 0857, 1,000 mL, Post - Op lidocaine PF (XYLOCAINE-MPF) 1 % preservative Given 10:50 AM [employer] 20 mL free injection solution 1-30 mL 1-30 mL, Subcutaneous, One time, 1 dose, Wed07/23/20 at 0855, 30 mL, Have available for Procedure, magnesium oxide (MAG-OX 400) tablet 400 mg Given 07/30/2020 7:56 PM [employer] 400 mg 400 mg, Oral, Two times a day, 2 doses, First dose on Wed07/30/20 at 1000, Last dose on Wed07/30/20 at 2100 Given 07/30/2020 10:19 AM [employer] 400 mg magnesium sulfate 2 gm/50 mL IV solution 2 g Given 07/26/2020 9:09 AM [employer] 2 g 2 g, IV, One time, 1 dose, Wed07/26/20 at 1000, 50 mL midazolam (VERSED) injection solution 0. 5 mg Given 07/26/2020 10:02 PM [employer] 0.5 mg 0.5 mg, IV, Every ten minutes prn, 2 doses, Starting Wed07/26/20 at 2056, Until Wed07/26/20 at 2309, anxiety, other (Specify), muscle spasms, 0.5 mL, PACU, Use if needed for anxiety or muscle spasms. May repeat one time in 10 minutes for a total of 2 doses only. The ordered dose of this medication is intended to be a cumulative dose for PACU AND Recovery. Any medication needed above the range in this order requires a phone call to the MD., midazolam (VERSED) injection solution 0. 5-4 mg Given 07/23/2020 10:51 AM [employer] 1 mg 0.5-4 mg, IV, PRN per parameter, Starting Wed07/23/20 at 0854, Until Stephenie 07/25/20 at 0740, other (Specify), see administration instructions, 4 mL, Give 0.5 mg IV every 2 minutes as needed for moderate sedation using UMSS during imaging procedure. Document total dose administered. Maximum dose 4 mg. The ordered dose of this medication is intended to be cumulative dose for imaging procedure. Any medication needed above this range requires a new order from a physician., potassium chloride (K-JAMES) packet 40 mEq Given 07/23/2020 6:51 PM [employer] 40 mEq 40 mEq, Oral, One time, 1 dose, Wed07/23/20 at 1800, Mix or dissolve completely in 3 to 8 ounces of cold water, juice or other suitable beverage and drink slowly., potassium chloride (K-JAMES) packet 40 mEq Given 07/23/2020 10:49 PM [employer] 40 mEq 40 mEq, Oral, One time, 1 dose, Wed07/23/20 at 2300, Mix or dissolve completely in 3 to 8 ounces of cold water, juice or other suitable beverage and drink slowly., potassium chloride (K-JAMES) packet 40 mEq Given 07/24/2020 6:41 AM [employer] 40 mEq 40 mEq, Oral, One time, 1 dose, Wed07/24/20 at 0715, Mix or dissolve completely in 3 to 8 ounces of cold water, juice or other suitable beverage and drink slowly., potassium chloride (K-JAMES) packet 40 mEq Given 07/24/2020 11:44 AM [employer] 40 mEq 40 mEq, Oral, One time, 1 dose, Wed07/24/20 at 1220, Mix or dissolve completely in 3 to 8 ounces of cold water, juice or other suitable beverage and drink slowly., potassium chloride (K-JAMES) packet 40 mEq Given 07/28/2020 8:52 AM [employer] 40 mEq 40 mEq, Oral, One time, 1 dose, [place] 07/28/20 at 0855, Mix or dissolve completely in 3 to 8 ounces of cold water, juice or other suitable beverage and drink slowly., potassium chloride (K-JAMES) packet 40 mEq Given 07/29/2020 8:01 AM [employer] 40 mEq 40 mEq, Oral, One time, 1 dose, [facility] 07/29/20 at 0810, Mix or dissolve completely in 3 to 8 ounces of cold water, juice or other suitable beverage and drink slowly., potassium chloride (K-JAMES) packet 40 mEq Given 07/30/2020 10:19 AM [employer] 40 mEq 40 mEq, Oral, One time, 1 dose, 07/30/20 at 1000, Mix or dissolve completely in 3 to 8 ounces of cold water, juice or other suitable beverage and drink slowly., potassium chloride (K-JAMES) packet 40 mEq Given 07/31/2020 4:09 PM [employer] 40 mEq 40 mEq, Oral, One time, 1 dose, [facility] 07/31/20 at 1400, Mix or dissolve completely in 3 to 8 ounces of cold water, juice or other suitable beverage and drink slowly., potassium chloride (K-JAMES) packet 40 mEq Given 08/01/2020 11:40 AM [employer] 40 mEq 40 mEq, Oral, One time, 1 dose, [facility] 08/01/20 at 1205, Mix or dissolve completely in 3 to 8 ounces of cold water, juice or other suitable beverage and drink slowly., potassium chloride 10mEq/100 mL IV piggy back Given 07/23/2020 12:40 PM [employer] 10 mEq 10 mEq, IV, Every ninety minutes, 4 doses, First dose on Wed07/23/20 at 0700, Last dose on Wed07/23/20 at 1130, 100 mL Given 07/23/2020 11:37 AM [employer] 10 mEq Given 07/23/2020 10:47 AM [employer] 10 mEq potassium chloride 10mEq/100 mL IV piggy back Given 07/26/2020 1:07 PM [employer] 10 mEq 10 mEq, IV, Every one hour, 2 doses, First dose on Wed07/26/20 at 1200, Last dose on Wed07/26/20 at 1300, 100 mL Given 07/26/2020 12:03 PM [employer] 10 mEq potassium chloride 10mEq/100 mL IV piggy back Given 07/26/2020 6:18 PM [employer] 10 mEq 10 mEq, IV, Every ninety minutes, 2 doses, First dose on Wed07/26/20 at 1800, Last dose on Wed07/26/20 at 1930, 100 mL predniSONE tablet 40 mg Given 07/24/2020 8:36 AM [employer] 40 mg 40 mg, Oral, Daily, First dose on Wed07/21/20 at 1100, Until Discontinued Given 07/23/2020 10:48 AM [employer] 40 mg Given 07/22/2020 9:26 AM [employer] 40 mg sodium chloride 0.9% IV solution New Bag 07/22/2020 10:58 AM [employer] 100 mL/hr IV, at 100 mL/hr, Continuous, Starting 07/20/20 at 1720, Until 07/24/20 at 2043, 1,000 mL New Bag/Tubing 07/20/2020 6:22 PM [employer] 100 mL/hr sodium chloride 0.9% IV Already Infusing 07/23/2020 10:49 AM [employer] 30 mL/hr solution IV, at 30 mL/hr, Continuous, Starting 07/23/20 at 0855, Until 07/27/20 at 0857, 1,000 mL, TKO, sodium chloride 0.9% IV solution New Bag 07/26/2020 2:31 PM [employer] 75 mL/hr IV, at 75 mL/hr, Continuous, Starting Stephenie 07/25/20 at 1005, Until 07/27/20 at 0857, 1,000 mL New Bag 07/25/2020 10:31 AM [employer] 75 mL/hr vancomycin in 0.9% sodium chloride 250 mL Given 2020 11:07 PM [employer] 1,250 mg IV piggyback 1,250 mg 1,250 mg, IV, Every twelve hours, First dose on Wed07/21/20 at 1100, Until Discontinued, 250 mL, Infuse using smart pump where available., Given 07/22/2020 11:43 AM [employer] 1,250 mg Given 07/21/2020 10:49 PM [employer] 1,250 mg vancomycin in 0.9% sodium chloride 250 mL Given 2020 1:32 AM [employer] 1,500 mg IV piggyback 1,500 mg 1,500 mg, IV, Every twelve hours, First dose (after last modification) on Wed07/28/20 at 1300, Until Discontinued, 250 mL, Infuse using smart pump where available., Given 07/30/2020 4:00 PM [employer] 1,500 mg Given 07/30/2020 12:24 AM [employer] 1,500 mg vancomycin in 0.9% sodium chloride 500 mL Given 2020 12:21 AM [employer] 1,750 mg IV piggyback 1,750 mg 1,750 mg, IV, Every twelve hours, First dose on Wed07/23/20 at 1200, Until Discontinued, 500 mL, Infuse using smart pump where available., Given 07/27/2020 1:20 PM [employer] 1,750 mg Given 07/27/2020 12:41 AM [employer] 1,750 mg documented in this encounter
== END 2020-08-07 17:22 | disposition home or self-care (01) | DRG 948 ==
LOC: LB.MS 14:55 → UNDOADMIN 14:55 → LB.MS 15:59
PROVIDERS: ADMIT Family Medicine; ATTEND Family Medicine
DX: R53.1 Weakness (principal); H54.7 Unspecified visual loss; E78.00 Pure hypercholesterolemia, unspecified; F20.9 Schizophrenia, unspecified; F17.200 Nicotine dependence, unspecified, uncomplicated; G89.18 Other acute postprocedural pain; Z20.822 Contact with and (suspected) exposure to COVID-19; Z90.49 Acquired absence of other specified parts of digestive tract; Z79.899 Other long term (current) drug therapy
CPT/HCPCS: 36415; 85025; 86580; 97161-GP; 97165-GO; 97535-GO; A9270-GY; U0002

== ENCOUNTER 2020-11-30 06:40 | Emergency (ER) | payer MEDICARE, MEDICAID ==
[2020-11-30 07:15] VITALS: BP 142/81; PULSE 94
--- NOTE | 2020-11-30 08:40 | CR ---
DATE OF SERVICE: 11/30/20 CLINICAL DATA: Short of breath PA AND LATERAL CHEST: Comparison is made to a prior exam dated 07/20/20. The heart size is normal. There is calcification of the aortic arch. The area of infiltrate and consolidation in the left lower lobe on the prior exam has resolved. There is minimal residual pleural thickening in the left mid lung laterally and there is an area of scarring and fibrosis in the left mid lung. The lung is otherwise clear. No new abnormalities. No pleural effusion. No pneumothorax. [id number] [facility]
--- NOTE | 2020-11-30 11:21 | ER ---
REASON FOR EMERGENCY ROOM VISIT: Shortness of breath. HISTORY: This 59-year-old man came to the emergency room this morning with a complaint of intermittent feeling of suffocation or shortness of breath over the past 2 to 3 months. He has not had a fever or chills and denies any cough, although he does admit to smoking at least 1 pack per day of cigarettes for the last 40 years or more. His episodes of shortness of breath seem to be intermittent and not necessarily related to exertion. Up until recently, he had lived with his mother and he does have a diagnosis of chronic schizophrenia. He states that his appetite has been good and he has not had any changes in his bowel habits. His history is possibly relevant in that he was hospitalized in late June of this year for fever and chills and x-ray changes that were somewhat suspicious of a pneumonia versus an underlying lung malignancy. He had a marked leukocytosis with fever and chills and x-ray findings with the above suggestion. He was transferred to [facility] where he underwent definitive care which eventually included a CT scan to rule out pulmonary embolus followed by thoracoscopy with drainage of a left thoracic empyema and decortication. He was discharged on a long course of antibiotics and he recovered very uneventfully from that standpoint. Since then, it sounds like he has had these intermittent spells of shortness of breath. Since his arrival in the emergency room, the patient states that he feels better than when he first came in roughly 1 hour ago. He has not had any hemoptysis or productive cough. PAST MEDICAL HISTORY: 1. Left-sided empyema as described above. 2. Chronic schizophrenia. 3. Longstanding history of smoking. MEDICATIONS: Reviewed. Please see electronic medical record. They include the followin. Clozapine. 2. Esomeprazole. 3. Cyclobenzaprine. ALLERGIES: NONE TO MEDICATIONS. REVIEW OF SYSTEMS: Pertinent positives and negatives as listed in the HPI. PHYSICAL EXAMINATION: VITAL SIGNS: His blood pressure is 142/81, heart rate 94, O2 sats 98% on room air. He is afebrile. GENERAL: Reveals a pleasant man who is calm and in no acute distress. He does answer questions appropriately. HEENT: He has no scleral icterus. Oropharynx, he has poor dentition. NECK: Supple. No adenopathy. No JVD. Trachea midline. CHEST: Clear to auscultation with good air exchange bilaterally and no wheezes, rhonchi, or rales. CARDIAC: Regular rate without murmur. ABDOMEN: Soft and nontender. EXTREMITIES: No deformities. Normal pulses. No edema. NEUROLOGIC: He is alert and oriented. He answers questions appropriately. He moves all 4 extremities equally well. He has no facial asymmetry. LABORATORY DATA: He did have a chest x-ray, a PA and lateral, which showed possibly some scarring versus atelectasis in the region of the lingula. Otherwise, no evidence of active pulmonary disease and no evidence of pleural effusion. CBC was obtained showing a normal white count at 7900 and hemoglobin of 12.0 (unchanged from June). SARS COVID-19 test was done and this was negative (he has been vaccinated). IMPRESSION: Intermittent dyspnea of several months duration with history of smoking and no evidence of acute pulmonary disease at this time. PLAN: I had a discussion with him regarding the possibility that his chronic smoking may be playing a role. He may be developing some underlying chronic lung disease as a result of this. I explained to him that there is no sign of active infection at this time, and that since his symptoms have been going on for at least 2 or 3 months now, he should be followed by Dr. Bhatt quite closely and further efforts should be focused on cessation of smoking. He asked me whether or not his schizophrenia could be playing a role. I thought that was an interesting question as it is quite possible, but hard to determine at this juncture given my evaluation. He understands and agrees with this plan and all questions were answered. MIKAELA/TORREY /[id number]
== END 2020-11-30 08:30 | disposition home or self-care (01) ==
LOC: LB.ED 06:40
DX: R06.02 Shortness of breath (principal); F17.200 Nicotine dependence, unspecified, uncomplicated; Z20.822 Contact with and (suspected) exposure to COVID-19
CPT/HCPCS: 36415; 71046; 85025; 99285; U0002

== ENCOUNTER 2021-03-30 00:09 | Emergency (ER) | payer MEDICARE, MEDICAID ==
[2021-03-30] MEDS ORDERED: Ibuprofen 400 MG Tab ONE (00:45)
--- NOTE | 2021-03-30 00:45 | EDM.PDOC ---
ED HPI GENERAL MEDICAL PROBLEM - General Chief Complaint: Respiratory Problem Stated Complaint: SHORTNESS OF BREATH Time Seen by Provider: 03/30/21 00:27 Source of Information: Reports: Patient History Limitations: Reports: No Limitations - History of Present Illness INITIAL COMMENTS - FREE TEXT/NARRATIVE: This patient presents to the emergency department for evaluation of shortness of breath. He states he has had difficulty breathing for the past 2 months with pain in his back. He arrives via EMS in no acute distress. He denies fever, cough, sore throat, chest pain. He denies nausea, vomiting, diarrhea. He states he has tried no medications for the pain in his back. He is unable to localize the pain. He has no history of trauma, falls, other concerns or complaints. - Related Data Allergies Allergy/AdvReac Type Severity Reaction Status Date / Time No Known Allergies Allergy Verified 03/30/21 01:39 Home Meds: Home Meds Cyclobenzaprine HCl 10 mg PO BEDTIME PRN 05/15/15 [History] Esomeprazole [NexIUM] 40 mg PO DAILY 05/15/15 [History] atorvaSTATin Calcium [Atorvastatin Calcium] 40 mg PO QPM 05/15/15 [History] cloZAPine [Clozapine] 200 mg PO DAILY 05/15/15 [History] Mirtazapine 15 mg PO QPM 12/04/15 [History] cloZAPine [Clozapine] 400 mg PO QPM 12/04/15 [History] Acetaminophen [Tylenol Extra Strength] 1,000 mg PO Q6H PRN #100 tab 07/01/20 [Rx] Ibuprofen 600 mg PO QID PRN #50 tablet 07/01/20 [Rx] Past Medical History HEENT History: Reports: Impaired Vision, Other (See Below) Other HEENT History: Deaf Right Ear Cardiovascular History: Reports: High Cholesterol Respiratory History: Reports: SOB Psychiatric History: Reports: Schizophrenia - Infectious Disease History Infectious Disease History: Reports: Chicken Pox - Past Surgical History HEENT Surgical History: Reports: None Cardiovascular Surgical History: Reports: None GI Surgical History: Reports: Appendectomy Social & Family History - Family History Family Medical History: No Pertinent Family History GI: Reports: None : Reports: None - Caffeine Use Caffeine Use: Reports: Coffee ED ROS GENERAL - Review of Systems Review Of Systems: Comprehensive ROS is negative, except as noted in HPI. ED EXAM, GENERAL - Physical Exam Exam: See Below Exam Limited By: No Limitations General Appearance: Alert, WD/WN, No Apparent Distress Eye Exam: Bilateral Eye: PERRL Ears: Normal External Exam Nose: Normal Inspection Throat/Mouth: Normal Inspection Head: Atraumatic, Normocephalic Neck: Normal Inspection, Full Range of Motion Respiratory/Chest: No Respiratory Distress, Lungs Clear, Normal Breath Sounds, No Accessory Muscle Use, Chest Non-Tender. No: Respiratory Distress, Decreased Breath Sounds, Crackles, Rales, Rhonchi, Wheezing, Accessory Muscle Use, Retractions Cardiovascular: Regular Rate, Rhythm Back Exam: Normal Inspection. No: CVA Tenderness (R), CVA Tenderness (L) Extremities: Normal Inspection Neurological: Alert, Oriented Psychiatric: Normal Affect, Normal Mood, Other (States he is schizophrenic) Skin Exam: Warm, Dry, Intact, Normal Color Course - Vital Signs Last Recorded V/S: Last Vital Signs Temp 36.0 C L 03/30/21 00:23 Pulse 98 03/30/21 00:23 Resp 18 03/30/21 00:23 BP 166/84 H 03/30/21 00:23 Pulse Ox 97 03/30/21 00:23 - Re-Assessments/Exams Free Text/Narrative Re-Assessment/Exam: This patient presents for evaluation of shortness of breath and difficulty breathing. There is no evidence of respiratory distress and this patient has a normal respiratory rate, oxygen saturation of 98% in room air. There is no cough heard. Signs and symptoms are most consistent with chest wall pain that is likely of a musculoskeletal source although the pain is not reproducible. Broad differential diagnosis was considered including chest wall injury, rib fracture or contusion, pleurisy, pneumothorax, shingles, pneumonia, or other intrapulmonary process such as PE, cardiac causes, referred pain. There are no other sources for this nonreproducible pain based on patient history, exam. Supportive outpatient management is indicated and the patient was given ibuprofen, 400 mg tablets to be used at home. He should follow-up with his primary care provider. Patient was stable at the time of discharge. 03/30/21 03:54 Departure - Departure Time of Disposition: 00:45 Disposition: Home, Self-Care 01 Condition: Good Clinical Impression: Schizophrenia, Musculoskeletal back pain, Back pain - Discharge Information Instructions: Ibuprofen Oral Tablets and Capsules Referrals: PCP,None [Primary Care Provider] - Forms: ED Department Discharge Additional Instructions: Discharge home. Ibuprofen 400mg 1 tablet by mouth every 6 hours as needed for pain. Follow up with your primary provider. Sepsis Event Note (ED) - Focused Exam Vital Signs: Vital Signs Temp Pulse Resp BP Pulse Ox 03/30/21 00:23 36.0 C L 98 18 166/84 H 97
[2021-03-30 01:31] VITALS: BP 166/84; PULSE 98
== END 2021-03-30 01:00 | disposition home or self-care (01) ==
LOC: LB.ED 00:09
DX: M54.9 Dorsalgia, unspecified (principal); F20.9 Schizophrenia, unspecified; E78.00 Pure hypercholesterolemia, unspecified; Z79.899 Other long term (current) drug therapy
CPT/HCPCS: 99284; A9270; A0425; A0429

== ENCOUNTER 2021-06-02 09:29 | Emergency (ER) | payer MEDICARE, MEDICAID ==
--- NOTE | 2021-06-02 09:51 | EDM.PDOCBH ---
ED HPI GENERAL MEDICAL PROBLEM - General Chief Complaint: Respiratory Problem Stated Complaint: AMBULANCE ARRIVAL Time Seen by Provider: 06/02/21 09:45 Source of Information: Reports: Patient, EMS Notes Reviewed History Limitations: Reports: No Limitations - History of Present Illness INITIAL COMMENTS - FREE TEXT/NARRATIVE: This patient presents to the emergency department via EMS for evaluation of a variety of concerns. He has a 6 history of schizophrenia and passes me in note that outlines his symptoms that include "snapping of his braid, cannot sleep, cannot breathe, dizzy spells, headaches, smells smoke, always coughing, smells blood from myself, hears voices, muscle spasms, twitches of muscles, and other pains." He also writes on the note "want to commit suicide." The patient is reluctant to talk to staff here but refers to his note. He has a long history of see the for any and was managed by a psychiatrist in [place] for quite some time; however, this provider retired. He has now been followed by Dr. Bhatt the clinic. According to his medical record he is on clonazepam and mirtazapine as a pain at this time. He does live alone, does not receive [facility], and has a limited support system. He denies other concerns or complaints. He states he "wants to go to treatment." - Related Data Allergies Allergy/AdvReac Type Severity Reaction Status Date / Time No Known Allergies Allergy Verified 06/02/21 10:49 Home Meds: Home Meds Cyclobenzaprine HCl 10 mg PO BEDTIME PRN 05/15/15 [History] atorvaSTATin Calcium [Atorvastatin Calcium] 40 mg PO QPM 05/15/15 [History] cloZAPine [Clozapine] 200 mg PO DAILY 05/15/15 [History] Mirtazapine 15 mg PO QPM 12/04/15 [History] cloZAPine [Clozapine] 400 mg PO QPM 12/04/15 [History] Acetaminophen [Tylenol Extra Strength] 1,000 mg PO Q6H PRN #100 tab 07/01/20 [Rx] Ibuprofen 600 mg PO QID PRN #50 tablet 07/01/20 [Rx] Naproxen Sodium 220 mg PO Q12H PRN 06/02/21 [History] Pantoprazole [ProTONIX] 40 mg PO DAILY 12/06/21 [History] Past Medical History HEENT History: Reports: Impaired Vision, Other (See Below) Other HEENT History: Deaf Right Ear Cardiovascular History: Reports: High Cholesterol Respiratory History: Reports: SOB Psychiatric History: Reports: Schizophrenia - Infectious Disease History Infectious Disease History: Reports: Chicken Pox - Past Surgical History HEENT Surgical History: Reports: None Cardiovascular Surgical History: Reports: None GI Surgical History: Reports: Appendectomy Social & Family History - Family History Family Medical History: No Pertinent Family History GI: Reports: None : Reports: None - Caffeine Use Caffeine Use: Reports: Coffee ED ROS GENERAL - Review of Systems Review Of Systems: Comprehensive ROS is negative, except as noted in HPI. ED EXAM, BEHAVIORAL HEALTH - Physical Exam Exam: See Below Exam Limited By: Other (Schizophrenia) General Appearance: Alert, No Apparent Distress Eye Exam: Bilateral Eye: EOMI, PERRL Ears: Normal External Exam, Normal Canal, Normal TMs Nose: Normal Inspection, Normal Mucosa Throat/Mouth: Normal Inspection, Normal Oropharynx, No Airway Compromise Head: Atraumatic, Normocephalic Neck: Normal Inspection, Supple, Non-Tender, Full Range of Motion. No: Lymphadenopathy (R), Lymphadenopathy (L) Respiratory/Chest: No Respiratory Distress, Lungs Clear, Normal Breath Sounds, No Accessory Muscle Use Cardiovascular: Normal Peripheral Pulses, Regular Rate, Rhythm GI/Abdominal: Normal Bowel Sounds, Soft, Non-Tender, No Organomegaly, No Distention Neurological: Alert, Normal Mood/Affect, Oriented x 3 Psychiatric: Alert, Flat Affect, Non-Communicative (Prefers to write things down), Suicidal Thoughts, Auditory Hallucinations. No: Uncooperative, Suicidal Plan, Visual Hallucinations, Paranoid Thoughts, Threatening Behavior Skin Exam: Warm, Dry, Intact, Normal color #1 Interpretation EKG Date: 06/02/21 Rhythm: NSR Rate (Beats/Min): 83 [place]: Normal P-Wave: Present QRS: Normal ST-T: Normal QT: Normal (Indication: difficulty breathing) COURSE, BEHAVIORAL HEALTH COMP - Course Vital Signs: Last Vital Signs Temp 36.2 C 06/02/21 10:59 Pulse 91 06/02/21 10:59 Resp 18 06/02/21 10:59 BP 147/82 H 06/02/21 10:59 Pulse Ox 100 06/02/21 10:59 Orders, Labs, Meds: Laboratory Tests 06/02/21 06/02/21 06/02/21 Range/Units 10:35 10:35 10:35 WBC 7.8 (4.0-11.0) K/uL RBC 4.43 L (4.50-6.50) M/uL Hgb 13.7 (13.0-18.0) g/dL Hct 40.3 (40.0-54.0) % MCV 91 (76-96) fL MCH 30.9 (27.0-32.0) pg MCHC 34.0 (31.0-35.0) g/dL RDW 14.0 (11.0-16.0) % Plt Count 217 (150-400) K/uL MPV 9.3 (6.0-10.0) fL Neut % (Auto) 69.3 (45.0-70.0) % Lymph % (Auto) 23.2 (20.0-40.0) % [place] % (Auto) 7.4 (3.0-10.0) % Eos % (Auto) 0.0 L (1.0-5.0) % Baso % (Auto) 0.1 (0.0-0.5) % Neut # (Auto) 5.39 (2.00-7.50) K/uL Lymph # (Auto) 1.81 (1.50-4.00) K/uL Clay # (Auto) 0.58 (0.20-0.80) K/uL Eos # (Auto) 0.00 L (0.04-0.40) K/uL Baso # (Auto) 0.01 L (0.02-0.10) K/uL Sodium 140 (136-145) mmol/L Potassium 4.0 (3.5-5.1) mmol/L Chloride 106 (98-107) mmol/L Carbon Dioxide 25.3 (21.0-32.0) mmol/L Anion Gap 12.7 (5.0-15.0) mmol/L BUN 9 (8-26) mg/dL Creatinine 1.07 (0.70-1.30) mg/dL Est Cr Clr Drug Dosing 8.11 mL/min Estimated GFR (MDRD) > 60 (>60) MLS/MIN BUN/Creatinine Ratio 8.4 (6-25) Glucose 124 H D (74-100) mg/dL Calcium 8.6 (8.5-10.1) mg/dL Urine Color Yellow Urine Appearance Clear (CLEAR) Urine pH 6.0 (5.0-8.0) Ur Specific [place] 1.015 (1.003-1.030) Urine Protein Negative (NEGATIVE) mg/dL Urine Glucose (UA) Negative (NEGATIVE) mg/dL Urine Ketones Negative (NEGATIVE) mg/dL Urine Occult Blood Negative (NEGATIVE) Urine Nitrite Negative (NEGATIVE) Urine Bilirubin Negative (NEGATIVE) Urine Urobilinogen 0.2 (0.2-1.0) E.U./dL Ur Leukocyte Esterase Negative (NEGATIVE) Urine Opiates Screen (NEGATIVE) Ur Oxycodone Screen (NEGATIVE) Urine Methadone Screen (NEGATIVE) Ur Barbiturates Screen (NEGATIVE) Ur Tricyclics Screen (NEGATIVE) Ur Phencyclidine Scrn (NEGATIVE) Ur Amphetamine Screen (NEGATIVE) U Methamphetamines Scrn (NEGATIVE) Urine MDMA Screen (NEGATIVE) U Benzodiazepines Scrn (NEGATIVE) U Cocaine Metab Screen (NEGATIVE) U Marijuana (THC) Screen (NEGATIVE) SARS-CoV-2 RNA (DARSHAN) (NEGATIVE) 06/02/21 06/02/21 Range/Units 11:15 13:08 WBC (4.0-11.0) K/uL RBC (4.50-6.50) M/uL Hgb (13.0-18.0) g/dL Hct (40.0-54.0) % MCV (76-96) fL MCH (27.0-32.0) pg MCHC (31.0-35.0) g/dL RDW (11.0-16.0) % Plt Count (150-400) K/uL MPV (6.0-10.0) fL Neut % (Auto) (45.0-70.0) % Lymph % (Auto) (20.0-40.0) % Clay % (Auto) (3.0-10.0) % Eos % (Auto) (1.0-5.0) % Baso % (Auto) (0.0-0.5) % Neut # (Auto) (2.00-7.50) K/uL Lymph # (Auto) (1.50-4.00) K/uL [place] # (Auto) (0.20-0.80) K/uL Eos # (Auto) (0.04-0.40) K/uL Baso # (Auto) (0.02-0.10) K/uL Sodium (136-145) mmol/L Potassium (3.5-5.1) mmol/L Chloride (98-107) mmol/L Carbon Dioxide (21.0-32.0) mmol/L Anion Gap (5.0-15.0) mmol/L BUN (8-26) mg/dL Creatinine (0.70-1.30) mg/dL Est Cr Clr Drug Dosing mL/min Estimated GFR (MDRD) (>60) MLS/MIN BUN/Creatinine Ratio (6-25) Glucose (74-100) mg/dL Calcium (8.5-10.1) mg/dL Urine Color Urine Appearance (CLEAR) Urine pH (5.0-8.0) Ur Specific [place] (1.003-1.030) Urine Protein (NEGATIVE) mg/dL Urine Glucose (UA) (NEGATIVE) mg/dL Urine Ketones (NEGATIVE) mg/dL Urine Occult Blood (NEGATIVE) Urine Nitrite (NEGATIVE) Urine Bilirubin (NEGATIVE) Urine Urobilinogen (0.2-1.0) E.U./dL Ur Leukocyte Esterase (NEGATIVE) Urine Opiates Screen Negative (NEGATIVE) Ur Oxycodone Screen Negative (NEGATIVE) Urine Methadone Screen Negative (NEGATIVE) Ur Barbiturates Screen Negative (NEGATIVE) Ur Tricyclics Screen Negative (NEGATIVE) Ur Phencyclidine Scrn Negative (NEGATIVE) Ur Amphetamine Screen Negative (NEGATIVE) U Methamphetamines Scrn Negative (NEGATIVE) Urine MDMA Screen Negative (NEGATIVE) U Benzodiazepines Scrn Negative (NEGATIVE) U Cocaine Metab Screen Negative (NEGATIVE) U Marijuana (THC) Screen Negative (NEGATIVE) SARS-CoV-2 RNA (DARSHAN) Negative (NEGATIVE) Re-Assessment/Re-Exam: 11:20 am This patient presents to the emergency department with a variety of concerns including suicidal thoughts. He was evaluated by a nurse clinician through [place] who found him to be at medium risk for suicide. He does not have a plan but is hearing voices and does have increased risk related to his underlying diagnosis. The nurse believes he does need to be admitted to an inpatient unit for further management and is making attempts to find placement for him. Medical Clearance: Patient is medically stable and clear for mental health facility transfer. 06/02/21 16:55 Discharge vs Psych Eval/Treatment:: Patient has been cooperative while in the ED. He was evaluated by Johnnie of the [facility] social services coordinator and placement arranged by social and political studies professor. He was accepted in transfer to [facility] for inpatient admission. 06/02/21 16:56 Departure - Departure Time of Disposition: 17:45 Disposition: DC/Tfer to Acute Hospital 02 Condition: Fair Clinical Impression: Schizophrenia, Suicidal ideation - Discharge Information *PRESCRIPTION DRUG MONITORING PROGRAM REVIEWED*: No *COPY OF PRESCRIPTION DRUG MONITORING REPORT IN PATIENT NAHEED: No Referrals: PCP,None [Primary Care Provider] - Forms: ED Department Discharge Sepsis Event Note (ED) - Focused Exam Vital Signs: Vital Signs Temp Pulse Resp BP Pulse Ox 06/02/21 10:59 36.2 C 91 18 147/82 H 100
[2021-06-02 11:07] VITALS: BP 147/82; PULSE 91
== END 2021-06-02 17:55 ==
LOC: LB.ED 09:29
DX: F20.9 Schizophrenia, unspecified (principal); E78.00 Pure hypercholesterolemia, unspecified; Z79.899 Other long term (current) drug therapy; Z20.822 Contact with and (suspected) exposure to COVID-19
CPT/HCPCS: 36415; 80048; 80307; 81003; 85025; 93005; 99285; A0425; A0429; U0002

== ENCOUNTER 2024-10-01 23:46 | Emergency (ER) | payer MEDICARE, MEDICAID ==
[2024-10-02 00:16] VITALS: BP 143/78; PULSE 87
[2024-10-02] MEDS: Acetaminophen 325 MG Tab PO ONE (00:22)
== END 2024-10-02 00:35 | disposition home or self-care (01) ==
LOC: LB.ED 23:46
DX: R04.0 Epistaxis (principal); E78.00 Pure hypercholesterolemia, unspecified; Z79.899 Other long term (current) drug therapy
CPT/HCPCS: 30901; 99283; 99283-25; A9270-GY

== ENCOUNTER 2024-10-06 01:48 | Emergency (ER) | payer MEDICARE, MEDICAID ==
[2024-10-06 02:55] VITALS: BP 142/79; PULSE 86
== END 2024-10-06 02:45 | disposition home or self-care (01) ==
LOC: LB.ED 01:48 → SUPCPDRO 01:48 → LB.ED 02:45
DX: R04.0 Epistaxis (principal); E78.00 Pure hypercholesterolemia, unspecified; F17.210 Nicotine dependence, cigarettes, uncomplicated; Z79.899 Other long term (current) drug therapy
CPT/HCPCS: 30901; 99283-25

== ENCOUNTER 2024-10-07 17:35 | Emergency (ER) | payer MEDICARE, MEDICAID ==
[2024-10-07 19:16] VITALS: BP 127/67; PULSE 80
== END 2024-10-07 19:15 | disposition home or self-care (01) ==
LOC: LB.ED 17:35
DX: R04.0 Epistaxis (principal); E78.00 Pure hypercholesterolemia, unspecified; F17.210 Nicotine dependence, cigarettes, uncomplicated; Z90.49 Acquired absence of other specified parts of digestive tract; Z79.899 Other long term (current) drug therapy
CPT/HCPCS: 30901; 99283; 99283-25